=== PATIENT | male | born 1945 | race African-American/Black ===

== ENCOUNTER 2018-09-25 10:19 | Inpatient (IN) ==
[2018-09-25 12:30] LABS: BASO# 0.01 X1000 (0.0-0.2); BASO% 0.1 % (0.0-0.8); EOS# 0.11 X1000 (0.0-0.7); EOS% 1.4 % (0.0-10.0); HEMATOCRIT 29.9 % (42.0-52.0); IMM GRAN# 0.04 X1000 (0.0-0.04); IMM GRAN% 0.5 % (0.0-0.5); LYMPH# 0.42 X1000 (1.2-3.4); LYMPH% 5.2 % (20.5-51.1); MCH 27.4 PG (27-31); MCHC 30.1 g/dL (33-37); MCV 90.9 FL (81-99); MONO# 0.74 X1000 (0.11-0.59); MONO% 9.2 % (1.7-9.3); MPV 10.5 FL (7.4-10.4); NEUT# 6.75 X1000 (1.4-6.5); NEUT% 83.6 % (42.2-75.2); PLT 270 X1000 (130-400); RBC 3.29 XMIL (4.7-6.1); RDW 21.4 % (11.5-14.5); WBC 8.07 X1000 (4.8-10.8)
[2018-09-25] MEDS ORDERED: MORPHINE IV PRN (12:34)
[2018-09-25] MEDS ORDERED: ZOFRAN IV PRN (12:34)
[2018-09-25 12:39] LABS: AMYLASE 79 U/L (20-200); LIPASE 99 U/L (13-60)
[2018-09-25 12:43] LABS: ALB/GLOB RATIO 0.9; ALBUMIN 3.3 g/dL (3.5-5.0); CALCIUM 8.5 mg/dL (8.8-10.2); CREATININE 1.9 mg/dL (0.7-1.2); MAGNESIUM 1.8 mg/dL (1.5-2.7); POTASSIUM 3.2 mmol/L (3.5-5.1); TOTAL BILIRUBIN 7.09 mg/dL (0.20-1.00); TOTAL PROTEIN 6.9 g/dL (6.3-8.3)
[2018-09-25 12:45] LABS: INR 0.99; PROTIME 13.9 Seconds (11.0-16.0)
--- NOTE | 2018-09-25 13:39 | HISTORY AND PHYSICAL ---
ONCOLOGIST: Dr. Gamaliel Marshall. CHIEF COMPLAINT: Abnormal labs and jaundice. HISTORY OF PRESENT ILLNESS: Mr. Guzman is a 73-year-old male with a known history of pancreatic cancer followed by Dr. Marshall. He also has a history of high blood pressure, diabetes mellitus, and gout. He comes directly from Dr. Marshall's office with high bilirubin which is an abrupt change from only a few days ago. Mr. Guzman was initially diagnosed with pancreatic cancer last year. He was set up to follow with interventionalist down at [facility] for some type of procedure, either stent placement or possible Whipple. This was scheduled for July of 2018. The patient reports that this was canceled because when they did the initial incision, they were able to look in his abdomen and realize that surgery was not an option. We do not have the specific report at this time. This is per patient report. At any rate, the patient was supposed to start chemotherapy today by Dr. Marshall. Labs were checked and he was found to have a high bilirubin. He does report ailyn-colored stools and darker urine and jaundice of the eyes, but otherwise his complaints are the same. He has vague abdominal pain mostly at night, and he is unable to eat much, but he denies any fever or vomiting. He does have some nausea. No other real issues. He does report some chronic lower extremity edema but denies chest pain or shortness of breath. We have been asked to admit the patient directly and will consult GI. PAST MEDICAL HISTORY: 1. Known pancreatic cancer followed by Dr. Marshall who was supposed to start chemotherapy today. 2. Diabetes mellitus type 2. 3. Hypertension. 4. Gout. 5. Hyperlipidemia. 6. History of GI bleeding in the past. 7. Chronic kidney disease. 8. Hypothyroidism. SURGICAL HISTORY: He has had a port placement and surgery on his finger. He also had an aborted abdominal procedure in July of last year. FAMILY HISTORY: Noncontributory. SOCIAL HISTORY: The patient lives alone. Denies tobacco, alcohol, or drug use. ALLERGIES: No known drug allergies. HOME MEDICATIONS: Yet to be compiled. PHYSICAL EXAMINATION: VITAL SIGNS: Blood pressure 104/61, heart rate is 81, respiratory rate 20, O2 sat 100% on room air, temperature is 97.3. GENERAL: This is a somewhat disheveled and chronically ill-appearing 73-year- old male lying in a hospital bed in no acute distress. NEUROLOGIC: Nonfocal. He is oriented, follow commands without deficits. HEENT: Head atraumatic and normocephalic. His pupils are equal, round and reactive to light. Sclera is a bit jaundiced. Trachea is midline. NECK: There is no JVD. CHEST: Clear to auscultation bilaterally. CV: Regular rate and rhythm, S1, S2 noted. No appreciable murmurs. GI: Slightly distended but soft. He has some very minimal epigastric and left upper quadrant tenderness to palpation. Bowel sounds are hypoactive. EXTREMITIES: 1+ to 2+ edema. Pulses diminished but palpable bilaterally. DIAGNOSTIC DATA: Pending. ASSESSMENT AND PLAN: 1. Obstructive jaundice: Likely related to his known pancreatic cancer. Will check an abdominal ultrasound now and consult GI for possible ERCP. Keep him n.p.o. Add antiemetics and continue pain medication. Will check labs now and daily. 2. Pancreatic cancer: Abdomen ultrasound is pending. Dr. Marshall has been consulted. 3. Diabetes mellitus type 2: Continue patterned sugars, sliding scale insulin. 4. Chronic kidney disease. Exact staging is unknown, likely stages 3-4. Will check a urinalysis and chemistry panel. 5. Hypertension. Continue home medications once compiled. 6. Further recommendations made once diagnostic testing has been complete. We will add SCDs for DVT prophylaxis as the patient has had GI bleeding in the past. Further recommendations to follow. Patient seen and examined by me face to face, all the laboratory, vitals signs and images were reviewed, patient presented with Jaundice, he has a history of unresectable pancreatic cancer, Dr Marshall from Oncology department know this patient really well and actually was sent her from his office, his LFTs and bilirubin went up and he now has jaundice, we will consult Gastroenterology department for possible ERCP, he is not complaining of pain this moment, his abdomen is a little bit distended and mild tender to palpation, I agree with the NEUROLOGY TECH's assessment and plan, Jesus Aburto MD. Dictated by SIGIFREDO Painter for Jesus Zepeda MD cc: SIGIFREDO Painter MD [facility]
--- NOTE | 2018-09-25 13:44 | Diag Imaging Result Doc PS360 ---
EXAM: CHEST-PORTABLE HISTORY: obstructive jaundice, weakness TECHNIQUE: Portable chest COMPARISON: 05/31/2018 FINDINGS: The lungs are well expanded. No change in the left portacatheter. The heart is enlarged. The vessels are not distended. There are no infiltrates. No effusion identified. IMPRESSION: Cardiomegaly Electronically signed by Aamir Mcpherson 09/25/2018 1:42 PM
--- NOTE | 2018-09-25 15:02 | HEMO/ONC CONSULTATION ---
DATE: 09/25/2018 REASON FOR CONSULTATION: Hyperbilirubinemia, metastatic pancreatic cancer. HISTORY OF PRESENT ILLNESS: The patient is a 73-year-old male, who was initially diagnosed with T4 N0 M0 pancreatic adenocarcinoma. Endoscopic ultrasound revealed invasion of the portal vein and duodenum. He was started on neoadjuvant Gemzar and Abraxane on 03/07/2018 and received 4 cycles. He had good response with improvement in his CA-19-9. He was sent to [facility] for surgical evaluation. Unfortunately, there was a significant delay at [facility]. On 07/31/2018, he underwent laparotomy, biopsy of the head of the pancreas and transverse colon mesentery and gastrojejunostomy on 07/31/2018. Intraoperatively, he was noted to have significant disease and was considered unresectable. Today, he came in to reinitiate chemotherapy. He was noted in the clinic to have significant hyperbilirubinemia. He was admitted to the hospital for evaluation and further management. PAST MEDICAL HISTORY: Hypertension, CHF, CKD, hyperlipidemia, gout, diabetes, and hypothyroidism. FAMILY HISTORY: Noncontributory. SOCIAL HISTORY: Patient denies smoking, alcohol, or substance abuse. ALLERGIES: No known drug allergies. REVIEW OF SYSTEMS: Patient complains of tiredness and fatigue. He was recently noted to have a hemoglobin of 6 and received 2 units of PRBCs about 2 weeks ago. He was also noted to have iron deficiency and received IV iron. His anemia was thought to be due to recent surgery. All other review of systems are negative. PHYSICAL EXAMINATION: General: The patient is a well-developed male in no acute distress. Vital Signs: Temperature 97.3, pulse 81, blood pressure 104/61. Eyes EOMI. PERRLA. Anicteric. Mucous membranes are moist. Neck: Supple without JVD, thyromegaly, or nodules. Cardiac: Regular rate and rhythm. Normal S1, S2. Chest: Clear to auscultation. Abdomen: Protuberant, soft, nontender, without hepatosplenomegaly. Extremities: No cyanosis, clubbing, or edema. Neurological: Alert and oriented x3. No focal motor deficits. LABORATORY DATA: White count 8.0, hemoglobin 9.0, MCV 90, platelets 270,000. BUN 37, creatinine 1.9, bilirubin 7.0. AST 189, ALT 182, alkaline phosphatase 325. ASSESSMENT AND PLAN: 1. Unresectable pancreatic adenocarcinoma: He was due to restart chemotherapy today. He cannot receive Abraxane due to his renal dysfunction and LFT abnormalities. We can proceed with Gemzar and will make arrangements for that in the hospital. 2. Obstructive jaundice: The patient has developed significant jaundice. Of note, his bilirubin was 0.23 on 09/17/2018. Check abdominal ultrasound. Consult Dr. Spain for endoscopic retrograde cholangiopancreatography. 3. Chronic kidney disease: His creatinine is relatively stable. 4. History of congestive heart failure. So far, no decompensation. 5. Deep venous thrombosis prophylaxis. Consider Lovenox. 6. Anemia: He is status post 2 units of PRBCs about 2 weeks ago. He also received IV iron. Hemoglobin has come up from 6.1 to 9.1 in the meanwhile. Continue to monitor for now. cc: Gamaliel Marshall MD
--- NOTE | 2018-09-25 15:19 | Diag Imaging Result Doc PS360 ---
US ABDOMEN-COMPLETE - 09/25/2018 INDICATION: renal failure, josué bili, pancreatic cancer COMPARISON: 01/13/2018, 01/14/2018 FINDINGS: The exam is challenging due to the patient's large size. There is a grossly stable large mass at the pancreatic head. This measures about 7 cm. The spleen is normal. The spleen measures 6.6 x 6.1 x 3 cm. There are some faint echoes in the gallbladder. The appearance suggests sludge or tiny stones. Sonographic Cruz sign is negative. There are bilateral renal cysts measuring up to 2.5 cm. Otherwise both kidneys are normal. Common bile duct measures 4 mm. The liver is normal. Aorta, IVC, and main portal vein are patent. IMPRESSION: 1. Stable large solid mass in the pancreatic head. 2. Stones and sludge in the gallbladder. No gallbladder tenderness. 3. No biliary dilation or biliary obstruction. Electronically signed by Conrado Sullivan 09/25/2018 3:17 PM
[2018-09-25] MEDS ORDERED: ZOFRAN 16 MG in NS 50 ML IV ONE (16:30)
[2018-09-25] MEDS: SODIUM CHLORIDE 0.9% INJ SCH (16:43)
[2018-09-25] MEDS: PROTONIX IV SCH (16:43)
[2018-09-25] MEDS ORDERED: NS IV ONE (17:00)
[2018-09-25] MEDS ORDERED: GEMZAR IV ONE (17:00)
[2018-09-25] MEDS: HUMULIN R SUBQ SCH ×2 (18:20→21:51)
[2018-09-26] MEDS: SODIUM CHLORIDE 0.9% INJ SCH ×2 (06:07→18:14)
[2018-09-26] MEDS: HUMULIN R SUBQ SCH ×4 (06:08→21:45)
[2018-09-26] MEDS: PROTONIX IV SCH ×2 (06:08→18:14)
[2018-09-26 07:44] LABS: BASO# 0.01 X1000 (0.0-0.2); BASO% 0.1 % (0.0-0.8); EOS# 0.02 X1000 (0.0-0.7); EOS% 0.2 % (0.0-10.0); HEMATOCRIT 29.1 % (42.0-52.0); HEMOGLOBIN 8.8 g/dL (14.0-18.0); IMM GRAN# 0.02 X1000 (0.0-0.04); IMM GRAN% 0.2 % (0.0-0.5); LYMPH% 5.9 % (20.5-51.1); MCH 27.2 PG (27-31); MCHC 30.2 g/dL (33-37); MCV 90.1 FL (81-99); MONO# 0.77 X1000 (0.11-0.59); MONO% 9.1 % (1.7-9.3); NEUT# 7.15 X1000 (1.4-6.5); NEUT% 84.5 % (42.2-75.2); PLT 247 X1000 (130-400); RBC 3.23 XMIL (4.7-6.1); RDW 21.1 % (11.5-14.5); WBC 8.47 X1000 (4.8-10.8)
[2018-09-26 08:15] LABS: ALB/GLOB RATIO 0.8; ALBUMIN 2.7 g/dL (3.5-5.0); CALCIUM 8.1 mg/dL (8.8-10.2); CREATININE 1.8 mg/dL (0.7-1.2); MAGNESIUM 1.7 mg/dL (1.5-2.7); POTASSIUM 3.4 mmol/L (3.5-5.1); TOTAL BILIRUBIN 7.2 mg/dL (0.20-1.00); TOTAL PROTEIN 6.1 g/dL (6.3-8.3)
--- NOTE | 2018-09-26 08:27 | HEMO/ONC PROGRESS NOTE ---
DATE: 09/26/2018 SUBJECTIVE: The patient complains of some slight abdominal pain. Otherwise, patient says he is feeling slightly better. OBJECTIVE: Vital Signs: Temperature 98.3, heart rate 93, respiratory rate 16, blood pressure 104/59, sat 98% on room air. General: The patient is awake, lying in bed, in no acute distress noted. HEENT: Anicteric. Pupils PERRLA. Chest: Bilateral breath sounds, clear to auscultation. Cardiovascular: S1, S2. Regular rate and rhythm. Abdomen soft, nontender. Skin: Warm, dry, and intact. Jaundice noted. Neurologic: Alert and oriented x3. No focal deficits noted. LABORATORY DATA: White blood cell count is 8.47, hemoglobin 8.8, hematocrit 29.1, platelets are 247. ASSESSMENT AND PLAN: 1. Unresectable pancreatic adenocarcinoma. The patient received Gemzar yesterday in the hospital and tolerated it well. Continue to monitor closely. 2. Obstructive jaundice: Abdominal ultrasound showed no biliary dilation or biliary obstruction. It showed stable large soft mass in the pancreatic head, stones and sludge in the gallbladder. No gallbladder tenderness. Dr. Spain has been consulted. Continue to monitor closely. 3. Chronic kidney disease. 4. Deep venous thrombosis prophylaxis. Continue sequential compression devices and thromboembolic disease stockings. 5. Anemia: Hemoglobin and hematocrit continue to be stable. Continue to monitor at this time. Dictated by SIGIFREDO Jo for Gamaliel Marshall MD Patient seen and examined. No new complaints. Abdominal ultrasound results noted. Discussed with Dr. Spain. Patients bilirubin has gone from normal to 7 within a week. No other etiology noted. This is most likely obstructive jaundice despite abdominal ultrasound not revealing biliary dilatation. Plans for ERCP tomorrow. Patient to be out of bed as much as possible. Gamaliel Marshall M.D. cc: SIGIFREDO Jo MD [facility]
--- NOTE | 2018-09-26 10:26 | CONSULTATION ---
DATE OF CONSULTATION: 09/25/2018 REASON FOR CONSULTATION: Jaundice. HISTORY OF PRESENT ILLNESS: Mr. Guzman is a 73-year-old gentleman with a known history of pancreatic cancer, being followed by Dr. Marshall. Recently, his bilirubin has increased in the last 1 week. He was sent to [facility] for intervention and stent placement, which was scheduled in July. However, that was canceled because he was nonoperable. He is getting, more recently, ailyn-colored stools and dark urine, some mild abdominal pain as well. PAST MEDICAL HISTORY: 1. Pancreatic cancer. 2. Diabetes. 3. Hypertension. 4. Gout. 5. Hyperlipidemia. 6. History of GI bleed. 7. Hypothyroidism. PAST SURGICAL HISTORY: Port placement and laparotomy. FAMILY HISTORY: Noncontributory. SOCIAL HISTORY: He does not smoke, drink, or use drugs. ALLERGIES: None. HOME MEDICATIONS: Reconciled. PHYSICAL EXAMINATION: General: This is a very pleasant gentleman in no acute distress, chronically ill appearing gentleman. Vital Signs: Blood pressure 104/61, heart rate 81, respiratory rate 20, O2 saturation 100%. HEENT: There is scleral icterus. No conjunctival pallor. Neck: Supple. Trachea in the midline. Abdomen: Some vague tenderness. Extremities: 1+ edema. Central nervous system: Alert and oriented. IMPRESSION AND PLAN: 1. Jaundice. He has a history of pancreatic cancer. He cannot get a CT, so will do an ultrasound. 2. Pancreatic cancer, inoperable. 3. Diabetes. 4. Chronic kidney disease. 5. Hypertension. 6. Deep venous thrombosis prophylaxis. Will review the ultrasound and liver function tests, and decide whether he needs ERCP. He most likely does need ERCP even if we cannot see any significant dilation of the bile duct because of the proximity of the tumor to both pancreatic and common bile ducts. Will review the ultrasound. cc: MD ZOHAIB Hi
[2018-09-26] MEDS ORDERED: KLOR-CON PO ONE (11:28)
[2018-09-26] MEDS: LASIX PO SCH (12:38)
--- NOTE | 2018-09-26 15:33 | PROGRESS NOTE ---
DATE: 09/26/2018 SUBJECTIVE: This patient is not complaining of any pain at this moment. No new events overnight. Gastroenterology department evaluated this patient, probably he will need an ERCP done, pending abdominal ultrasound. OBJECTIVE: Vital Signs: Temperature 98.2, pulse 97, respiratory rate 18, blood pressure 121/68. Oxygen saturation 98% on room air. HEENT: Head normocephalic. No trauma. PERRLA. Icteric sclerae. Neck: Supple. No JVD. No masses. Central trachea. Chest: Clear to auscultation. No wheezing. No rales. Abdomen: Soft. Distended. Positive bowel sounds. Extremities: 2+ lower extremity edema. No clubbing or cyanosis. Neurological: This patient is alert and oriented x3. No focal deficits. LABORATORY: WBC 8.4, hemoglobin 8.8, hematocrit 29.1, platelets 247. Sodium 142, potassium 3.4, chloride 106, bicarbonate 24, BUN 37, creatinine 1.8, glucose 59, calcium 8.1. AST 146, ALT 154, alkaline phosphatase 312, total bilirubin 7.2. ASSESSMENT AND PLAN: 1. Unresectable pancreatic adenocarcinoma. Hematology/Oncology following with this patient closely. They are trying to go ahead and start this patient on chemotherapy. Will monitor. 2. Obstructive jaundice. This patient has developed significant jaundice. His bilirubin is elevated more than 7. Abdominal ultrasound has been recommended by Dr. Spain and probably he will get an ERCP done. 3. Chronic kidney disease, stable. 4. Hypokalemia. Will monitor for now, it is mild. He received a dose of potassium today. 5. Mild hypoglycemia, asymptomatic. The patient is tolerating p.o. 6. Type 2 diabetes. Continue patterned blood sugars and sliding scale insulin. 7. Hypertension. Continue with home medications. 8. Deep venous thrombosis prophylaxis with sequential compression devices. cc: Jesus Zepeda MD
--- NOTE | 2018-09-26 15:38 | PROGRESS NOTE ---
DATE: 09/26/2018 SUBJECTIVE: Resting in bed. He is feeling the same. He complains of abdominal discomfort. He denies any nausea or vomiting. He is jaundice. OBJECTIVE: Vital Signs: Temperature of 98.2, pulse of 97, respiratory rate 18, blood pressure 121/68, saturating 98% on room air. In general, he is moderately well-nourished, lying in bed in no acute distress. HEENT: Conjunctivae pale. Icteric sclerae. Neck is supple. Abdomen is protuberant. Discomfort in the fingers. No cyanosis, clubbing. Neuro: Alert, awake, and oriented. LABORATORY DATA: Hemoglobin and hematocrit is 8.8 and 29.1, white count of 8.47, platelet count of 247,000. Sodium 142, potassium 3.4, chloride 106, bicarb 24, anion gap 12. BUN of 37, creatinine 1.8, glucose of 59, calcium is 8.1, magnesium 1.7, total bilirubin 7.20. AST 146. ALT 154. Alkaline phosphatase 312. Total protein 6.1, albumin of 2.7. Amylase of 79, lipase of 99. Lactate of 1.9. Blood culture x2 was drawn yesterday which are currently pending. Abdominal ultrasound showed stable large solid mass on pancreatic head. Stones and sludge in the gallbladder. No gallbladder tenderness. No biliary dilation or biliary obstruction. The patient had last abdomen, pelvis, CT scan done on 01/05/2019 which showed colonic diverticulosis. Enlarged prostate and prominent enlarged pancreatic head. IMPRESSION AND PLAN: 1. Pancreatic cancer. 2. Jaundice. 3. Diabetes. 4. Anemia. 5. Chronic kidney disease. 6. Hypertension. RECOMMENDATIONS: We will continue with supportive care. We will check direct bilirubin. We will discuss the case with Dr. Spain who saw the patient yesterday. Possible ERCP will be planned. The procedure of ERCP was explained to the patient along with the risks, benefits, indications, and alternatives. The patient has had an ERCP done in the past at [facility]. Gastrointestinal prophylaxis. PPIs. We will start on Iron C b.i.d. and multivitamin once daily for anemia. We will start him on a bowel regimen with MiraLAX. We will continue on sliding scale insulin, and he will continue pain control with morphine. Above plan discussed with the patient. All questions answered. Please call us with any questions. cc: MD Gamaliel Zacarias MD
[2018-09-26] MEDS: ICAR-C PO SCH (21:44)
[2018-09-26] MEDS: NORCO-10 PO PRN (21:44)
[2018-09-26] MEDS: MIRALAX PO SCH (21:45)
[2018-09-27] MEDS: PROTONIX IV SCH ×2 (06:10→18:47)
[2018-09-27] MEDS: SODIUM CHLORIDE 0.9% INJ SCH (06:10)
[2018-09-27] MEDS: HUMULIN R SUBQ SCH ×4 (06:24→21:46)
[2018-09-27 07:42] LABS: BASO# 0.01 X1000 (0.0-0.2); BASO% 0.1 % (0.0-0.8); EOS# 0.08 X1000 (0.0-0.7); EOS% 0.9 % (0.0-10.0); HEMATOCRIT 31.7 % (42.0-52.0); HEMOGLOBIN 9.7 g/dL (14.0-18.0); LYMPH# 0.66 X1000 (1.2-3.4); LYMPH% 7.3 % (20.5-51.1); MCH 27.5 PG (27-31); MCHC 30.6 g/dL (33-37); MCV 89.8 FL (81-99); MONO# 0.23 X1000 (0.11-0.59); MONO% 2.6 % (1.7-9.3); MPV 11.4 FL (7.4-10.4); NEUT% 89.1 % (42.2-75.2); PLT 240 X1000 (130-400); RBC 3.53 XMIL (4.7-6.1); RDW 21.6 % (11.5-14.5); WBC 8.98 X1000 (4.8-10.8)
[2018-09-27 07:54] LABS: ALB/GLOB RATIO 0.8; CALCIUM 8.6 mg/dL (8.8-10.2); CREATININE 2.3 mg/dL (0.7-1.2); MAGNESIUM 1.9 mg/dL (1.5-2.7); POTASSIUM 4.2 mmol/L (3.5-5.1); TOTAL BILIRUBIN 9.28 mg/dL (0.20-1.00); TOTAL PROTEIN 6.8 g/dL (6.3-8.3)
--- NOTE | 2018-09-27 08:21 | HEMO/ONC PROGRESS NOTE ---
DATE: 09/27/2018 SUBJECTIVE: The patient says he continues to feel okay. The patient says he continues to have some mild abdominal discomfort. The patient denies any nausea or vomiting. OBJECTIVE: Vital Signs: Temperature 97.7 degrees, heart rate 89, respiratory rate 16, blood pressure 119/64, saturation 98% on room air. General: The patient is awake, lying in bed. No acute distress noted. HEENT: PERRLA. Icteric sclerae. Cardiovascular: Normal S1 and S2. Regular rate and rhythm. Chest: Bilateral breath sounds. Clear to auscultation. Abdomen: Soft. Mildly distended. Bowel sounds present in all 4 quadrants. Neurologic: Alert and oriented x3. No focal deficits noted. LABORATORY DATA: White blood cell count 8.98, hemoglobin 9.7, hematocrit 31.7, platelets 240,000. Potassium 4.2, BUN 44, creatinine 2.3, calcium 8.6, total bilirubin 9.28, AST 127, ALT 144, alkaline phosphatase 337. ASSESSMENT AND PLAN: 1. Unresectable pancreatic adenocarcinoma: The patient tolerated chemotherapy well. Continue to monitor closely. 2. Obstructive jaundice: Dr. Spain has been consulted. Patient to have ERCP later today. 3. Chronic kidney disease: Creatinine continues to slowly increase. Today it is up to 2.3. Continue recommendations per primary medical team. 4. Deep venous thrombosis prophylaxis. Continue sequential compression devices and thromboembolic device hose. 5. Anemia: Hemoglobin and hematocrit continue to be stable. The patient has history of gastrointestinal bleed. Continue to monitor. Dictated by SIGIFREDO Jo for Gamaliel Marshall MD As above. ERCP unsuccessful. Discussed with Dr. Spain and Radiology. Plan for cholecystotomy. Gamaliel Marshall MD cc: SIGIFREDO Jo MD [facility]
[2018-09-27] MEDS ORDERED: DIPRIVAN 1% ONE (09:39)
--- NOTE | 2018-09-27 11:07 | OPERATIVE NOTE ---
PROCEDURE DATE: 09/27/2018 REQUESTING PHYSICIAN: Dr. Marshall. TITLE OF PROCEDURE: 1. Esophagogastroduodenoscopy. 2. Attempted endoscopic retrograde cholangiopancreatography. POSTOPERATIVE DIAGNOSES: 1. Tumor invasion into the duodenum with complete obstruction by the pancreatic adenocarcinoma causing inability to pass the endoscopic retrograde cholangiopancreatography scope into the duodenum. 2. Contact oozing in the duodenal bulb. 3. Evidence of gastroenteric anastomosis to bypass the duodenal obstruction. ESTIMATED BLOOD LOSS: Minimal. COMPLICATIONS: None. ANESTHESIA: Monitored anesthesia care per the anesthesiologist. SPECIMENS: None. PRIMARY SURGEON: Dr. Marcellus Bingham. SECONDARY SURGEON: Dr. Spain. PROCEDURE: After informed consent, the patient explained the risks, benefits, indications, alternatives to the patient prepared for EGD and ERCP. The risks of the procedure, including infection, bleeding, pain, trauma to the surrounding structures, perforation, , were explained to the patient, and he acknowledged this and agreed to proceed. The patient was brought to the OR. He was turned on the left lateral decubitus position. The ERCP scope was introduced through the oral vestibule and advanced all the way to the duodenal bulb. The esophagus was normal the entire length and Z-line was visualized. The stomach had retained fluid, which was suctioned out. Retroflexion revealed normal fundus, cardia, incisura. There was evidence of a gastroenteric anastomosis of the bypass the obstructed duodenum. The ERCP scope was able to pass through the pylorus, but could not traverse the duodenal bulb because of complete occlusion of duodenal bulb by the tumor necrotic tissue. There was contact oozing at the site. Dr. Spain also tried to push the scope into the duodenal bulb, but failed. The duodenal bulb is completely occluded from tumor invasion and necrotic tissue. At this time, we decided to abort the ERCP. The stomach was examined. The gastroenteric anastomosis was patent. The air as well as scope was withdrawn. The patient tolerated the procedure well and will be monitored in the OR in stable condition. RECOMMENDATIONS: 1. The patient will be on clear liquid diet and advance as tolerated. 2. Will call interventional radiology consultation for possible transhepatic drain. 3. Continue to watch the liver enzymes for now. 4. Transfuse as needed. 5. Will discuss with Dr. Marshall. 6. Will try to call the patient's brother and discuss the findings. Further recommendations follow pending the hospital course. cc: MD Gamaliel Zacarias MD MTDMiguel
[2018-09-27] MEDS: CENTRUM SILVER PO SCH (13:15)
[2018-09-27] MEDS: ICAR-C PO SCH ×2 (13:15→21:46)
[2018-09-27] MEDS: LASIX PO SCH (13:15)
[2018-09-27] MEDS: MIRALAX PO SCH ×2 (13:16→21:45)
[2018-09-27] MEDS: ZYLOPRIM PO SCH (13:17)
--- NOTE | 2018-09-27 15:57 | PROGRESS NOTE ---
DATE: 09/27/2018 SUBJECTIVE: This patient is not complaining of pain at this moment. He is status post endoscopic procedure that showed a tumor invasion into the duodenum with complete obstruction by the pancreatic adenocarcinoma causing inability to past the endoscopic retrograde cholangiopancreatography scope into the duodenum. Contact oozing in the duodenal bulb. Evidence of gastroenteric anastomosis to bypass the duodenal obstruction. OBJECTIVE: Vital Signs: Temperature 97.7, pulse 89, respiratory rate 16, blood pressure 119/64, oxygen saturation 100% on room air. HEENT: Head. Normocephalic. No trauma. PERRLA. Icteric sclerae. Neck supple. No JVD. No masses. Central trachea. Chest clear to auscultation. No wheezing. No rales. Abdomen soft, distended. Positive bowel sounds. Extremities 2+ lower extremity edema. No clubbing. No cyanosis. Neurological: The patient is alert and oriented x3. No focal deficits. LABORATORY: WBC 8.9, hemoglobin 9.7, hematocrit 31.7. Platelets 240,000. Sodium 138, potassium 4.2, chloride 102, bicarbonate 23. BUN 44, creatinine 2.3, glucose 67, calcium 8.6. AST 127. ALT 144, alkaline phosphatase 337, albumin 3. ASSESSMENT AND PLAN: 1. Unresectable pancreatic adenocarcinoma. We will continue to monitor this closely. Hematology/Oncology following this patient. 2. Obstructive jaundice. This patient has developed significant jaundice. Bilirubin is elevated. We tried to do any endoscopic retrograde cholangiopancreatography today, but it looks like his pancreatic mass has been invading the duodenum completely, and they were unable to do the endoscopic retrograde cholangiopancreatography. 3. Chronic kidney disease, stable. 4. Hypokalemia. Will monitor. 5. Mild hypoglycemia, asymptomatic. 6. Type 2 diabetes. Continue pattern blood sugar and sliding scale insulin. 7. Hypertension. Continue home medication. 8. Deep vein thrombosis prophylaxis with sequential compression devices. cc: Jesus Zepeda MD
[2018-09-28] MEDS: NORCO-10 PO PRN (01:00)
[2018-09-28] MEDS: HUMULIN R SUBQ SCH ×4 (06:40→21:37)
[2018-09-28] MEDS: PROTONIX IV SCH ×2 (06:56→18:24)
[2018-09-28] MEDS: SODIUM CHLORIDE 0.9% INJ SCH (06:56)
[2018-09-28 07:23] LABS: BASO# 0.01 X1000 (0.0-0.2); BASO% 0.1 % (0.0-0.8); EOS# 0.04 X1000 (0.0-0.7); EOS% 0.5 % (0.0-10.0); HEMATOCRIT 27.9 % (42.0-52.0); HEMOGLOBIN 8.7 g/dL (14.0-18.0); IMM GRAN# 0.02 X1000 (0.0-0.04); IMM GRAN% 0.3 % (0.0-0.5); LYMPH# 0.43 X1000 (1.2-3.4); LYMPH% 5.4 % (20.5-51.1); MCH 27.2 PG (27-31); MCHC 31.2 g/dL (33-37); MCV 87.2 FL (81-99); MONO# 0.18 X1000 (0.11-0.59); MONO% 2.3 % (1.7-9.3); MPV 11.7 FL (7.4-10.4); NEUT# 7.24 X1000 (1.4-6.5); NEUT% 91.4 % (42.2-75.2); PLT 233 X1000 (130-400); RDW 21.5 % (11.5-14.5); WBC 7.92 X1000 (4.8-10.8)
[2018-09-28 07:30] LABS: ALB/GLOB RATIO 0.7; ALBUMIN 2.5 g/dL (3.5-5.0); CALCIUM 8.2 mg/dL (8.8-10.2); CREATININE 2.1 mg/dL (0.7-1.2); MAGNESIUM 1.8 mg/dL (1.5-2.7); POTASSIUM 3.8 mmol/L (3.5-5.1); TOTAL BILIRUBIN 8.73 mg/dL (0.20-1.00); TOTAL PROTEIN 6.1 g/dL (6.3-8.3)
[2018-09-28 07:40] LABS: LYMPHS 10 % (21-51); MONO 14 % (1-9); SEGS 76 % (42-75)
--- NOTE | 2018-09-28 08:47 | HEMO/ONC PROGRESS NOTE ---
DATE: 09/28/2018 SUBJECTIVE: The patient has had increased amounts of abdominal pain. The patient said at this moment pain is under control. The patient denies any other complaints. OBJECTIVE: Vital Signs: Temperature 98.2, heart rate 93, respiratory rate 20, blood pressure 108/57, sat 97% on room air. General: Patient is awake, lying in bed. No acute distress noted. HEENT: Pupils PERRLA. Anicteric sclerae. Chest: Bilateral breath sounds clear to auscultation. Cardiovascular: S1, S2. Regular rate and rhythm. Abdomen soft, distended. Bowel sounds present in all 4 quadrants. Neurologic: Alert and oriented x3. No focal deficits noted. LABORATORY DATA: White blood cell count 7.92, hemoglobin 8.7, hematocrit 27.9, platelets 233,000, potassium 3.8. BUN 45, creatinine 2.1, calcium 8.2, total bilirubin 8.73, AST 120, ALT 119, alkaline phosphatase 399. ASSESSMENT AND PLAN: 1. Unresectable pancreatic adenocarcinoma. The patient tolerated chemotherapy well. Continue to monitor closely at this time. 2. Obstructive jaundice: Endoscopic retrograde cholangiopancreatography was attempted yesterday. Unable to pass the scope. At this time, follow recommendations per Gastroenterology. Continue to monitor closely. 3. Chronic kidney disease. Creatinine continues to slowly improve. Continue recommendation by primary medical team. 4. Deep venous thrombosis prophylaxis. Continue sequential compression devices and thromboembolic disease hoses. Have the patient get out of bed as much as possible. 5. Anemia: Hemoglobin and hematocrit continue to be stable. Patient has history of gastrointestinal bleed. Continue to monitor closely and transfuse as needed. Dictated by SIGIFREDO Jo for Gamaliel Marshall MD Patient seen and examined. As above. Discussed with GI and radiology. Plans for cholecystotomy. Gamaliel Marshall M.D. cc: SIGIFREDO Jo MD [facility]
[2018-09-28] MEDS: ZYLOPRIM PO SCH (09:21)
[2018-09-28] MEDS: ICAR-C PO SCH ×2 (09:21→21:36)
[2018-09-28] MEDS: MIRALAX PO SCH ×2 (09:21→21:37)
[2018-09-28] MEDS: LASIX PO SCH (09:21)
[2018-09-28] MEDS: CENTRUM SILVER PO SCH (09:21)
--- NOTE | 2018-09-28 09:53 | PROGRESS NOTE ---
DATE: 09/28/2018 SUBJECTIVE: No acute events overnight. Hematology/Oncology Department, Gastroenterology Department and Interventional Radiology have decided to go ahead and probably do a cholecystostomy procedure. This patient has been placed n.p.o. and we will continue to monitor. OBJECTIVE: Vital Signs: Temperature 98.2 degrees, pulse 93, respiratory rate 20, blood pressure 108/57, oxygen saturation 97% on room air. HEENT: Head normocephalic. No trauma. PERRLA. Icteric sclerae. Neck: Supple. No JVD. Central trachea. Chest: Clear to auscultation. No wheezing. No rales. Abdomen: Somewhat distended. Positive bowel sounds. Some tenderness to palpation at the level of the periumbilical area and right upper quadrant. Extremities: 2+ lower extremity edema. No clubbing. No cyanosis. Neurological examination: The patient is alert and oriented x3. No focal deficits. LABORATORY: WBC 7.9, hemoglobin 8.7, hematocrit 27.9, platelet 233. Sodium 140, potassium 3.8, chloride 104, bicarbonate 23, BUN 45, creatinine 2.1, glucose 44, calcium at 8.2, AST 120, ALT 119, alkaline phosphatase 399, albumin 2.5. ASSESSMENT AND PLAN: 1. Unresectable pancreatic adenocarcinoma. Continue to monitor closely. Hematology/Oncology following this patient. 2. Obstructive jaundice this patient has developed significant jaundice, bilirubin is elevated. We tried to do an ERCP yesterday, but it looks like the pancreatic mass has been invading the duodenum. We were not able to do the procedure. Today, after discussion with Gastroenterology Department and Interventional radiology, they have decided to do a cholecystostomy procedure. 3. Chronic kidney disease, stable. 4. Hypokalemia. We will monitor. 5. Mild hypoglycemia, asymptomatic. 6. Type 2 diabetes. Continue with pattern of blood sugar and sliding scale insulin. 7. Hypertension. Continue home medication. 8. Deep vein thrombosis prophylaxis with sequential compression devices for now. cc: Jesus Zepeda MD
--- NOTE | 2018-09-28 11:48 | PROGRESS NOTE ---
DATE: 09/28/2018 SUBJECTIVE: No acute events. The patient is getting ready to get cholecystostomy. I spoke to Radiology. Since there is no significant intrahepatic biliary dilation, they recommended cholecystostomy. OBJECTIVE: Vital Signs: Temperature 98 degrees, pulse 93, respiratory rate 20, blood pressure 108/57, O2 saturation 97 on room air. HEENT: Conjunctival pallor present. Jaundiced. Heart: Normal. Lungs: Normal. Abdomen: Distended. Some discomfort in the upper abdomen. No rebound or guarding. Neurological: Alert. LABORATORY: Hemoglobin and hematocrit stable at 8.7 and 27.9. Creatinine 2.1. AST 120, ALT 119, alkaline phosphatase 399. IMPRESSION AND PLAN: 1. Pancreatic cancer invading the duodenum with biliary obstruction. 2. Chronic kidney disease. 3. Hypoglycemia. 4. Type 2 diabetes. 5. Gastrointestinal prophylaxis. 6. Deep vein thrombosis prophylaxis. He is getting cholecystostomy today. We will follow after that. I spoke to Dr. Marshall as well. cc: Steffi Spain MD
[2018-09-29] MEDS: PROTONIX IV SCH ×3 (00:34→17:16)
[2018-09-29] MEDS: HUMULIN R SUBQ SCH ×4 (06:20→21:13)
[2018-09-29 07:41] LABS: BASO# 0.01 X1000 (0.0-0.2); BASO% 0.1 % (0.0-0.8); EOS# 0.01 X1000 (0.0-0.7); EOS% 0.1 % (0.0-10.0); HEMATOCRIT 26.1 % (42.0-52.0); HEMOGLOBIN 8.3 g/dL (14.0-18.0); IMM GRAN# 0.02 X1000 (0.0-0.04); IMM GRAN% 0.2 % (0.0-0.5); LYMPH# 0.32 X1000 (1.2-3.4); LYMPH% 3.3 % (20.5-51.1); MCH 27.4 PG (27-31); MCHC 31.8 g/dL (33-37); MCV 86.1 FL (81-99); MONO# 0.08 X1000 (0.11-0.59); MONO% 0.8 % (1.7-9.3); NEUT# 9.37 X1000 (1.4-6.5); NEUT% 95.5 % (42.2-75.2); PLT 293 X1000 (130-400); RBC 3.03 XMIL (4.7-6.1); RDW 21.2 % (11.5-14.5); WBC 9.81 X1000 (4.8-10.8)
[2018-09-29 07:54] LABS: ALB/GLOB RATIO 0.6; ALBUMIN 2.2 g/dL (3.5-5.0); CALCIUM 8.3 mg/dL (8.8-10.2); CREATININE 2.4 mg/dL (0.7-1.2); MAGNESIUM 1.8 mg/dL (1.5-2.7); POTASSIUM 4.8 mmol/L (3.5-5.1); TOTAL BILIRUBIN 8.87 mg/dL (0.20-1.00); TOTAL PROTEIN 5.7 g/dL (6.3-8.3)
[2018-09-29] MEDS: MIRALAX PO SCH ×2 (08:27→21:05)
[2018-09-29] MEDS: ICAR-C PO SCH ×2 (08:28→21:05)
[2018-09-29] MEDS: CENTRUM SILVER PO SCH (08:28)
[2018-09-29 08:29] LABS: BANDS 1 % (0-1); LYMPHS 4 % (21-51); MONO 1 % (1-9); SEGS 94 % (42-75)
[2018-09-29] MEDS: LASIX PO SCH (08:29)
[2018-09-29] MEDS: ZYLOPRIM PO SCH (08:29)
[2018-09-29 08:30] LABS: HYPOCHROM 1+; TARGET CELLS OCCASIONAL
[2018-09-29] MEDS: LOVENOX SUBQ SCH (10:36)
--- NOTE | 2018-09-29 10:49 | PROGRESS NOTE ---
DATE: 09/29/2018 SUBJECTIVE: No acute events overnight. The plan is to go ahead and do a cholecystostomy next Monday. We will continue with the same management. OBJECTIVE: Vital Signs: Temperature 97.7 degrees, pulse 87, respiratory rate 20, blood pressure 105/63, oxygen saturation 100% on room air. HEENT: Head normocephalic. No trauma. PERRLA and icteric sclerae. Neck supple. No JVD. No masses. Central trachea. Chest clear to auscultation. No wheezing. No rales. Some crepitus at the bases. Abdomen: Somewhat distended. Positive bowel sounds. Some tenderness to palpation at the level of the periumbilical area and right upper quadrant. Extremities: 2+ extremity edema. No clubbing. No cyanosis. Neurologic: Alert and oriented x3. No focal deficits. LABORATORY: WBC 9.8, hemoglobin 8.3, hematocrit 26.1, platelets 293,000. Sodium 138, potassium 4.8, chloride 102, bicarbonate 22. BUN 55, creatinine 2.4. Glucose 150. Calcium 8.3. Total bilirubin 8.8. AST 125, ALT 95, alkaline phosphatase 491. Albumin 2.2. ASSESSMENT AND PLAN: 1. Unresectable pancreatic adenocarcinoma. Continue to monitor closely. Hematology/Oncology following this patient. 2. Obstructive jaundice. This patient has developed significant jaundice. Bilirubin is elevated. We tried to do an endoscopic retrograde cholangiopancreatography a couple of days ago but failed. Now, the procedure will be to do a cholecystostomy next Monday. 3. Chronic kidney disease, stable. 4. Hypokalemia. Will monitor. 5. Mild hypoglycemia, asymptomatic. 6. Type 2 diabetes. Continue with pattern of blood sugar and sliding scale insulin. 7. Hypertension. Continue home medication. 8. Deep vein thrombosis prophylaxis with sequential compression devices for now. cc: Jesus Zepeda MD
--- NOTE | 2018-09-29 14:25 | HEMO/ONC PROGRESS NOTE ---
DATE: 09/29/2017 SUBJECTIVE: The patient continues to have some mid abdominal pain. The patient , otherwise, says he is feeling well at this time. OBJECTIVE: Vital Signs: Temperature 99.2, pulse 93, respiratory rate 18, blood pressure is 93/46, saturation 96% on room air. General: The patient is awake, lying in bed, in no acute distress noted. HEENT: Sclerae anicteric. Pupils PERRLA. Mucous membranes moist. Cardiovascular: S1, S2. Regular rate and rhythm. Chest: Bilateral breath sounds clear to auscultation. Abdomen soft, distended. Bowel sounds present in all 4 quadrants. Neurologic: Alert and oriented x3. No focal deficits noted. LABORATORY DATA: White blood cell count is 11.81. Hemoglobin 8.3, hematocrit 26.1, platelets 293,000. Potassium is 4.8. BUN 55, creatinine 2.4. Total bilirubin is 8.87. AST is 125, ALT is 95, alkaline phosphatase is 491. ASSESSMENT AND PLAN: 1. Metastatic pancreatic adenocarcinoma: Patient tolerating chemotherapy well. Continue to monitor closely. 2. Obstructive jaundice: ERCP was unsuccessful. The patient was supposed to have procedure in radiology yesterday. For unknown reasons will have that performed on Monday. Continue to monitor closely. Follow recommendations per Gastroenterology. 3. Chronic kidney disease. Creatinine increased. Continue medication per medical team. 4. Deep venous thrombosis prophylaxis. Start Lovenox daily. The patient to get out of bed as much as possible. 5. Anemia: Hemoglobin and hematocrit continue to be stable. Patient has a history of gastrointestinal bleed. Will monitor closely. Dictated by SIGIFREDO Jo for Gamaliel Marshall MD [facility]
[2018-09-29] MEDS: SODIUM CHLORIDE 0.9% INJ SCH (17:17)
[2018-09-29] MEDS: NORCO-10 PO PRN (21:05)
[2018-09-30] MEDS: HUMULIN R SUBQ SCH ×4 (06:15→21:35)
[2018-09-30] MEDS: SODIUM CHLORIDE 0.9% INJ SCH (06:15)
[2018-09-30] MEDS: PROTONIX IV SCH ×2 (06:15→18:10)
[2018-09-30 07:59] LABS: ALB/GLOB RATIO 0.6; ALBUMIN 2.3 g/dL (3.5-5.0); CALCIUM 8.6 mg/dL (8.8-10.2); CREATININE 2.7 mg/dL (0.7-1.2); TOTAL BILIRUBIN 9.37 mg/dL (0.20-1.00)
[2018-09-30] MEDS: MIRALAX PO SCH ×2 (08:54→21:35)
[2018-09-30] MEDS: CENTRUM SILVER PO SCH (08:54)
[2018-09-30] MEDS: ICAR-C PO SCH ×2 (08:54→21:35)
[2018-09-30] MEDS: ZYLOPRIM PO SCH (08:54)
[2018-09-30] MEDS: LASIX PO SCH (08:54)
[2018-09-30] MEDS: LOVENOX SUBQ SCH (10:22)
[2018-09-30] MEDS: ALBUMIN 25% IV SCH (10:23)
[2018-09-30] MEDS ORDERED: NS 500 ML IV SCH (10:45)
--- NOTE | 2018-09-30 11:41 | PROGRESS NOTE ---
DATE: 09/30/2018 SUBJECTIVE: No acute events overnight. This patient will have a cholecystostomy done next Monday/tomorrow. We will continue with the same management. His creatinine has been increasing a little bit. I will stop the furosemide today. I will give him albumin and fluids. Hopefully, it will go back to his baseline. Continue with his diet. OBJECTIVE: Vital Signs: Temperature 97.5 degrees, pulse 70, respiratory rate 20, blood pressure 94/65, oxygen saturation 96 on room air. HEENT: Head normocephalic. No trauma. PERRLA. Icteric sclerae. Neck: Supple. No JVD. No masses. Central trachea. Chest: Clear to auscultation. No wheezing. No rales. Some crepitations at the bases. Abdomen: Soft. Somewhat distended. Positive bowel sounds. Some tenderness to palpation at the level of the periumbilical area and right upper quadrant. Extremities: There is 2+ extremity edema. No clubbing. No cyanosis. Neurological Examination: The patient is alert and oriented x3. No focal deficits. Laboratory: Sodium 139, potassium 4, chloride 101, bicarbonate 22, BUN 55, creatinine 2.7, glucose 93, calcium 8.6, magnesium 2. AST 265, ALT 137, alkaline phosphatase 397, albumin 2.3. ASSESSMENT AND PLAN: 1. Unresectable pancreatic adenocarcinoma. Continue to monitor. Hematology/oncology following this patient closely. 2. Obstructive jaundice. This patient has developed significant jaundice. Bilirubin is elevated,. We tried to do an endoscopic retrograde cholangiopancreatography a few days ago but failed. Now the procedure will be a cholecystostomy done next Monday. 3. Chronic kidney disease. It looks like this is getting worse. I will stop his Lasix. I will give him some fluids and albumin. 4. Hypokalemia. We will monitor. Stable. 5. Mild hypoglycemia, asymptomatic. 6. Type 2 diabetes. Continue with pattern of blood sugar and sliding scale insulin. 7. Hypertension. Continue home medication. 8. Deep vein thrombosis prophylaxis with sequential compression devices and Lovenox. cc: Jeuss Zepeda MD
[2018-10-01] MEDS: NORCO-10 PO PRN
[2018-10-01] MEDS: SODIUM CHLORIDE 0.9% INJ SCH (05:51)
[2018-10-01] MEDS: PROTONIX IV SCH ×2 (05:51→18:46)
[2018-10-01] MEDS: HUMULIN R SUBQ SCH ×4 (06:05→21:18)
[2018-10-01 07:18] LABS: EOS# 0.01 X1000 (0.0-0.7); EOS% 0.3 % (0.0-10.0); HEMATOCRIT 25.9 % (42.0-52.0); HEMOGLOBIN 8.1 g/dL (14.0-18.0); LYMPH% 8.4 % (20.5-51.1); MCH 26.9 PG (27-31); MCHC 31.3 g/dL (33-37); MONO# 0.07 X1000 (0.11-0.59); MPV 10.8 FL (7.4-10.4); NEUT# 3.19 X1000 (1.4-6.5); NEUT% 89.3 % (42.2-75.2); PLT 221 X1000 (130-400); RBC 3.01 XMIL (4.7-6.1); RDW 19.8 % (11.5-14.5); WBC 3.57 X1000 (4.8-10.8)
[2018-10-01 07:46] LABS: LYMPHS 9 % (21-51); MONO 2 % (1-9); NRBC 1 % (0-0); SEGS 89 % (42-75)
[2018-10-01 07:55] LABS: INR 1.25; PROTIME 16.6 Seconds (11.0-16.0)
[2018-10-01 07:56] LABS: PTT 39.7 Seconds (22.3-41.8)
[2018-10-01 08:00] LABS: ALB/GLOB RATIO 0.9; ALBUMIN 2.7 g/dL (3.5-5.0); CALCIUM 8.9 mg/dL (8.8-10.2); CREATININE 2.5 mg/dL (0.7-1.2); POTASSIUM 3.9 mmol/L (3.5-5.1); TOTAL BILIRUBIN 10.21 mg/dL (0.20-1.00); TOTAL PROTEIN 5.8 g/dL (6.3-8.3)
--- NOTE | 2018-10-01 08:29 | HEMO/ONC PROGRESS NOTE ---
DATE: 10/01/2018 SUBJECTIVE: The patient continues to complain of some mild abdominal pain, but otherwise no other complaints. OBJECTIVE: Vital Signs: Temperature 97.5 degrees, heart rate 87, respiratory rate 18, blood pressure 111/66, saturation 97% on room air. General: The patient is awake, lying in bed. No acute distress noted. HEENT: PERRLA. Anicteric sclerae. Chest: Bilateral breath sounds clear to auscultation. Abdomen: Soft, nontender. Bowel sounds present in all 4 quadrants. Mild tenderness with palpation. Neurologic: Alert and oriented x3. No focal deficits noted. LABORATORY DATA: White count 3.57, hemoglobin 8.1, hematocrit 25.9, platelets 221,000. Potassium 3.9, BUN 59, creatinine 2.5, total bilirubin 10.21. AST 519, ALT 206, alkaline phosphatase 726. ASSESSMENT AND PLAN: 1. Metastatic pancreatic adenocarcinoma: Will continue to monitor the patient closely. Continue to monitor at this time. 2. Obstructive jaundice: The patient will be going for a cholecystostomy today with Radiology. Total bilirubin continues to increase. Continue recommendations by primary medical team and Gastroenterology. Will continue to monitor. 3. Chronic kidney disease: Creatinine continues to increase. Today it is 2.5. Continue recommendations by primary medical team. 4. Deep venous thrombosis prophylaxis: Continue to get the patient up as much as possible. Continue with Lovenox as ordered. Dictated by SIGIFREDO Jo for Gamaliel Marshall MD As above. currently s/p cholecystotomy. Monitor bilirubin. Hopefully home when stable. Gamaliel Marshall MD cc: SIGIFREDO Jo MD [facility]
[2018-10-01] MEDS: ALBUMIN 25% IV SCH (10:04)
[2018-10-01] MEDS: CENTRUM SILVER PO SCH (10:09)
[2018-10-01] MEDS: D5 NS 1,000 ML IV SCH (10:09)
[2018-10-01] MEDS: ICAR-C PO SCH ×2 (10:09→21:18)
[2018-10-01] MEDS: ZYLOPRIM PO SCH (10:10)
[2018-10-01] MEDS: MIRALAX PO SCH ×2 (10:10→21:18)
--- NOTE | 2018-10-01 10:29 | PROGRESS NOTE ---
DATE: 10/01/2018 SUBJECTIVE: No acute events overnight. This patient is scheduled to have a cholecystostomy today. His creatinine improved from 2.7 to 2.5. LFTs are getting worse. I will put this patient on D5 NS at 75 mL/h, and the furosemide has been stopped already. This patient is NPO at this moment. OBJECTIVE: Vital Signs: Temperature 97.5 degrees, pulse 87, respiratory rate 18, blood pressure 111/66, oxygen saturation 97% on room air. HEENT: Head normocephalic. No trauma. PERRLA. Icteric sclerae. Neck: Supple. No JVD. No masses. Central trachea. Chest: Clear to auscultation. No wheezing. No rales. Some crepitus at the bases. Abdomen: Soft, distended. Positive bowel sounds. Tenderness to palpation at the level of the periumbilical area and right upper quadrant. Extremities: 1 to 2+ lower extremity edema. No clubbing. No cyanosis. Neurological: The patient is alert and oriented x3. No focal deficits. LABORATORY DATA: WBC 3.5, hemoglobin 8.1, hematocrit 25.9, platelet 221,000. Sodium 139, potassium 3.9, chloride 101, bicarbonate 22, BUN 59, creatinine 2.5, glucose 105, calcium 8.9, total bilirubin 10.2, AST 519, ALT 206, alkaline phosphatase 726, albumin 2.7. ASSESSMENT AND PLAN: 1. Unresectable pancreatic adenocarcinoma. Continue to monitor. Hematology/Oncology following this patient closely. 2. Obstructive jaundice. This patient has developed significant jaundice. Bilirubin is elevated. We tried to do an ERCP a few days ago, but this procedure failed due to an obstructing mass. Now the procedure will be a cholecystostomy done today. This patient has been placed n.p.o. I have placed this patient D5 normal saline. Will monitor. 3. Acute on chronic kidney disease. His baseline creatinine is somewhere around 2.1. His creatinine increased yesterday to 2.7 and decreased today to 2.5. He has been getting albumin and I will keep this patient on gentle intravenous fluids. His furosemide has been stopped. 4. Hypokalemia. Will monitor. Stable. Potassium level today is normal. 5. Elevated liver function tests likely secondary to #2. 6. Mild hypoglycemia, asymptomatic. Continue with D5 normal saline. 7. Type 2 diabetes. Continue patterning of blood sugar and sliding scale insulin. He is not on any schedule diabetes mellitus medication and he has been having hypoglycemia. 8. Hypertension. Continue home medication. 9. Deep vein thrombosis prophylaxis with sequential compression devices. His Lovenox has been held. Overall, this patient's prognosis is poor due to his unresectable pancreatic adenocarcinoma. We will keep this patient on fluids today. I have stopped his Lasix for now. Likely this patient will be discharged tomorrow, after monitoring the kidney function and the cholecystostomy procedure. cc: Jesus Zepeda MD
--- NOTE | 2018-10-01 10:46 | PROGRESS NOTE ---
DATE: 10/01/2018 SUBJECTIVE: The patient is resting in bed. He is NPO. He is scheduled for a cholecystostomy drain placement by radiology today. The patient's abdominal pain had a good control with IV pain medications. He moved his bowels yesterday. PHYSICAL EXAMINATION: Vital Signs: Temperature 97.5, pulse rate of 87, respiratory rate 18, blood pressure 111/66, saturating 97% on room air. Body weight of 178 pounds 6.4 ounces. BMI 27.9 kg/m2. General Appearance: Moderately built, moderately nourished, lying in bed, in no acute distress. HEENT: Pale conjunctivae. Icteric sclerae. Neck: Supple. Abdomen: Discomfort in the epigastrium. No rebound. Extremities: No cyanosis or clubbing. Neurologic: He is awake and alert. Answers some questions. LABS: Hemoglobin and hematocrit are 8.1 and 25.9, white count of 3.57, platelet count of 221,000. INR 1.25, PTT of 16.6, PTT of 39.7. Sodium of 139, potassium 3.9, chloride 101, bicarb 22, anion gap of 16, BUN of 59, creatinine 2.5, glucose of 105, calcium is 8.9. Total bilirubin is 10.2, AST 519, ALT 206, alkaline phosphatase 726, total protein 5.8, albumin of 2.7. Blood cultures x2 negative after 5 days. IMPRESSION AND PLAN: 1. 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 He is status post gastroenteric bypass to bypass the obstructed duodenum. 2. Jaundice. Unable to do endoscopic retrograde cholangiopancreatography. He is scheduled for a cholecystostomy drain placement today with radiology. 3. Anemia. Continue to watch for now and transfuse as needed. 4. Deep venous thrombosis prophylaxis with Lovenox, which has been withheld for the procedure today. 5. Chronic kidney disease. Continue to watch creatinine. 6. Gastrointestinal prophylaxis with proton pump inhibitors. 7. Pain control with intravenous morphine. 8. Anemia. Continue on iron C twice a day and multivitamin once daily. 9. Constipation. Continue MiraLAX twice daily. 10. The above plans were discussed with the patient and all questions were answered. Please call us with questions. cc: MD Martin Zacarias MD
--- NOTE | 2018-10-01 13:16 | Diag Imaging Result Doc PS360 ---
EXAM: CT DRAIN ABDOMEN/CT GUIDED CHOLECYSTOSTOMY W/IMG INDICATION: GALLBLADDER ABSCESS TECHNIQUE: COMPARISON: None. FINDINGS: Risks, benefits, and alternatives were discussed with the patient and informed consent was obtained. The patient was placed in a left lateral decubitus position and was prepped and draped in sterile fashion. Local anesthesia was achieved with 1% lidocaine solution. Using CT guidance, a 10-Omani pigtail drainage catheter was inserted into the gallbladder lumen using a transhepatic approach. After bile return was noted, the catheter with silk suture with suture and a dressing. There were no known complications. IMPRESSION: Technically successful CT-guided cholecystostomy. Electronically signed by Franck Dorsey 10/01/2018 1:13 PM
[2018-10-02] MEDS: D5 NS 1,000 ML IV SCH ×2 (00:50→17:40)
[2018-10-02] MEDS: SODIUM CHLORIDE 0.9% INJ SCH ×2 (05:47→17:48)
[2018-10-02] MEDS: PROTONIX IV SCH ×2 (05:47→17:47)
[2018-10-02] MEDS: HUMULIN R SUBQ SCH ×4 (06:17→21:31)
[2018-10-02 07:29] LABS: BASO# 0.01 X1000 (0.0-0.2); BASO% 0.2 % (0.0-0.8); EOS# 0.01 X1000 (0.0-0.7); EOS% 0.2 % (0.0-10.0); HEMATOCRIT 23.7 % (42.0-52.0); HEMOGLOBIN 7.7 g/dL (14.0-18.0); IMM GRAN# 0.03 X1000 (0.0-0.04); IMM GRAN% 0.7 % (0.0-0.5); LYMPH# 0.45 X1000 (1.2-3.4); MCH 26.8 PG (27-31); MCHC 32.5 g/dL (33-37); MCV 82.6 FL (81-99); MONO# 0.11 X1000 (0.11-0.59); MONO% 2.7 % (1.7-9.3); NEUT# 3.47 X1000 (1.4-6.5); NEUT% 85.2 % (42.2-75.2); PLT 190 X1000 (130-400); RBC 2.87 XMIL (4.7-6.1); RDW 20.3 % (11.5-14.5); WBC 4.08 X1000 (4.8-10.8)
[2018-10-02 07:43] LABS: ALB/GLOB RATIO 1.1; CALCIUM 7.9 mg/dL (8.8-10.2); CREATININE 2.5 mg/dL (0.7-1.2); POTASSIUM 3.4 mmol/L (3.5-5.1); TOTAL BILIRUBIN 11.44 mg/dL (0.20-1.00); TOTAL PROTEIN 5.8 g/dL (6.3-8.3)
[2018-10-02] MEDS: LOVENOX SUBQ SCH ×2 (09:13→20:08)
[2018-10-02] MEDS: ZYLOPRIM PO SCH (09:14)
[2018-10-02] MEDS: LASIX PO SCH (09:14)
[2018-10-02] MEDS: ICAR-C PO SCH ×2 (09:14→21:30)
[2018-10-02] MEDS: MIRALAX PO SCH ×2 (09:14→21:30)
[2018-10-02] MEDS: CENTRUM SILVER PO SCH (09:14)
--- NOTE | 2018-10-02 11:58 | HEMO/ONC PROGRESS NOTE ---
DATE: 10/02/2018 SUBJECTIVE: Patient continues to feel well at this time. The patient denies any new symptoms. OBJECTIVE: Vital Signs: Temperature 98 degrees, heart rate 93, respiratory rate 20, blood pressure 119/62, saturating 97% on room air. General: Patient is awake, lying in bed, no acute distress noted. HEENT: Anicteric sclera. Mucous membranes moist. Chest: Bilateral breath sounds clear to auscultation. Abdomen: Soft, mildly tender. Bowel sounds present all 4 quadrants. Neurologic: Alert and oriented x3. No focal deficits noted. LABORATORY DATA: White blood cell count is 4.08, hemoglobin 7.7, hematocrit 23.7, platelets are 190. Potassium 3.4, BUN 67, creatinine 2.5, bilirubin is 11.44, AST is 932, ALT is 343, alkaline phosphatase 642. ASSESSMENT/PLAN: 1. Metastatic pancreatic adenocarcinoma: Continue to monitor closely. Once patient is back to baseline, discharge. We will continue treatment as outpatient. 2. Obstructive jaundice: Patient had a cholecystostomy performed by Radiology yesterday. Continue recommendations per primary team and gastroenterology. We will continue to monitor. 3. Chronic kidney disease: Creatinine continues to be elevated at 2.5. Continue recommendations per primary team. 4. Deep venous thrombosis prophylaxis. Continue patient to get out of bed as much possible. Continue Lovenox as ordered. Continue to monitor closely. Dictated by SIGIFREDO Jo for Gamaliel Marshall MD Patient seen and examined. Patient is status post cholecystotomy. Bilirubin has worsened a little bit but for now we will continue to monitor. When his bilirubin starts to trend down nicely, we will plan for discharge. Discussed with hospitalist. Gamaliel Marshall M.D. cc: SIGIFREDO Jo MD [facility]
--- NOTE | 2018-10-02 12:08 | PROGRESS NOTE ---
DATE: 10/02/2018 SUBJECTIVE: The patient is resting in bed. He had a cholecystotomy with a pigtail drain placed yesterday. PHYSICAL EXAMINATION: Vital Signs: Temperature 97.5, pulse 87, respiratory rate 18, blood pressure 111/66, sat 97%. There is marked scleral icterus present. Conjunctival pallor present. Neck: Supple. Trachea in the midline. Heart and lungs normal. Abdomen: Tender in the epigastrium. LABORATORY DATA: Slight drop in hematocrit. LFTs remain elevated. No significant drop since cholecystotomy was done. IMPRESSION AND PLAN: 1. Metastatic pancreatic carcinoma with duodenal obstruction, status post gastrojejunostomy. 2. Obstructive jaundice status post cholecystotomy. 3. Anemia. 4. Gastrointestinal prophylaxis. 5. Deep vein thrombosis prophylaxis. 6. Pain control. Hopefully, the bilirubin would improve, and he can get the chemotherapy he has planned earlier. cc: Steffi Spain MD
[2018-10-02] MEDS ORDERED: MAALOX PLUS LIQUID PO PRN (12:56)
[2018-10-02] MEDS ORDERED: MAALOX PLUS LIQUID PO ONE (12:56)
[2018-10-02] MEDS ORDERED: KLOR-CON PO ONE (16:05)
--- NOTE | 2018-10-02 16:58 | PROGRESS NOTE ---
DATE: 10/02/2018 SUBJECTIVE: Patient resting in bed. Not in any obvious distress at this time. OBJECTIVE: Vital Signs: Temperature 97.9, pulse 92, respirations 20, blood pressure 122/68, oxygen sats 97%. HEENT: Atraumatic, normocephalic. Cardiovascular: S1, S2. Respiratory: Has evidence of good air entry bilaterally. Abdomen: Soft, nontender. No masses felt. The patient had a drain attached to the right upper quadrant region. Extremities: No evidence of edema. Central Nervous System: No obvious focal deficits noted. LABS: WBC is 4.3, hematocrit is 23.7, with a platelet count of 190,000. INR is 1.25. Sodium is 143, potassium 3.4, chloride 107, bicarb 28, BUN is 7, creatinine 2.5. AST 932, ALT 343, alkaline phosphatase 642. Culture from gallbladder growing gram-negative laura. DICTATION ENDS HERE cc: mSith Bah MD
[2018-10-02] MEDS: ZOSYN 2.25 GM in NS 50 ML IV SCH (17:44)
[2018-10-03] MEDS: ZOSYN 2.25 GM in NS 50 ML IV SCH ×4 (01:12→23:39)
[2018-10-03] MEDS: SODIUM CHLORIDE 0.9% INJ SCH ×2 (06:29→17:15)
[2018-10-03] MEDS: PROTONIX IV SCH ×2 (06:29→17:15)
[2018-10-03] MEDS: HUMULIN R SUBQ SCH ×4 (06:30→21:56)
[2018-10-03 06:50] LABS: BASO# 0.02 X1000 (0.0-0.2); BASO% 0.3 % (0.0-0.8); HEMATOCRIT 23.8 % (42.0-52.0); HEMOGLOBIN 7.9 g/dL (14.0-18.0); IMM GRAN# 0.09 X1000 (0.0-0.04); IMM GRAN% 1.3 % (0.0-0.5); LYMPH# 0.64 X1000 (1.2-3.4); LYMPH% 9.5 % (20.5-51.1); MCH 26.8 PG (27-31); MCHC 33.2 g/dL (33-37); MCV 80.7 FL (81-99); MONO# 0.21 X1000 (0.11-0.59); MONO% 3.1 % (1.7-9.3); MPV 10.8 FL (7.4-10.4); NEUT# 5.75 X1000 (1.4-6.5); NEUT% 85.8 % (42.2-75.2); PLT 178 X1000 (130-400); RBC 2.95 XMIL (4.7-6.1); RDW 21.1 % (11.5-14.5); WBC 6.71 X1000 (4.8-10.8)
[2018-10-03 07:26] LABS: ALB/GLOB RATIO 0.8; ALBUMIN 2.6 g/dL (3.5-5.0); CALCIUM 7.8 mg/dL (8.8-10.2); POTASSIUM 3.5 mmol/L (3.5-5.1); TOTAL BILIRUBIN 8.01 mg/dL (0.20-1.00); TOTAL PROTEIN 5.8 g/dL (6.3-8.3)
[2018-10-03 07:35] LABS: LYMPHS 11 % (21-51); MONO 4 % (1-9); NRBC 2 % (0-0); SEGS 85 % (42-75)
--- NOTE | 2018-10-03 08:37 | HEMO/ONC PROGRESS NOTE ---
DATE: 10/03/2018 SUBJECTIVE: The patient says he started to slightly feel better at this time. The patient denies any complaints. OBJECTIVE: Vital Signs: Temperature 99 degrees, heart rate 85, respiratory rate 18, blood pressure 131/70, saturation 97% on room air. General: The patient is awake, lying in bed. No acute distress noted. HEENT: Anicteric sclerae. Mucous membranes moist. Chest: Bilateral breath sounds clear to auscultation. Abdomen: Soft, mildly tender. Bowel sounds present all 4 quadrants. Neurologic: Alert and oriented x3. No focal deficits noted. LABORATORY DATA: White cell count 6.71, hemoglobin 7.9, hematocrit 23.8, platelets 178,000. Potassium 3.5, BUN 57, creatinine 2.0. Total bilirubin is 8.01, AST 544, ALT 302, alkaline phosphatase 556. ASSESSMENT AND PLAN: 1. Metastatic pancreatic adenocarcinoma. Continue to monitor closely. Will continue treatment once patient is discharged. 2. Obstructive jaundice: Since the patient had cholecystostomy, liver enzymes are slowly improving. Total bilirubin down to 8.01. Continue to monitor closely. 3. Chronic kidney disease: Creatinine trending downward to 2.0. Continue recommendations per primary medical team. Dictated by SIGIFREDO Jo for Gamaliel Marshall MD cc: SIGIFREDO Jo MD
[2018-10-03] MEDS: LOVENOX SUBQ SCH (09:54)
[2018-10-03] MEDS: ZYLOPRIM PO SCH (09:54)
[2018-10-03] MEDS: LASIX PO SCH (09:54)
[2018-10-03] MEDS: MIRALAX PO SCH ×3 (09:54→21:55)
[2018-10-03] MEDS: CENTRUM SILVER PO SCH (09:54)
[2018-10-03] MEDS: ICAR-C PO SCH ×2 (09:54→21:56)
[2018-10-03] MEDS: D5 NS 1,000 ML IV SCH ×3 (09:58→23:39)
[2018-10-03] MEDS ORDERED: NS 250 ML ONE (11:01)
[2018-10-04] MEDS: NORCO-10 PO PRN (03:04)
--- NOTE | 2018-10-04 04:26 | PROGRESS NOTE ---
DATE: 10/03/2018 SUBJECTIVE: Patient is resting in bed. He is feeling the same. He denies any nausea or vomiting. He has moved his bowels today. OBJECTIVE: Vital signs: Temperature 97.6, pulse of 77, respiratory rate 18, blood pressure 126/79, saturating 98% room air. General Appearance: Moderately built and moderately nourished lying in bed, in no acute distress. HEENT: Pale conjunctivae. Icteric sclerae. Neck: Supple. Abdomen: Protuberant, discomfort in the epigastrium. No rebound. Extremities: No cyanosis, clubbing. Neurologic: He is awake, alert. Answers questions. LABS: Hemoglobin and hematocrit is 7.9 and 23.8, white count of 6.7, platelet count 178. Sodium 140, potassium 3.5, chloride 110, bicarb 22, anion gap 13, BUN of 57, creatinine of 2, glucose of 141, calcium 7.8. Total bilirubin is 8.01, which is down from 11.4 yesterday. AST 544, ALT 302, alkaline phos of 556, total protein 5.8, albumin of 2.6. Blood cultures were drawn today, which are currently pending. His gallbladder aspirate showed Enterobacter cloacae, which is resistant to cefazolin. IMPRESSION AND PLAN: 1. Metastatic pancreatic adenocarcinoma. He is under the care of Dr. Marshall. 2. Obstructive jaundice. He is status post cholecystostomy. His total bilirubin is coming down. We will continue to follow. 3. Chronic kidney disease. Continue to follow. 4. Gastrointestinal prophylaxis with proton-pump inhibitors. 5. Anemia. Transfuse as needed. 6. Pain control with intravenous morphine. 7. Atrial fibrillation. Continue iron C b.i.d., multivitamin. 8. Deep venous thrombosis prophylaxis with Lovenox. 9. Constipation. Continue MiraLAX twice daily. 10. Malnutrition. He is on D5 normal saline. He may need to be started on Clinimix if he continues to have decreased poor oral intake. 11. We will follow along. Please call us with any further questions. cc: MD Smith Zacarias MD
[2018-10-04] MEDS: HUMULIN R SUBQ SCH ×3 (06:26→21:22)
[2018-10-04] MEDS: D5 NS 1,000 ML IV SCH ×2 (06:26→10:29)
[2018-10-04] MEDS: SODIUM CHLORIDE 0.9% INJ SCH ×2 (06:38→18:25)
[2018-10-04] MEDS: PROTONIX IV SCH ×2 (06:39→18:25)
[2018-10-04 07:18] LABS: BASO# 0.04 X1000 (0.0-0.2); BASO% 0.5 % (0.0-0.8); EOS# 0.01 X1000 (0.0-0.7); EOS% 0.1 % (0.0-10.0); HEMATOCRIT 24.7 % (42.0-52.0); HEMOGLOBIN 8.2 g/dL (14.0-18.0); IMM GRAN# 0.21 X1000 (0.0-0.04); IMM GRAN% 2.4 % (0.0-0.5); LYMPH# 0.82 X1000 (1.2-3.4); LYMPH% 9.2 % (20.5-51.1); MCH 26.8 PG (27-31); MCHC 33.2 g/dL (33-37); MCV 80.7 FL (81-99); MONO# 0.35 X1000 (0.11-0.59); MONO% 3.9 % (1.7-9.3); NEUT# 7.45 X1000 (1.4-6.5); NEUT% 83.9 % (42.2-75.2); PLT 178 X1000 (130-400); RBC 3.06 XMIL (4.7-6.1); WBC 8.88 X1000 (4.8-10.8)
[2018-10-04 07:53] LABS: ALB/GLOB RATIO 0.7; ALBUMIN 2.3 g/dL (3.5-5.0); CALCIUM 7.5 mg/dL (8.8-10.2); TOTAL BILIRUBIN 6.7 mg/dL (0.20-1.00); TOTAL PROTEIN 5.7 g/dL (6.3-8.3)
--- NOTE | 2018-10-04 09:10 | HEMO/ONC PROGRESS NOTE ---
DATE: 10/04/2018 SUBJECTIVE: The patient says he continues to feel better. The patient has no new complaints at this time. OBJECTIVE: Vital Signs: Temperature 97.8, heart rate 74, respiratory rate 18, blood pressure 120/68, sating 100% on room air. General: Patient is awake, lying in bed, in no acute distress noted. HEENT: Anicteric. Pupils PERRLA. Mucous membranes moist. Chest: Bilateral breath sounds clear to auscultation. Abdomen soft, mildly tender. Bowel sounds present in all 4 quadrants. Neurologic: Alert and oriented x3. No focal deficits noted. LABORATORY DATA: White cell count 8.8, hemoglobin 8.2, hematocrit 24.7, platelets are 178,000. Potassium 3.0. BUN 54, creatinine 2.0, total bilirubin 6.7. AST 298, ALT 216, alkaline phosphatase 475. ASSESSMENT AND PLAN: 1. Metastatic pancreatic carcinoma: Continue to monitor. Continue treatment once the patient is discharged and out of the hospital. 2. Obstructive jaundice: The patient is status post cholecystostomy. The liver enzymes continue to improve. Total bilirubin down to 6.70. Continue to monitor closely. 3. Chronic kidney disease: Creatinine continues to be 2.0. The patient continue recommendations per primary medical team. Dictated by SIGIFREDO Jo for Gamaliel Marshall MD cc: SIGIFREDO Jo MD MTDD
[2018-10-04] MEDS: LOVENOX SUBQ SCH (10:24)
[2018-10-04] MEDS: ICAR-C PO SCH ×2 (10:24→21:22)
[2018-10-04] MEDS: ZYLOPRIM PO SCH (10:24)
[2018-10-04] MEDS: LASIX PO SCH (10:24)
[2018-10-04] MEDS: CENTRUM SILVER PO SCH (10:24)
[2018-10-04] MEDS: MIRALAX PO SCH ×2 (10:25→21:22)
[2018-10-04] MEDS: ZOSYN 2.25 GM in NS 50 ML IV SCH ×2 (10:29→18:24)
--- NOTE | 2018-10-04 11:17 | PROGRESS NOTE ---
DATE: 10/04/2018 SUBJECTIVE: Resting in bed. His bilirubin is coming down. He is trying to eat some breakfast. OBJECTIVE: Vitals: Temperature 97.8 degrees, pulse rate of 74, respiratory rate of 18, blood pressure of 128/68, saturating 100% on room air. General Appearance: Moderately-built, moderately-nourished, lying in bed, in no acute distress. HEENT: Pale conjunctivae. Icteric sclerae. Neck: Supple. Abdomen: Abdomen is protuberant. He has a drain, a cholecystostomy drain, in the right upper quadrant, now draining bile. Abdomen is protuberant. Discomfort in the epigastric region. Extremities: No cyanosis or clubbing. Neurologic: He is awake, alert, oriented x3. LABS: Hemoglobin and hematocrit is 8.2 and 24.7. White count of 8.8. Platelet count of 178,000. Sodium 140, potassium 3, chloride 110, bicarb 19, anion gap 15, BUN of 54, creatinine of 2, glucose of 116, calcium 7.5, total bilirubin 6.7, AST 298, ALT 216, alkaline phosphatase 475, total protein 5.7, albumin of 2.3. Blood cultures x2 have been drawn yesterday. They are currently pending so far. IMPRESSION AND PLAN: 1. Jaundice, status post cholecystostomy. It is trending down. Continue to watch closely. 2. Anemia. Continue to watch for now. Transfuse as needed. 3. Chronic kidney disease. Creatinine is 2. 4. Metastatic pancreatic adenocarcinoma. He is currently getting treatment from Dr. Marshall. 5. Gastrointestinal prophylaxis with proton pump inhibitor. 6. Pain control with morphine. 7. Constipation. He will continue MiraLAX twice daily. 8. Deep venous thrombosis prophylaxis with Lovenox. The above plan was discussed with the patient. Please call us with any further questions. cc: MD Gamaliel Zacarias MD
[2018-10-04] MEDS ORDERED: NS 250 ML IV ONE (16:19)
[2018-10-04] MEDS: POTASSIUM CHLORIDE 20 MEQ/SWI 20 MEQ/100 ML IVPB IV SCH (18:24)
[2018-10-04] MEDS ORDERED: KLOR-CON PO SCH (21:00)
--- NOTE | 2018-10-05 01:10 | PROGRESS NOTE ---
DATE: 10/03/2018 SUBJECTIVE: The patient resting comfortable. OBJECTIVE: Vital Signs: Temperature 97.4 degrees, pulse 88, respiratory rate 19, blood pressure 141/82, oxygen saturation is 99%. HEENT: Atraumatic, normocephalic. Cardiovascular: S1, S2. Respiratory: Has evidence of good air entry bilaterally. Abdomen: Soft, nontender. No masses felt. Extremities: No evidence of edema. Central Nervous System: No obvious focal deficit noted. ASSESSMENT AND PLAN: 1. Metastatic pancreatic adenocarcinoma, with malignant duodenal obstruction, status post gastroenteric bypass to bypass the obstructed duodenum. The patient had a cholecystostomy done. Hepatic function tests improving. 2. Anemia. Follow up on hemoglobin, hematocrit. Transfuse PRBCs as needed. 3. Chronic kidney disease. Follow up on renal function. 4. Deep vein thrombosis prophylaxis. Sequential compression devices. 5. Gastrointestinal prophylaxis. Proton pump inhibitor. cc: Smith Bah MD
--- NOTE | 2018-10-05 01:15 | PROGRESS NOTE ---
DATE: 10/04/2018 SUBJECTIVE: The patient is resting comfortably. OBJECTIVE: Vital Signs: Temperature is 97.8, with a pulse of 79. Blood pressure is 124/60. Oxygen saturation is 100%. HEENT: Atraumatic, normocephalic. Cardiovascular: S1, S2. Respiratory: Good air entry bilaterally. Abdomen: Full, nontender. No masses felt. Extremities: No evidence of edema. Central Nervous System: No obvious focal deficit noted. LABS: WBC is 8.88, hematocrit is 24.7, platelet count is 178,000. Sodium is 144, potassium 3.0, chloride is 110, bicarb is 19, BUN is 54, creatinine is 4.0. AST is 298, ALT is 206, alkaline phosphatase is 475. ASSESSMENT AND PLAN: 1. Metastatic pancreatic adenocarcinoma, with malignant duodenal obstruction, status post gastroenteric bypass to bypass the obstructed duodenum. The patient is also status post cholecystostomy. Liver function tests seems to be improving. 2. Anemia. We will type, cross, transfuse 1 unit of packed red blood cells. 3. Chronic kidney disease. Follow up on renal function. 4. Hypokalemia. We will replace potassium level cautiously, in light of impaired renal function. 5. Gastrointestinal prophylaxis. Proton pump inhibitor. 6. Deep venous thrombosis prophylaxis. Sequential compression devices. cc: Smith Bah MD
[2018-10-05] MEDS: D5 NS 1,000 ML IV SCH (01:35)
[2018-10-05] MEDS: ZOSYN 2.25 GM in NS 50 ML IV SCH ×3 (01:36→16:26)
[2018-10-05] MEDS: POTASSIUM CHLORIDE 20 MEQ/SWI 20 MEQ/100 ML IVPB IV SCH (04:11)
[2018-10-05] MEDS: PROTONIX IV SCH ×3 (06:38→17:04)
[2018-10-05] MEDS: HUMULIN R SUBQ SCH ×4 (06:38→16:40)
[2018-10-05 07:53] LABS: BASO# 0.05 X1000 (0.0-0.2); BASO% 0.5 % (0.0-0.8); EOS# 0.02 X1000 (0.0-0.7); EOS% 0.2 % (0.0-10.0); HEMOGLOBIN 9.2 g/dL (14.0-18.0); IMM GRAN# 0.32 X1000 (0.0-0.04); IMM GRAN% 3.4 % (0.0-0.5); LYMPH# 0.85 X1000 (1.2-3.4); MCH 25.7 PG (27-31); MCHC 32.9 g/dL (33-37); MCV 78.2 FL (81-99); MONO% 5.3 % (1.7-9.3); NEUT# 7.69 X1000 (1.4-6.5); NEUT% 81.6 % (42.2-75.2); PLT 195 X1000 (130-400); RBC 3.58 XMIL (4.7-6.1); RDW 22.4 % (11.5-14.5); WBC 9.43 X1000 (4.8-10.8)
[2018-10-05 08:09] LABS: ALB/GLOB RATIO 0.7; ALBUMIN 2.4 g/dL (3.5-5.0); POTASSIUM 3.7 mmol/L (3.5-5.1); TOTAL BILIRUBIN 6.49 mg/dL (0.20-1.00); TOTAL PROTEIN 5.8 g/dL (6.3-8.3)
[2018-10-05 08:28] LABS: ANISOCYTOSIS 1+; HYPOCHROM 1+; LYMPHS 6 % (21-51); MONO 2 % (1-9); NRBC 3 % (0-0); SEGS 92 % (42-75)
[2018-10-05] MEDS: MIRALAX PO SCH (09:02)
[2018-10-05] MEDS: ZYLOPRIM PO SCH (09:02)
[2018-10-05] MEDS: CENTRUM SILVER PO SCH (09:03)
[2018-10-05] MEDS: LASIX PO SCH (09:03)
[2018-10-05] MEDS: ICAR-C PO SCH (09:03)
--- NOTE | 2018-10-05 10:13 | HEMO/ONC PROGRESS NOTE ---
DATE: 10/05/2018 SUBJECTIVE: The patient continues to feel well at this time. The patient has no new complaints. OBJECTIVE: Vital Signs: Temperature 98.0 degrees, heart rate 79, respiratory rate 18, blood pressure 144/77, saturating 100% on room air. General: The patient is awake, lying in bed. No acute distress noted. HEENT: Anicteric. PERRLA. Mucous membranes moist. Cardiovascular: Normal S1 and S2. Regular rate and rhythm. Chest: Bilateral breath sounds clear to auscultation. Abdomen: Soft, nontender. Bowel sounds present in all 4 quadrants. Neurologic: Alert and oriented x3. No focal deficits noted. LABORATORY DATA: White blood cell count 9.43, hemoglobin 9.2, hematocrit 28.0, platelets 195,000. Potassium 3.7, BUN 47, creatinine 2.0, total bilirubin 6.49, AST 213, ALT 178, alkaline phosphatase 421. ASSESSMENT AND PLAN: 1. Metastatic pancreatic carcinoma: The patient will continue treatment once he is discharged and back to baseline. 2. Obstructive jaundice: The patient is status post cholecystostomy. Liver enzymes continue to improve. Continue treatment per Primary Medical Team and Gastroenterology. 3. Chronic kidney disease. Creatinine continues to be 2.0. Continue treatment per Primary Medical Team. Disposition: Liver enzymes continue to improve, the patient will follow up in clinic as an outpatient. Dictated by SIGIFREDO Jo for Gamaliel Marshall MD cc: SIGIFREDO Jo MD [facility]
[2018-10-05] MEDS: SODIUM CHLORIDE 0.9% INJ SCH (16:28)
[2018-10-05] MEDS ORDERED: FLU VACCINE IM ONE (17:04)
--- NOTE | 2018-10-05 18:06 | GASTROENTEROLOGY PROGRESS NOTE ---
DATE: 10/05/2018 SUBJECTIVE: No acute overnight events. Afebrile. The patient denies any abdominal pain, nausea or vomiting. No fever, chills, sweats or shortness of breath. He is currently having bowel movements and tolerating p.o. diet. OBJECTIVE: Vital signs: Temperature 97.9, heart rate 79, blood pressure 132/79, and he is saturating at 100% on room air. General: Awake, alert and oriented in no acute distress. HEENT: Extraocular movements are intact. Sclerae with mild icterus. Mucous membranes are moist. Neck: No JVD. No lymphadenopathy. Cardiac: Regular rate and rhythm. No murmurs. Lungs: Clear to auscultation bilaterally. Normal work of breathing. Abdomen: Right upper quadrant drain with bilious drainage that is scant. Abdomen: Soft and nontender. Nondistended. Normoactive bowel sounds. Extremities: No cyanosis, clubbing or edema. Neurological: Nonfocal. LABORATORY: White count 9.4, hemoglobin 9.2, platelets 195,000. Sodium 142, potassium 3.7, chloride 110, bicarb 22, BUN 47, creatinine 2.0, glucose 123, albumin 2.4, protein 5.8, alk phos 421, ALT 178, AST 213, total bilirubin 6.49. No new imaging. ASSESSMENT AND PLAN: Mr. Shane Guzman is a 73-year-old gentleman with [id number] pancreatic adenocarcinoma who was admitted with obstructive jaundice. Attempted ERCP for possible stent placement was unsuccessful given duodenal obstruction. The patient is status post cholecystostomy tube. His LFTs have improved since placement of drain. He remains afebrile. Blood cultures have been negative to date. He is currently on Zosyn antibiotics since October 02. Obstructive jaundice status post cholecystotomy tube. LFTs downtrending. The patient will likely have to go home with drain in place and follow up in GI clinic to discuss further management of drain. There is a question of if this tube could possibly be internalized by interventional radiology as an outpatient. Metastatic pancreatic adenocarcinoma currently getting treatment by Dr. Marshall. Anemia. Hemoglobin is stable. Constipation. The patient is on bowel regimen with good control. GI prophylaxis with PPI. Prophylaxis. The patient is currently on Lovenox. The plan was discussed with patient as well as nurse. Please call with any questions or concerns.
[2018-10-05 18:43] VITALS: BP 147/89
--- NOTE | 2018-10-06 09:21 | DISCHARGE SUMMARY ---
ADMISSION DATE: 09/25/2018 DISCHARGE DATE: 10/05/2018 PRINCIPAL DIAGNOSIS: Unresectable pancreatic adenocarcinoma. SECONDARY DIAGNOSES: 1. Obstructive jaundice. 2. Acute on chronic kidney disease. 3. Hypokalemia. 4. Elevated liver function tests. 5. Hypertension. 6. Anemia. 7. History of atrial fibrillation. DISCHARGE MEDICATIONS: Include the followin. Icar C 1 p.o. twice daily. 2. Lasix 40 mg p.o. daily. 3. Coreg 6.25 g p.o. twice a day. 4. Pantoprazole 40 mg daily. 5. Allopurinol 100 mg p.o. daily. 6. [*]hydrochlorothiazide 100/25 1 daily. 7. Zofran 4 mg p.o. every 4 hours as needed. 8. Aspirin 81 mg p.o. daily. 9. Potassium chloride 80 mEq p.o. daily. 10. [place] 10/325 every 4 hours as needed. CONSULTATIONS DONE DURING HOSPITAL STAY: 1. Dr. Rolando Alston Hematology/Oncology. 2. Dr. Spain Gastroenterology. PROCEDURES DURING HOSPITAL STAY: 1. Abdominal ultrasound 09/25/2018. 2. CT scan guided cholecystostomy. This was done on 10/01/2018. HOSPITAL COURSE: Mr. Shane Guzman is a 73-year-old male with a history of pancreatic cancer and follows up with Dr. Marshall. Patient was admitted to the hospital from Dr. Marshall's office because of abnormal liver function test. Recently, his bilirubin level has increased prior to admission. He was sent to [facility] for intervention as well as stent placement, but this was canceled because it was non operable. He had an attempted ERCP done on 09/27/2018. He subsequently had cholecystostomy done to help decompress the biliary system. This was done on 10/01/2018. Cultures from that drainage came back positive for Enterobacter cloaca complex. The patient was started on Zosyn, but he is going to be going home on oral antibiotics. Initially, his liver function tests were high but these seemed to have improved following the procedure. At this time, patient is now fit to be discharged home, and he will need to follow up with Dr. Marshall in the outpatient period. He will be going home on oral Levaquin. DISCHARGE EXAMINATION: During my evaluation today, his vital signs were as follows: Temperature 97.9 degrees, pulse 79, and blood pressure 132/79, and oxygen saturation 100%. HEENT: Atraumatic, normocephalic. Cardiovascular: S1, S2. Respiratory: He has evidence of good air entry bilaterally. Abdomen: Full. Nontender. No masses felt. Extremities: No significant edema. LABORATORY: WBC 9.43, hematocrit is 28 with a platelet count of 195,000. Sodium is 142, potassium 3.7, chloride 110, bicarb 22, BUN is 47 and creatinine 2.0. PLAN: The patient can be discharged home today. He will need to follow up with Dr. Marshall in the outpatient. He was to follow up with interventional radiology to decide when that drain has to be removed. The patient was to follow up with his primary physician. cc: Smith Bah MD
== END 2018-10-05 18:48 | disposition home or self-care (01) | DRG 445 ==
LOC: SUATTDRO 10:19 → DIRADM 10:19 → 3N 11:14
PROVIDERS: ATTEND Internal Medicine
CPT/HCPCS: 36430; 49041; 49405; 49406; 71010; 71045; 74328; 76700; 80053; 82150; 82248; 82550; 82948; 83605; 83690; 83735; 85025; 85610; 85730; 86850; 86900; 86901; 86920; 87040; 87070; 87077; 87186; 90686; A9270; C9113; J1650; J2405; J2543; J3480; J7030; J7042; J7050; J9201; P9016; P9047; Q9966; Q9967; S0164; XXXXX

== ENCOUNTER 2018-10-20 17:16 | Inpatient (IN) ==
[2018-10-20] MEDS ORDERED: NS 1,000 ML IV ONE ×3 (17:31→17:52)
[2018-10-20] MEDS ORDERED: NS 500 ML IV ONE (17:34)
--- NOTE | 2018-10-20 17:53 | PROVIDER DOCUMENTATION ---
HPI-General Adult - General Stated Complaint: weakness Time Seen by Provider: 10/20/18 17:23 Source: patient, EMS Allergies/Adverse Reactions: Patient Allergies Allergy/AdvReac Type Severity Reaction Status Date / Time No Known Allergies Allergy Verified 10/20/18 20:51 Home Medications: Home Medication List Medication Instructions Recorded Confirmed Last Taken Type Furosemide [Lasix] 40 mg PO DAILY 05/16/17 10/20/18 10/10/18 History Carvedilol [Coreg] 6.25 mg PO BID tablet 08/04/17 10/20/18 10/10/18 Rx Pantoprazole [Protonix] 40 mg PO DAILY@0700 #90 tab 01/16/18 10/20/18 10/10/18 Rx Allopurinol 100 mg PO DAILY 02/06/18 10/20/18 10/10/18 History Losartan/Hydrochlorothiazide 1 each PO DAILY 02/06/18 10/20/18 10/10/18 History [Losartan-Hctz 100-25 mg Tab] Ondansetron HCl [Zofran] 4 mg PO Q4H PRN PRN #10 tablet 02/07/18 10/20/18 Rx Aspirin [Adult Low Dose Aspirin EC] 81 mg PO DAILY 04/30/18 10/20/18 10/10/18 History Hydrocodone/Acetaminophen [[place] 10 each PO Q4H PRN PRN 09/20/18 10/20/18 History 10-325 Tablet] Potassium Chloride 8 meq PO DAILY 09/20/18 10/20/18 10/10/18 History Iron Carbonyl/Ascorbic Acid 1 each PO BID tablet 10/05/18 10/20/18 10/10/18 Rx [Icar-C] Levofloxacin [Levaquin] 250 mg PO DAILY #14 tablet 10/05/18 10/20/18 10/10/18 Rx - History of Present Illness -Gen Adult Nature of Presenting Problems: THIS IS A 73 YEAR OLD MALE WITH MEDICAL HISTORY OF METASTATIC PANCREATIC ADENOCARCINOMA WHO WAS DISCHARGED 1/2 WEEK AGO FOR OBSTRUCTIVE JAUNDICE WITH CHOLECYSTOSTOMY TUBE PLACEMENT BROUGHT IN BY EMS FOR WEAKNESS. PER EMS, PATIENT WAS SLUMPED OVER WHEN THEY ARRIVED BUT AOX4. PATIENT DENIES BEING IN ANY DISCOMFORT BUT ONLY COUGH. DENIES FEVER, CHILL, NIGHT SWEATS, DIZZINESS, LIGHTHEADEDNESS, BLURRY VISION, SORE THROAT, CHEST DISCOMFORT, PALPITATION, DYSPNEA, ABDOMINAL DISCOMFORT, NAUSEA, VOMITING, DIARRHEA, CONSTIPATION, MYALGIA, ARTHRALGIA, NEW RASH/LESION, AND HEAT OR COLD INTOLERANCE. Review of Systems - Adult - REVIEW OF SYSTEMS - ADULT ROS:: unobtainable per condition Constitutional: reports: fatique Eyes: reports: no symptoms reported, see HPI Ears, Nose, Mouth & Throat: reports: no symptoms reported, see HPI Cardiovascular: reports: no symptoms reported, see HPI Respiratory: reports: no symptoms reported, see HPI Gastrointestinal: reports: no symptoms reported, see HPI Genitourinary: reports: no symptoms reported, see HPI Musculoskeletal: reports: no symptoms reported, see HPI Integumentary: reports: no symptoms reported, see HPI Neurological: reports: no symptoms reported, see HPI Psychiatric: reports: no symptoms reported, see HPI Endocrine: reports: no symptoms reported, see HPI Hematologic/Lymphatic: reports: no symptoms reported, see HPI Allergic/Immunologic: reports: no symptoms reported, see HPI Past History - Adult - PAST MEDICAL HISTORY-ADULT Review of Records: reports: Old Records Reviewed Cardiovascular: reports: CHF, HTN, hyperlipidemia Musculoskeletal: reports: arthritis (GOUT) Endocrine/Immune: reports: Diabetes (per patient told him he was a half/half), thyroid disorder - PRIOR SURGERIES/PROCEDURES Surgical/Procedure History: reports: orthopedic (extremity) (finger) - IMMUNIZATION STATUS Childhood Immunizations: See Nurse Assessment Flu Vaccine: See Nurse Assessment - FAMILY HISTORY Family History: reviewed, not pertinent Physical Exam-General - PHYSICAL EXAM-ADULT Initial Vital Signs Reviewed: Yes (HYPOTENSIVE WITH MAP <65) - CONSTITUTIONAL General Appearance: alert, no apparent distress, cachetic, thin, lethargic - EYES Eyes: PERRL/EOMI - HEAD, EARS, NOSE, MOUTH & THROAT HENMT: normocephalic/atraumatic - NECK Neck: non-tender, full range of motion, supple - RESPIRATORY Respiratory: chest non-tender, lungs clear, normal breath sounds, no pleuratic chest pain, no respiratory distress, no accessory muscle use - CARDIOVASCULAR Cardiovascular: normal peripheral pulses, regular rate, rhythm, no edema, no gallop, no JVD, no murmur - GASTROINTESTINAL (ABDOMEN) Abdominal Exam: normal bowel sounds, non tender, soft, no organomegaly, no pulsatile mass - MUSCULOSKELETAL Back Exam: normal inspection, no CVA tenderness, no vertebral tenderness Extremity: normal range of motion, non-tender, normal gait - SKIN Integumentary: normal color, normal turgor, warm/dry - NEUROLOGIC Neurologic: grossly normal - PSYCHIATRIC Psych/Mental Status: normal mood/affect, normal thought content, normal thought process, oriented x 3 Progress - PLAN OF CARE/RESULTS Progress/Plan/Lab Results: Orders Category Date Time Status cxr [CHEST-PORTABLE] [RAD] Stat Exams 10/20/18 17:31 Ordered BLOOD CULTURE [BLDCUL] Stat Lab 10/20/18 17:51 Uncollected CBC WITH ELECTRONIC DIFF [HEME] Stat Lab 10/20/18 17:30 Uncollected COMPREHENSIVE METABOLIC PANEL [CHEM] Stat Lab 10/20/18 17:[address] Stat Lab 10/20/18 17:30 Uncollected LACTATE, PLASMA [CHEM] Stat Lab 10/20/18 17:51 Uncollected MAGNESIUM [CHEM] Stat Lab 10/20/18 17:30 Uncollected URINALYSIS W/POSS RFLX CULT [URINALYSIS] Stat Lab 10/20/18 17:30 Uncollected pro-bnp [PRO B-NATRIURETIC PEPTIDE] Stat Lab 10/20/18 17:30 Uncollected 0.9% Sodium Chloride Inj [Ns] 1,000 ml Med 10/20/18 17:31 Discontinued IV 999 mls/hr 0.9% Sodium Chloride Inj [Ns] 500 ml Med 10/20/18 17:34 Stop Req IV 999 mls/hr Ns 1000 ml IV Bolus X1 Med 10/20/18 17:52 Ordered 0.9% Sodium Chloride Inj [Ns] 1,000 ml IV 999 mls/hr Ns 1000 ml IV Bolus X1 Med 10/20/18 17:52 Ordered 0.9% Sodium Chloride Inj [Ns] 1,000 ml IV 999 mls/hr Result Diagrams: 10/20/18 20:02 10/20/18 18:21 - REASSESSMENT Reassessment #1 Time Reassessed: 18:59 Status: other (PATIENT HYPOTENSIVE WITH <65; I STARTED SEPSIS PROTOCOL. CXR RETURN WITH CONCERN FOR POSSIBLE PNA. WILL CALL HOSPITALIST LATER WHEN REST OF RESULTS ARE BACK.) Reassessment #2 Time Reassessed: 19:01 Status: other (H/H LOW; WILL GET FOBT.) Reassessment #3 Time Reassessed: 19:45 Status: other (FOBT NEGATIAVE. WILL REPEAT H/H. WILL CALL HOSPITALIST WHEN H/ H RETURNS. 1. HYPOTENSIVE W/ <65 RESPONDED TO AGGRESSIVE FLUID HYDRATION 2. CXR WITH CONCERN FOR PNEUMONIA; 1 MAYBE 2/2 TO SEPTIC SHOCK RESPONDED TO HYDRATION. 3. SEKOU WITH CREATININE OF 7.9 LIKELY FROM NO ACCESS TO FREE WATER CURRENTLY PENDING H/H) Reassessment #4 Time Reassessed: 21:06 Status: other (REPEAT H/H STABLE; NO INDICATION FOR TRANSFUSION. PATIENT BLOOD PRESSURE CURRENTLY 88/52 WITH MAP >65; IMPROVING. SPOKE TO HOSPITALIST POSSIBLE PNA, SEKOU, SEPTIC SHOCK RESPONDING TO AGGRESSIVE HYDRATION. APPRECIATE HOSPITALIST MEDICAL SUPPLY TECHNICIAN.) - EKG 1 Time of EKG reading by physician:: 17:38 EKG Read and Signed by:: Quinton Arenas EKG Interpretation (*Must complete 3 of following elements*): Normal Rate: 87 Rhythm: NORMAL SINUS RHYTHM [place]: left QRS: normal [place] Interval: normal ST Wave: normal Departure - Departure Date of Disposition Decision: 10/20/18 Time of Disposition Decision: 21:08 DIAGNOSIS: Hypotension, Pneumonia, SEKOU (acute kidney injury) Disposition: ADMITTED INPATIENT 09 Certified Medical Emergency: Emergent Condition: Fair Referrals and Follow-Ups: Ernesto Estrada MD [Primary Care Provider] - - Critical Care Note This patient required my direct & personal management of CC.: No Attestation - Physician/ NEDRA Attestation Patient care was provided by Advanced Practice Provider:: No The physician spent face to face time with patient:: Yes Advanced Practice Provider documentation review:: Supervising physician onsite and consulted in the evaluation and care of this patient. The physician did have a face to face encounter with the patient.
--- NOTE | 2018-10-20 18:00 | Diag Imaging Result Doc PS360 ---
EXAM: CHEST-PORTABLE 10/20/2018 HISTORY: PANCREATIC CA PRESENTS W/ WEAKNESS; R/O TECHNIQUE: AP portable at 1751 COMMENT: There is some ill-defined opacity in the left costophrenic angle which appears slightly worse than on 09/25/2018. Otherwise there has been no significant change. IMPRESSION: Questionable atelectasis versus pneumonia left lower lobe. Electronically signed by Desmond Lazar 10/20/2018 5:58 PM
[2018-10-20] MEDS ORDERED: VANCOMYCIN 1 GM/NS 1 GM/250 ML IVPB IV ONE (18:05)
[2018-10-20] MEDS ORDERED: MAXIPIME 1 GM in NS 50 ML IV ONE (18:05)
[2018-10-20 18:38] LABS: BASO# 0.07 X1000 (0.0-0.2); BASO% 1.8 % (0.0-0.8); HEMOGLOBIN 6.8 g/dL (14.0-18.0); IMM GRAN# 0.26 X1000 (0.0-0.04); IMM GRAN% 6.8 % (0.0-0.5); LYMPH# 1.13 X1000 (1.2-3.4); LYMPH% 29.5 % (20.5-51.1); MCH 26.5 PG (27-31); MCHC 30.9 g/dL (33-37); MCV 85.6 FL (81-99); MONO# 0.31 X1000 (0.11-0.59); MONO% 8.1 % (1.7-9.3); MPV 12.6 FL (7.4-10.4); NEUT# 2.06 X1000 (1.4-6.5); NEUT% 53.8 % (42.2-75.2); PLT 244 X1000 (130-400); RBC 2.57 XMIL (4.7-6.1); WBC 3.83 X1000 (4.8-10.8)
[2018-10-20 19:13] LABS: ALB/GLOB RATIO 1.1; ALBUMIN 3.2 g/dL (3.5-5.0); CALCIUM 7.7 mg/dL (8.8-10.2); CREATININE 7.9 mg/dL (0.7-1.2); MAGNESIUM 2.1 mg/dL (1.5-2.7); POTASSIUM 5.7 mmol/L (3.5-5.1); TOTAL BILIRUBIN 4.27 mg/dL (0.20-1.00)
[2018-10-20 20:40] LABS: HEMATOCRIT 24.8 % (42.0-52.0); HEMOGLOBIN 7.7 g/dL (14.0-18.0)
[2018-10-20] MEDS ORDERED: NORCO-10 PO PRN (23:54)
[2018-10-20] MEDS ORDERED: ZOFRAN IV PRN (23:54)
[2018-10-21] MEDS ORDERED: NS 1,000 ML ONE (00:31)
[2018-10-21] MEDS: ZOSYN 3.375 GM in NS 50 ML IV SCH ×5 (00:35→23:04)
[2018-10-21] MEDS: NS 1,000 ML IV SCH ×3 (00:35→20:10)
--- NOTE | 2018-10-21 01:28 | HISTORY AND PHYSICAL ---
CHIEF COMPLAINT: Weakness, not feeling well, cough. PRIMARY CARE PHYSICIAN: Unknown. HISTORY OF PRESENTING ILLNESS: This is a 73-year-old elderly male with a history of metastatic pancreatic carcinoma, hypertension, diabetes mellitus type 2, chronic kidney disease, who recently was discharged from hospital for obstructive jaundice and had a drain placed. Presented to emergency department complaining of weakness, not feeling well, coughing. He was evaluated in the emergency department. He had imaging done which did show the possibility of left lower lobe pneumonia. The patient was somewhat hypotensive also despite receiving IV fluids. Due to these presenting symptoms, he will require admission for further management. At the time of my examination, he denied any headache, fever, chills, chest pain, shortness of breath, but stated that he was weak and not feeling well. The patient is a poor historian. PAST MEDICAL HISTORY: Includes metastatic pancreatic cancer, hypertension, diabetes mellitus type 2, gout, hyperlipidemia, chronic kidney disease, hypothyroidism. PAST SURGICAL HISTORY: Surgery on his finger and also attempted abdominal surgery to resect pancreatic mass. ALLERGIES: No known drug allergies. MEDICATIONS: Current medications is incomplete. However, it seems that he may be on the following medicines: Allopurinol 100 mg p.o. daily, aspirin 81 mg p.o. daily, carvedilol 6.25 mg p.o. b.i.d., Lasix 40 mg p.o. daily, [place] 10 q.4 hours, losartan HCT 100/25 p.o. daily, pantoprazole 40 mg p.o. daily. SOCIAL HISTORY: He denies any history of smoking, alcohol or illicit drug use. FAMILY HISTORY: No history of coronary artery disease. REVIEW OF SYSTEMS: Fourteen point review of systems as listed in HPI. Other systems negative. PHYSICAL EXAMINATION: GENERAL: Somewhat frail elderly male. He is without any respiratory distress. VITAL SIGNS: Temperature 94 degrees, pulse is 94, respiration is 20, blood pressure is 68/47. HEENT: Atraumatic, normocephalic. NECK: No masses. CHEST: Rhonchi. CARDIOVASCULAR: Regular rate and rhythm. ABDOMEN: Soft, positive bowel sounds. EXTREMITIES: No edema. NEUROLOGIC: He is awake, alert, oriented x1. GENITOURINARY: No bladder distention. SKIN: Warm. LABORATORIES AND STUDIES: WBC 3.83, hemoglobin. 6.8, hemoglobin 7.7, hematocrit 24.8, platelets 244,000. Sodium 136, potassium 5.7, chloride 97, CO2 is 15, creatinine 7.9, glucose is 82. ProBNP is 2946. ASSESSMENT: A 73-year-old elderly male with a history of metastatic pancreatic carcinoma, hypertension, diabetes mellitus type 2 and chronic kidney disease, who had presented to emergency department with complaint of worsening weakness, lethargy. He was found to be hypotensive. He had imaging done which did show possibility of pneumonia. Subsequently, he will require admission for further management. 1. Suspected left lower lobe pneumonia. 2. Hypotension. 3. Possible early sepsis. 4. Generalized weakness. 5. Diabetes mellitus type 2. 6. Acute on chronic kidney disease. PLAN: 1. We will admit patient to ICU. 2. We will continue with gentle hydration. 3. We will check blood cultures. Start patient on IV antibiotics. 4. If the patient remains hypotensive, we may have to start the patient on Levophed for blood pressure support. 5. We will put patient on glycemic protocol with sliding scale insulin regimen. 6. We will consult Nephrology and monitor his renal function. 7. Put patient on DVT prophylaxis with SCD. 8. The patient's condition is guarded. 9. We will continue to follow, and reassess and make further recommendation based on the patient's clinical course. 10. Patient has a history of metastatic pancreatic carcinoma. We will consult Oncology to follow along. cc: Aba Orellana MD [facility]
[2018-10-21] MEDS: HUMULIN R SUBQ SCH ×4 (06:57→21:00)
[2018-10-21] MEDS ORDERED: PROTONIX PO SCH (07:00)
[2018-10-21 10:15] LABS: HEMOGLOBIN 8.6 g/dL (14.0-18.0); MCH 26.5 PG (27-31); MCHC 30.7 g/dL (33-37); MCV 86.2 FL (81-99); MPV 11.7 FL (7.4-10.4); RBC 3.25 XMIL (4.7-6.1); RDW 22.4 % (11.5-14.5); WBC 4.08 X1000 (4.8-10.8)
[2018-10-21 10:24] LABS: ALBUMIN 2.4 g/dL (3.5-5.0); CALCIUM 7.4 mg/dL (8.8-10.2); PHOSPHORUS 7.1 mg/dL (2.7-4.5); POTASSIUM 5.2 mmol/L (3.5-5.1)
[2018-10-21 10:27] LABS: CREATININE 6.9 mg/dL (0.7-1.2)
[2018-10-21] MEDS: ICAR-C PO SCH ×2 (10:32→23:04)
--- NOTE | 2018-10-21 11:26 | Diag Imaging Result Doc PS360 ---
EXAM: CT ABDOMEN/PELVIS W/O CONTRAST 10/21/2018 HISTORY: decreased renal function TECHNIQUE: This exam was performed using automated exposure control, adjustment of mA or kV according to patient size, and/or use of iterative reconstruction technique. COMMENT: There is atelectasis present in the left lower lobe which was not present on 01/13/2018. There are some fibrotic opacities in the right lower lobe which were previously present. There is a small amount of pleural fluid on the left. There is pneumobilia. This was not the case at the time the previous study of 10/01/2018. There is still a mass in the area of the head of the pancreas. There is a pigtail drain exiting from the right side of the upper abdomen in the ninth intercostal space. This was originally placed in the gallbladder and may still be partially within the gallbladder. The tube passes through a fairly short segment of the right hepatic lobe. There is gas in the gallbladder which was not previously the case but is not unexpected considering the drainage. The kidneys are without evidence of nephrolithiasis. There is perinephric stranding bilaterally which was also present to some extent on the previous examinations. The appendix is not enlarged. There is no evidence of bowel obstruction. There is diverticulosis in the sigmoid colon without evidence of diverticulitis. There is no evidence of free air. The urinary bladder is not distended. The renal collecting systems are similar in appearance to the previous study. IMPRESSION: No evidence of obstructive uropathy. Left lower lobe atelectasis and pleural effusion. Pneumobilia presumably secondary to cholecystostomy catheter. Other nonacute findings as described above. Electronically signed by Desmond Lazar 10/21/2018 11:23 AM
[2018-10-21] MEDS ORDERED: PROTONIX IV SCH (16:15)
[2018-10-21] MEDS ORDERED: SODIUM CHLORIDE 0.9% INJ SCH (16:15)
[2018-10-21] MEDS: PROTONIX IV SCH (16:53)
[2018-10-22] MEDS ORDERED: ZYVOX PO ONE (03:04)
[2018-10-22 04:03] LABS: URINE SOURCE CLEAN CATCH
[2018-10-22 04:04] LABS: BILIRUBIN URINE NEGATIVE (NEGATIVE); BLOOD URINE TRACE (NEGATIVE); COLOR YELLOW; GLUCOSE URINE NEGATIVE (NEGATIVE); KETONE URINE TRACE mg/dL (NEGATIVE); LEUKOCYTES URINE SMALL (NEGATIVE); NITRITE URINE NEGATIVE (NEGATIVE); PROTEIN URINE 50 mg/dL (NEGATIVE); TURBIDITY URINE HAZY (CLEAR); UROBILINOGEN URINE NORMAL (NORMAL)
[2018-10-22 04:10] LABS: UR EPITHELIAL CELLS <10 /HPF (<10); URINE BACTERIA NEGATIVE /HPF; URINE RBC 20-40 /HPF (<10); URINE WBC <10 /HPF (<10)
[2018-10-22 04:34] LABS: URINE CASTS NONE SEEN; URINE CRYSTALS NONE SEEN; URINE SMALL ROUND CELLS NONE SEEN; URINE YEAST NONE SEEN
[2018-10-22] MEDS: ZOSYN 3.375 GM in NS 50 ML IV SCH (05:08)
[2018-10-22 05:27] LABS: HEMATOCRIT 30.1 % (42.0-52.0); HEMOGLOBIN 8.8 g/dL (14.0-18.0); MCH 27.2 PG (27-31); MCHC 29.2 g/dL (33-37); MCV 93.2 FL (81-99); MPV 11.6 FL (7.4-10.4); RBC 3.23 XMIL (4.7-6.1); RDW 23.9 % (11.5-14.5); WBC 6.13 X1000 (4.8-10.8)
[2018-10-22 05:59] LABS: ALBUMIN 2.7 g/dL (3.5-5.0); CALCIUM 7.3 mg/dL (8.8-10.2); CREATININE 7.3 mg/dL (0.7-1.2); PHOSPHORUS 7.8 mg/dL (2.7-4.5)
[2018-10-22 06:01] LABS: POTASSIUM 6.2 mmol/L (3.5-5.1)
[2018-10-22] MEDS ORDERED: SODIUM BICARBONATE 8.4% IV PUSH ONE (06:03)
[2018-10-22] MEDS ORDERED: CALCIUM GLUCONATE IV PUSH ONE ×2 (06:03→16:45)
[2018-10-22] MEDS ORDERED: ALBUTEROL 0.5% INH CONC FOR HYPERKALEMIA INH ONE (06:03)
[2018-10-22] MEDS ORDERED: D50W SYRINGE IV ONE (06:03)
[2018-10-22] MEDS ORDERED: HUMULIN R IV ONE (06:04)
[2018-10-22] MEDS: HUMULIN R SUBQ SCH ×4 (06:34→21:11)
[2018-10-22] MEDS ORDERED: CALCIUM GLUCONATE 1 GM in NS 50 ML IV ONE (07:00)
--- NOTE | 2018-10-22 07:29 | EKG Report ---
Test Performed on : 10/22/2018 06:53:07 AM Test Reason : hyperkalemia Blood Pressure : / mmHG Vent. Rate : 102 BPM Atrial Rate : 105 BPM P-R Int : 000 ms QRS Dur : 084 ms QT Int : 398 ms P-R-T Axes : 000 -48 073 degrees QTc Int : 518 ms Accelerated Junctional rhythm. with occasional premature ventricular complexes. Left axis deviation Inferior infarct (cited on or before 16-MAY-2017) Possible Anterolateral infarct (cited on or before 13-JAN-2018) Abnormal ECG When compared with ECG of 22-OCT-2018 06:52, (Unconfirmed) Previous ECG has undetermined rhythm, needs review Confirmed by Scott ENGLAND, Nura Hall ([id number]) on 10/22/2018 3:56:28 PM
[2018-10-22] MEDS: NS 1,000 ML IV SCH ×3 (07:40→16:00)
--- NOTE | 2018-10-22 07:52 | PROGRESS NOTE ---
DATE: 10/22/2018 SUBJECTIVE: The patient reports breathing better. He is still reporting mild abdominal pain in the epigastric area. No acute issues noted as per nursing staff overnight. Blood pressure so far has been 100 and above and sometimes high 90s. OBJECTIVE: Vital Signs: Temperature 97.7, heart rate 76, respiratory rate 16, blood pressure 100/55. O2 sat 95% on room air. General Examination: This is a chronically ill -looking, 73-year- old, -[place] male, lying in bed in no acute distress. HEENT: Head is normocephalic, atraumatic. Mucous membranes moist. Neck: No JVD noted. No carotid bruits. No lymphadenopathy. No thyromegaly. Cardiovascular: S1, S2 heard. No murmurs, gallops, or rubs. Regular rate and rhythm. Respiratory: Clear bilaterally to auscultation. Minimal rhonchi in both bases. The patient is not using any accessory muscles. No work of breathing noted. Abdomen is soft. A little bit distended. There is a catheter placed in the right upper quadrant draining greenish bile. Extremities: No clubbing, cyanosis, or edema. Peripheral pulses present in both legs. Neurologic: The patient is a little bit sleepier but answers to verbal stimuli. Muscle strength 5/5 in 4 extremities. LABORATORY DATA: White cell count 6.13, hemoglobin 8.8, hematocrit 30.1, platelets 185,000. Creatinine 7.3 and GFR 9. Potassium 6.7. Phosphorus 7.8. ASSESSMENT AND PLAN: 1. Left lower lobe pneumonia. Patient is on antibiotics, Zyvox and Zosyn because it was reported that blood cultures were positive for gram-positive cocci. I prefer to change antibiotics from Zyvox to daptomycin, renally dose it. Will continue also with breathing treatments if needed. 2. Hypotension, most likely related to this infection, now on IV fluids. He is getting better. Blood pressure is most of the time above 100. We will continue with the same management. If blood pressure remains low will send him to ICU and start vasopressors. 3. Diabetes mellitus, type 2. We will continue with sliding scale insulin and Accu-Chek before meals and also at bedtime. 4. Kajsv-tq-rsfjfco kidney disease. Actually, as per his numbers, I think he has chronic kidney disease, stage 5. Potassium is elevated. Phosphorus is elevated. We have consulted Dr. Nguyen. We will follow recommendations. 5. Hyperkalemia. We will provide 2 doses of Kayexalate b.i.d. 6. Metastatic pancreatic carcinoma. We will consult Oncology to see if there is anything that we can do for this patient. DISPOSITION: We will continue to monitor this patient closely here in the [facility]. cc: Mohan Ferrari MD [facility]
[2018-10-22] MEDS ORDERED: CUBICIN 500 MG in NS 100 ML IV SCH (08:15)
[2018-10-22] MEDS ORDERED: LEVOPHED 8 MG in D5 1/2 NS 250 ML IV SCH (10:15)
[2018-10-22] MEDS: ASPIRIN EC PO SCH (11:39)
[2018-10-22] MEDS: KAYEXALATE PO SCH ×2 (11:40→21:12)
[2018-10-22] MEDS: ICAR-C PO SCH ×2 (11:40→21:11)
[2018-10-22] MEDS: ZYLOPRIM PO SCH (11:40)
--- NOTE | 2018-10-22 12:20 | EKG Report ---
Test Performed on : 10/22/2018 10:00:35 AM Test Reason : CAT CALL Blood Pressure : / mmHG Vent. Rate : 096 BPM Atrial Rate : 096 BPM P-R Int : 160 ms QRS Dur : 078 ms QT Int : 416 ms P-R-T Axes : 048 -44 069 degrees QTc Int : 525 ms Normal sinus rhythm. Left axis deviation Possible Lateral infarct (cited on or before 13-JAN-2018) Inferior infarct (cited on or before 16-MAY-2017) Abnormal ECG When compared with ECG of 22-OCT-2018 06:53, (Unconfirmed) Sinus rhythm. has replaced Junctional rhythm. Questionable change in initial forces of Anterolateral leads Confirmed by Scott ENGLAND, Nura Hall ([id number]) on 10/22/2018 3:57:08 PM
[2018-10-22 13:26] LABS: INR 1.7; PROTIME 21.3 Seconds (11.0-16.0)
[2018-10-22 13:27] LABS: PTT 36.9 Seconds (22.3-41.8)
[2018-10-22 14:23] LABS: ALLEN TEST YES; BLOOD TYPE ARTERIAL; HCO3-(ACT) 12.5 mmoll (20.0-26.0); METHB 0.5 % (0.0-1.5); O2(CT) 11.8 mL/dL (15.0-23.0); O2HB 97.8 % (95.0-99.0); PCO2(98.6) 27 mmHg (35-45); PO2(98.6) 114 mmHg (60-100); SAMPLE BLOOD; SAO2 99.2 % (95.0-100.0); THB 8.4 g/dL (11.5-17.4)
[2018-10-22 14:24] LABS: MODALITY CANNULA
[2018-10-22 14:26] LABS: CREATININE 7.1 mg/dL (0.7-1.2); POTASSIUM 5.1 mmol/L (3.5-5.1)
[2018-10-22] MEDS ORDERED: ZOSYN 2.25 GM in NS 50 ML IV SCH (15:00)
--- NOTE | 2018-10-22 15:06 | EKG Report ---
Test Performed on : 10/20/2018 5:38:29 PM Test Reason : ED. NO order in [place] Blood Pressure : / mmHG Vent. Rate : 087 BPM Atrial Rate : 087 BPM P-R Int : 168 ms QRS Dur : 072 ms QT Int : 412 ms P-R-T Axes : 000 -53 087 degrees QTc Int : 495 ms Normal sinus rhythm. Left axis deviation Inferior infarct (cited on or before 16-MAY-2017) Possible Anterolateral infarct , age undetermined Abnormal ECG When compared with ECG of 31-MAY-2018 08:45, Borderline criteria for Anterior infarct are now present Borderline criteria for Anterolateral infarct are now present Questionable change in initial forces of Inferior leads Unconfirmed Result
[2018-10-22] MEDS ORDERED: NEO-SYNEPHRINE ONE (15:21)
[2018-10-22] MEDS ORDERED: SODIUM CHLORIDE 0.9% 20 ML ONE (15:21)
[2018-10-22] MEDS ORDERED: XYLOCAINE-MPF 2% ONE (15:21)
[2018-10-22] MEDS ORDERED: ROBINUL ONE (15:21)
--- NOTE | 2018-10-22 15:54 | INFECTIOUS DISEASE CONSULT REP ---
DATE: 10/22/2018 CONCLUSION: The patient has a gram-positive coccal bacteremia. This may well have originated from his Port-A-Cath. The patient may have an infected gallbladder as well. Since only one of two blood cultures were positive ,the positive blood culture may be a contaminant. RECOMMENDATIONS: I agree with treating the patient with daptomycin for his gram -positive coccal bacteremia. I have moved the dose of daptomycin to be given at nighttime because that way the dose will not be dialyzed out, as it might be given at 8 a.m., which is the time that currently the daptomycin is to be given. Also, I have decreased the dose of Zosyn to 2.25 g every 6 hours instead of the 3.375 g IV every 6 hours. DISCUSSION: The patient was unable to give me a history and no family members present. He was admitted to the hospital with a chief complaint of weakness and not feeling well. He also was coughing. His chest x-ray showed left lower lobe pneumonia versus atelectasis. However, the CT scan showed left lower lobe atelectasis and no pneumonia, and therefore since the CT scan is more accurate than the chest x-ray, the patient does not have pneumonia. The patient does have 1 of 2 blood cultures positive for gram-positive coccus. This could be a contaminant or it could be a pathogen. For now, I think it would be best to assume that it is a pathogen and I agree with starting daptomycin. The patient also has a cholecystostomy catheter in the patient's gallbladder and this has been ordered to be sent to Microbiology also, as well as the blood cultures. The patient's CBC shows a white count of 6130, hemoglobin 8.8 and platelet count 185 ,000. Creatinine 7.3. GFR is 9. Urine culture is pending. Alkaline phosphatase is 209 and bilirubin is 4.27. Swab for influenza was negative. PAST MEDICAL HISTORY: Positive for metastatic pancreatic cancer, hypertension, diabetes mellitus, gout, hyperlipidemia, chronic kidney disease, and hypothyroidism. PAST SURGICAL HISTORY: Positive for surgery on the patient's finger and also is positive for an attempted abdominal surgery to resect the pancreatic cancer. ALLERGIES: Patient's chart has no known drug allergies. HOME MEDICATIONS: Include: Allopurinol, aspirin, Coreg, Lasix, hydrocodone, Levaquin, losartan/hydrochlorothiazide, Zofran, Protonix and potassium. REVIEW OF SYSTEMS: Is unable to be obtained. PHYSICAL EXAMINATION: Vital Signs: Temperature is 97, pulse 93, respirations 22, blood pressure 88/43. Patient weighs 177 pounds. General: This is a chronically ill- appearing elderly male. He is a little lethargic. Head, Eyes, Ears, Nose and Throat: No drainage noted from the nose or ears. The patient did not have any white patches on his tongue. Neck: No meningismus. Lungs: Clear to auscultation. Thorax: The patient has a right-sided Port-A-Cath in place. The site is not swollen or tender. Cardiovascular: Regular heart rate. Abdomen: Soft and nontender. There is a cholecystostomy catheter in place. Neurologic: The patient is lethargic. He did answer some questions, but then he fell off asleep. He did move his extremities to request. There is no tremor. Integument: No rash noted. Thank you for the consult. cc: Jose Banuelos MD [facility]
--- NOTE | 2018-10-22 15:55 | HEMO/ONC CONSULTATION ---
DATE: 10/22/2018 REASON FOR CONSULTATION: Further management of his pancreatic cancer. HISTORY OF PRESENT ILLNESS: Mr. Guzman is a 73-year-old male that presented to the emergency department on 10/20/2018 complaining of extreme weakness. The patient denies any fevers, chills, or night sweats, denies any nausea, vomiting, or diarrhea. The patient does complain to have an increased cough. While in the emergency department, the patient was very hypotensive. Chest x- ray concerning for possible pneumonia and he was found to have an elevated creatinine of 7.9. The patient was admitted at that time for further evaluation and management of possible sepsis. Mr. 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 The patient was started on neoadjuvant Gemzar and Abraxane on 2017, and received 4 cycles. He had a good response with improvement of his CA 19-9. He was sent to [facility] for surgical evaluation. He went to [facility] and on 07/31/2018, he underwent laparotomy, biopsy of the head of the pancreas and transverse colon mesentery, and gastrojejunostomy on 07/31/2008. Intraoperatively, he was noted to have significant disease and was considered unresectable at that time. The patient restarted chemotherapy with Gemzar and Abraxane on 2018. PAST MEDICAL HISTORY: Hypertension, CHF, chronic kidney disease, hyperlipidemia , gout, diabetes, hypothyroidism, and metastatic pancreatic cancer. PAST SURGICAL HISTORY: Port-A-Cath placement. FAMILY HISTORY: Noncontributory. SOCIAL HISTORY: The patient denies any smoking, alcohol, or illicit drug use. ALLERGIES: No known drug allergies. HOME MEDICATIONS: He is on allopurinol, low-dose aspirin, Coreg, Lasix, [place] 10s, Icar C, Levaquin, losartan/HCTZ, Zofran, Protonix, and potassium chloride. REVIEW OF SYSTEMS: Negative unless mentioned in the HPI. PHYSICAL EXAMINATION: Vital Signs: Temperature 97.0 degrees, heart rate 93, respiratory rate 22, blood pressure 88/43, saturating 90% on nasal cannula. General: The patient is awake, very lethargic, lying in bed. HEENT: Anicteric. PERRLA. Mucous membranes appear to be dry. Neck: Supple. Trachea midline. No JVD. Lymph node survey: No palpable lymphadenopathy. Cardiovascular: S1, S2. Regular rate and rhythm. Chest: Bilateral breath sounds with rhonchi bilaterally. Abdomen: Soft, nontender. Bowel sounds present in all 4 quadrants. Skin: Warm, dry, and intact. No petechiae, no clubbing, no rashes, no cyanosis. Neurological: Awake, alert, and oriented x1. LABORATORY DATA: White blood cell count 6.13, hemoglobin 8.8, hematocrit 30.1, platelets 185,000. Potassium 5.1, BUN 129, creatinine 7.1, calcium 7.0. DIAGNOSTIC STUDIES: CT of the abdomen and pelvis showed no evidence of obstructive uropathy. Left lower lobe atelectasis and pleural effusion. Pneumobilia, presumably secondary to cholecystostomy catheter. ASSESSMENT AND PLAN: 1. Metastatic pancreatic cancer: Once the patient is discharged and back to baseline, we can consider treatment at that time. Continue to monitor. 2. Left lower lobe pneumonia: Continue antibiotics as ordered by the primary medical team. Continue recommendations per primary medical team. 3. Hypotension. Continue recommendations by the primary medical team. 4. Acute on chronic kidney disease: Continue recommendations by primary medical team and Nephrology. 5. Diabetes mellitus type 2. Continue recommendations by primary medical team. 6. Hyperkalemia: Continue recommendations by primary medical team. Dictated by SIGIFREDO Jo for Gamaliel Marshall MD Patient seen and examined. Patient known to me with a history of locally advanced pancreatic cancer. He received neoadjuvant chemotherapy and had an excellent response. Unfortunately Intraoperatively disease was unresectable. He was supposed to restart chemotherapy but presented with obstructive jaundice. ERCP and transhepatic drainage were not possible. Hence he underwent cholecystotomy. He was restarted on chemotherapy and I believe received one dose not too long ago. Patient admitted to the ICU, creatinine of 7.9 and extreme weakness. He denies fevers chills or riders. Discussed with Dr. Carreno who is planning to remove Port-A-Cath due to gram-positive bacteremia and at the same time place a dialysis catheter as well. I discussed DNR level 1 and he is agreeable. Continue aggressive care otherwise per patients intentions. Gamaliel Marshall M.D. cc: SIGIFREDO Jo MD [facility]
[2018-10-22] MEDS ORDERED: XYLOCAINE 1% ONE (16:17)
[2018-10-22] MEDS ORDERED: NS 250 ML ONE (16:18)
[2018-10-22] MEDS ORDERED: SENSORCAINE-MPF 0.5%/EPI 1:200,000 ONE (16:18)
[2018-10-22] MEDS ORDERED: CALCIUM GLUCONATE 2 GM in NS 100 ML IV ONE (16:20)
[2018-10-22] MEDS ORDERED: DIPRIVAN 1% ONE (16:21)
[2018-10-22] MEDS ORDERED: FENTANYL ONE ×2 (16:21→19:04)
[2018-10-22] MEDS ORDERED: NIMBEX ONE (16:29)
[2018-10-22] MEDS: SODIUM CHLORIDE 0.9% INJ SCH (20:36)
[2018-10-22] MEDS: CUBICIN 500 MG in NS 100 ML IV SCH (20:36)
[2018-10-22] MEDS: PROTONIX IV SCH (20:36)
--- NOTE | 2018-10-22 20:43 | NEPHROLOGY CONSULTATION ---
DATE: 10/22/2018 TIME SEEN: 08:30 REASON FOR ADMISSION: Weakness associated with cough and not feeling well. REASON FOR CONSULT: Acute kidney injury on CKD stage 4. CONSULTING PHYSICIAN: Dr. Esteban Troncoso. HPI: Mr. Guzman is a 73-year-old elderly black male who has known history of metastatic pancreatic carcinoma. The patient has known history of hypertension and diabetes mellitus type 2 with chronic kidney disease noted to have a baseline creatinine of approximately 2 earlier this year. The patient presented to the emergency department complaining of weakness and not feeling well associated with cough. He states that he has recently received chemotherapy approximately 1 week ago which was with his 1st treatment followed by Dr. Marshall. In the emergency room he had a chest x- ray indicating possibility of a left lower lobe pneumonia. He was hypotensive after receiving IV fluids, due to these findings with an elevated creatinine and BUN patient was admitted to [facility] for further evaluation and workup. He states that he has had a fever with an occasional chill, loss of appetite though he denies any nausea, vomiting or diarrhea. He denies any chest pain, some increased work of breathing, increased weakness though he appears to have some increased work of breathing as we are standing at his bedside. PAST MEDICAL HISTORY: Includes metastatic pancreatic cancer followed by Dr. Marshall, hypertension, diabetes mellitus type 2, gout, hyperlipidemia, chronic kidney disease, hypothyroidism. PREVIOUS SURGICAL HISTORY: Of surgery on a finger, an abdominal surgery to resect pancreatic mass. The patient has had a port placed to his left chest wall. SOCIAL HISTORY: He states he has family who are attentive to his care. He states he lives with his family. Denies any history of smoking, alcohol or illicit drug use. FAMILY HISTORY: No history of coronary artery disease or end-stage renal disease. Positive for hypertension. ALLERGIES: Listed as no known drug allergies. HOME MEDICATIONS: Reviewed are allopurinol, aspirin, carvedilol, Lasix, [place], losartan, pantoprazole. REVIEW OF SYSTEMS: As best obtained per patient and from chart with pertinent positives listed above in the HPI. VITAL SIGNS: Temperature 97.3 degrees, blood pressure currently 79/57, heart rate 100, respirations 16, he is on room air, last recorded saturation 95%, he has had 776 in with 395 out. He is 3.5 L positive since his admission. LAB: Sodium 145, potassium 6.2, chloride 110, CO2 8, BUN 124, creatinine 7.3, glucose of 94, anion gap 27, calcium 7.3, phosphorus 7.8, albumin 2.7, white count 6.13, hemoglobin is 8.9, hematocrit 30.1 with a platelet count of 185,000. PHYSICAL EXAMINATION: This is a 73-year-old male. He is resting quietly in bed. He appears chronically ill. He is in no acute distress.Skin: Warm and dry. HEENT: Normocephalic, atraumatic. Conjunctiva is pale. He has ADI. Mucous membranes are dry. Neck: Supple. Trachea midline. No evidence of JVD. Cardiovascular: He is regular rate and rhythm. No murmur or gallop appreciated. Lungs: Have coarse breath sounds bilateral, equal excursion, currently on room air. Abdomen: Soft, nontender, positive bowel sounds, slightly distended. Genitourinary: Not inspected. Integumentary: Skin is warm and dry. Port is noted to the left chest wall. Neurological: He is alert to person and to place. Forgetful to recent events. ASSESSMENT AND PLAN: 1. Acute kidney injury. The patient has had a drop in his urinary output, BUN and creatinine have continued to climb during his hospitalization. We have spoken to him in regards with placement of Vas-Cath to attempt hemodialysis as a bridge during this hospitalization. Patient states that he is agreeable, we will have the nurses contact the family he states that Dr. Carreno is his primary surgeon. We will ask him for placement of this Vas -Cath today. with plans for dialysis in the morning. 2. Electrolytes and acid-base balance. The patient is hyperkalemic again with correction on dialysis. He has been treated with this per IV. 3. Acid-base balance. This contributed to #1 again with correction on dialysis. 4. Anemia. This remains low but fairly stable. 5. Hypotension, possibly related to his pneumonia. Patient has suggestions of possible Levophed if his pressure does not improve, he will possibly be needed to transfer to ICU for this. 6. Metastatic pancreatic carcinoma. Oncology has been consulted and notified. I would like to thank you for allowing us to follow with this patient. Dictated by SIGIFREDO Adams for Ubaldo Nguyen MD Face to face encounter, data reviewed, discussed with Rosina Paz on 10/22/18. I agree with the above assessment and plan of care. cc: SIGIFREDO Adams MD [facility]
[2018-10-22] MEDS ORDERED: NS 50 ML ONE ×2 (20:55→21:03)
[2018-10-22] MEDS ORDERED: ZYVOX PO SCH (21:00)
[2018-10-22] MEDS: ZOSYN 2.25 GM in NS 50 ML IV SCH (21:13)
--- NOTE | 2018-10-22 21:13 | Diag Imaging Result Doc PS360 ---
CHEST-PORTABLE - 10/22/2018 INDICATION: Vas-cath placement COMPARISON: 10/20/2018 FINDINGS: The right internal jugular dialysis catheter is somewhat deep, with the distal tip in the lower right atrium almost the IVC. No pneumothorax. The left chest port has been removed. IMPRESSION: Deep placement of the right internal jugular dialysis catheter. Recommend backing out by about 3-4 cm. Electronically signed by Conrado Sullivan 10/22/2018 9:10 PM
[2018-10-22 21:38] LABS: BASO# 0.51 X1000 (0.0-0.2); EOS# 0.01 X1000 (0.0-0.7); EOS% 0.1 % (0.0-10.0); HEMATOCRIT 25.5 % (42.0-52.0); HEMOGLOBIN 7.7 g/dL (14.0-18.0); IMM GRAN# 1.34 X1000 (0.0-0.04); IMM GRAN% 18.4 % (0.0-0.5); LYMPH# 1.46 X1000 (1.2-3.4); MCH 27.4 PG (27-31); MCHC 30.2 g/dL (33-37); MCV 90.7 FL (81-99); MONO# 0.58 X1000 (0.11-0.59); MPV 11.5 FL (7.4-10.4); NEUT# 3.39 X1000 (1.4-6.5); NEUT% 46.5 % (42.2-75.2); PLT 175 X1000 (130-400); RBC 2.81 XMIL (4.7-6.1); RDW 23.4 % (11.5-14.5); WBC 7.29 X1000 (4.8-10.8)
[2018-10-22 21:55] LABS: CALCIUM 7.5 mg/dL (8.8-10.2); CREATININE 7.1 mg/dL (0.7-1.2); POTASSIUM 4.9 mmol/L (3.5-5.1)
[2018-10-22 22:09] LABS: LYMPHS 10 % (21-51); MONO 8 % (1-9); NRBC 3 % (0-0); SEGS 68 % (42-75)
--- NOTE | 2018-10-23 01:53 | OPERATIVE NOTE ---
PROCEDURE DATE: 10/22/2018 PREOPERATIVE DIAGNOSES: 1. Metastatic pancreatic cancer. 2. Chronic renal failure. 3. Sepsis with gram-positive cocci in the blood. Recent cat call with systolic pressure in the 50s, now in the 90s. PROCEDURES PERFORMED: 1. Initially a right internal jugular triple-lumen catheter. 2. Attempted left subclavian and left internal jugular tunnel Vas-Cath unsuccessful. 3. Replacement of right internal jugular triple-lumen with a straight Vas-Cath. DESCRIPTION OF PROCEDURE: The patient is brought to the operating room after satisfactory induction of IV and MAC anesthesia, his left and right neck were prepped and draped in the appropriate manner. Initial attempts at subclavian access were unsuccessful. For this reason with Doppler guidance the right IJ was accessed after localization with ultrasound and infiltration with Marcaine and Xylocaine with epinephrine. The catheter was subsequently threaded down the superior vena cava right atrial junction. Attention was then taken to the left side, left subclavian vein was accessed. A guidewire was introduced into the right atrial area of the heart; however, once the tunnel Vas-Cath was placed there was no blood return. It did flush easily but with no blood return which is unsatisfactory for dialysis. For this reason the left internal jugular was accessed, guidewire was introduced into the right atrial area of the heart once again, and again attempts at threading the tunneled catheter were unsuccessful with no blood return. For this reason we returned to the right side of the neck, the right IJ line had the guidewire threaded down it, and with progressive dilations subsequently a right straight Vas-Cath was placed through the right IJ. This was flushed easily and got good blood return. A portable fluoroscopy revealed no pneumothorax. The patient subsequently had sterile dressings applied. He was transferred back to the intensive care unit in guarded condition with an overall poor prognosis. cc: Jose Antonio Carreno MD [facility]ITALMiguel
[2018-10-23] MEDS: ZOSYN 2.25 GM in NS 50 ML IV SCH ×4 (03:20→20:23)
[2018-10-23] MEDS: NS 1,000 ML IV SCH (06:10)
[2018-10-23] MEDS ORDERED: NS 2,000 ML MISC PRN (06:42)
[2018-10-23] MEDS: HUMULIN R SUBQ SCH ×4 (06:51→20:26)
--- NOTE | 2018-10-23 07:15 | Diag Imaging Result Doc PS360 ---
EXAM: CHEST-PORTABLE 10/23/2018 HISTORY: evaluation TECHNIQUE: AP portable at 0522 COMMENT: There is a double-lumen catheter in the right internal jugular with its tip in the right atrium. There is atelectasis versus pneumonia in the lingula and left lower lobe and also to some extent in the right lower lobe. This is slightly worse than on 10/22/2018 and certainly since 10/20/2018. IMPRESSION: Bilateral lower lobe and lingular atelectasis versus pneumonia. Electronically signed by Desmond Lazar 10/23/2018 7:12 AM
--- NOTE | 2018-10-23 07:44 | EKG Report ---
Test Performed on : 10/23/2018 07:27:35 AM Test Reason : Evaluation Blood Pressure : / mmHG Vent. Rate : 088 BPM Atrial Rate : 088 BPM P-R Int : 198 ms QRS Dur : 074 ms QT Int : 360 ms P-R-T Axes : 084 -53 134 degrees QTc Int : 435 ms Poor data quality, interpretation may be adversely affected Sinus rhythm. with premature supraventricular complexes. and with occasional premature ventricular co mplexes. Left axis deviation Low voltage QRS Inferior infarct (cited on or before 16-MAY-2017) Anterolateral infarct (cited on or before 13-JAN-2018) Abnormal ECG When compared with ECG of 22-OCT-2018 10:00, Significant changes have occurred Unconfirmed Result
[2018-10-23] MEDS: ASPIRIN EC PO SCH (08:22)
[2018-10-23] MEDS: ZYLOPRIM PO SCH (08:22)
[2018-10-23] MEDS: ICAR-C PO SCH ×3 (08:23→21:10)
[2018-10-23 08:56] LABS: BASO# 0.38 X1000 (0.0-0.2); BASO% 4.6 % (0.0-0.8); EOS# 0.01 X1000 (0.0-0.7); EOS% 0.1 % (0.0-10.0); HEMATOCRIT 24.8 % (42.0-52.0); HEMOGLOBIN 7.6 g/dL (14.0-18.0); IMM GRAN# 1.76 X1000 (0.0-0.04); IMM GRAN% 21.2 % (0.0-0.5); LYMPH# 1.27 X1000 (1.2-3.4); LYMPH% 15.3 % (20.5-51.1); MCHC 30.6 g/dL (33-37); MCV 87.9 FL (81-99); MONO# 0.57 X1000 (0.11-0.59); MONO% 6.9 % (1.7-9.3); MPV 11.4 FL (7.4-10.4); NEUT# 4.33 X1000 (1.4-6.5); NEUT% 51.9 % (42.2-75.2); PLT 167 X1000 (130-400); RBC 2.82 XMIL (4.7-6.1); RDW 22.9 % (11.5-14.5); WBC 8.32 X1000 (4.8-10.8)
[2018-10-23 09:21] LABS: ALBUMIN 2.5 g/dL (3.5-5.0); CALCIUM 7.3 mg/dL (8.8-10.2); CREATININE 7.4 mg/dL (0.7-1.2); PHOSPHORUS 6.8 mg/dL (2.7-4.5)
[2018-10-23 09:25] LABS: POTASSIUM 5.5 mmol/L (3.5-5.1)
--- NOTE | 2018-10-23 09:26 | PROGRESS NOTE ---
DATE: 10/23/2018 SUBJECTIVE: Patient reports feeling fine. Denies any abdominal pain. Denies any nausea or vomiting. OBJECTIVE: Vital Signs: Temperature 96.6 degrees, heart rate 96, respiratory rate 15, blood pressure 103/61, O2 saturation 100% on 4 L nasal cannula. General Examination: This is a chronically ill-looking, 73-year-old, male, lying in bed, in no acute distress. HEENT: Head is normocephalic and atraumatic. Mucous membranes are moist. Neck : No JVD noted. No carotid bruits. No lymphadenopathy. No thyromegaly. Cardiovascular Examination: S1 and S2 heard. No murmurs, gallops, or rubs. Regular rate and rhythm. Respiratory Examination: Minimal rhonchi in both bases. The patient is not using any accessory muscles or having work of breathing. Abdomen: Soft. A little bit distended. This is a catheter placed in the right upper quadrant, draining greenish-yellowish bile. Extremities: No clubbing, cyanosis , or edema. Peripheral pulses present in both legs. Neurological Examination: The patient is awake, oriented x3. Moves 4 extremities. Laboratory Data: No labs from today but it is important to remark that those labs had been ordered yesterday to be drawn at 6 a.m. and the time of my dictation is 8:48. ASSESSMENT AND PLAN: 1. Acute respiratory failure secondary to left lower lobe pneumonia. Patient is requiring still oxygen supplementation; in this case is 4 L nasal cannula. The patient is on daptomycin and Zosyn for possible gram-positive cocci bacteremia but final culture returned positive for coagulase negative staphylococcus which is basically a contaminant. The other blood culture is negative. Dr. Banuelos had been consulted yesterday. We will leave to him to decide if we will continue with daptomycin or not, and if we will continue with Zosyn as well. 2. Hypotension, most likely related to his pneumonia. Blood pressure has been borderline low but he did not receive any vasopressors. We will continue with intravenous fluids but most likely, we may need to start both. 3. Diabetes mellitus type 2. We will continue with sliding scale insulin. Accu -Chek before meals and also at bedtime. 4. Acute on chronic renal disease. Nephrology has been consulted and they decided to start dialysis. Potassium was very elevated but unfortunately, at the time of my dictation at 8:48, there are no labs even though those were ordered at 6 a.m today. His primary surgeon, Dr. Carreno, placed intravenous access so he is about to start dialysis at bedside. 5. Hyperkalemia. We do not know exactly what the potassium is because there are no labs. 6. Metastatic pancreatic carcinoma. Oncology has been consulted. I think this patient has very advanced metastatic pancreatic carcinoma. We will continue to monitor. The prognosis is very poor. cc: Mohan Ferrari MD MTDD
[2018-10-23 11:02] LABS: BANDS 2 % (0-1); LYMPHS 12 % (21-51); MONO 6 % (1-9); NRBC 4 % (0-0); SEGS 66 % (42-75)
[2018-10-23 11:06] LABS: ANISOCYTOSIS 2+; HYPOCHROM 2+
[2018-10-23 11:07] LABS: LARGE PLATELETS 1+; POIKILOCYTOSIS 1+
--- NOTE | 2018-10-23 13:31 | HEMO/ONC PROGRESS NOTE ---
DATE: 10/23/2018 SUBJECTIVE: Patient says weakness is improving. The patient says he is feeling better. The patient denies any other complaints. OBJECTIVE: Vital Signs: Temperature 98.1 degrees, heart rate 100, respiratory rate 18, blood pressure 112/88, satting 100% on nasal cannula. General: Patient is awake, lying in bed, no acute distress noted. HEENT: Anicteric. Pupils PERRLA. Mucous membranes appear to be dry. Cardiovascular: S1, S2. Regular rate and rhythm. Chest: Mild rhonchi noted bilaterally. Abdomen: Soft, nontender. Bowel sounds present in all 4 quadrants. Neurologic : Alert and oriented x3. No focal deficits noted. LABORATORY DATA: White count is 8.32, hemoglobin 7.6, hematocrit 24.8, platelets are 167. Potassium 5.5, BUN 11, creatinine 7.4, calcium 6.8. ASSESSMENT/PLAN: 1. Metastatic pancreatic cancer: Continue to just monitor at this time. . 2. Acute respiratory failure secondary to left lower lobe pneumonia: Continue recommendation by primary medical team and Infectious Disease. Continue antibiotics as ordered. 3. Hypotension: The patient has not been on vasopressors. Continue intravenous fluids as ordered. Continue recommendations from primary medical team. 4. Acute on chronic renal disease: Nephrology has been consulted. Vas-Cath has been placed. Continue dialysis and recommendations per Nephrology. 5. Hyperkalemia. Potassium 5.5. Continue recommendations per primary medical team. 6. Code status: Patient do not resuscitate level 1. Dictated by SIGIFREDO Jo for Gamaliel Marshall MD Patient seen and examined. Patient continues to be in ICU. He is not on vasopressors. Hypotension is better. Plans for dialysis. Pneumonia on broad- spectrum antibiotics. DNR level I. From his cancer standpoint, he has unresectable disease. He has expressed interest in palliative chemotherapy, however his condition is declining. I will continue to follow him peripherally. Gamaliel Marshall M.D. cc: SIGIFREDO Jo MD [facility]
--- NOTE | 2018-10-23 14:21 | NEPHROLOGY PROGRESS NOTE ---
DATE: 10/23/2018 TIME SEEN: 0750 SUBJECTIVE: Mr. Guzman is sitting up in bed. He denies any discomfort, states he feels weak. VITAL SIGNS: Temperature 96.6 degrees, blood pressure 126/61, heart rate 71, respirations 13. He is on 4 L nasal cannula. Last recorded saturation 100%. He has had 2725, only 50 mL out per Lee catheter. LABORATORY DATA: Sodium 148, potassium 5.5, chloride 119, CO2 13, BUN 111, creatinine 7.9, glucose 143, anion gap 20, calcium 7.3, phosphorus 6.8, albumin 2.5. Previous hemoglobin 7.7 on the 4th. Blood cultures are negative coag Staphylococcus. PHYSICAL EXAMINATION: General: This is a 73-year-old male. He is currently resting quietly in bed. He appears chronically ill, in no acute distress. Skin : Warm and dry. HEENT: Normocephalic, atraumatic. Conjunctivae pale. He has ADI. Mucous membranes dry. Neck: Supple. Trachea midline. No evidence of JVD. Cardiovascular: Regular rate and rhythm. He is without murmur or gallop. Lungs: Coarse breath sounds bilaterally. Equal excursion. He is now on O2. Abdomen: Soft, large, round, nontender. Positive bowel sounds. Genitourinary: Not inspected. Integumentary: Warm and dry. Port noted to the left chest wall. Neurological: Alert and oriented times person and place. ASSESSMENT AND PLAN: 1. Acute kidney injury. The patient's BUN and creatinine remain elevated. He had a Vas-Cath placed yesterday to the right internal jugular per Dr. Carreno. We will plan for dialysis today. We will place him on sustained low efficiency dialysis 8 hours, 3K bath, 27-bicarb. We will attempt to pull 3 L of ultrafiltration with plans for dialysis again in the morning. 2. Electrolytes and acid-base balance. The patient has hyperkalemia with metabolic acidosis, again with correction on dialysis. 3. Anemia. This is low. We will defer to the primary care team for discussion of transfusion. 4. Hypotension related to pneumonia and possible sepsis. The patient is now off any pressor support. Blood pressure is low, but stable. He remains in the intensive care unit for continue monitoring. 5. Metastatic pancreatic carcinoma, to be followed by Oncology and the primary care. I would like to thank you for allowing us to follow with this patient. Dictated by SIGIFREDO Adams for Ubaldo Nguyen MD Face to face encounter, data reviewed, discussed with Rosina Paz on 10/24/18. I agree with the above assessment and plan of care. cc: SIGIFREDO Adams MD [facility]
--- NOTE | 2018-10-23 15:47 | INFECTIOUS DISEASE PROGRESS NO ---
DATE: 10/23/2018 PRESENT ILLNESS: The patient has 1 of 2 blood cultures positive for coag-negative staph. Most likely, this is a contaminant. However if one of the repeat blood cultures should grow coag- negative staph then the blood cultures would be pathogens. MEDICATIONS: The patient is receiving daptomycin. This is day 1 of treatment with daptomycin. PHYSICAL EXAMINATION: Vital Signs: Temperature is 98 degrees, pulse 93, respirations 21, blood pressure 106/57. General: This is a ill-appearing, elderly male. He has some shaking spells. Head/eyes/ears/nose/throat: No drainage noted from the nose or the ears. Neck: The patient has a right-sided dialysis catheter in the right neck. Lungs: Clear to auscultation. Cardiovascular: Heart rate is regular. Abdomen: Soft and not tender. There is a drain present in the gallbladder that is coming through the skin. Thorax: The patient's left-sided Port-A-Cath has been removed. Lab and X-ray: The chest x-ray for yesterday shows a right internal jugular dialysis catheter with the tip in the lower right atrium. There is no pneumothorax. The repeat blood cultures are pending. Urine cultures negative. Influenza swab is negative. Gallbladder drainage culture is negative. CBC shows a white count of 8320, hemoglobin 7.6, and platelet count 167,000. Creatinine 7.4. GFR is 9. ASSESSMENT: The patient has a coagulase-negative staph positive blood culture. Most likely, this is a contaminant and does not require treatment. The patient may have an infected gallbladder. PLAN: For now I am going to continue with daptomycin as a single agent as long as the gallbladder drainage does not have any growth in it. COMORBIDITIES: The patient has metastatic pancreatic cancer, diabetes mellitus, chronic kidney disease. cc: Jose Banuelos MD
[2018-10-23] MEDS: SODIUM CHLORIDE 0.9% INJ SCH (20:23)
[2018-10-23] MEDS: PROTONIX IV SCH (20:23)
[2018-10-23 21:00] LABS: EOS# 0.03 X1000 (0.0-0.7); EOS% 0.3 % (0.0-10.0); HEMATOCRIT 27.3 % (42.0-52.0); HEMOGLOBIN 8.2 g/dL (14.0-18.0); LYMPH% 14.3 % (20.5-51.1); MCV 89.8 FL (81-99); MONO# 0.74 X1000 (0.11-0.59); MONO% 6.6 % (1.7-9.3); MPV 10.6 FL (7.4-10.4); PLT 101 X1000 (130-400); RBC 3.04 XMIL (4.7-6.1); RDW 23.6 % (11.5-14.5); WBC 11.21 X1000 (4.8-10.8)
[2018-10-23 21:33] LABS: ANISOCYTOSIS 3+; BANDS 11 % (0-1); LYMPHS 15 % (21-51); MONO 2 % (1-9); NRBC 7 % (0-0); SEGS 66 % (42-75)
[2018-10-24] MEDS: ZOSYN 2.25 GM in NS 50 ML IV SCH ×3 (02:57→16:32)
[2018-10-24 04:49] LABS: HEMATOCRIT 23.2 % (42.0-52.0); HEMOGLOBIN 7.3 g/dL (14.0-18.0); MCH 26.8 PG (27-31); MCHC 31.5 g/dL (33-37); MCV 85.3 FL (81-99); MPV 10.4 FL (7.4-10.4); RBC 2.72 XMIL (4.7-6.1); RDW 22.4 % (11.5-14.5); WBC 10.81 X1000 (4.8-10.8)
[2018-10-24 04:55] LABS: ALBUMIN 2.3 g/dL (3.5-5.0); CALCIUM 7.6 mg/dL (8.8-10.2); CREATININE 2.6 mg/dL (0.7-1.2); PHOSPHORUS 2.7 mg/dL (2.7-4.5); POTASSIUM 4.5 mmol/L (3.5-5.1)
[2018-10-24] MEDS ORDERED: NS 2,000 ML MISC PRN (06:09)
[2018-10-24] MEDS ORDERED: HEPARIN IV PRN (06:09)
[2018-10-24] MEDS ORDERED: TIGHT: 0.2 ML/HR FOR DIALYSIS MISC PRN (06:09)
[2018-10-24] MEDS: HUMULIN R SUBQ SCH ×4 (06:26→21:09)
[2018-10-24] MEDS: ASPIRIN EC PO SCH (08:46)
[2018-10-24] MEDS: ICAR-C PO SCH ×2 (08:46→20:22)
[2018-10-24] MEDS: ZYLOPRIM PO SCH (08:46)
--- NOTE | 2018-10-24 08:59 | PROGRESS NOTE ---
DATE: 10/24/2018 SUBJECTIVE: The patient reports feeling fine. Mild pain in the epigastric area. Denies any nausea and vomiting. Denies any shortness of breath or chest pain. OBJECTIVE: Vital Signs: Temperature 99.3, heart rate 78, respiratory rate 17, blood pressure 151/79, O2 saturation 100% on 4 L nasal cannula. General Examination: This is a chronically ill- looking, 73-year-old male, lying in bed in no acute distress. HEENT: Head is normocephalic, atraumatic. Mucous membranes dry. Anicteric sclerae, pale conjunctivae. Neck: No JVD noted. No carotid bruits. No lymphadenopathy. No thyromegaly. Cardiovascular: S1, S2 heard. No murmurs, gallops, or rubs. Regular rate and rhythm. Respiratory: Minimal rhonchi in both bases, pretty much similar in comparing with previous days. Patient is not using any accessory muscles or having work of breathing. Abdomen: Soft. A little bit distended. Mildly tender to palpation in the epigastric area. There is a catheter placed in the right upper quadrant draining greenish yellow bile. Extremities: No clubbing, cyanosis, or edema. Peripheral pulses present in both legs. Neurological: Patient is awake, oriented x3. Moves 4 extremities. LABORATORY DATA: White cell count 10.81,hemoglobin 7.3, hematocrit 23.2, platelets 92,000. Creatinine 2.6, sodium 141, potassium 4.5. ASSESSMENT AND PLAN: 1. Acute respiratory failure secondary to left lower lobe pneumonia. Patient clinically is looking fine. Patient continues to require 4 L of oxygen by nasal cannula. Patient receiving daptomycin. Dr. Banuelos from Infectious Disease is following this patient. 1 out of 2 blood cultures positive for coagulase staphylococcus areas. They have repeated blood cultures and I think until we see those, Dr. Banuelos plans to continue with the same antibiotic. At this point, we will continue with the same management, in this case, Zosyn and daptomycin. 2. Hypotension, most likely related to his pneumonia. His septic shock is resolved. He is not requiring any vasopressors. He is on IV fluids. I prefer to keep this patient 24 hours in the unit to see if he basically will need vasopressors or not. We will continue to monitor him. 3. Diabetes mellitus type 2. Patient is on sliding scale insulin and also Accu- Cheks before meals and also at bedtime. 4. Acute on chronic renal disease. Patient received routine dialysis. He had dialysis yesterday and they are planning to do dialysis today. Dr. Nguyen is following this patient. We appreciate his input. 5. Anemia of chronic disease. There is an order for 2 units of blood to be transfused on dialysis. Dr. Carreno put those orders. We will follow recommendations. 6. Hyperkalemia, resolved. 7. Metastatic pancreatic carcinoma. Oncology has been consulted. At some point , he was interested in having palliative chemotherapy. I do not think he is a candidate for anything at this point. His prognosis is very poor. 8. Code status. I have talked to him today about code status and he wants to have everything done on him. So, he remains Full Code now. 9. Disposition, we will continue to monitor this patient closely in the intensive care unit. cc: Mohan Ferrari MD MTDD
[2018-10-24] MEDS ORDERED: NS 250 ML ONE (10:15)
[2018-10-24 10:22] LABS: INR 1.41; PROTIME 18.4 Seconds (11.0-16.0)
--- NOTE | 2018-10-24 11:28 | Diag Imaging Result Doc PS360 ---
EXAM: CHEST-PORTABLE HISTORY: PICC placement TECHNIQUE: Portable chest COMPARISON: 11/20/2018 FINDINGS: Skin hansel overlie the left upper chest. No change in the right jugular catheter. Interval placement of a right-sided PICC line. The tip overlies the distal superior vena cava near the right atrium. Decreased pleural fluid and atelectasis in the lower left lung. Mild central vascular distention remains. There is mild cardiomegaly. IMPRESSION: Mild interval improvement. PICC line in good position. Electronically signed by Aamir Mcpherson 10/24/2018 11:26 AM
[2018-10-24] MEDS ORDERED: NS 500 ML ONE (11:49)
[2018-10-24] MEDS: PROTONIX IV SCH (20:22)
[2018-10-24] MEDS: SODIUM CHLORIDE 0.9% INJ SCH (20:22)
[2018-10-24] MEDS: CUBICIN 500 MG in NS 100 ML IV SCH (20:22)
--- NOTE | 2018-10-24 22:57 | NEPHROLOGY PROGRESS NOTE ---
DATE: 10/24/2018 SUBJECTIVE: He has some tenderness at his Vas-Cath site. He does relate some shortness of breath. OBJECTIVE: Vital Signs: Blood pressure 95/66, heart rate 88, respirations 18, afebrile. General: No acute distress. Skin: Warm and dry. Conjunctivae are pink. Neck: Neck veins are not distended. Heart: Regular. No gallops. Lungs: Equal. No crackles. Abdomen: Soft, nontender. Bowel sounds are present. Extremities: Trace edema. No clubbing or cyanosis. IMPRESSION: Acute kidney injury. We will plan for dialysis today. Two K bath. cc: Ubaldo Nguyen MD
--- NOTE | 2018-10-25 02:16 | INFECTIOUS DISEASE PROGRESS NO ---
DATE: 10/24/2018 PRESENT ILLNESS: The patient has an infected gallbladder. He does have 1 of 4 bottles that grew a coagulase-negative Staph that is a contaminant. MEDICATIONS: This is the second day of being on daptomycin and Zosyn. PHYSICAL EXAMINATION: Vital Signs: Temperature is 99 degrees, pulse 89, respirations 18, blood pressure 132/86. The patient weighs 189 pounds. General: This is an ill-appearing, elderly male. He is in no acute distress tonight. Head, Eyes, Ears, Nose, and Throat: He can hear my spoken words and see near objects. Neck: No meningismus. The patient has a right internal jugular dialysis catheter in place. The site is not draining. Lungs: Clear to auscultation. Cardiovascular: Heart rate is regular. Abdomen: Soft and nontender. There is a drain on the right side of the abdomen that is in the gallbladder. Neurologic: The patient is awake. He can move his extremities. There is no tremor. LAB AND X-RAY: There is no new radiographic study today. The patient's gallbladder is growing a Gram positive coccus. Urine culture is negative. CBC shows a white count of 10,810, hemoglobin 7.3, and platelet count 92,000. Creatinine is 2.6, and GFR is 30. ASSESSMENT AND PLAN: I have discontinued Zosyn. I am going to keep daptomycin going, pending the identification of the Gram positive coccus in the patient's gallbladder. COMORBIDITIES: The patient has metastatic pancreatic cancer, diabetes mellitus, chronic kidney disease. cc: Jose Banuelos MD
[2018-10-25 06:01] LABS: HEMATOCRIT 30.9 % (42.0-52.0); HEMOGLOBIN 9.9 g/dL (14.0-18.0); MCH 27.7 PG (27-31); MCV 86.3 FL (81-99); MPV 12.3 FL (7.4-10.4); RBC 3.58 XMIL (4.7-6.1); RDW 20.7 % (11.5-14.5); WBC 10.26 X1000 (4.8-10.8)
[2018-10-25 06:09] LABS: ALBUMIN 2.8 g/dL (3.5-5.0); CALCIUM 7.5 mg/dL (8.8-10.2); CREATININE 2.5 mg/dL (0.7-1.2); PHOSPHORUS 2.6 mg/dL (2.7-4.5); POTASSIUM 3.5 mmol/L (3.5-5.1)
[2018-10-25] MEDS: HUMULIN R SUBQ SCH ×4 (07:19→20:09)
[2018-10-25] MEDS ORDERED: VASELINE TOP PRN (08:07)
[2018-10-25] MEDS: ZYLOPRIM PO SCH (08:08)
[2018-10-25] MEDS: ASPIRIN EC PO SCH (08:08)
[2018-10-25] MEDS: ICAR-C PO SCH ×2 (08:08→20:10)
--- NOTE | 2018-10-25 10:18 | HEMO/ONC PROGRESS NOTE ---
DATE: 10/25/2018 SUBJECTIVE: Patient says he is slowly feeling better at this time. The patient denied any new complaints. OBJECTIVE: Vital Signs: Temperature of 98.6 degrees, heart rate 81, respiratory rate 15, blood pressure 156/95, saturating 97% on nasal cannula. General: The patient is awake, sitting up in bed. No acute distress noted. HEENT: Anicteric. Pupils PERRLA. Mucous membranes appear to be moist. Cardiovascular: S1, S2. Regular rate and rhythm. Lungs: Bilateral breath sounds clear to auscultation. Abdomen: Soft, nontender. Bowel sounds present in all 4 quadrants. Neurologic: Alert and oriented x3. No focal deficits noted. Laboratory Data: White blood cell count is 10.26, hemoglobin 9.9, hematocrit 30.9, platelets are 89,000. Potassium 3.5, BUN 12, creatinine 2.5. ASSESSMENT AND PLAN: 1. Metastatic pancreatic cancer: Continue to just monitor at this time. Await recovery. 2. Acute respiratory failure secondary to pneumonia: Continue antibiotics as ordered by infectious disease. Continue recommendations by primary medical team. 3. Acute on chronic renal disease: Continue recommendations per nephrology. Continue dialysis per their recommendations. Creatinine continues to improve. Dictated by SIGIFREDO Jo for Gamaliel Marshall MD cc: SIGIFREDO Jo MD [facility]
[2018-10-25] MEDS: AMPICILLIN 2 GM/NS 2 GM/100 ML IVPB IV SCH ×2 (10:27→17:05)
--- NOTE | 2018-10-25 10:46 | INFECTIOUS DISEASE PROGRESS NO ---
DATE: 10/25/2018 PRESENT ILLNESS: Mr. 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 There is an accordion drain in place. MEDICATIONS: He has been receiving daptomycin 500 mg IV every 48 hours as a renally modified dose. PHYSICAL EXAMINATION: Vital Signs: Temperature is 98.6 degrees, pulse rate 80 , respiratory rate 13, blood pressure 156/95, O2 saturation is 98% on 2 L nasal cannula. General: This is a chronically ill-appearing elderly gentleman. He is lying in the bed, currently in no acute distress. HEENT: Atraumatic, normocephalic. Oral mucous membranes are pink and moist. Conjunctivae are pink. Neck: Supple. Trachea is midline. There is a Vas- Cath in place to the right neck that has some bloody drainage, but no edema or erythema is noted. There was also a PICC line to his right upper arm. Site is without edema, erythema, or drainage. Cardiovascular: Heart rate and rhythm are regular, normal sinus rhythm on the monitor. Respiratory: Lung sounds are clear in the upper lobes, diminished in the bases. Abdomen: Soft, large, and tender on the right. Bowel sounds are active. There is an accordion drain with green drainage noted coming from the gallbladder. The dressing over top is clean and dry. Neurologic: He is awake, alert, and oriented. Mild generalized weakness noted. Integumentary: There are incisional areas to his left chest from a previous attempt at line insertion with hansel in place. No erythema, drainage or edema to these sites. DIAGNOSTIC STUDIES: Today, his white count is 10.26, hemoglobin 9.9, platelet count 89,000. Creatinine is 2.5. GFR is 31. No imaging reports today. ASSESSMENT AND PLAN: Mr. Guzman has an infected gallbladder with drainage that is growing Enterococcus faecium. At this point, we will discontinue his daptomycin, and since his bacteria is multidrug susceptible, we will start him on ampicillin 2 g IV every 8 hours. These plans have been discussed with and recommended by Dr. Banuelos. COMORBIDITIES: for Mr. Guzman include metastatic pancreatic cancer, diabetes mellitus, acute kidney injury and anemia. Dictated by SIGIFREDO Mcnamara for Jose Banuelos MD This chart was documented by, SIGIFREDO Mcnamara and accurately reflects the services performed, treatment plan and medical decisions as attested by the providers signature Jose Banuelos MD. cc: [facility]
--- NOTE | 2018-10-25 10:47 | PROGRESS NOTE ---
DATE: 10/25/2018 OVERNIGHT EVENTS: Overnight, no acute events. His vitals are unremarkable. He had a transfer out of ICU he was awaiting a bed. SUBJECTIVE: He is denying any nausea, vomiting, abdominal pain, chest pain, or shortness of breath. We discussed about his clinical condition and transfer order. I answered all of his questions. CURRENT VITAL SIGNS: Temperature 98.6 degrees, pulse 74, blood pressure 140/80 , saturating 98% on room air. PHYSICAL EXAMINATION: General: He does not appear in any acute distress. He has a right-sided internal jugular intravenous line. He has left-sided chest hansel at least in 3 places for port placement. He had right upper quadrant abdominal drain. HEENT: Oral cavity moist. Lungs: Air entry bilaterally equal. No wheeze, rhonchi, crackles. Cardiovascular: S1, S2 normal. No murmur or gallop. Abdomen: Soft, nontender. He has active bowel sounds. Right upper quadrant drain which has greenish output. Extremities: No lower extremity edema. LABS: Suggestive of no leukocytosis. Acceptable range of hemoglobin and hematocrit. He continues to have thrombocytopenia though. Normal electrolytes. His BUN and creatinine increased after dialysis. Microbiology: Intra-abdominal drain has been growing Enterococcus faecium. IMAGING: No new imaging. ASSESSMENT AND PLAN: 1. Acute hypoxic respiratory failure secondary to left lower lobe pneumonia. Continue intravenous daptomycin as per infectious disease recommendation for intra-abdominal drain growing Enterococcus faecium. 2. Septic shock from pneumonia, now resolved. He is not on any vasopressor. Continue antibiotics as per infectious disease. 3. History of nmn-yiafdhw-uoxtgwmlt diabetes mellitus. Continue sliding scale insulin. 4. Acute kidney injury on chronic kidney disease stage 3. The patient received hemo dialysis on 10/24/18. 5. Anemia of chronic disease, currently stable. He is now s/p 2 PRBC and 2 FFP transfusion during this admission. His FOBT was negative. 7. Thrombocytopenia: Monitor daily CBC. No need for transfusion at the moment. I will Hold chemical anticoagulation if platelet count worsens. 6. Metastatic pancreatic cancer s/p intra-abdominal drain. Oncology has been consulted. He would be willing to get palliative chemotherapy in the future. 7. Code status. Full Code. 8. Disposition. The patient remains inside the hospital. I will have physical therapy evaluate him. cc: Jacob Lovell MD [facility]
--- NOTE | 2018-10-25 15:33 | NEPHROLOGY PROGRESS NOTE ---
DATE: 10/25/2018 SUBJECTIVE: He is awake and alert. He did not complain of pain this morning. No shortness of breath. OBJECTIVE: Vital Signs: Blood pressure 135/86, heart rate 71 respirations 14. Intake 500 mL, output zero. PHYSICAL EXAMINATION: General: No acute distress. Awake and alert. Skin: Warm and dry. Pupils are equal. Oropharynx is dry. Neck: Neck veins are not distended. Heart: Regular with S4. Lungs: Equal breath sounds. No crackles or wheezes. Abdomen: Soft, nontender. Bowel sounds present. Extremities: No edema, clubbing, or cyanosis. IMPRESSION: Acute kidney injury. He appears euvolemic on exam today. Electrolytes and acid-base are in target. No dialysis today. cc: Ubaldo Nguyen MD MTD[facility]
[2018-10-25] MEDS: HEPARIN SUBQ SCH (20:09)
[2018-10-25] MEDS: PROTONIX IV SCH (20:09)
[2018-10-25] MEDS: SODIUM CHLORIDE 0.9% INJ SCH (20:10)
[2018-10-26] MEDS: AMPICILLIN 2 GM/NS 2 GM/100 ML IVPB IV SCH ×3 (02:21→23:37)
[2018-10-26] MEDS: HUMULIN R SUBQ SCH ×4 (06:25→21:36)
[2018-10-26 07:41] LABS: HEMATOCRIT 35.3 % (42.0-52.0); HEMOGLOBIN 11.2 g/dL (14.0-18.0); MCH 27.9 PG (27-31); MCHC 31.7 g/dL (33-37); MCV 87.8 FL (81-99); MPV 11.2 FL (7.4-10.4); RBC 4.02 XMIL (4.7-6.1); WBC 9.13 X1000 (4.8-10.8)
[2018-10-26 07:57] LABS: ALBUMIN 2.9 g/dL (3.5-5.0); CALCIUM 7.8 mg/dL (8.8-10.2); PHOSPHORUS 3.8 mg/dL (2.7-4.5); POTASSIUM 3.4 mmol/L (3.5-5.1)
[2018-10-26] MEDS ORDERED: TIGHT: 0.2 ML/HR FOR DIALYSIS MISC PRN (08:05)
[2018-10-26] MEDS ORDERED: NS 2,000 ML MISC PRN (08:05)
[2018-10-26] MEDS ORDERED: HEPARIN IV PRN (08:05)
[2018-10-26] MEDS: ASPIRIN EC PO SCH (14:11)
[2018-10-26] MEDS: ZYLOPRIM PO SCH (14:11)
[2018-10-26] MEDS: HEPARIN SUBQ SCH ×2 (14:11→21:35)
[2018-10-26] MEDS: ICAR-C PO SCH ×2 (14:11→21:36)
[2018-10-26] MEDS: MYCELEX TROCHE PO SCH ×2 (16:31→21:35)
--- NOTE | 2018-10-26 18:29 | PROGRESS NOTE ---
DATE: 10/26/2018 Interval history. Patient was transferred from ICU to floor. He did not have any other acute overnight events. SUBJECTIVE: He denies chest pain, shortness of breath, nausea, vomiting. He tells me that his right-sided abdominal drain was placed 3 weeks ago. We discussed about discussing with Nephrology about long-term dialysis plan, answered all of his questions. The patient's brother is at bedside the surrogate decision maker. All of his questions have been answered. VITALS: Temperature of 98.5 degrees, pulse 81, respiratory 17, blood pressure 150/80, saturating 100% on 2 L nasal cannula. PHYSICAL EXAMINATION: Does not appear in any acute distress. Oral cavity he has posterior pharyngeal wall and posterior part of hard palate candidiasis. He has right-sided internal jugular intravenous line for hemodialysis. He has left-sided chest hansel. Air entry bilateral equal, no wheeze, rhonchi, crackles. S1, S2 normal. No murmur, rub, or gallop.Abdomen: Soft, nontender. Active bowel sounds. Right upper quadrant drain with greenish output. No lower extremity edema. LABS: Today suggestive of no leukocytosis, persistent thrombocytopenia, hypokalemia with elevated kidney function, elevated BUN and creatinine, appropriate rise of his hemoglobin after blood transfusion previously. He said he did receive hemodialysis today. ASSESSMENT AND PLAN: 1. Acute hypoxic respiratory failure secondary to left lower lobe pneumonia and septic shock. His chest x-ray and clinical symptoms have improved. His daptomycin has been stopped according to infectious disease. 2. Enterococcal infection coming out of right-sided gallbladder drain which was placed for drainage of bile as he previously could not get ERCP or other hepatobiliary drainage procedure done. Continue intravenous ampicillin as per ID. Patient is not on any pressors since his last ICU admission. 3. History of lxy-brrbcvm-ibqfzrbyn diabetes mellitus. Continue sliding scale insulin. 4. Acute kidney injury on chronic kidney disease stage 3. Patient received hemodialysis on October 26 as per the history given by him. I will appreciate nephrology recommendation about long-term need for hemodialysis and dialysis access. 5. Anemia of chronic disease currently stable. He is status post 2 packed red blood cells and 2 fresh frozen plasma since admission. FOBT was negative. I will monitor platelet count. 6. Deep vein thrombosis prophylaxis, continue heparin subcutaneous. 7. History of locally advanced pancreatic cancer which was inoperable previously and he could not get ERCP or hepatobiliary drainage for his obstructive jaundice and now status post intraabdominal drain likely since September 2018, oncology on board, would be getting palliative chemotherapy in future though he may need access intravenous for that. 8. Code status. Patient had changed his code status initially from do not resuscitate to full code. 9. Suspected acute cholangitis based on cultures from gallbladder drain. He is on intravenous antibiotics. 10. Disposition. Patient remains inside the hospital until we figure out the hemodialysis schedule and intravenous accesses. Plan of care were discussed with him and his brother at bedside. All their questions have been answered. cc: Jacob Lovell MD
--- NOTE | 2018-10-26 21:27 | INFECTIOUS DISEASE PROGRESS NO ---
DATE: 10/26/2018 PRESENT ILLNESS: Mr. Guzman has a gallbladder infection as noted from his right upper quadrant drain which is growing an enterococcal faecium. MEDICATIONS: Today is day 1 of ampicillin 2 g IV every 8 hours. PHYSICAL EXAMINATION: Vital Signs: Temperature is 98.5 degrees, pulse rate 81 , respiratory rate 17, blood pressure 151/87, O2 saturation is 100% on 2 L nasal cannula. General : This is a chronically ill-appearing elderly gentleman. He is lying in the bed in no acute distress. HEENT: Atraumatic, normocephalic. Oral mucous membranes are pink and moist. Conjunctivae are pink. Neck: Supple. Trachea is midline. There is a Vas-Cath in place to the right intrajugular. The site is without edema or erythema but there is a small amount of bloody drainage noted. Cardiovascular: Heart rate and rhythm are regular. Normal sinus rhythm on the monitor. Respiratory: Lung sounds are clear in the upper lobes, diminished in the bases. Abdomen: Soft, large and nontender, even on palpation to the right upper quadrant. Bowel sounds are active. There is an accordion drain with green drainage noted in the bag to the right upper quadrant. There is also a PICC line in place to his right upper arm. The site is without edema, erythema, or drainage. Neurologic: He is awake, alert and oriented, somewhat forgetful. There is mild generalized weakness noted. Integumentary: There are left chest incisions in place from previous attempts at line insertion with hansel dry and intact. No erythema or edema are noted to the sites. LABORATORY AND X-RAY: Today his white count is 9.13, hemoglobin 11.2, platelet count 94,000. Creatinine is 4, GFR is 18. His previous routine culture labeled gallbladder has grown Enterococcal faecium. ASSESSMENT AND PLAN: Mr. Guzman has a gallbladder infection with an accordion drain to the right upper quadrant, which was placed prior to this admission, at [facility], for obstructive jaundice. He is growing enterococcal faecium, and receiving ampicillin, which we will continue at this time. These plans have been discussed with and recommended by Dr. Banuelos. COMORBIDITIES: Include metastatic pancreatic cancer, diabetes mellitus, acute kidney injury and anemia. Dictated by SIGIFREDO Mcnamara for Jose Banuelos MD This chart was documented by, SIGIFREDO Mcnamara and accurately reflects the services performed, treatment plan and medical decisions as attested by the providers signature Jose Banuelos MD. cc: Jose Banuelos MD [facility]
[2018-10-26] MEDS: SODIUM CHLORIDE 0.9% INJ SCH (21:35)
[2018-10-26] MEDS: PROTONIX IV SCH (21:35)
[2018-10-27] MEDS: AMPICILLIN 2 GM/NS 2 GM/100 ML IVPB IV SCH ×3 (05:45→21:20)
[2018-10-27] MEDS: HUMULIN R SUBQ SCH ×4 (06:24→21:15)
[2018-10-27 07:44] LABS: HEMATOCRIT 31.7 % (42.0-52.0); MCH 27.5 PG (27-31); MCHC 31.5 g/dL (33-37); MCV 87.3 FL (81-99); MPV 12.1 FL (7.4-10.4); RBC 3.63 XMIL (4.7-6.1); RDW 21.6 % (11.5-14.5); WBC 10.75 X1000 (4.8-10.8)
[2018-10-27 08:05] LABS: ALB/GLOB RATIO 0.7; ALBUMIN 2.3 g/dL (3.5-5.0); CALCIUM 7.7 mg/dL (8.8-10.2); CREATININE 3.4 mg/dL (0.7-1.2); PHOSPHORUS 2.8 mg/dL (2.7-4.5); POTASSIUM 3.3 mmol/L (3.5-5.1); TOTAL BILIRUBIN 4.9 mg/dL (0.20-1.00); TOTAL PROTEIN 5.8 g/dL (6.3-8.3)
[2018-10-27] MEDS: MYCELEX TROCHE PO SCH ×4 (08:14→21:16)
[2018-10-27] MEDS: ICAR-C PO SCH ×2 (08:14→21:15)
[2018-10-27] MEDS: ASPIRIN EC PO SCH (08:14)
[2018-10-27] MEDS: ZYLOPRIM PO SCH (08:14)
[2018-10-27] MEDS: HEPARIN SUBQ SCH ×2 (08:14→21:16)
[2018-10-27] MEDS: PROTONIX IV SCH (21:16)
--- NOTE | 2018-10-27 22:24 | PROGRESS NOTE ---
DATE: 10/27/2018 Interval history. No events overnight. The patient is feeling fine, he states he was able to sit in the chair for 2 hours, was able to go to the bathroom using his cane. Denies any chest pain, shortness of breath, undue abdominal pain. We discussed about waiting for Nephrology recommendation about need for further dialysis. VITALS: Temperature 98 degrees, pulse 77, blood pressure 148/85, saturating 100% on 2 L nasal cannula. PHYSICAL EXAMINATION: General: Does not appear in acute distress. Oral cavity posterior pharyngeal and hard palate candidiasis is improving, right-sided internal jugular intravenous line for dialysis. He has left-sided chest hansel from previous port placement which was removed during ICU admission for suspected gram-positive bacteremia. This turned out to be coagulase- negative Staph aureus. Air entry bilateral equal, no wheeze rhonchi or crackles. Cardiovascular: S1, S2 normal. No murmur or gallop. Abdomen: Soft, nontender, active bowel sounds. Right upper quadrant drain with yellowish output. No lower extremity edema. LABS: Suggestive of stable hemoglobin, hematocrit and platelet count. BMP suggestive of potassium of 3.3, creatinine of 3.4 and BUN of 15. Microbiology no new microbiological data. IMAGING: No imaging data. ASSESSMENT AND PLAN: 1. Acute hypoxic respiratory failure secondary to left lower lobe pneumonia and septic shock because of left lower pneumonia he is status post intravenous daptomycin which has been stopped according to Infectious Disease. Repeat chest x-ray suggests improvement in his atelectasis and pneumonia. 2. Enterococcal infection as evidenced on gallbladder drain culture. Continue intravenous ampicillin as per ID for suspected cholangitis, patient is not on any pressors since October 23. 3. History of bvl-vobkodt-czdlvgkhk diabetes mellitus, continue sliding scale insulin blood sugars were currently in acceptable range. 4. Acute kidney injury on chronic kidney disease stage 3. Patient received hemodialysis on October 26 as per history given by him. His next hemodialysis session is going to be in October 29 I am awaiting Nephrology recommendation about need for long-term hemodialysis, dialysis access. 5. Anemia of chronic disease currently stable he status post 2 packed red blood cells 2 fresh frozen plasma since admission negative FOBT, continue to monitor CBC, his thrombocytopenia is stable. 6. Deep venous thrombosis prophylaxis heparin subcu. 7. History of locally advanced pancreatic cancer grade [id number] however surgically inoperable and he could not get ERCP or hepatobiliary drainage for his obstructive jaundice and now status post intra abdominal drain in gallbladder since September 2018 hematology oncology on board. He will likely receive palliative chemotherapy once his acute issues resolved as an outpatient. 8. Code status full code. 9. Disposition. Patient remains inside the hospital for intravenous ampicillin, I am awaiting Nephrology recommendation about need for permanent dialysis access and accordingly plan discharging him. He would likely need home physical therapy. Plan of care discussed with him. All of his questions have been answered. Previously had discussed the plan with his brother at bedside on October 26 . cc: Jacob Lovell MD
--- NOTE | 2018-10-28 04:34 | NEPHROLOGY PROGRESS NOTE ---
DATE: 10/27/2018 SUBJECTIVE: The patient is sitting up on the side of the bed. No complaints. OBJECTIVE: Vital Signs: Temperature 98 degrees, pulse 77, respiratory rate 16, blood pressure 158/85. Intake 540 mL, output 2 L on UF. Physical Examination: General: Elderly gentleman sitting up on the side of the bed in no acute distress. HEENT: Normocephalic, atraumatic. PERRL. Neck: Supple without JVD. Cardiovascular: Regular rate and rhythm with a gallop. Pulmonary: Clear bilaterally. No increased work of breathing. He is on 3 L nasal cannula. Abdomen: Soft, with positive bowel sounds. : No inspected. Voiding. Extremities: No clubbing, cyanosis, or edema. Integumentary: Skin is dry. Laboratory Data: WBC of 10.7, hemoglobin 10. Sodium 143, potassium 3.3, CO2 25, creatinine 3.4. ASSESSMENT AND PLAN: 1. Acute kidney injury. We dialyzed him yesterday, removed 2 L UF. Next dialysis will be planned on Monday. 2. Pneumonia. Improved. Followed by primary. 3. History of pancreatic cancer. Followed by primary, oncology. Dictated by SIGIFREDO Christopher for Ubaldo Nguyen MD cc: Ubaldo Nguyen MD
[2018-10-28] MEDS: AMPICILLIN 2 GM/NS 2 GM/100 ML IVPB IV SCH (05:31)
[2018-10-28] MEDS: HUMULIN R SUBQ SCH ×4 (06:30→21:21)
[2018-10-28 07:38] LABS: HEMATOCRIT 29.4 % (42.0-52.0); HEMOGLOBIN 9.4 g/dL (14.0-18.0); MCH 28.4 PG (27-31); MCV 88.8 FL (81-99); MPV 11.8 FL (7.4-10.4); RBC 3.31 XMIL (4.7-6.1); RDW 22.2 % (11.5-14.5); WBC 11.63 X1000 (4.8-10.8)
[2018-10-28 08:09] LABS: ALBUMIN 2.6 g/dL (3.5-5.0); CALCIUM 7.6 mg/dL (8.8-10.2); CREATININE 5.3 mg/dL (0.7-1.2); POTASSIUM 3.4 mmol/L (3.5-5.1)
[2018-10-28] MEDS: ASPIRIN EC PO SCH (10:36)
[2018-10-28] MEDS: ZYLOPRIM PO SCH (10:36)
[2018-10-28] MEDS: ICAR-C PO SCH ×2 (10:36→21:20)
[2018-10-28] MEDS: HEPARIN SUBQ SCH (10:37)
[2018-10-28] MEDS: MYCELEX TROCHE PO SCH ×4 (10:37→21:21)
--- NOTE | 2018-10-28 10:45 | PROGRESS NOTE ---
DATE: 10/28/2018 INTERVAL HISTORY: No acute overnight events. He states he has been able to come out of bed, walk around his room and go to the bathroom using his cane without any trouble. Denies chest pain, shortness of breath, abdominal pain, nausea, vomiting. VITAL SIGNS: Temperature 97.8 degrees, pulse 79, blood pressure 120/62, respiratory rate 18, saturating 98% on nasal cannula. Input and output suggests he was -1.4 L yesterday. PHYSICAL EXAMINATION: General: Does not appear in any acute distress. HEENT: Oral cavity is moist. His candidiasis on the posterior pharyngeal wall and hard palate has resolved. Right- sided internal jugular intravenous catheter for dialysis. Chest: He has left-sided chest hansel from previous port placement which was removed during ICU admission for suspected gram-positive bacteremia which turned out to be coagulase-negative Staphylococcus aureus ultimately. Respiratory: Air entry bilaterally equal. No wheeze, rhonchi, crackles. Cardiovascular: S1, S2 normal. No murmur or gallop. Abdomen: Soft, distended, nontender. Active bowel sounds. Right upper quadrant drain with yellowish output. Extremities: No lower extremity edema. LABS: Suggestive of mild leukocytosis of 11,000, stable hemoglobin and hematocrit, with a platelet count of 127,000. Hyponatremia, hypokalemia, elevated BUN and creatinine. Microbiology, no new microbiology data. ASSESSMENT AND PLAN: 1. Acute cholangitis because of Enterococcal faecium as evidenced on gallbladder drain culture. Continue intravenous ampicillin as per infectious disease for suspected acute cholangitis. 2. Acute kidney injury on chronic kidney disease stage 3. Currently, patient is hemodialysis dependent. Last hemodialysis on October 26. Next hemodialysis session on October 29. Appreciate nephrology recommendation about long-term dialysis plan and need for permanent access for hemodialysis. Currently, he has a right-sided internal jugular triple-lumen catheter for dialysis. 3. Acute hypoxic respiratory failure and septic shock secondary to left lower lobe pneumonia, status post intravenous daptomycin. He is no longer on pressors since his intensive care unit stay. 4. Pys-vouesxj-blkgmwmqv diabetes mellitus. Continue sliding scale insulin. Blood sugar is in acceptable range. 5. Anemia of chronic disease, status post 2 packed red blood cells and 2 units of fresh frozen plasma since admission, with negative fecal occult blood test. Continue to monitor CBC. His thrombocytopenia is also stable. 6. History of locally advanced pancreatic cancer, grade T4, N0, M0; however, surgically inoperable and he could not get an endoscopic retrograde cholangiopancreatography or hepatobiliary drainage for his obstructive jaundice so he is status post intra-gallbladder drain since September 2018. He will likely receive palliative chemotherapy once his acute issues are resolved as an outpatient. 7. Deep venous thrombosis prophylaxis. Heparin subcutaneous. 8. Code status full. 9. Disposition. The patient remains inside the hospital for need for hemodialysis and intravenous antibiotics. I will appreciate nephrology recommendation about long-term hemodialysis plan and plan discharge home with home physical therapy early next week. Plan of care was discussed with him. All of his questions have been answered. cc: Jacob Lovell MD
[2018-10-28 11:46] LABS: HEPATITIS PROFILE ACUTE SEE COMMENTS
--- NOTE | 2018-10-28 15:43 | INFECTIOUS DISEASE PROGRESS NO ---
DATE: 10/28/2018 PRESENT ILLNESS: The patient has an infected gallbladder with Enterococcus. A drain is in place. MEDICATIONS: The patient has been receiving IV ampicillin. PHYSICAL EXAMINATION: Vital Signs: Temperature is 97.6 degrees, pulse 85, respirations 16, blood pressure 128/74. General: This is a chronically ill-appearing elderly male. He is in no acute distress. Head, Eyes, Ears, Nose, and throat: No drainage noted from the nose or ears. He does not have any white patches on his tongue. Neck: No meningismus. Patient has a dialysis catheter in the right internal jugular vein. Lungs: Clear to auscultation. Cardiovascular: The patient's heart rate at times was rhythm, was regular at other times. He was having premature beats so the rhythm was irregular. Abdomen: Soft and nontender. A percutaneous drain is in his gallbladder and it is draining greenish colored fluid, very suspicious for bile. Neurologic: Patient is awake. He can move his extremities. There is no tremor. Extremities: The patient has PICC in his right arm. The site is not swollen or draining. LAB AND X-RAY: There is no new radiographic study. The CBC for today shows a white count of 11,630, hemoglobin 9.4, and platelet count 127,000. Creatinine is 5.3. GFR is 13. The hepatitis panel is nonreactive. ASSESSMENT AND PLAN: Patient has an enterococcal infected gallbladder. He is on intravenous ampicillin, which I am going to discontinue and put him instead on oral amoxicillin. COMORBIDITIES: Include metastatic pancreatic cancer, diabetes mellitus, acute kidney injury, and anemia. cc: Jose Banuelos MD
[2018-10-28 20:57] LABS: INR 1.08; PROTIME 14.9 Seconds (11.0-16.0)
[2018-10-28 20:58] LABS: BASO# 0.06 X1000 (0.0-0.2); BASO% 0.5 % (0.0-0.8); EOS# 0.02 X1000 (0.0-0.7); EOS% 0.2 % (0.0-10.0); HEMOGLOBIN 9.2 g/dL (14.0-18.0); IMM GRAN# 0.21 X1000 (0.0-0.04); IMM GRAN% 1.7 % (0.0-0.5); LYMPH# 1.12 X1000 (1.2-3.4); LYMPH% 9.2 % (20.5-51.1); MCH 27.7 PG (27-31); MCHC 31.7 g/dL (33-37); MCV 87.3 FL (81-99); MONO# 1.99 X1000 (0.11-0.59); MONO% 16.4 % (1.7-9.3); NEUT# 8.73 X1000 (1.4-6.5); PLT 142 X1000 (130-400); PTT 40.5 Seconds (22.3-41.8); RBC 3.32 XMIL (4.7-6.1); RDW 22.1 % (11.5-14.5); WBC 12.13 X1000 (4.8-10.8)
[2018-10-28 21:13] LABS: ANISOCYTOSIS 2+; LYMPHS 5 % (21-51); MONO 10 % (1-9); NRBC 5 % (0-0); SEGS 84 % (42-75)
[2018-10-28 21:14] LABS: LARGE PLATELETS OCCASIONAL; TARGET CELLS OCCASIONAL
[2018-10-28] MEDS: PROTONIX IV SCH (21:20)
[2018-10-28] MEDS: SODIUM CHLORIDE 0.9% INJ SCH (21:20)
[2018-10-28] MEDS: AMOXIL PO SCH (21:25)
[2018-10-29] MEDS ORDERED: HEPARIN IV PRN (05:47)
[2018-10-29] MEDS ORDERED: TIGHT: 0.2 ML/HR FOR DIALYSIS MISC PRN (05:47)
[2018-10-29] MEDS ORDERED: NS 2,000 ML MISC PRN (05:47)
[2018-10-29] MEDS: AMOXIL PO SCH ×4 (06:24→22:50)
[2018-10-29] MEDS: HUMULIN R SUBQ SCH ×4 (06:24→22:53)
[2018-10-29 07:33] LABS: HEMATOCRIT 28.4 % (42.0-52.0); HEMOGLOBIN 9.1 g/dL (14.0-18.0); MCH 28.3 PG (27-31); MCV 88.2 FL (81-99); MPV 11.7 FL (7.4-10.4); RBC 3.22 XMIL (4.7-6.1); RDW 22.5 % (11.5-14.5); WBC 12.33 X1000 (4.8-10.8)
[2018-10-29 07:51] LABS: ALBUMIN 2.5 g/dL (3.5-5.0); CALCIUM 8.1 mg/dL (8.8-10.2); PHOSPHORUS 3.7 mg/dL (2.7-4.5); POTASSIUM 3.7 mmol/L (3.5-5.1)
[2018-10-29 07:54] LABS: CREATININE 6.5 mg/dL (0.7-1.2)
--- NOTE | 2018-10-29 08:24 | HEMO/ONC PROGRESS NOTE ---
DATE: 10/29/2018 SUBJECTIVE: The patient continues to improve. The patient says he is feeling better each day. The patient denies any other complaints. OBJECTIVE: Vital Signs: Temperature 97.6 degrees, heart rate 93, respiratory rate 18, blood pressure 160/67, saturating 100% on nasal cannula. General: The patient is awake, lying in bed. No acute distress noted. HEENT: Anicteric. Pupils PERRLA. Mucous membranes moist. Cardiovascular: S1, S2. Regular rate and rhythm. Chest: Bilateral breath sounds. Clear to auscultation. Abdomen: Soft, nontender. Bowel sounds present in all 4 quadrants. Neurologic: Alert and oriented x3. No focal deficits noted. LABORATORY DATA: White blood cell count 12.33, hemoglobin 9.1, hematocrit 28.4 , platelets are 165. Potassium 3.7, BUN 34, creatinine 6.5. ASSESSMENT AND PLAN: 1. Metastatic pancreatic cancer. Continue to just monitor for now. Continue to wait on the patient to recover. 2. Acute cholangitis due to infection of the gallbladder drain. Continue antibiotics as ordered per Infectious Disease. Continue to monitor. Continue recommendations per the primary medical team. 3. Acute kidney injury on chronic kidney disease. Continue dialysis and recommendations per Nephrology. 4. Acute respiratory failure secondary to pneumonia. The patient's shortness of breath continues to improve daily. The patient continues to improve. Continue recommendations per primary medical team. 5. Anemia. Hemoglobin 9.1, hematocrit 28.4, white count has continued to be stable. Continue to transfuse as needed. Dictated by SIGIFREDO Jo for Gamaliel Marshall MD Patient seen and examined. Enterococcus bacteremia thought to be due to gallbladder infection/cholecystotomy. Discussed with Dr. Banuelos. Plans for amoxicillin. The hope is that he will clear his infection in the next few weeks. Acute kidney injury on dialysis at this point. These issues make it particularly difficult to continuing palliative chemotherapy. I have had this discussion with the patient. He is still hoping for palliative therapy and not an appointment to consider comfort measures. We will continue to follow along. cc: Gamaliel Marshall MD [facility]
--- NOTE | 2018-10-29 13:57 | NEPHROLOGY PROGRESS NOTE ---
DATE: 10/29/2018 SUBJECTIVE: Patient currently undergoing hemodialysis. No complaints this morning. Thinks he might go home later today. OBJECTIVE: Vital Signs: Temperature 97.6 degrees, pulse 93, respiratory rate 18, blood pressure 116/67, intake 580 mL, output 275 mL. General: Elderly gentleman currently sitting in bed undergoing dialysis. No acute distress. HEENT: Normocephalic, atraumatic. ADI. His oral mucosa is moist. Neck: Supple. No JVD. He has a Vas-Cath to the right IJ. Cardiovascular: Regular rate and rhythm. S4. Pulmonary: Clear bilaterally. Equal excursion. No increased work of breathing. Abdomen: Soft with positive bowel sounds. : Not inspected. Extremities: No clubbing, cyanosis or edema. Integumentary: Skin is warm and dry. LAB DATA: WBC of 12.3, hemoglobin 9.1, sodium 147, potassium 3.7, CO2 25, creatinine 6.9. ASSESSMENT AND PLAN: 1. Acute kidney injury without recovery requiring dialysis. He is dialyzing today on a 3 K bath/2 to 3 L UF 4 hour treatment. 2. Pneumonia improved. 3. History of pancreatic cancer followed by primary oncology. 4. Disposition. The patient has a Vas-Cath. This was placed back on October 22. Before the patient is discharged this would need to be exchanged for a tunnel dialysis catheter. I have instructed the nurses to go ahead and make sure that he has his hepatitis profile in anticipation of outpatient dialysis and we will consult with surgery regarding the exchange to an outpatient type temporary catheter. Dictated by SIGIFREDO Christopher for Ubaldo Nguyen MD Face to face encounter, data reviewed, discussed with Maddy Casillas on 10/29/18. I agree with the above assessment and plan of care. cc: Ubaldo Nguyen MD [facility]
[2018-10-29] MEDS: MYCELEX TROCHE PO SCH ×4 (14:53→20:16)
[2018-10-29] MEDS: HEPARIN SUBQ SCH ×2 (14:54→22:54)
[2018-10-29] MEDS: ZYLOPRIM PO SCH (16:38)
[2018-10-29] MEDS: ASPIRIN EC PO SCH (16:38)
[2018-10-29] MEDS: ICAR-C PO SCH ×2 (16:38→20:16)
--- NOTE | 2018-10-29 16:54 | PROGRESS NOTE ---
DATE: 10/29/2018 SUBJECTIVE: Overnight no acute events. He received his dialysis. He is feeling fine. We discussed about getting a permanent dialysis access, and we have consulted the surgeon to get the procedure in a timely manner. I answered all of his questions. OBJECTIVE: Vital Signs: Currently, temperature 97.5 degrees, pulse 94 per minute, blood pressure 112/67, respiratory rate of 18 per minute, saturating 100% on nasal cannula. General: On physical examination, he does not appear in acute distress. HEENT and Neck: Oral cavity is moist. No oral candidiasis. He had right-sided internal jugular intravenous catheter for hemodialysis. Chest: He has left-sided chest hansel from previous port placement, which was removed during ICU admission for suspected gram-positive bacteria, which turned out to be coagulase-negative Staphylococcus aureus. Lungs: No wheeze, rhonchi, crackles. Cardiac: S1 and S2 normal. No murmur, rub, or gallop. Abdomen: Soft distended, nontender. Active bowel sounds. Right upper quadrant drain with yellowish output. Extremities: No lower extremity edema. INPUT AND OUTPUT: He got 2.3 L dialysis today. LABORATORY DATA: Suggestive of increasing leukocytosis, anemia of chronic disease, resolution of thrombocytopenia. Hyponatremia. Elevated BUN and creatinine. Microbiology, no new microbiological data. IMAGING: He had a chest x-ray done on October 24, which was essentially unremarkable, with decreasing pleural fluid and atelectasis, with mild cardiomegaly. ASSESSMENT AND PLAN: 1. Acute cholangitis because of Enterococcus faecium as evidenced on the drain culture. Continue oral amoxicillin as per Infectious Disease. 2. Acute kidney injury on chronic kidney disease stage 3, now hemodialysis dependent on intermittent hemodialysis. Last dialysis on October 29. Considering scheduling issues, another surgeon doctor has been consulted for getting a tunneled dialysis access after discussion with Nephrology. 3. Leukocytosis. He denies any fevers, chills, chest pain, or shortness of breath. He denies any burning while micturition. I just continue to monitor it. He is on antibiotics. 4. Acute hypoxic respiratory failure and septic shock secondary to left lower lobe pneumonia, status post intravenous daptomycin. He is no longer on pressors since his intensive care unit days. 5. History of noninsulin dependent diabetes mellitus. Continue sliding scale insulin. Blood sugars in acceptable range. 6. Anemia of chronic disease, status post 2 packed red blood cells and 2 fresh frozen plasma since admission with negative fecal occult blood test. Continue to monitor CBC. His thrombocytopenia has resolved. 7. History of locally advanced pancreatic cancer, grade [id number], however, surgically inoperable, and he could not get ERCP or hepatobiliary donation for his obstructive jaundice, so he is status post intragallbladder drain since September 2018. He would like to receive palliative chemotherapy once his acute issues are resolved; however, kidney failure would pose a challenge in terms of chemotherapy options. 8. Deep venous thrombosis prophylaxis. Heparin subcutaneous. 9. Code status full. DISPOSITION: I am awaiting tunneled dialysis catheter access. At that point, I will consider discharging him. He does not have home needs. Plan of care was discussed with him and his brother at bedside. All of their questions have been answered satisfactorily. cc: Jacob Lovell MD MTDD
--- NOTE | 2018-10-29 17:07 | INFECTIOUS DISEASE PROGRESS NO ---
DATE: 10/29/2018 PRESENT ILLNESS: The patient has an enterococcal gallbladder infection. A drain is in place. As Dr. Lovell pointed out to me, the patient's white blood cell count is rising. MEDICATIONS: The patient is on p.o. amoxicillin. PHYSICAL EXAMINATION: Vital Signs: Temperature is 97.5 degrees, pulse 94, respirations 18, blood pressure 112/67. General: This is a chronically ill-appearing, elderly male. He is somewhat lethargic. Head/Eyes/Ears/Nose/Throat: No drainage from the nose or ears. He does not have any white patches on his tongue. Neck: No stiffness. The patient does have on the right side a tunneled dialysis catheter in place. Lungs: Clear to auscultation. Cardiovascular: Heart rate is irregular. Abdomen: Soft and not tender. There is a drain present on the right side that percutaneously goes to the gallbladder. Extremities: The patient has a PICC in his right arm. The site is not swollen or draining. Neurologic: The patient is somewhat lethargic, but he is arousable. He did move his extremities to request. LABORATORY AND X-RAY: Patient's CBC shows a white count of 12,330, hemoglobin 9.1, and platelet count 165,000. Creatinine 6.5m GFR is 10. Hepatitis panel is nonreactive. ASSESSMENT AND PLAN: The patient has an enterococcal gallbladder infection. He is receiving amoxicillin for that and also a drain is in the gallbladder. The patient's white count rising. I have ordered a portable chest x-ray, and Dr. Lovell is going to repeat the CBC tomorrow morning. Dr. Willingham is going to put in a permanent tunneled dialysis catheter and remove the one in the patient's neck. Also, with the patient's white count rising, I think it is possible that there could be an infection from one of the IV catheters, so I will go ahead and order blood cultures also. COMORBIDITIES: The patient has metastatic pancreatic cancer, diabetes mellitus, acute kidney injury, and anemia. cc: Jose Banuelos MD
--- NOTE | 2018-10-29 18:03 | Diag Imaging Result Doc PS360 ---
EXAM: CHEST-1 VIEW INDICATION: pneumonia TECHNIQUE: One view COMPARISON: 10/24/2018 FINDINGS: Support tubes and lines are in stable positions. There is at least a small left pleural effusion that has increased in size during the interval. There is adjacent atelectasis and/or infiltrate at the left lung base. The right lung appears to be clear. Cardiac silhouette is stable. IMPRESSION: Increase in left pleural effusion with adjacent atelectasis and/or infiltrate. Electronically signed by Franck Dorsey 10/29/2018 6:03 PM
[2018-10-29] MEDS: PROTONIX IV SCH (20:15)
[2018-10-29] MEDS: SODIUM CHLORIDE 0.9% INJ SCH (20:15)
[2018-10-30] MEDS: AMOXIL PO SCH ×3 (06:13→22:00)
[2018-10-30] MEDS: HUMULIN R SUBQ SCH ×4 (06:14→20:24)
--- NOTE | 2018-10-30 06:52 | GENERAL SURGERY PROGRESS NOTE ---
DATE: 10/30/2018 SUBJECTIVE: No events overnight. No fevers. Unfortunately, he is having a cup of coffee this morning. OBJECTIVE: General: He is alert. He has a right internal jugular vein Vas-Cath. No upper extremity swelling. Cardiovascular: Normal rate. Pulmonary: No increased work of breathing. Abdomen is mildly distended. White count 12, hematocrit 28, potassium is 3.7. Creatinine 6.5. ASSESSMENT AND PLAN: This is a 73-year-old gentleman who needs tunneled hemodialysis access for ongoing outpatient dialysis. Discussed the risks of bleeding, infection, damage to surrounding structures, pneumothorax, malfunction of the catheter. He understands and consents. Will go to the operating room today to place this later this afternoon. We have asked the nurse to ensure that he remains n.p.o. cc: Melisa Willingham MD
[2018-10-30 08:45] LABS: ALBUMIN 2.4 g/dL (3.5-5.0); CALCIUM 7.9 mg/dL (8.8-10.2); CREATININE 4.6 mg/dL (0.7-1.2); PHOSPHORUS 3.5 mg/dL (2.7-4.5); POTASSIUM 4.1 mmol/L (3.5-5.1)
[2018-10-30 08:50] LABS: HEMATOCRIT 30.5 % (42.0-52.0); HEMOGLOBIN 9.6 g/dL (14.0-18.0); MCH 28.5 PG (27-31); MCHC 31.5 g/dL (33-37); MCV 90.5 FL (81-99); MPV 11.5 FL (7.4-10.4); RBC 3.37 XMIL (4.7-6.1); RDW 23.7 % (11.5-14.5); WBC 10.96 X1000 (4.8-10.8)
[2018-10-30] MEDS ORDERED: XYLOCAINE-MPF 2% ONE (11:05)
[2018-10-30] MEDS ORDERED: DIPRIVAN 1% ONE (11:05)
[2018-10-30] MEDS ORDERED: NS 250 ML ONE (11:43)
[2018-10-30] MEDS ORDERED: XYLOCAINE 1%/EPI 1:100,000 ONE (11:43)
[2018-10-30] MEDS: ASPIRIN EC PO SCH (11:56)
[2018-10-30] MEDS: MYCELEX TROCHE PO SCH ×4 (11:57→20:22)
[2018-10-30] MEDS: ICAR-C PO SCH ×2 (11:57→20:22)
[2018-10-30] MEDS: ZYLOPRIM PO SCH (11:57)
--- NOTE | 2018-10-30 14:14 | NEPHROLOGY PROGRESS NOTE ---
DATE: 10/30/2018 SUBJECTIVE: Patient resting in bed. No complaints today. He is to go for a tunneled dialysis catheter later on. OBJECTIVE: Vital Signs: Temperature 97.9, pulse 81, respiratory rate 16, blood pressure 127/81 intake 370 mL. General: Elderly gentleman, resting in bed. No acute distress. HEENT: Normocephalic, atraumatic. ADI. Neck: Supple. No JVD. Cardiovascular: Regular rate and rhythm. Gallop. Pulmonary: Clear bilaterally. Abdomen: Soft, nontender. Extremities: No clubbing, cyanosis or edema. Integumentary: Skin is warm and dry. Continues with a Vas-Cath to the right IJ. LAB DATA: WBC 10.9, hemoglobin 9.6. Sodium 143, potassium 4.1, CO2 19, creatinine 4.6, calcium 7.9, albumin 10.4. ASSESSMENT AND PLAN: 1. Acute kidney injury without recovery requiring dialysis. We will keep him on a Monday, Monday, Monday schedule while he remains in the hospital. He is to go today for a tunneled dialysis catheter placement in anticipation of discharge and outpatient dialysis treatment. 2. History of pancreatic cancer, followed by primary oncology. 3. Pneumonia, improved. 4. Fluid volume. We remove 2.3 L yesterday. 5. Electrolytes, acid-base balance. Continue to treat on dialysis. Dictated by SIGIFREDO Christopher for Ubaldo Nguyen MD Face to face encounter, data reviewed, discussed with Maddy Casillas on 10/30/18. I agree with the above assessment and plan of care. vicki Face to face encounter, data reviewed, discussed with Maddy Casillas on 10/30/18. I agree with the above assessment and plan of care. vicki cc: Ubaldo Nguyen MD [facility]
[2018-10-30] MEDS: HEPARIN SUBQ SCH ×3 (15:52→21:41)
--- NOTE | 2018-10-30 17:33 | Diag Imaging Result Doc PS360 ---
EXAM: CHEST-1 VIEW 10/30/2018 HISTORY: cvl TECHNIQUE: AP portable upright at 1656 COMMENT: There is a double-lumen catheter with its tip in the right atrium and the right internal jugular. There is atelectasis present in the left base which has not changed since 10/29/2018. IMPRESSION: Left lower lobe and lingular atelectasis versus pneumonia. Electronically signed by Desmond Lazar 10/30/2018 5:31 PM
--- NOTE | 2018-10-30 17:46 | PROGRESS NOTE ---
DATE: 10/30/2018 INTERVAL HISTORY: The patient underwent a tunneled right-sided chest hemodialysis catheter placement on October 31, which he tolerated well. He did have some bleeding after the procedure and in the room I had noticed the dressing to be soaked with blood, so I had advised the nurse to apply pressure for at least 10 minutes and reapply the dressing, following which his bleeding appears to have stopped. The patient does not appear in any acute distress. Denies chest pain or shortness of breath. Denies any chest pain or shortness of breath. We discussed about dialysis schedule. I answered all of his questions. The patient's brother is at bedside. His questions have also been addressed. CURRENT VITAL SIGNS: Temperature 97.4 degrees, pulse 74 per minute, blood pressure 136/83. Saturating 100% on room air. PHYSICAL EXAMINATION: General: Does not appear in acute distress. HEENT: Oral cavity is moist. No oral thrush. Lungs: Air entry bilaterally equal. No wheeze, rhonchi or crackles. Heart: S1, S2 normal. No murmur, rub, or gallop. Abdomen: Soft, nontender. He does have right-sided upper quadrant abdominal drain. He has a right-sided internal jugular tunneled dialysis catheter, the dressing of which will be changed today. He previously had left-sided chest hansel from previous port placement which was removed in ICU, secondary to suspected gram- positive bacteria which turned out to be coagulase-negative Staphylococcus aureus. Extremities: No lower extremity edema. Right upper quadrant drain is putting out yellowish output. LABORATORY DATA: Improving leukocytosis. Stable hemoglobin and hematocrit, platelet count. Normal electrolytes except elevated BUN and creatinine, he would likely get dialysis tomorrow. ASSESSMENT AND PLAN: 1. Acute cholangitis because of enterococcal ischium as evidenced on the drain culture. Continue oral amoxicillin as per ID recommendation. His WBC count is decreasing. I would appreciate ID recommendation about duration of amoxicillin. 2. Acute kidney injury on chronic kidney disease stage 3, now hemodialysis dependent on intermittent hemodialysis Monday, Monday, Monday. He has a right-sided chest sternal dialysis catheter. He will await dialysis through his tunneled catheter tomorrow. 3. Leukocytosis without any fevers, chills, chest pain or shortness of breath, now improved. Chest x-ray performed to rule out pneumonia yesterday did suggest atelectasis bilateral lower lung quadrants. There was also bilateral pleural effusion. I think this is likely in the setting of his end-stage renal disease and not evidence of pneumonia. 4. Acute hypoxic respiratory failure and septic shock due to level left lower lobe pneumonia in ICU, status post intravenous daptomycin now resolved. 5. History of [id number] diabetes mellitus. Continue sliding scale insulin. 6. Anemia of chronic disease, status post 2 packed red blood cells and 2 fresh frozen plasma since admission with negative fecal occult blood test. Continue monitor CBC. Thrombocytopenia has resolved. 7. History of locally advanced pancreatic cancer grade T4 N0 M0. However, surgically inoperable. He could not get ERCP or hepatobiliary drainage for his obstructive jaundice initially, so he is status post intra gallbladder drains since September 2018 to help facilitate bile drainage. He would discuss with Oncology as an outpatient for further palliative chemotherapy, once his acute issues are resolved. However, being on dialysis might pose a challenge to choice of therapeutic agents. 8. Deep venous thrombosis prophylaxis. Heparin subcutaneous. 9. Code status: DNR level 1 after discussion with patient and his brother at bedside. DISPOSITION: Awaiting dialysis tunnel catheter tomorrow once it is able to be performed. My plan is to discharge him home. Plan of care were discussed with him. All of his questions were answered. cc: Jacob Lovell MD MTDMiguel
--- NOTE | 2018-10-30 17:53 | OPERATIVE NOTE ---
PROCEDURE DATE: 10/30/2018 PREOPERATIVE DIAGNOSIS: End-stage renal disease. POSTOPERATIVE DIAGNOSIS: End-stage renal disease. PROCEDURE PERFORMED: Right internal jugular vein tunneled hemodialysis catheter placement. ESTIMATED BLOOD LOSS: 10 mL. SPECIMENS: Previous hemodialysis catheter. ANESTHESIA: General. INDICATIONS: A 73-year-old gentleman who had a previous Vas-Cath placed in the right internal jugular vein by Dr. Carreno. He had difficulty accessing veins most likely due to central stenosis or [*]stenosis. OPERATIVE FINDINGS: Attempts at accessing the subclavian vein were successful. Beginning wire access to the central vessels was difficult most likely given in the setting of innominate or subclavian vein stenosis. Final fluoroscopic image showed good position of the catheter at the superior vena cava-atrial junction with no kinking. OPERATIVE NOTE: Risks, benefits and alternatives were discussed. Patient consented to the procedure. He was seen preoperatively. Surgical site was confirmed. He was taken to the operating room, placed supine position and general anesthesia induced without complication. All bony prominences were padded. Bilateral neck and chest prepped with Betadine and draped in usual fashion. After a time out, we attempted to access the subclavian vein. We were on the first pass able to get venous blood return, but when attempting to pass the wire it would not pass beyond the junction of the innominate and the central vessels. We tried a Glidewire and again this would not, it would curl up within the lumen of the vein. We tried this again, re-sticking more proximally with no success. We elected to abort this and given this difficulty we obtained wire access through the previous right internal jugular vein catheter. We removed this and then tunneled an 18 cm tip to curve catheter through the previous incision in the neck and passed this through a peel-away introducer sheath until in good position. All ports withdrew blood and flushed without resistance. We closed the ostomy site with a 4-0 Monocryl, pursestring was placed around it and we secured the catheter with 2-0 nylon. Final fluoroscopic image showed no evidence of complication. He was woken and transferred to recovery. Sterile caps and dressing were applied. cc: Melisa Willingham MD
--- NOTE | 2018-10-30 18:10 | INFECTIOUS DISEASE PROGRESS NO ---
DATE: 10/30/2018 PRESENT ILLNESS: The patient has an enterococcal gallbladder infection. A drain is in place. The patient did have leukocytosis but today the white count has come down to 10,960. MEDICATIONS: The patient is on amoxicillin p.o. PHYSICAL EXAMINATION: Vital Signs: Temperature is 97.4 degrees, pulse 74, respirations 17, blood pressure 136/83. General: This is a chronically ill-appearing, elderly male. He is awake today. Head, eyes, ears, nose, throat: He does not have any drainage from his nose or ears. He can hear my spoken words. Neck: No stiffness. Lungs: Clear to auscultation. Cardiovascular: Heart rate is irregular. Abdomen: Soft and nontender. A drain is in place on the right side which is draining the gallbladder. Thorax: The patient has a tunneled dialysis catheter present on the right side of the patient's chest. Extremities: The patient has a PICC in his right arm. The site is not swollen or tender. Neurologic: The patient is awake today. He can move his extremities. LAB AND X-RAY: CBC shows a white count of 10,960, hemoglobin 9.6, and platelet count 173,000. Creatinine is 4.6. GFR is 15. There is no new radiographic study. ASSESSMENT AND PLAN: The patient has an enterococcal gallbladder infection for which he is receiving amoxicillin. The patient's white count now has come down to almost normal. For now I am going to keep going with the amoxicillin. COMORBIDITIES: The patient has metastatic pancreatic cancer, diabetes mellitus, acute renal injury, and anemia. cc: Jose Banuelos MD
[2018-10-30] MEDS: PROTONIX IV SCH (20:22)
[2018-10-30] MEDS: SODIUM CHLORIDE 0.9% INJ SCH (20:23)
[2018-10-31] MEDS: AMOXIL PO SCH ×2 (05:48→13:18)
[2018-10-31] MEDS ORDERED: TIGHT: 0.2 ML/HR FOR DIALYSIS MISC PRN (06:26)
[2018-10-31] MEDS ORDERED: NS 2,000 ML MISC PRN (06:26)
[2018-10-31] MEDS ORDERED: HEPARIN IV PRN (06:26)
[2018-10-31] MEDS: HUMULIN R SUBQ SCH ×3 (06:45→16:44)
[2018-10-31 08:52] LABS: ALBUMIN 2.5 g/dL (3.5-5.0); CALCIUM 8.2 mg/dL (8.8-10.2); CREATININE 5.7 mg/dL (0.7-1.2); PHOSPHORUS 3.4 mg/dL (2.7-4.5); POTASSIUM 4.1 mmol/L (3.5-5.1)
[2018-10-31] MEDS: ASPIRIN EC PO SCH (12:57)
[2018-10-31] MEDS: HEPARIN SUBQ SCH (12:57)
[2018-10-31] MEDS: ICAR-C PO SCH (12:57)
[2018-10-31] MEDS: MYCELEX TROCHE PO SCH ×3 (12:58→16:44)
[2018-10-31] MEDS: ZYLOPRIM PO SCH (12:59)
--- NOTE | 2018-10-31 13:27 | NEPHROLOGY PROGRESS NOTE ---
DATE: 10/31/2018 TIME SEEN: 0740 hours. SUBJECTIVE: Patient resting in bed. He is to go for dialysis later this morning. He has no complaints today. OBJECTIVE: Vital Signs: Temperature 98.7 degrees, pulse 99, respiratory rate 18, blood pressure 122/76. Intake 350 mL, output 42 mL. General exam: This is an elderly gentleman resting in bed. He is awake, alert. HEENT: Normocephalic, atraumatic. ADI. Oral mucosa is poor. Neck: Supple. There is no JVD. Cardiovascular: Regular rate and rhythm. Pulmonary: He is clear bilaterally. Abdomen: Soft, with positive bowel sounds. : Not inspected. Extremities: No clubbing, cyanosis, edema. Integumentary: Skin is warm and dry. On the right upper chest wall, he has a tunneled dialysis catheter with insertion site clean, dry, and intact. LAB DATA: Sodium 139, potassium 4.1, CO2 19, creatinine 5.7. ASSESSMENT AND PLAN: 1. Acute kidney injury without recovery, now requiring dialysis. He had a tunneled dialysis catheter placed for anticipation of a longer term dialysis treatment so that the patient can be discharged home at the discretion of the primary. We will dialyze him today on a 2 potassium bath/2 to 3 liters of fluid removal as tolerated 3-1/2 hour treatment. 2. History of pancreatic cancer followed by Primary and Oncology. 3. Electrolytes, acid-base balance, anemia. Continue to treat on dialysis. 4. Disposition: We will continue with patient's dialysis while he remains in the hospital, and we will arrange an outpatient plan when he is ready for discharge. Dictated by SIGIFREDO Christopher for Ubaldo Nguyen MD Face to face encounter, data reviewed, discussed with Maddy Casillas on 10/31/18. I agree with the above assessment and plan of care. cc: Ubaldo Nguyen MD [facility]
[2018-10-31 20:04] VITALS: BP 115/67
--- NOTE | 2018-10-31 21:43 | DISCHARGE SUMMARY ---
ADMISSION DATE: 10/21/2018 DISCHARGE DATE: 10/31/2018 DISCHARGE DIAGNOSES: 1. Acute cholangitis because of enterococcal faecium, as evidenced on gallbladder drain culture. 2. Acute kidney injury on chronic kidney disease stage 3 leading to end-stage renal disease and hemodialysis dependent. 3. Acute hypoxic respiratory failure and septic shock due to left lower lobe pneumonia. 4. Anemia of chronic disease, status post 2 units of packed red blood cells and 2 fresh frozen plasma transfusion. 5. History of noninsulin-dependent diabetes mellitus. OTHER DIAGNOSES: 1. History of locally advanced pancreatic cancer, grade T4 N0 M0 deemed surgically inoperable. The patient could not get ERCP or hepatobiliary drainage for his obstructive jaundice initially, so he is status post intra-gallbladder drain since September 2018 to facilitate bile drainage. The patient likely to receive palliative chemotherapy in the future. 2. Code status: Do Not Resuscitate level 1. CONSULTATION DURING HOSPITALIZATION: Nephrology: Ubaldo gNuyen MD; oncology, Gamaliel Marshall MD; surgeon, Jose Antonio Carreno MD; surgeon, Melisa Willingham MD; infectious disease, Jose Banuelos MD. PROCEDURES: During hospitalization: On 10/22/2018, he underwent right internal jugular triple- lumen catheter placement after unsuccessful left subclavian and left internal jugular tunneled Vas- Cath placement. Right internal jugular vein tunneled hemodialysis catheter placement on October 30. DISCHARGE PHYSICAL EXAMINATION: Vitals: At the time of discharge, temperature of 98, pulse of 104 per minute, respiratory rate of 26 per minute, blood pressure of 110/76, saturating 98% on room air. General: Does not appear in any acute distress. He had right-sided internal jugular tunneled dialysis catheter and right-sided upper quadrant gallbladder drain. ENT: Oral cavity is moist without any oral thrush. Lungs: Air entry bilaterally equal. No wheeze , rhonchi, crackles. Cardiovascular: S1, S2 normal. No murmur, rub, or gallop. Abdomen : Obese, soft, nontender. Right-sided upper quadrant abdominal drain. He has hansel on the left side from previous port placement, which was removed in ICU secondary to suspected gram- positive bacteria which turned out to be coagulase negative Staph aureus. Extremities: No left lower extremity edema. Neurologic: Alert, oriented x3. LABS: At the time of discharge: WBC of 10.9, hemoglobin of 9.6, platelet of 173. Normal electrolytes with bicarbonate of 19, BUN of 45, creatinine of 5.7. Microbiology data during hospital admission: One of the blood cultures on admission was growing coagulase-negative Staphylococcus aureus. Influenza screen was negative. Stool occult blood test was negative. Blood culture on October 22 did not have any growth. Urine culture no growth to date. Gallbladder drain culture had enterococcus faecium, which was sensitive to penicillin. IMAGING: During hospital admission: Abdomen and pelvis CT on October 21 had suggested no evidence of obstructive uropathy. Left lower lobe atelectasis and pleural effusion. Pneumobilia, presumably secondary to cholecystotomy catheter. Chest x-ray on October 30 had suggested left lower lobe and lingular atelectasis. HOSPITAL COURSE SUMMARY: Mr. Guzman is a 73-year-old man, with history of locally advanced pancreatic cancer, hypertension, chronic kidney disease stage 3, who presented with complaints of weakness, not feeling well, cough. He was evaluated in the emergency department and was diagnosed with suspected left lower lobe pneumonia. He was hypotensive despite intravenous fluids, and he was transferred to ICU for his hypotension. He was started on intravenous antibiotic following which his condition improved. While working him up, his gallbladder drain had grown enterococcus and he was started on antibiotics for that. During hospital admission, he also developed acute kidney injury on chronic kidney disease and was not able to make any urine, so Nephrology was consulted and the patient eventually was started on hemodialysis. On admission , there was 1 of the 2 blood cultures growing gram-positive cocci and it was thought that it might be infecting his left-sided chest port which was removed. Eventually, it turned out to be coagulase-negative staphylococci aureus. He initially received right-sided internal jugular Vas- Cath through which he received hemodialysis, which was later on changed to a tunneled dialysis catheter. Problem list: 1. At the time of discharge, the patient was advised to continue hemodialysis Monday, Monday, Monday. He was given prescription of amoxicillin for right-sided gallbladder enterococcal infection, and suspicious of acute cholangitis. 2. He was advised to follow up with Dr. Carreno for removal of hansel of left chest port removal. 3. For his locally advanced pancreatic cancer stage, grade T4, considering his end-stage renal disease and being on hemodialysis, he may not have a lot of chemotherapeutic option for palliative chemotherapy. He was advised to follow up with Dr. Marshall as an outpatient. 4. His code status after extensive discussion was DNR level 1. TIME SPENT: More than 30 minutes were spent in discharging the patient. All of his questions have been answered. cc: Jacob Lovell MD MTDD
== END 2018-10-31 20:30 | disposition home health service (06) | DRG 871 ==
LOC: SUPCPDRO → ED 17:16 → SUATTDRO 10-21 00:38 → EDIPHOLD 10-21 00:38 → 3S 10-21 21:59 → ICU 10-22 11:37 → 3N 10-25 21:57
PROVIDERS: ATTEND Internal Medicine
CPT/HCPCS: 36430; 36569; 71010; 71045; 74176; 76000; 77001; 80048; 80053; 80069; 80074; 80076; 80202; 81001; 82140; 82270; 82805; 82948; 83605; 83735; 83880; 84145; 85014; 85018; 85025; 85027; 85610; 85730; 86850; 86900; 86901; 86920; 87040; 87070; 87077; 87088; 87186; 87275; 87276; 87804; 88300; 93005; 93010; 94640; 94761; 96361; 96365; 96366; 96367; 96375; 97162; 97530; 99285; A9270; C1750; C9113; J0290; J0610; J0692; J0878; J1644; J2370; J2543; J3010; J3370; J7030; J7040; J7050; P9016; P9017; S0164; XXXXX

== ENCOUNTER 2018-11-01 10:31 | Inpatient (IN) ==
[2018-11-01 12:30] LABS: BASO# 0.06 X1000 (0.0-0.2); BASO% 0.5 % (0.0-0.8); HEMATOCRIT 21.7 % (42.0-52.0); IMM GRAN# 0.12 X1000 (0.0-0.04); IMM GRAN% 0.9 % (0.0-0.5); LYMPH# 0.73 X1000 (1.2-3.4); LYMPH% 5.5 % (20.5-51.1); MCH 28.1 PG (27-31); MCHC 32.3 g/dL (33-37); MCV 87.1 FL (81-99); MONO# 1.57 X1000 (0.11-0.59); MONO% 11.9 % (1.7-9.3); MPV 12.5 FL (7.4-10.4); NEUT# 10.72 X1000 (1.4-6.5); NEUT% 81.2 % (42.2-75.2); PLT 227 X1000 (130-400); RBC 2.49 XMIL (4.7-6.1); RDW 22.9 % (11.5-14.5)
[2018-11-01] MEDS ORDERED: NS 1,000 ML IV ONE (12:46)
[2018-11-01 13:02] LABS: ALB/GLOB RATIO 0.8; ALBUMIN 2.6 g/dL (3.5-5.0); CALCIUM 7.8 mg/dL (8.8-10.2); CREATININE 5.2 mg/dL (0.7-1.2); POTASSIUM 3.9 mmol/L (3.5-5.1); TOTAL BILIRUBIN 4.46 mg/dL (0.20-1.00); TOTAL PROTEIN 5.9 g/dL (6.3-8.3)
--- NOTE | 2018-11-01 13:51 | PROVIDER DOCUMENTATION ---
This chart was entered by Francisca Platt Scribe, acting as scribe for Magnolia Allen MD. HPI-General Adult - General Chief Complaint: Weakness Stated Complaint: stroke like Time Seen by Provider: 11/01/18 12:12 Source: patient, other (vague historian, no family at bedside) Allergies/Adverse Reactions: Patient Allergies Allergy/AdvReac Type Severity Reaction Status Date / Time No Known Allergies Allergy Verified 11/01/18 17:45 Home Medications: Home Medication List Medication Instructions Recorded Confirmed Last Taken Type Pantoprazole [Protonix] 40 mg PO DAILY@0700 #90 tab 01/16/18 11/02/18 10/10/18 Rx Allopurinol 100 mg PO DAILY 02/06/18 11/02/18 10/10/18 History Ondansetron HCl [Zofran] 4 mg PO Q4H PRN PRN #10 tablet 02/07/18 11/02/18 Rx Aspirin [Adult Low Dose Aspirin EC] 81 mg PO DAILY 04/30/18 11/02/18 10/10/18 History Hydrocodone/Acetaminophen [Grayling 10 mg PO Q4H PRN PRN 09/20/18 11/02/18 History 10-325 Tablet] Iron Carbonyl/Ascorbic Acid 1 each PO BID tablet 10/05/18 11/02/18 10/10/18 Rx [Icar-C] Amoxicillin [Amoxil] 500 mg PO Q8H #15 cap 10/31/18 11/02/18 Unknown Rx - History of Present Illness -Gen Adult Nature of Presenting Problems: Patient is a 73 year old male who presents to the ED via EMS with generalized weakness. Patient states weakness started this morning. Patient states he was suppose to go to dialysis this morning but did not because of the weakness. Patient does not report nausea or vomiting. CINTIA Campa for Dr. Nguyen states patient recently had a paracentesis and a dialysis catheter placed. Location of Pain/Injury: reports: none Pain Radiation: reports: no radiation Quality of Pain: reports: none Severity: reports: mild Onset/Duration: reports: this morning Timing: reports: still present Context/Activities at Onset: reports: light activity Modifying Factors: improves with: nothing Associated Symptoms: reports: weakness Similar Symptoms Previously?: No Recently seen or treated by another doctor?: No Review of Systems - Adult - REVIEW OF SYSTEMS - ADULT Constitutional: reports: no symptoms reported Eyes: reports: no symptoms reported Ears, Nose, Mouth & Throat: reports: no symptoms reported Cardiovascular: reports: no symptoms reported Respiratory: reports: no symptoms reported Gastrointestinal: reports: no symptoms reported Genitourinary: reports: no symptoms reported Musculoskeletal: reports: muscle weakness. denies: back pain, muscle aches, neck pain Integumentary: reports: no symptoms reported Neurological: reports: no symptoms reported Psychiatric: reports: no symptoms reported Endocrine: reports: no symptoms reported Hematologic/Lymphatic: reports: no symptoms reported Allergic/Immunologic: reports: no symptoms reported All Other Systems: Reviewed and Negative Past History - Adult - PAST MEDICAL HISTORY-ADULT Review of Records: reports: Nursing Assessment Review, Medications Reviewed, Social history reviewed & non-contributory. Major Childhood Illnesses: reports: denies history Cardiovascular: reports: CHF, HTN, hyperlipidemia Respiratory: reports: denies history Gastrointestinal: reports: liver disease Obstetrical/Gynecological: reports: denies history Genitourinary: reports: kidney disease Musculoskeletal: reports: arthritis (GOUT) Neurological: reports: denies history Psychiatric: reports: denies history Endocrine/Immune: reports: Diabetes (per patient told him he was a half/half), thyroid disorder Other Conditions: reports: denies history - PRIOR SURGERIES/PROCEDURES Surgical/Procedure History: reports: reviewed, not pertinent, orthopedic ( extremity) (finger) - IMMUNIZATION STATUS Childhood Immunizations: See Nurse Assessment Flu Vaccine: See Nurse Assessment - FAMILY HISTORY Family History: reviewed, not pertinent - SOCIAL HISTORY Smoking: denies Substance Use: denies Living Situation: family Physical Exam-General - PHYSICAL EXAM-ADULT Initial Vital Signs Reviewed: Yes - CONSTITUTIONAL General Appearance: alert, no apparent distress - EYES Eyes: scleral icterus (bilaterally) - HEAD, EARS, NOSE, MOUTH & THROAT HENMT: normocephalic/atraumatic, normal ENT inspection - RESPIRATORY Respiratory: lungs clear, normal breath sounds, other (hansel present to left upper chest. dialysis cath present to right upper chest. liver cath to right side ribs.) - CARDIOVASCULAR Cardiovascular: normal peripheral pulses, regular rate, rhythm, systolic murmur - GASTROINTESTINAL (ABDOMEN) Abdominal Exam: normal bowel sounds, non tender, soft, distended (mildly) - MUSCULOSKELETAL Back Exam: normal inspection Extremity: non-tender, normal inspection - SKIN Integumentary: normal color, normal turgor, warm/dry - NEUROLOGIC Neurologic: grossly normal, no motor/sensory deficits - PSYCHIATRIC Psych/Mental Status: normal mood/affect, oriented x 3 Progress - PLAN OF CARE/RESULTS Progress/Plan/Lab Results: Vital Signs - 8 hr 11/01/18 11:01 11/01/18 11:06 11/01/18 11:10 Temperature 98.2 F Pulse Rate 113 H 112 H 112 H Respiratory Rate 25 H 16 26 H Blood Pressure 75/52 75/52 O2 Sat by Pulse Oximetry 98 96 11/01/18 11:20 11/01/18 11:31 11/01/18 11:40 Temperature Pulse Rate 115 H 116 H 113 H Respiratory Rate 19 11 L 5 L Blood Pressure 84/49 O2 Sat by Pulse Oximetry 95 95 92 L 11/01/18 11:44 11/01/18 11:46 11/01/18 11:48 Temperature Pulse Rate 115 H 114 H 116 H Respiratory Rate 2 L 4 L 17 Blood Pressure 81/56 79/56 82/51 O2 Sat by Pulse Oximetry 93 L 97 91 L 11/01/18 11:50 11/01/18 11:51 11/01/18 11:56 Temperature Pulse Rate 109 H 109 H 112 H Respiratory Rate 22 Blood Pressure 97/62 80/52 87/60 O2 Sat by Pulse Oximetry 87 L 93 L 93 L 11/01/18 12:00 11/01/18 12:01 11/01/18 12:06 Temperature Pulse Rate 108 H 112 H 107 H Respiratory Rate 18 13 Blood Pressure 99/77 98/62 O2 Sat by Pulse Oximetry 91 L 93 L 93 L Laboratory Results - last 24 hr 11/01/18 12:16 POC Glucose 144 H Orders Category Date Time Status CBC WITH ELECTRONIC DIFF [HEME] Stat Lab 11/01/18 12:05 Results CMP [COMPREHENSIVE METABOLIC PANEL] [CHEM] Stat Lab 11/01/18 12:05 Received EKG [EKG] Stat Ther 11/01/18 11:53 Ordered Patient initially hypotensive but improved with 1L NS. Will be cautious with fluids given that he is a dialysis patient. His Hgb is 7.0 and this is an acute drop from 2 days ago when it was 9. She has no obvious signs of bleeding and is a poor historian to be able to obtain is he is having blood in stool. He has a CT showing Pneumobilia but his most recent CT prior to showed this as well. This one however is commenting on possibility of necrosis. Blood cultures obtained from new port and from peripheral blood. He has a slight leukocysosis. Spoke to Dr Brady, chef concierge GI who stated that he is attached to another group. Spoke to chef concierge surgery who stated that he is not surgical at this time but hospitalist can consult him if needed. Started LInezolid given that this does not need to be renally dosed and Zosyn renally dosed. Spoke to hospitalist who accepted patient for admission. They stated they will place orders. Result Diagrams: 11/02/18 07:44 11/02/18 07:44 - EKG 1 Time of EKG reading by physician:: 11:02 EKG Read and Signed by:: Magnolia Allen EKG Interpretation (*Must complete 3 of following elements*): Abnormal Rate: 113 Rhythm: sinus tachycardia Clayton: left ND Interval: normal Comments: abnormal ECG - CT/MRI 1 CT Study: Abdomen, Pelvis, Thorax Impression: See EMR Report ( EXAM: CT THORAX/ABD/PELVIS W/O CON 11/01/2018 HISTORY: hypotensive, dialysis pt, rule out sepsis TECHNIQUE: This exam was performed using automated exposure control, adjustment of mA or kV according to patient size, and/or use of iterative reconstruction technique. COMMENT: There are no previous thoracic studies. The abdomen is compared with the previous examination of 10/21/2018. Thorax: There are nonspecific mediastinal nodes in the aorticopulmonary window and paratracheal region. There is a catheter present in the internal jugular on the right and with its tip just inside the right atrium. There is a small left pleural effusion and an even smaller right pleural effusion. There are platelike opacities in both lung bases including the inferior lingula. This was also the case at the time the previous abdominal study. ABDOMEN: There is pneumobilia. The mass in the area of the head of the pancreas is again noted. There is no evidence of nephrolithiasis or hydronephrosis. There is a pigtail catheter which is adjacent to or just within the gallbladder in a similar location to the previous examination. There is gas within the gallbladder and some thickening of the gallbladder wall with pericholecystic fluid similar in appearance to the previous study. There is diverticulosis without evidence of diverticulitis in the distal descending and sigmoid colon. The urinary bladder is not distended. The prostate is somewhat enlarged but stable in appearance compared to the previous examination. There is external iliac adenopathy bilaterally. This is worse than on the previous examination with a node on the left exceeding 10 mm compared to less than 9 mm previously. There are postsurgical changes in the stomach. IMPRESSION: Bibasilar atelectasis. Small effusions. Pneumobilia and mass in the head of the pancreas which may be partially necrotic. Cholecystostomy drain. Slightly worsened external iliac adenopathy bilaterally. Electronically signed by Desmond Lazar 11/01/2018 2:17 PM 11/01/18 1417 Interpreting Physician: Desmond Lazar MD Dictated Date/Time: 1410 cc: Magnolia Allen MD; Ernesto Estrada MD) 2 CT Study: Head Impression: See EMR Report ( Signed EXAM: CT HEAD W/O CONTRAST 2018 HISTORY: syncope, dizziness TECHNIQUE: This exam was performed using automated exposure control, adjustment of mA or kV according to patient size, and/or use of iterative reconstruction technique. COMMENT: There is no evidence of mass effect, bleed, abnormal extra-axial fluid collection, or hydrocephalus. Compared to 08/03/2017 there has been no significant change in the appearance of the brain. IMPRESSION: No evidence of acute intracranial disease. Electronically signed by Desmond Lazar 11/01/2018 2:09 PM 1409 Interpreting Physician: Desmond Lazar MD Dictated Date/Time: 11/01/18 1409 cc: Magnolia Allen MD; Ernesto Estrada MD) - CONSULTS/PCP/HOSPITALIST Notification #1 *Consult/PCP/Hospitalist*: Dr. Spence Time Discussed: 16:06 Reason/Comments: Dr. Allen consulted with Dr. Spence about patient. Consult Disposition: other (Dr. Spence states he does not feel like it is a surgical issue at this time.) #2 Consult: Dr. Brady Time Discussed: 16:12 Reason/Comments: Dr. Allen consulted with Dr. Brady about patient. Consult Disposition: other (patient is a Dr. Spain patient.) #3 Consult: SIGIFREDO Bautista for Hospitalist Time Discussed: 16:44 Reason/Comments: Dr. Allen consulted with Lily about patient. Consult Disposition: Will see in ED, Admit Departure - Departure Date of Disposition Decision: 11/01/18 Time of Disposition Decision: 16:10 DIAGNOSIS: Hypotension, Pancreatic cancer, Sepsis, CKD (chronic kidney disease), Acute on chronic anemia Disposition: ADMITTED INPATIENT 09 Certified Medical Emergency: Emergent Condition: Stable - Critical Care Note This patient required my direct & personal management of CC.: Yes Total Time (mins): 74 Critical Care Statement: This patient required my direct personal management to treat or rule out processes, the absence of which, could potentiallly result in sudden, clinically significant life or limb threatening deterioration. Attestation - Physician/ NEDRA Attestation The physician spent face to face time with patient:: Yes Advanced Practice Provider documentation review:: Supervising physician onsite and consulted in the evaluation and care of this patient. The physician did have a face to face encounter with the patient. This chart was documented by the indicated scribe, (Francisca Platt Scribe) and accurately reflects the services I performed and decisions made by me, Magnolia Allen MD, as attested by the provider's signature.
--- NOTE | 2018-11-01 13:53 | EKG Report ---
Test Performed on : 11/01/2018 11:02:11 AM Test Reason : WEAKNESS Blood Pressure : / mmHG Vent. Rate : 113 BPM Atrial Rate : 113 BPM P-R Int : 164 ms QRS Dur : 080 ms QT Int : 352 ms P-R-T Axes : 048 -46 067 degrees QTc Int : 482 ms Sinus tachycardia. Left axis deviation Abnormal ECG When compared with ECG of 01-NOV-2018 11:01, (Unconfirmed) No significant change was found Unconfirmed Result
--- NOTE | 2018-11-01 14:12 | Diag Imaging Result Doc PS360 ---
EXAM: CT HEAD W/O CONTRAST 11/01/2018 HISTORY: syncope, dizziness TECHNIQUE: This exam was performed using automated exposure control, adjustment of mA or kV according to patient size, and/or use of iterative reconstruction technique. COMMENT: There is no evidence of mass effect, bleed, abnormal extra-axial fluid collection, or hydrocephalus. Compared to 08/03/2017 there has been no significant change in the appearance of the brain. IMPRESSION: No evidence of acute intracranial disease. Electronically signed by Desmond Lazar 11/01/2018 2:09 PM
--- NOTE | 2018-11-01 14:19 | Diag Imaging Result Doc PS360 ---
EXAM: CT THORAX/ABD/PELVIS W/O CON 11/01/2018 HISTORY: hypotensive, dialysis pt, rule out sepsis TECHNIQUE: This exam was performed using automated exposure control, adjustment of mA or kV according to patient size, and/or use of iterative reconstruction technique. COMMENT: There are no previous thoracic studies. The abdomen is compared with the previous examination of 10/21/2018. Thorax: There are nonspecific mediastinal nodes in the aorticopulmonary window and paratracheal region. There is a catheter present in the internal jugular on the right and with its tip just inside the right atrium. There is a small left pleural effusion and an even smaller right pleural effusion. There are platelike opacities in both lung bases including the inferior lingula. This was also the case at the time the previous abdominal study. ABDOMEN: There is pneumobilia. The mass in the area of the head of the pancreas is again noted. There is no evidence of nephrolithiasis or hydronephrosis. There is a pigtail catheter which is adjacent to or just within the gallbladder in a similar location to the previous examination. There is gas within the gallbladder and some thickening of the gallbladder wall with pericholecystic fluid similar in appearance to the previous study. There is diverticulosis without evidence of diverticulitis in the distal descending and sigmoid colon. The urinary bladder is not distended. The prostate is somewhat enlarged but stable in appearance compared to the previous examination. There is external iliac adenopathy bilaterally. This is worse than on the previous examination with a node on the left exceeding 10 mm compared to less than 9 mm previously. There are postsurgical changes in the stomach. IMPRESSION: Bibasilar atelectasis. Small effusions. Pneumobilia and mass in the head of the pancreas which may be partially necrotic. Cholecystostomy drain. Slightly worsened external iliac adenopathy bilaterally. Electronically signed by Desmond Lazar 11/01/2018 2:17 PM
[2018-11-01 14:25] LABS: INR 1.21; PROTIME 16.3 Seconds (11.0-16.0)
[2018-11-01] MEDS ORDERED: ZYVOX 600 MG/D5W 600 MG/300 ML IVPB IV ONE (14:25)
[2018-11-01 15:03] LABS: UR AMPHETAMINES QUAL NONE DETECTED (NONE DETECT); UR BARBITUATES QUAL NONE DETECTED (NONE DETECT); UR BENZODIAZEPIN QUAL NONE DETECTED (NONE DETECT); UR CANNABINOIDS QUAL NONE DETECTED (NONE DETECT); UR COCAINE QUAL NONE DETECTED (NONE DETECT); UR METHADONE QUAL NONE DETECTED (NONE DETECT); UR OPIATES QUAL NONE DETECTED (NONE DETECT); UR OXYCODONE QUAL NONE DETECTED (NONE DETECT); UR PCP QUAL NONE DETECTED (NONE DETECT)
[2018-11-01] MEDS: ZOSYN 2.25 GM in NS 50 ML IV SCH ×2 (15:04→21:35)
--- NOTE | 2018-11-01 19:19 | NEPHROLOGY CONSULTATION ---
DATE: 11/01/2018 REASON FOR ADMISSION: Weakness with stroke-like effect. REASON FOR CONSULT: Chronic kidney disease stage 5D. CONSULTING PHYSICIAN: Dr. Magnolia Allen. HISTORY OF PRESENT ILLNESS: Mr. Guzman is a 73-year-old, elderly male who has a known history of metastatic pancreatic carcinoma. The patient was recently admitted to the hospital on 10/21/2018 and was discharged yesterday. The patient has a dialysis tunneled catheter and was scheduled for outpatient dialysis this morning. The patient stated when he woke up this morning he was too weak, could not stand, was very lethargic, and just not feeling well. He states that he was of his normal self, though he had not regained his appetite since his discharge. He was brought by EMS to [facility] Emergency Department. In the ER he was found to have a recent dialysis catheter placement to the right chest wall. His blood pressure on admission was 75/52. He was tachycardic with a heart rate of 113; this was regular. On room air his pulse ox was 98%. He denied chest pain. No increased work of breathing. No increased swelling. He does have a gallbladder drain to the right chest wall secondary to previous hospitalization for acute cholangitis because enterococcal faecium. The patient was also severely anemic. He had received 2 units of packed red blood cells and 2 units of fresh frozen plasma during his hospitalization. Historically, he does have pancreatic cancer stage 4. It is deemed surgically inoperable. He could not receive an ERCP or hepatic biliary drainage for obstructive jaundice, so he does have an intra-gallbladder drain placed in September 2018 to facilitate bile drainage. He continues to receive palliative chemotherapy. This has not been continued since his discharge as of yesterday. Denies any nausea, vomiting. No diarrhea. PAST MEDICAL HISTORY: CHF, hypertension, hyperlipidemia, liver disease, arthritis, gout, diabetes mellitus type 2, hypothyroidism, chronic kidney disease stage 5D, acute cholangitis with a intra- gallbladder drain placed in September 2018. He has had a previous finger worked on per Orthopedic. PAST SURGICAL HISTORY: He has had an abdominal surgery to resect pancreatic mass with a port placed to his left chest wall. SOCIAL HISTORY: He lives with his family who are attentive to his care. He denies any history of tobacco, alcohol or illicit drug use. The patient was a DNR level 1 on his last hospitalization. FAMILY HISTORY: No history of coronary artery disease or end-stage renal disease. Positive for hypertension. ALLERGIES: Listed are as no known drug allergies. HOME MEDICATIONS: Have yet to be reconciled. Previous medications that he was discharged on have yet to be reconciled, though he was discharged on antibiotics. REVIEW OF SYSTEMS: Times 10 with pertinent positives listed above in the HPI/ VITAL SIGNS: The patient's most recent vital signs, last temperature 98.2 degrees, blood pressure 98/62, heart rate 107, respirations are 12. He is on room air. Last recorded saturation of 93%. LABS: Sodium 141, potassium 3.9, chloride 104, CO2 23, BUN 58, creatinine 5.2, glucose 154. White count 13.2, hemoglobin 7, hematocrit 21.7, platelet count 227,000. The patient had a CT of the abdomen and pelvis showing bibasilar atelectasis, small effusions, pneumobilia, and mass of the head of the pancreas partially necrotic, cholecystostomy drain intact, worsened external iliac adenopathy bilateral. CT of the head reported no evidence of acute intracranial disease. Blood cultures are currently pending. PHYSICAL EXAMINATION: General: This is a 73-year-old, elderly male. He is resting quietly in bed. HEENT: Normocephalic, atraumatic. Conjunctivae pale. He has ADI. Mucous membranes are dry. Neck: Supple. Trachea midline. No evidence of JVD, though patient is in the Trendelenburg position upon evaluation. Cardiovascular: Regular rate and rhythm. He is tachycardic on the monitor. Positive systolic murmur. Lungs: Clear to auscultation bilaterally. Equal excursion. Abdomen: Soft, nontender. He does have a right-sided upper quadrant abdominal drain intact. Dressing is dry and intact also. Genitourinary: Not inspected. Extremities: Have no edema. No clubbing or cyanosis. Integumentary: Good turgor. Warm and dry. No rashes or lesions evident. Neurological: He is alert and oriented x2. ASSESSMENT AND PLAN: 1. Chronic kidney disease stage 5D. Today is patient's routine dialysis day. His potassium is stable. He remains hypotensive. The patient is to be admitted secondary to these findings. We will hold dialysis today. We will re-evaluate in the a.m. for treatment. 2. Electrolytes and acid-base balance. This is stable. 3. Anemia. Hemoglobin of 7. We will defer to the primary care team for transfusion when indicated. 4. Leukocytosis. The patient has received Zyvox and Zosyn. To be followed by primary care. 5. Possible sepsis. Blood cultures are pending. He has received only 1 L of fluid per our request. 6. Weakness with altered mental status. This continues to be monitored and followed. I would like to thank you for allowing us to consult with this patient. Dictated by SIGIFREDO Adams for Ubaldo Nguyen MD cc: SIGIFREDO Adams MD [facility]
--- NOTE | 2018-11-01 20:28 | HISTORY AND PHYSICAL ---
CHIEF COMPLAINT: Syncope and weakness. HISTORY OF PRESENT ILLNESS: This is a 73-year-old male with history of pancreatic cancer, end- stage renal, is supposed to go to dialysis today but he was too weak. Some report of possible syncope. No nausea, no vomiting. No active bleeding. He had a paracentesis recently and a dialysis catheter placed. He was told to come to the ER for evaluation. He was found to be anemic, more so than usual. CT scan also shows pneumobilia, but he has a biliary stent in place which that was not described to me. In any case, but definitely anemic with hyperbilirubinemia. He has pancreatic cancer with a mass in the head of his pancreas. Again, workup in the ER revealed mostly the anemia. He has had about a 2 g drop without obvious bleeding source. Plan will be to admit and observe closely and treat anemia and possible sepsis. PAST MEDICAL HISTORY: 1. Congestive heart failure. 2. Hypertension. 3. Dyslipidemia. 4. Chronic liver disease. 5. Arthritis. 6. Gout. 7. Type 2 diabetes. 8. End-stage renal. 9. Cholangitis. 10. Pancreatic cancer. PAST SURGICAL HISTORY: He has had a pancreatic resection, but now he currently has a biliary stent with biliary drain in place. SOCIAL HISTORY:Family is available for care as he has a cholecystostmy tube. No current tobacco, alcohol. FAMILY HISTORY: No cancers. ALLERGIES: No known drug allergies. MEDICATIONS: He takes allopurinol, aspirin, [place], amoxicillin which I guess he just got yesterday, Icar C, Zofran and Protonix. He had Enterococcus faecium which was treated with amoxicillin. PHYSICAL EXAMINATION: VITAL SIGNS: Blood pressure is 109/70, heart rate 105, respiratory rate of 20, temperature was 98.2. GENERAL: A well-developed male in no acute distress. HEENT: Head exam was normocephalic, atraumatic. Eye exam: Equal, round, reactive to light. Extraocular movements were intact. Ears, nose, and throat exam: He had moist mucous membranes. NECK: Supple. CARDIOVASCULAR: Regular rate and rhythm. No murmurs, gallops or rubs. PULMONARY: Bilateral breath sounds, diminished at the bases. No wheezes. GASTROINTESTINAL: Soft, protuberant. He has a right presumably coli ostomy tube with biliary drainage in the bag and leaking a little bit around the dressing. NEUROLOGIC: Cranial nerves 2-12 were grossly intact. MUSCULOSKELETAL: Was 4 to 5 in all four extremities. He had some trace edema in his lower extremities. He had kind of an ashen color with a little bit of uremic brooks possibly. LABORATORY: White count is 13, hemoglobin and hematocrit is 721, which it was two days ago 9 and 30, platelets of 227,000. INR 1.2. BUN and creatinine of 58 and 5.2. UDS was negative. T bilirubin 4.46, which it has been in that range. PROBLEM LIST: 1. Syncope, likely multifactorial, possibly due to anemia or sepsis. I think he would benefit from a transfusion. I do not think he is going to be a transplant candidate at this point with concurrent pancreatic cancer. Therefore, I think transfusion is acceptable. Certainly, can be accomplished with dialysis. 2. End-stage renal. We will continue to monitor. Nephrology has been consulted obviously. 3. Leukocytosis, possible sepsis. Unclear what his source is. 4. Pancreatic cancer with pneumobilia, but he had a reportedly paracentesis and he has a biliary stent in place. We will consult Dr. Marshall and I guess potentially Surgery. I am not sure if he has seen anybody surgically previously. Reportedly, Dr. Carreno in January, I am not sure really want treatment options. I do not think he is a surgical candidate, unfortunately. He did have a dialysis catheter placed. I think he has seen Dr. Willingham, so we will get his opinion. Will continue Zosyn for the time being. We may change it to Unasyn just to cover for enterococcus and then vancomycin per dialysis until we can get cultures back. cc: MD Ubaldo Grant MD Moses Awoniyi, MD MTDD
[2018-11-01] MEDS ORDERED: ZOFRAN IV PRN (23:12)
[2018-11-01] MEDS ORDERED: TYLENOL PO PRN (23:12)
[2018-11-01] MEDS ORDERED: VANCOMYCIN IV PER PHARMACY MISC SCH (23:12)
[2018-11-02] MEDS: ZOSYN 2.25 GM in NS 50 ML IV SCH ×4 (01:49→20:25)
[2018-11-02] MEDS ORDERED: VANCOMYCIN 1 GM/NS 1 GM/250 ML IVPB IV ONE ×2 (02:00→17:00)
[2018-11-02] MEDS ORDERED: HEPARIN IV PRN (07:17)
[2018-11-02] MEDS ORDERED: TIGHT: 0.2 ML/HR FOR DIALYSIS MISC PRN (07:17)
[2018-11-02] MEDS ORDERED: NS 2,000 ML MISC PRN (07:17)
[2018-11-02 08:14] LABS: BASO# 0.12 X1000 (0.0-0.2); EOS# 0.02 X1000 (0.0-0.7); EOS% 0.2 % (0.0-10.0); HEMATOCRIT 19.8 % (42.0-52.0); HEMOGLOBIN 6.1 g/dL (14.0-18.0); IMM GRAN# 0.13 X1000 (0.0-0.04); IMM GRAN% 1.1 % (0.0-0.5); LYMPH# 1.09 X1000 (1.2-3.4); MCH 27.7 PG (27-31); MCHC 30.8 g/dL (33-37); MONO# 1.67 X1000 (0.11-0.59); MONO% 13.8 % (1.7-9.3); MPV 12.1 FL (7.4-10.4); NEUT# 9.04 X1000 (1.4-6.5); NEUT% 74.9 % (42.2-75.2); PLT 231 X1000 (130-400); RDW 23.2 % (11.5-14.5); WBC 12.07 X1000 (4.8-10.8)
[2018-11-02 08:41] LABS: ALB/GLOB RATIO 0.7; ALBUMIN 2.3 g/dL (3.5-5.0); CREATININE 6.1 mg/dL (0.7-1.2); POTASSIUM 4.4 mmol/L (3.5-5.1); TOTAL BILIRUBIN 3.61 mg/dL (0.20-1.00); TOTAL PROTEIN 5.5 g/dL (6.3-8.3)
[2018-11-02 08:49] LABS: ANISOCYTOSIS 1+; HYPOCHROM 1+; LYMPHS 4 % (21-51); MONO 4 % (1-9); SEGS 92 % (42-75)
[2018-11-02 09:17] LABS: FERRITIN 3754 ng/mL (30-400)
[2018-11-02] MEDS ORDERED: NS 250 ML IV ONE ×2 (10:02→10:03)
--- NOTE | 2018-11-02 10:24 | HEMO/ONC CONSULTATION ---
DATE: 11/02/2018 CHIEF COMPLAINT: Management of his pancreatic cancer. HISTORY OF PRESENT ILLNESS: Mr. Guzman is a 73-year-old who presented to the emergency department on 11/01/2018 complaining of extreme weakness. The patient was just in the hospital and discharged on 10/31/2018. The patient was supposed to have dialysis but was unable to go because of his extreme weakness and at that time decided to go to the emergency department for further evaluation. The patient was recently in the hospital due to acute on chronic kidney disease where he received a dialysis catheter placement and was started on dialysis. He was discharged feeling better at that time. He also had as inpatient a right-sided gallbladder enterococcal infection. He was on home antibiotics at that time and was to follow up as an outpatient in our clinic for dialysis when he was discharged. Mr. 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 Patient was started on neoadjuvant Gemzar and Abraxane on 03/07/2018 and received 4 cycles. He was responsive with improvement of a CA-19-9. He was sent to [facility] for surgical evaluation on 07/31/2018 he underwent laparotomy and biopsy of mesentery, jejunostomy on while intraoperatively he was noted to have significant disease and was considered unresectable at that time and was discharged back home. The patient then restarted chemotherapy, Gemzar and Abraxane on 10/10/2018. Since then, the patient has had trouble with extreme nausea and weakness and chronic renal failure and was to have dialysis as well. PAST MEDICAL HISTORY: 1. Hypertension. 2. CHF. 3. Chronic kidney disease. 4. Hyperlipidemia. 5. Gout. 6. Diabetes. 7. Hypothyroidism. 8. Metastatic pancreatic cancer. PAST SURGICAL HISTORY: 1. Port-a-Cath placement. 2. Dialysis catheter placement. FAMILY HISTORY: Noncontributory. SOCIAL HISTORY: Patient denies smoking tobacco, alcohol or illicit drug use. ALLERGIES: No known drug allergies. HOME MEDICATIONS: 1. Allopurinol. 2. Amoxicillin. 3. Aspirin. 4. [place] 10. 5. Icar C. 6. Zofran. 7. Protonix. REVIEW OF SYSTEMS: Negative other than HPI. PHYSICAL EXAMINATION: VITAL SIGNS: Temp of 98.5 degrees, heart rate 88, respiratory rate 18, blood pressure 159/58, saturating 99% on room air. GENERAL: The patient is alert and lying in bed. No acute distress noted. HEENT: Pupils PERRLA. Mucous membranes noted to be moist. NECK: Supple. Trachea midline. No JVD. LYMPH NODES: No palpable lymphadenopathy. CARDIOVASCULAR: Regular rate and rhythm. CHEST: Bilateral breath sounds diminished bilaterally. No wheezing, no rhonchi. GASTROINTESTINAL: Soft, nontender. Bowel sounds present in all 4 quadrants. Colostomy intact. NEUROLOGICAL: Alert and oriented x3. LABORATORY DATA: White blood cell count 7.07, hemoglobin 6.1, hematocrit 19.8, platelets are 231,000. ASSESSMENT AND PLAN: 1. Pancreatic cancer: Patient last received Gemzar and Abraxane on 10/10/2018. Patient was recently in the hospital and has not had treatment due to medical problems at that time. We are awaiting on him to get better so we can restart treatment as an outpatient. We will continue to just monitor at this time. 2. Chronic kidney disease. Nephrology has been consulted. Continue recommendations per Nephrology. 3. Leukocytosis. White blood cell count is 7.07. Patient recently had an infection from gallbladder stent. Patient will continue antibiotics as ordered. Continue recommendations by primary medical team. 4. Anemia: Hemoglobin 6.1 and hematocrit 19.8. Patient will receive transfusion at this time. We will continue to monitor hemoglobin and hematocrit very closely. Continue to transfuse as needed. Dictated by SIGIFREDO Jo for Gamaliel Marshall MD Patient seen and examined. As above. I discussed with the patient that at this moment his renal failure and dialysis is the predominant issue. He is still interested in pursuing palliative chemotherapy, but he has multiple difficult issues which make it difficult for any chemotherapy. He is slowly understanding this. Continue dialysis and only should his performance status and general condition improves, I will discuss therapy when I see him in the clinic outpatient. No other recommendations from my standpoint. I will sign off. Please call with any questions. Gamaliel Marshall M.D. cc: SIGIFREDO Jo MD [facility]
[2018-11-02] MEDS: MORPHINE IV PRN (11:09)
[2018-11-02] MEDS ORDERED: VANCOMYCIN 1 GM/NS 1 GM/250 ML IVPB IV SCH (11:45)
--- NOTE | 2018-11-02 15:34 | NEPHROLOGY PROGRESS NOTE ---
DATE: 11/02/2018 SUBJECTIVE: He is sitting up on the side of the bed. He states he does not feel well today. He is not able to focus his complaints however. No chest pain, nausea or vomiting. OBJECTIVE: Vital Signs: Blood pressure 94/56, heart rate 88. Afebrile. General: No acute distress. Skin: Warm and dry. Conjunctivae are pale. Neck: Supple. Neck veins are not distended. Heart: Regular. No gallops. Lungs: Equal. No crackles. Abdomen: Soft, nontender. Bowel sounds present. Extremities: No edema clubbing or cyanosis. IMPRESSION AND PLAN: Acute kidney injury. No recovery but his urine output is improved. He will have hemodialysis today and he will be transfused during his treatment to address his hemoglobin of 6.1. Moderate metabolic acidosis that will be addressed with dialysis. cc: Ubaldo Nguyen MD
--- NOTE | 2018-11-02 17:33 | PROGRESS NOTE ---
DATE: 11/02/2018 SUBJECTIVE: The patient has no major complaints. He is examined in dialysis. He seems a little less lethargic than he was yesterday. OBJECTIVE: Vital Signs: Blood pressure is 91/58, heart rate of 100, respiratory rate 18, temperature 96.7 degrees. He did drop to 80/59 earlier today, and had to require a bolus 82/44. Cardiovascular: Tachy. GI: Soft, nontender, nondistended. Bowel sounds are positive. LABORATORY DATA: H H has dropped to 6 and 19, white count of 12, platelets of 231,000. Sodium 146, creatinine 6.1. Total bilirubin is down to 3.6. B12 is greater than 2000. PROBLEM LIST: 1. Syncope, with symptomatic anemia. We will continue to monitor. I do not think I see any cardiac enzymes, but in any case, I think this is related to his low blood count, and we will continue to monitor. I think he has been ordered 2 units of blood. I ordered 1 unit today. 2. Pneumobilia and pancreatic cancer, but he has got a drain in place. We are aware of diagnosis. Dr. Marshall has been consulted, that is his primary oncologist. He is getting chemo, which this anemia may be related to, versus acute bleeding. He is currently on antibiotics, which is vancomycin, and he is on Zosyn at renal dosing, which should cover the, I think he had Enterococcus that grew from his previous gallbladder sent that was sensitive to ampicillin, so Zosyn and vancomycin should be covering that and anaerobes. So far, cultures are negative. 3. Moderate protein calorie malnutrition. We may need to consider nutritional supplementation with dialysis. 4. Disposition pending his clinical status. I did discuss his code status and he confirmed the DNR status he had previously. Overall, a very sick gentleman, with multiple issues, none of which will I think necessarily be remedied any time soon, and he may likely have further deterioration in the meantime. cc: Gordy Wilson MD
[2018-11-02] MEDS: HUMULIN R SUBQ SCH (20:24)
[2018-11-03] MEDS: ZOSYN 2.25 GM in NS 50 ML IV SCH ×4 (02:01→21:18)
[2018-11-03] MEDS: HUMULIN R SUBQ SCH ×4 (06:02→20:20)
[2018-11-03 07:37] LABS: BASO# 0.07 X1000 (0.0-0.2); BASO% 0.4 % (0.0-0.8); EOS# 0.06 X1000 (0.0-0.7); EOS% 0.3 % (0.0-10.0); HEMATOCRIT 24.1 % (42.0-52.0); HEMOGLOBIN 7.7 g/dL (14.0-18.0); IMM GRAN# 0.14 X1000 (0.0-0.04); IMM GRAN% 0.8 % (0.0-0.5); LYMPH% 6.1 % (20.5-51.1); MCH 28.6 PG (27-31); MCV 89.6 FL (81-99); MONO# 2.31 X1000 (0.11-0.59); MONO% 12.9 % (1.7-9.3); MPV 11.7 FL (7.4-10.4); NEUT# 14.21 X1000 (1.4-6.5); NEUT% 79.5 % (42.2-75.2); PLT 181 X1000 (130-400); RBC 2.69 XMIL (4.7-6.1); RDW 19.2 % (11.5-14.5); WBC 17.89 X1000 (4.8-10.8)
[2018-11-03 07:38] LABS: CALCIUM 7.7 mg/dL (8.8-10.2); CREATININE 3.6 mg/dL (0.7-1.2); POTASSIUM 4.1 mmol/L (3.5-5.1)
[2018-11-03 07:41] LABS: ATYPICAL LYMPH 2 %; LARGE PLATELETS 1+; LYMPHS 2 % (21-51); MONO 10 % (1-9); SEGS 86 % (42-75)
[2018-11-03 08:38] LABS: URINE SOURCE CLEAN CATCH
[2018-11-03 08:45] LABS: BILIRUBIN URINE SMALL (NEGATIVE); BLOOD URINE SMALL (NEGATIVE); COLOR YELLOW; GLUCOSE URINE TRACE mg/dL (NEGATIVE); KETONE URINE TRACE mg/dL (NEGATIVE); LEUKOCYTES URINE MODERATE (NEGATIVE); NITRITE URINE NEGATIVE (NEGATIVE); PROTEIN URINE 300 mg/dL (NEGATIVE); SP GRAVITY URINE 1.027; TURBIDITY URINE TURBID (CLEAR); UROBILINOGEN URINE 2 mg/dL (NORMAL)
[2018-11-03] MEDS: MORPHINE IV PRN (08:46)
[2018-11-03 08:47] LABS: UR EPITHELIAL CELLS <10 /HPF (<10); URINE BACTERIA NEGATIVE /HPF; URINE RBC TNTC /HPF (<10); URINE WBC TNTC /HPF (<10)
[2018-11-03] MEDS: LOPRESSOR PO SCH ×2 (14:03→20:17)
[2018-11-03 14:14] LABS: MAGNESIUM 1.7 mg/dL (1.5-2.7)
[2018-11-03] MEDS ORDERED: MAGNESIUM SULFATE 1 GM/D5W 1 GM/100 ML IVPB IV ONE (18:40)
[2018-11-03] MEDS: ICAR-C PO SCH (20:16)
--- NOTE | 2018-11-03 20:50 | PROGRESS NOTE ---
DATE: 11/03/2018 SUBJECTIVE: No major issues. He looks a lot better today than he has over several days. OBJECTIVE: Vital Signs: Blood pressure is 110/71, heart rate 71, respiratory rate 16, temperature 98.1, 97% on room air. Cardiovascular: Regular rate and rhythm. Pulmonary: Bilateral breath sounds. Clear to auscultation. GI: Soft, nontender, nondistended. Bowel sounds are positive. LABORATORY DATA: White count 17, hemoglobin and hematocrit is 7.7 and 24, which is improved. Platelets 181, creatinine 3.6. Troponin was 0.135, which was obtained because the patient had nonsustained run of ventricular tachycardia. ASSESSMENT: 1. Reported syncope. At least that is what he reported to me, although it is not documented, or he had an almost near syncope episode. In any case, patient came in for evaluation and he had an evaluation as such. We will continue to follow, likely related to anemia. 2. Symptomatic anemia. Hemoglobin and hematocrit has improved. He actually got 2 units of packed red blood cells. With his ventricular tachycardia, I would have a low threshold to give more blood, but I will defer to Nephrology. He does have evidence of demand ischemia because he had a mild elevation in his troponin. 3. Pneumobilia, status post gallbladder drain, associated with a pancreatic head cancer. Dr. Marshall is following. I am not sure where he is with chemotherapy. Overall not a great prognosis. 4. Nonsustained ventricular tachycardia, may be related to electrolyte abnormalities. Potassium looked okay. Magnesium is a little bit low. I may give him a little bit of supplementation. DISPOSITION: Pending clinical status, we will continue to follow closely. May be another day or 2 until things stabilize. cc: Gordy Wilson MD [facility] PARTNERSMiguel
[2018-11-04] MEDS: ZOSYN 2.25 GM in NS 50 ML IV SCH ×4 (02:20→21:47)
[2018-11-04] MEDS: HUMULIN R SUBQ SCH ×4 (06:21→21:48)
[2018-11-04] MEDS: PROTONIX PO SCH (06:26)
[2018-11-04 07:40] LABS: BASO# 0.09 X1000 (0.0-0.2); BASO% 0.7 % (0.0-0.8); EOS# 0.08 X1000 (0.0-0.7); EOS% 0.7 % (0.0-10.0); HEMATOCRIT 23.9 % (42.0-52.0); HEMOGLOBIN 7.5 g/dL (14.0-18.0); IMM GRAN# 0.11 X1000 (0.0-0.04); IMM GRAN% 0.9 % (0.0-0.5); LYMPH# 1.19 X1000 (1.2-3.4); LYMPH% 9.8 % (20.5-51.1); MCH 29.5 PG (27-31); MCHC 31.4 g/dL (33-37); MCV 94.1 FL (81-99); MONO# 1.64 X1000 (0.11-0.59); MONO% 13.5 % (1.7-9.3); MPV 11.6 FL (7.4-10.4); NEUT# 9.06 X1000 (1.4-6.5); NEUT% 74.4 % (42.2-75.2); PLT 181 X1000 (130-400); RBC 2.54 XMIL (4.7-6.1); RDW 20.1 % (11.5-14.5); WBC 12.17 X1000 (4.8-10.8)
[2018-11-04 08:06] LABS: CALCIUM 7.7 mg/dL (8.8-10.2); CREATININE 5.2 mg/dL (0.7-1.2); POTASSIUM 4.3 mmol/L (3.5-5.1)
[2018-11-04] MEDS: ICAR-C PO SCH ×2 (09:37→21:48)
[2018-11-04] MEDS: ZYLOPRIM PO SCH (09:37)
[2018-11-04] MEDS: ASPIRIN EC PO SCH (09:37)
[2018-11-04] MEDS: LOPRESSOR PO SCH ×2 (09:37→21:47)
--- NOTE | 2018-11-04 14:19 | CARDIOLOGY CONSULTATION ---
DATE: 11/04/2018 CHIEF COMPLAINT ON PRESENTATION: Syncope and weakness. REASON FOR CARDIOLOGY CONSULTATION: Elevated troponin with nonsustained ventricular tachycardia. HISTORY OF PRESENT ILLNESS: Mr. Shane Guzman is a 73-year-old black male with a history of pancreatic cancer and end-stage renal disease. He presented on the with complaints of generalized weakness and anorexia. This has been going on for the last couple of weeks or so. He denies any overt fevers. He has had some chronic reflux type discomfort that is associated with foods and seems to be relieved by medications targeted at reflux. He reports compliance with his dialysis. No recent fevers. No recent bleeding that he is aware. PAST MEDICAL HISTORY: Significant for: 1. Pancreatic cancer followed by Dr. Marshall. 2. End-stage renal disease. 3. History of systolic heart failure. The last echocardiogram I have on the patient is from April 2014, demonstrating an EF of 30% to 40%. He had moderate to severe left ventricular hypertrophy. Global hypokinesis. Cardiac catheterization was performed in 2011, demonstrating normal left main. Normal left anterior descending. Minimal disease in the circumflex. Normal right coronary. Last nuclear scan performed in 2010 demonstrated a small- size mild intensity mid inferior basal to mid inferior fixed defect, ejection fraction noted in the mid 30s. 4. Hyperlipidemia. 5. Hypertension. 6. Diabetes. 7. Arthritis. 8. Gout. SOCIAL HISTORY: No current tobacco or alcohol use. FAMILY HISTORY: Significant for various types of cancer. PHYSICAL EXAMINATION: Vital signs: The patient is afebrile, heart rate of 83, blood pressure 110/62. General: He is an ill-appearing black male, in no acute distress. Very pleasant. HEENT: Oropharynx is moist. Poor dentition. Eye examination is pink conjunctivae and white sclerae. Neck: Examination shows no obvious thyromegaly or thyroid tenderness. Cardiovascular: He sounds to be in a regular rate and rhythm. He has no obvious murmurs. He has no S3. He has no lower extremity edema. Chest: Clear bilaterally. He has a poor inspiratory effort. Abdomen: Soft, nontender, nondistended. He has no obvious rebound or guarding at present. Drain is present. Skin: Warm and dry throughout. No obvious rashes. Neurological: He is moving all extremities well. No lateralizing deficits. Psychiatric: Alert and oriented, pleasant. Normal mood and affect. PERTINENT DATA: His initial EKG on the at 11:02 shows sinus tachycardia 113 beats per minute. No signs of ischemic changes or infarct. Subsequent EKG on the at 1551 shows sinus rhythm, first-degree AV block. No signs of ischemic changes. Telemetry reviewed by me shows an episode of roughly 30 or so beats of ventricular tachycardia occurring on the at 12:40. These were at a rate of around 150 beats per minute. He had a head CT showing no evidence of acute intracranial disease. Chest, abdomen, and pelvis CT reviewed, showing pneumobilia, mass in head of pancreas which is possibly partially necrotic. Cholecystostomy drain noted. Worsened external iliac adenopathy noted. Laboratory data shows a white count of 12.1, his hematocrit is 23.9, he had a low on the of 19.8, his platelet count is 181,000. His sodium is 140, potassium 4.3, BUN 54, creatinine is 5.2. Magnesium level is 2.0. He had a troponin checked yesterday which was 0.13 on initial check. Subsequently today it is 0.135. ASSESSMENT: Mr. Guzman is a 73-year-old gentleman with a history of pancreatic cancer with cholecystostomy tube in place, end-stage renal disease as well, who presented with weakness and was found to be significantly anemic. PLAN: We will check an echo tomorrow. I believe his underlying cardiac issues are likely being stressed by his severe anemia, as well as his pancreatic cancer and end-stage renal disease. I would treat that medically. I do not see any indication for invasive or noninvasive evaluation for ischemic testing at this time, given the patient's other comorbidities. We will check an echo. Certainly, we would like to treat his heart failure if we could with EDNA inhibitors and beta blockers, but this may be restricted with his other comorbidities. cc: Bandar Benítez MD
--- NOTE | 2018-11-04 14:21 | PROGRESS NOTE ---
DATE: 11/04/2018 SUBJECTIVE: The patient is doing okay. OBJECTIVE: Blood pressure 110/62, heart rate was 83, respiratory rate 17, temperature 97.3 degrees.Cardiovascular: Regular rate and rhythm. Pulmonary: Bilateral breath sounds clear to auscultation. GI: Soft, nontender, nondistended. Bowel sounds are positive. LABORATORY DATA: White count is 12, hemoglobin and hematocrit has dropped a little further to 7.5 and 23.9, platelets 181,000. BUN and creatinine 54 and 5.2. Troponin still up a little bit 0.135. PROBLEM LIST: 1. Possible syncope related to anemia. Overall, he has improved. I think this is related to prolonged anemia. 2. Symptomatic anemia, presumed iron deficiency. We will continue treatment. I would think he would benefit from another unit of blood just because he has got cardiac ischemia which may be demand ischemia related to his anemia. I will discuss with Dr. Nguyen about doing that today versus with dialysis tomorrow. 3. Pneumobilia. He has got a cholecystostomy tube because there were no other treatments available. He is a palliative care chemo patient and he has not had it for 4 or 5 months. All things considered, he may be more of a hospice patient. I did discuss the case with Dr. Marshall. I have put in a palliative care consult although clinically he looks well. 4. Nonsustained ventricular tachycardia. We will continue to monitor. Cardiology is following. I do not have any other data. Echo is pending for tomorrow. We will continue to follow. cc: Gordy Wilson MD
[2018-11-05] MEDS: ZOSYN 2.25 GM in NS 50 ML IV SCH ×4 (03:41→21:53)
[2018-11-05] MEDS ORDERED: TIGHT: 0.2 ML/HR FOR DIALYSIS MISC PRN (05:43)
[2018-11-05] MEDS ORDERED: HEPARIN IV PRN (05:43)
[2018-11-05] MEDS ORDERED: NS 2,000 ML MISC PRN (05:43)
[2018-11-05] MEDS: HUMULIN R SUBQ SCH ×3 (06:09→21:55)
[2018-11-05] MEDS: PROTONIX PO SCH (06:17)
[2018-11-05 07:38] LABS: BASO# 0.07 X1000 (0.0-0.2); BASO% 0.5 % (0.0-0.8); EOS# 0.09 X1000 (0.0-0.7); EOS% 0.7 % (0.0-10.0); HEMATOCRIT 21.8 % (42.0-52.0); HEMOGLOBIN 6.6 g/dL (14.0-18.0); IMM GRAN# 0.08 X1000 (0.0-0.04); IMM GRAN% 0.6 % (0.0-0.5); LYMPH# 1.15 X1000 (1.2-3.4); LYMPH% 8.8 % (20.5-51.1); MCH 29.1 PG (27-31); MCHC 30.3 g/dL (33-37); MONO# 1.48 X1000 (0.11-0.59); MONO% 11.4 % (1.7-9.3); NEUT# 10.15 X1000 (1.4-6.5); PLT 176 X1000 (130-400); RBC 2.27 XMIL (4.7-6.1); RDW 21.8 % (11.5-14.5); WBC 13.02 X1000 (4.8-10.8)
[2018-11-05 07:48] LABS: CALCIUM 8.1 mg/dL (8.8-10.2); CREATININE 6.8 mg/dL (0.7-1.2); POTASSIUM 4.3 mmol/L (3.5-5.1)
[2018-11-05 07:55] LABS: BANDS 6 % (0-1); LYMPHS 6 % (21-51); MONO 4 % (1-9); SEGS 84 % (42-75)
[2018-11-05] MEDS: ICAR-C PO SCH ×2 (08:08→21:54)
[2018-11-05] MEDS: LOPRESSOR PO SCH ×2 (08:08→21:55)
[2018-11-05] MEDS: ASPIRIN EC PO SCH (08:08)
[2018-11-05] MEDS: ZYLOPRIM PO SCH (08:08)
--- NOTE | 2018-11-05 08:54 | EKG Report ---
Test Performed on : 11/03/2018 3:51:08 PM Test Reason : vtach Blood Pressure : / mmHG Vent. Rate : 073 BPM Atrial Rate : 073 BPM P-R Int : 202 ms QRS Dur : 074 ms QT Int : 420 ms P-R-T Axes : -19 -53 073 degrees QTc Int : 462 ms Normal sinus rhythm. Left axis deviation Inferior infarct , age undetermined Anterior infarct , age undetermined Abnormal ECG When compared with ECG of 01-NOV-2018 11:02, (Unconfirmed) Vent. rate has decreased BY 40 BPM Inferior infarct is now present T wave inversion more evident in Lateral leads Confirmed by Scott ENGLAND, Nura Hall ([id number]) on 11/05/2018 3:27:51 PM
--- NOTE | 2018-11-05 11:22 | NEPHROLOGY PROGRESS NOTE ---
DATE: 11/05/2018 SUBJECTIVE: Mr. Guzman is resting quietly without complaints. OBJECTIVE: His most recent vital signs show temperature 97.5 degrees, blood pressure 100/59, heart rate 81, respirations 18. He is on room air. Last recorded saturation is 100%. He has had 120 mL in, 350 mL out to void. LABORATORY DATA: Sodium 139, potassium 4.3, chloride 102, CO2 of 20, BUN 7, creatinine 6.8, glucose 87, anion gap is 17, calcium is 8.1. White count 13.02, hemoglobin 6.6 , hematocrit 21.8, platelet count 176,000. PHYSICAL EXAMINATION: General: This is a 73-year-old, male, resting quietly in bed. He is in no acute distress. Skin: Warm and dry. HEENT: Normocephalic, atraumatic. Conjunctivae pink. ADI. Mucous membranes dry. Neck: Supple. Trachea midline. No evidence of JVD. Cardiovascular: Regular rate and rhythm. He has an S4 present. Lungs: Clear to auscultation anteriorly. Equal excursion on room air. Abdomen: Soft, nontender. Positive bowel sounds. Genitourinary: Minimal void with dialysis assist. Neurological: Alert and oriented. ASSESSMENT AND PLAN: 1. Acute kidney injury on chronic kidney disease. The patient is due to have dialysis today. Will place him on a 2-potassium bath. We will dialyze him for 3.5 hours. We will attempt to pull 0 to 1 liters of ultrafiltration as tolerated. 2. Electrolytes and acid-base balance. These are acceptable. 3. Anemia. We will transfuse 2 units of packed red blood cells while on dialysis. 4. Pneumobilia and pancreatic cancer. His drain remains in place. Dr. Marshall continues to follow. Primary care is monitoring. I would like to thank you for allowing us to follow with this patient. Dictated by SIGIFREDO Adams for Ubaldo Nguyen MD Face to face encounter, data reviewed, discussed with Rosina Paz on 11/06/18. I agree with the above assessment and plan of care. cc: SIGIFREDO Adams MD [facility]
--- NOTE | 2018-11-05 12:49 | ECHO REPORT ---
ORDER DATE: 11/05/2018 STUDY: 2D echocardiogram. INTERPRETING PHYSICIAN: Timoteo Sloan MD ECHOCARDIOGRAPHIC MEASUREMENTS: Interventricular septum 2 cm. Left ventricular posterior wall 2 cm. Left ventricular diastolic diameter 3.0 cm. Left atrium 3.5 cm. Aorta 3.5 cm. SUMMARY OF THE 2-DIMENSIONAL IMAGING: There is mild left atrial enlargement. The aortic valve leaflets are mildly sclerosed, trileaflet, opening normally. Pulmonic valve was normal. Tricuspid valve was normal. Mitral valve was normal. Normal left ventricular cavity size. Severe concentric left ventricular hypertrophy. Estimated ejection fraction of 55% to 60%. There is diastolic dysfunction. Peak velocity across the aortic valve less than 2 m/sec. There is no aortic stenosis. There is mild to moderate aortic regurgitation. There is trace mitral regurgitation. Trace tricuspid regurgitation. Peak velocity across the tricuspid valve was 2 m/sec. There is no pericardial effusion or obvious intracardiac mass or thrombus seen. cc: MD Bandar Kamara MD
--- NOTE | 2018-11-05 13:41 | CARDIOLOGY PROGRESS NOTE ---
DATE: 11/05/2018 SUBJECTIVE: Mr. Guzman has no complaints today. He is tolerating oral intake. He is due for dialysis today. PHYSICAL: Afebrile. Heart rate 81, blood pressure 100/59. General: He is in no acute distress. Cardiovascular: He sounds to be in a regular rate and rhythm. He has no obvious murmurs. He has no S3. He has no lower extremity edema. Chest: Sounds relatively clear. He has no increased work of breathing. Abdomen: Soft, nontender. PERTINENT DATA: His sodium is 139, potassium 4.3, BUN 70, creatinine 6.8. ASSESSMENT: Mr. Guzman is a 73-year-old gentleman who had a episode of nonsustained ventricular tachycardia. PLAN: His troponin elevation and nonsustained ventricular tachycardia are likely secondary to his comorbidities including end-stage renal disease, pancreatic cancer and severe anemia. I agree with the low dose of a beta kiki that was initiated by the primary team and would continue on that. His echocardiogram showed normal heart function with severe left ventricular hypertrophy. For now, I would continue on the current regimen. Please contact us if we can be of further assistance with this patient. cc: Bandar Benítez MD
[2018-11-05] MEDS ORDERED: VANCOMYCIN 1 GM/NS 1 GM/250 ML IVPB IV ONE (15:00)
[2018-11-06] MEDS: ZOSYN 2.25 GM in NS 50 ML IV SCH ×4 (03:29→20:50)
[2018-11-06] MEDS: HUMULIN R SUBQ SCH ×4 (06:11→20:51)
[2018-11-06] MEDS: PROTONIX PO SCH (06:18)
[2018-11-06 07:49] LABS: ALBUMIN 2.3 g/dL (3.5-5.0); CALCIUM 7.6 mg/dL (8.8-10.2); CREATININE 4.6 mg/dL (0.7-1.2); PHOSPHORUS 4.3 mg/dL (2.7-4.5); POTASSIUM 3.6 mmol/L (3.5-5.1)
[2018-11-06] MEDS: ASPIRIN EC PO SCH (10:41)
[2018-11-06] MEDS: LOPRESSOR PO SCH ×2 (10:41→20:50)
[2018-11-06] MEDS: ICAR-C PO SCH ×2 (10:41→20:51)
[2018-11-06] MEDS: ZYLOPRIM PO SCH (10:45)
--- NOTE | 2018-11-06 12:49 | PROGRESS NOTE ---
DATE: 11/06/2018 SUBJECTIVE: This morning, Mr. Guzman refers to be doing fairly okay. Denies any acute complaints. OBJECTIVE: Vital Signs: Blood pressure is 106/51, pulse is 87, respirations are 18, temperature is 98.5 degrees. General Examination: Mr. Guzman is a 73-year-old, gentleman. He is in bed. He is not in any cardiopulmonary distress. HEENT: Mucosa is pink and moist. Anicteric. Acyanotic. Neck: Supple. Chest: Good air entry bilaterally. A few distant crackles posteriorly. Cardiovascular: Regular rate and rhythm. Abdomen: Soft. There is a right ANKUR drain in the in the gallbladder fossa. STATISTICAL DEVELOPER: The patient is awake, alert, oriented. There is no focal neurological deficit. Laboratory Data: WBC is 13.02, hemoglobin is 6.6, platelet count of 176,000. This is from yesterday. There is no CBC this morning. Chemistry today is consistent with renal failure. The patient continues to receive dialysis. So far, blood culture on this admission and urine culture have all been negative. The gallbladder culture did show, on the of this month, that it was Enterococcus faecium which is VSE, vancomycin sensitive enterococcus. On the , the fluid was Enterobacter cloacae complex. Currently, the patient is on Zosyn, today day 5, and vancomycin, today day 5. ASSESSMENT: 1. Symptomatic anemia on presentation, improved. Patient is status post 3 units of packed red blood cell transfusion yesterday. The hemoglobin had dropped some to 6.6. We will repeat the hemoglobin and hematocrit in the morning and transfuse if needed. 2. Pneumobilia after a cholecystostomy. Blood cultures have been negative. However, the gallbladder fluid culture has grown enterococcal bacteriuria complex and also vancomycin sensitive enterococcus. The patient is currently on adequate antibiotic coverage. 3. Nonsustained ventricular tachycardia noted. 4. Acute on chronic kidney disease. The patient is being seen by a nephrology. 5. Pancreatic mass, likely malignant. CA-19-9 on previous admission was 11,540, which would be compatible with pancreatic malignancy. The patient follows up with Dr. Marshall. cc: Maxi Li MD
--- NOTE | 2018-11-06 13:07 | NEPHROLOGY PROGRESS NOTE ---
DATE: 11/06/2018 DATE AND TIME SEEN: On 11/06/2018 at 0645 hours. SUBJECTIVE: Mr. Guzman is resting quietly in bed. He does deny any discomfort at this time. OBJECTIVE: His most recent vital signs, last temperature 98.5 degrees, blood pressure 123/58, heart rate 95, respirations 18. He is on room air. Last recorded saturation is 99%. He has had 460 input and 52 mL out per void. LABORATORY DATA: Sodium 142, potassium 3.6, chloride 104, CO2 of 24, BUN 37, creatinine 4.6, glucose 134. The patient has an anion gap of 14. Calcium is 7.6, phosphorus 4.3, albumin 2.3. White count 13.02, hemoglobin 6.6, hematocrit 21.8 with a platelet count of 176, 000. PHYSICAL EXAMINATION: General: This is a 73-year-old male resting quietly in bed, head of the bed is elevated. No acute distress. Appears chronically ill. Skin: Warm and dry. HEENT: Normocephalic, atraumatic. Conjunctiva is pale pink. He has ADI. Mucous membranes dry. Neck: Supple. Trachea midline. No JVD. Cardiovascular: Regular rate and rhythm. Lungs: Clear to auscultation bilaterally. Equal excursion. Abdomen: Soft, nontender. Positive bowel sounds. He has a drain to the left upper quadrant with yellow bile. Genitourinary: Not inspected. The patient has minimal void with dialysis assist. Extremities: Have trace edema. No clubbing or cyanosis. Neurological: Alert and oriented x2. ASSESSMENT AND PLAN: 1. Acute kidney injury on chronic kidney disease stage 5. Patient has had no urine output recovery. We will plan for dialysis in the morning. 2. Electrolytes and acid base balance. These are acceptable with correction on dialysis. 3. Anemia. Patient received 2 units of packed red blood cells yesterday. No indications for intervention. We will check a CBC in the morning. 4. Pneumobilia pancreatic cancer, followed by Dr. Marshall. I would like to thank you for allowing us to follow with this patient. Dictated by SIGIFREDO Adams for Ubaldo Nguyen MD Face to face encounter, data reviewed, discussed with Rosina Paz on 11/06/18. I agree with the above assessment and plan of care. cc: SIGIFREDO Adams MD [facility]
[2018-11-07] MEDS: ZOSYN 2.25 GM in NS 50 ML IV SCH ×4 (02:35→20:19)
[2018-11-07] MEDS ORDERED: HEPARIN IV PRN (06:06)
[2018-11-07] MEDS ORDERED: TIGHT: 0.2 ML/HR FOR DIALYSIS MISC PRN (06:06)
[2018-11-07] MEDS ORDERED: NS 2,000 ML MISC PRN (06:06)
[2018-11-07] MEDS: PROTONIX PO SCH (06:34)
[2018-11-07] MEDS: HUMULIN R SUBQ SCH ×4 (06:34→22:51)
[2018-11-07 07:19] LABS: BASO# 0.01 X1000 (0.0-0.2); BASO% 0.1 % (0.0-0.8); EOS# 0.14 X1000 (0.0-0.7); EOS% 1.3 % (0.0-10.0); HEMATOCRIT 26.2 % (42.0-52.0); HEMOGLOBIN 8.4 g/dL (14.0-18.0); IMM GRAN# 0.05 X1000 (0.0-0.04); IMM GRAN% 0.5 % (0.0-0.5); LYMPH# 1.02 X1000 (1.2-3.4); LYMPH% 9.5 % (20.5-51.1); MCHC 32.1 g/dL (33-37); MCV 93.6 FL (81-99); MONO# 1.09 X1000 (0.11-0.59); MONO% 10.2 % (1.7-9.3); NEUT% 78.4 % (42.2-75.2); PLT 173 X1000 (130-400); RDW 22.1 % (11.5-14.5); WBC 10.71 X1000 (4.8-10.8)
[2018-11-07 07:34] LABS: ALBUMIN 2.6 g/dL (3.5-5.0); PHOSPHORUS 5.7 mg/dL (2.7-4.5); POTASSIUM 3.8 mmol/L (3.5-5.1)
[2018-11-07] MEDS: ASPIRIN EC PO SCH (08:43)
[2018-11-07] MEDS: LOPRESSOR PO SCH ×2 (08:43→20:20)
[2018-11-07] MEDS: ZYLOPRIM PO SCH (08:43)
[2018-11-07] MEDS: ICAR-C PO SCH ×2 (08:44→20:20)
--- NOTE | 2018-11-07 12:37 | PROGRESS NOTE ---
DATE: 11/07/2018 SUBJECTIVE: This morning, Mr. Guzman refers to be doing fairly okay. He was sitting up at the edge of the bed. Did not have any acute complaints. OBJECTIVE: Vital Signs: Blood pressure is 105/51, pulse is 82, respirations are 17, temperature is 97.9 degrees. General Examination: Mr. Guzman is a 73-year-old, gentleman. He was sitting at the edge of the bed. He was not in any cardiopulmonary distress. HEENT: Mucosa is pink and moist. Anicteric. Acyanotic. Neck: Supple. Chest: Good air entry bilaterally. There were no crepitations. No rhonchi. Cardiovascular: Regular rate and rhythm. No murmurs, no rubs, no gallops. GI: Abdomen is soft. Bowel sounds were present. There is a drainage in the gallbladder. LIFESTYLE DIRECTOR: The patient is awake, alert, and oriented. There is no focal neurological deficit. Is and Os: There was 100 mL of fluid documented as the output from the accordion drain. Laboratory Data: WBC is 10.71, hemoglobin is up to 8.4, platelet count of 173, 000. Chemistry is also reviewed. It is completely unremarkable except for the renal abnormalities. Diagnostic Data: Echocardiogram done on the showed an ejection fraction of 55% to 60%. ASSESSMENT: 1. Symptomatic anemia on presentation. Patient is status post 3 units of packed red blood cell transfusion. Hemoglobin and hematocrit this morning is up to 8.4. 2. Pneumobilia after cholecystostomy. Culture from the gallbladder fluid was positive for enterococcus, sensitive to vancomycin, and also Enterobacter cloacae complex. The patient is currently on Zosyn. Today is day 6 on that. Vancomycin has been discontinued. 3. Nonsustained ventricular tachycardia, resolved. 4. Acute on chronic kidney disease. Patient is currently needing dialysis. Nephrology is on board. 5. Pancreatic mass with CEA and CA-19-9 on the previous admission remarkably elevated, compatible with pancreatic malignancy. Patient follows up with Dr. Marshall. 6. Generalized weakness and deconditioning. Patient is getting physical therapy. He was able to ambulate 250 feet yesterday. PLAN: In general, I think Mr. Guzman is fairly stable. He does have a very poor prognosis because of the pancreatic malignancy, which he still wants to pursue adjuvant therapy. The patient will be going to rehab to continue with his physical jainism, get him stronger and hopefully after that, continue care with Dr. Marshall. We are still pending insurance approval for rehab placement on Mr. Guzman. cc: Maxi Li MD [facility]
--- NOTE | 2018-11-07 13:47 | NEPHROLOGY PROGRESS NOTE ---
DATE: 11/07/2018 TIME SEEN: 0710 hours. SUBJECTIVE: Mr. Guzman is resting quietly in bed. He has no specific complaints , just states he is fatigued. OBJECTIVE: Vital Signs: Temperature is 99 degrees, blood pressure 117/54, heart rate 86 respirations 20. He is on room air. Last recorded saturation 98%. He has had 350 mL in; 100 mL out. LABORATORY DATA: Sodium 145, potassium 3.8, chloride 104, CO2 23. BUN 45, creatinine 6, glucose is 100. The patient has an anion gap of 18. His calcium is 8, phosphorus 5.7, albumin is 2.6. White count 10.7, hemoglobin 8.4, hematocrit 26.2 with a platelet count of 173. PHYSICAL EXAMINATION: General: This is a 73-year-old male resting quietly in bed. No acute distress, although appears chronically ill. Skin: Warm and dry. HEENT: Normocephalic, atraumatic. Conjunctiva is pale pink. He has ADI. Mucous membranes are dry. Neck: Supple. Trachea midline. No evidence of JVD. Cardiovascular: He has regular rate and rhythm. He is without murmur or gallop. Lungs: Clear to auscultation bilaterally. Equal excursion on room air. Abdomen: Slightly distended, soft, nontender. Positive bowel sounds. The patient has a drain to his left upper quadrant with yellow bile. Genitourinary: Not inspected. Minimal void with dialysis assist. Extremities: Have trace edema. No clubbing or cyanosis. Neurological: Alert and oriented x2. ASSESSMENT AND PLAN: 1. Acute on chronic kidney disease stage V. Patient has had no urine output. No recovery. We have plan for dialysis this morning. He is to be on a 2 potassium bath. He is to dialyze for 3-1/2 hours. We will attempt to pull 2 liters of ultrafiltration as tolerated. 2. Electrolytes, acid-base balance with correction on dialysis. 3. Anemia. The patient had received 2 units of packed red blood cells for hemoglobin of 6.1 two days ago. This has held stable. No indications for intervention. 4. Pneumobilia, pancreatic cancer. This is now followed by primary care team and Dr. Marshall. I would like to thank you for allowing us to follow with this patient. Dictated by SIGIFREDO Adamsh, MD Face to face encounter, data reviewed, discussed with Rosina Paz on 11/07/18. I agree with the above assessment and plan of care. cc: SIGIFREDO Adams MD [facility]
[2018-11-08] MEDS: ZOSYN 2.25 GM in NS 50 ML IV SCH ×4 (03:30→20:23)
[2018-11-08] MEDS: HUMULIN R SUBQ SCH ×4 (06:54→20:26)
[2018-11-08] MEDS: PROTONIX PO SCH (06:54)
[2018-11-08 08:12] LABS: ALBUMIN 2.7 g/dL (3.5-5.0); CREATININE 3.7 mg/dL (0.7-1.2); PHOSPHORUS 4.7 mg/dL (2.7-4.5); POTASSIUM 3.5 mmol/L (3.5-5.1)
[2018-11-08] MEDS: LOPRESSOR PO SCH ×2 (09:55→20:23)
[2018-11-08] MEDS: ZYLOPRIM PO SCH (09:55)
[2018-11-08] MEDS: ASPIRIN EC PO SCH (09:56)
[2018-11-08] MEDS: NORCO-10 PO PRN ×3 (09:56→18:06)
[2018-11-08] MEDS: ICAR-C PO SCH ×2 (09:56→20:25)
--- NOTE | 2018-11-08 13:25 | PROGRESS NOTE ---
DATE: 11/08/2018 SUBJECTIVE: Today, Mr. Guzman refers to be doing fairly okay. He was actually sitting up in a chair at the time of the encounter. OBJECTIVE: Vital Signs: Blood pressure 99/47, pulse is 86, respirations are 18, temperature is 97.5 degrees. General Examination: Mr. Guzman is a 73-year-old, gentleman. He was in a chair. He was in any cardiopulmonary distress. HEENT: Mucosa is pink and moist. Anicteric. Acyanotic. Neck: Supple. Chest: Clear to auscultation. Cardiovascular: Regular rate and rhythm. No murmurs, no rubs, no gallops. Abdomen: Soft. Bowel sounds present. There is an accordion drain in the gallbladder fossa. MACHINE TOOL REBUILDER: The patient is awake, alert, oriented. There is no focal neurological deficit. Is and Os: The accordion drain has documented 50 mL of output in 24 hours. Laboratory Data: Blood cultures have been 5 days negative. Chemistry is consistent with renal failure. ASSESSMENT: 1. Symptomatic anemia on presentation. The patient is status post three units of packed red blood cell transfusion. Hemoglobin and hematocrit are stable. 2. Pneumobilia after cholecystostomy. Cultures were positive for Enterobacter cloacae and vancomycin-sensitive enterococcus. The patient is currently on Zosyn. Today is day 6. We will plan to continue this for a total of 14 days since he still has the accordion drain in place. 3. Nonsustained ventricular tachycardia, resolved. 4. Acute on chronic kidney disease with no renal recovery. Patient is currently needing dialysis. Nephrology is on board. 5. Pancreatic mass with elevated CA-19-9 compatible with pancreatic malignancy. Patient follows up with Dr. Marshall. 6. Generalized weakness and deconditioning. Physical therapy is on board. The patient was able to ambulate 250 yesterday with contact guard assistance. PLAN: In general, I think Mr. Guzman is fairly stable currently, still weak and we are pending rehab bed placement. cc: Maxi Li MD
--- NOTE | 2018-11-08 14:13 | NEPHROLOGY PROGRESS NOTE ---
DATE: 11/08/2018 TIME SEEN: 0645. SUBJECTIVE: Mr. Guzman is resting quietly in a chair. He is sitting upright. He has no complaints. He has been to the bathroom this morning and walking the halls. VITAL SIGNS: On his most recent vital signs, last temperature 98.2 degrees, blood pressure 107/56, heart rate 87, respirations 19. He is on room air. Last recorded saturation 95%. He has had 660 mL in. He has had 1200 out on dialysis, 50 mL on his accordion drain to his chest wall. LABORATORY DATA: Sodium 141, potassium 3.5, chloride 101, CO2 31, BUN 23, creatinine 3.7, glucose 91. Anion gap 9, calcium 8, phosphorus 4.7, albumin 2.7. Patient had a previous hemoglobin of 8.4 on the . PHYSICAL EXAMINATION: General: This is a 73-year-old male resting quietly in bed. He appears in no acute distress. Skin: Warm and dry. HEENT: Normocephalic, atraumatic. Conjunctivae pale pink. He has ADI. Mucous membranes dry. Neck: Supple. Trachea midline. No JVD. Cardiovascular: Regular rate and rhythm. He is without murmur or gallop. Lungs: Clear to auscultation bilaterally. Equal excursion on room air. Chest: The patient does have a drain to his right chest wall of yellow bile appearance. Abdomen: Soft, nontender. Positive bowel sounds. Genitourinary: Not inspected. The patient has minimal void with dialysis assist. Extremities: Trace pretibial edema. No clubbing or cyanosis. Neurological: Alert and oriented x3. ASSESSMENT AND PLAN: 1. Acute on chronic kidney disease stage 5D. The patient continues without any urine output. He had dialysis yesterday. We will plan for dialysis again in the a.m. No indications for intervention today. 2. Electrolytes, acid-base balance, and anemia. These are all acceptable. 3. Pancreatic cancer, followed by Dr. Marshall and the primary care team. I would to thank you for allowing us to follow with this patient. Dictated by SIGIFREDO Adams for Ubaldo Nguyen MD Face to face encounter, data reviewed, discussed with Rosina Paz on 11/08/18. I agree with the above assessment and plan of care. cc: SIGIFREDO Adams MD [facility]
[2018-11-09] MEDS: ZOSYN 2.25 GM in NS 50 ML IV SCH ×2 (02:47→10:45)
[2018-11-09] MEDS ORDERED: HEPARIN IV PRN (05:41)
[2018-11-09] MEDS ORDERED: NS 2,000 ML MISC PRN (05:41)
[2018-11-09] MEDS ORDERED: TIGHT: 0.2 ML/HR FOR DIALYSIS MISC PRN (05:41)
[2018-11-09] MEDS: HUMULIN R SUBQ SCH ×2 (06:41→11:44)
[2018-11-09 07:41] LABS: HEMATOCRIT 22.7 % (42.0-52.0); HEMOGLOBIN 7.3 g/dL (14.0-18.0); MCH 30.3 PG (27-31); MCHC 32.2 g/dL (33-37); MCV 94.2 FL (81-99); MPV 11.7 FL (7.4-10.4); RBC 2.41 XMIL (4.7-6.1); RDW 22.3 % (11.5-14.5); WBC 8.12 X1000 (4.8-10.8)
[2018-11-09 08:00] LABS: ALBUMIN 2.4 g/dL (3.5-5.0); CALCIUM 7.7 mg/dL (8.8-10.2); PHOSPHORUS 5.9 mg/dL (2.7-4.5); POTASSIUM 3.2 mmol/L (3.5-5.1)
[2018-11-09 08:04] LABS: CREATININE 5.3 mg/dL (0.7-1.2)
[2018-11-09] MEDS: PROTONIX PO SCH (10:32)
[2018-11-09] MEDS: ZYLOPRIM PO SCH (10:32)
[2018-11-09] MEDS: LOPRESSOR PO SCH (10:32)
[2018-11-09] MEDS: ASPIRIN EC PO SCH (10:32)
[2018-11-09] MEDS: ICAR-C PO SCH (10:32)
[2018-11-09 12:29] VITALS: BP 111/56
--- NOTE | 2018-11-09 12:37 | NEPHROLOGY PROGRESS NOTE ---
DATE: 11/09/2018 SUBJECTIVE: He is about the same. He has been up and out of bed. He still is voiding about 1 time a day. No dizziness. No nausea or vomiting. OBJECTIVE: Vital Signs: Blood pressure 107/55, heart rate 84, respiration 18, afebrile. General: No acute distress. Skin: Warm and dry. Possible jaundice. HEENT: Conjunctivae are pink. Neck: Neck veins are not distended. Heart: Regular. No gallops. Lungs: Equal. No crackles. Abdomen: Somewhat distended but soft. Bowel sounds present. Extremities: No edema, clubbing or cyanosis. IMPRESSION: Acute kidney injury following sepsis and acute tubular necrosis. No recovery. This overlies chronic kidney disease, with baseline creatinine of approximately 2, and baseline GFR of approximately 30. He has a tunneled catheter and so when he is ready for discharge he can transition to the outpatient clinic. We will do his next dialysis treatment tomorrow because of scheduling. Electrolytes and acid-base are acceptable. Hemoglobin is below target and he may need a transfusion tomorrow. cc: Ubaldo Nguyen MD
[2018-11-09] MEDS ORDERED: VANCOMYCIN 1 GM/NS 1 GM/250 ML IVPB IV ONE (17:00)
--- NOTE | 2018-11-10 17:17 | DISCHARGE SUMMARY ---
ADMISSION DATE: 11/01/2018 DISCHARGE DATE: 11/09/2018 LENGTH OF STAY: Was 8 days. DISPOSITION: Home with home health. FOLLOWUP: 1. Ernesto Estrada MD. 2. Gamaliel Marshall MD. 3. Bandar Benítez MD. 4. Ubaldo Nguyen MD. CONSULTATION: During this admission: 1. Hematology-Oncology was consulted. Patient was seen by Dr. Marshall. 2. Nephrology was consulted. Patient was seen by Dr. Nguyen. 3. Cardiology was consulted. Patient was seen by Dr. Benítez. INVASIVE PROCEDURES: Done during this admission, none. IMAGING STUDIES OF SIGNIFICANCE: A CT scan of the abdomen and pelvis without contrast showed bibasilar atelectasis, small effusions, pneumobilia and mass in the head of the pancreas which may be partially necrotic. Cholecystostomy drain in place. Echocardiogram shows an ejection fraction of 55% to 60%. No major valvular abnormality. ADMISSION DIAGNOSES: 1. Syncope. 2. End-stage renal disease. 3. Leukocytosis. 4. Pancreatic cancer with pneumobilia. DISCHARGE DIAGNOSES: 1. Symptomatic anemia on presentation. The patient is status post 3 PRBC transfusion. Hemoglobin and hematocrit improved from 6.1 to 8.4. Today, it is down to about 7.3. Pneumobilia after cholecystostomy. Culture positive for Enterobacter cloacae and the VSC. The patient was on Zosyn for 7 days. He has been transitioned to Augmentin to complete a total of 14 days. 1. Nonsustained ventricular tachycardia, resolved. 2. Acute kidney injury secondary to acute tubular necrosis with no recovery. Patient is currently on scheduled dialysis. Nephrology is on board. 3. Pancreatic mass with extremely elevated CA-19-9, compatible with pancreatic malignancy. Patient follows up with Dr. Marshall. 4. Generalized weakness and deconditioning. Physical therapy was on board throughout the hospital course. DISCHARGE MEDICATIONS: 1. Pantoprazole 40 mg daily. 2. Allopurinol 100 mg daily. 3. Aspirin 81 mg daily. 4. Hana. 5. Iron pills 1 tablet b.i.d. 6. Metoprolol 12.5 b.i.d. 7. Augmentin 875 p.o. q.12. PRESENTING COMPLAINT: Syncope and weakness. HISTORY OF PRESENTING COMPLAINT: Mr. Guzman is a 73-year-old, gentleman, who was recently diagnosed with locally advanced pancreatic cancer, end-stage renal disease, ascending cholangitis, status post cholecystostomy placement. The patient was admitted and discharged from the hospital on 10/31/2018 on that occasion. However, at home, he said he was not able to take care of himself. He started getting more weak, so he presented to the emergency department the following day after being discharged and he was evaluated and subsequently discharged because of hemoglobin of 6.1 with symptoms. Mr. Guzman was admitted to the medical floor for further medical care. HOSPITAL COURSE: Mr. Guzman was admitted and adequately hydrated. Was started on IV broad- spectrum antibiotics and was transfused 2 PRBC transfusion on the . Hemoglobin and hematocrit continued to remain stable, but dropped on the and he was transfused again during dialysis. Mr. Guzman was also seen throughout the hospital course by Nephrology and he did receive his scheduled dialysis. He also continued with antibiotics for the culture report on the gallbladder drain. He was not seen by any of the surgery team while he was in the hospital, but he is advised to follow up with them as well as with his Hematology-Oncologist for management of the cholecystostomy tube. During the hospital course, Mr. Guzman was seen on multiple occasions, also by physical therapy. After yesterday, he was able to do 250 feet with PT with minimum assistance. Today, Mr. Guzman is asymptomatic. He is not having any more dizziness. He feels stronger. He is clinically stable for discharge. He is going to go home with home health. He specifically advised to keep the accordion drain area extremely clean to avoid any infection. Unfortunately, this drain cannot be removed for now because he has an obstructed, unresectable, pancreatic cancer which is blocking the CBD drain and the only way to evacuate this will be with the accordion drain and also to prevent any cholangitis. The patient is supposed to follow up with surgery on this. This morning his vitals blood pressure is 107/55, pulse is 88, respirations 18, temperature is 97.7. Physical exam is unchanged. Mr. Guzman is clinically stable. He will be discharged and he will follow up with the providers mentioned above. Other discharge instructions have been discussed with him and he voices understanding. TIME SPENT FOR DISCHARGE: Was 36 minutes. There was no family member at the bedside at the time of the encounter. cc: Maxi Li MD
== END 2018-11-09 13:36 | disposition home health service (06) | DRG 811 ==
LOC: SUPCPDRO → ED 10:31 → 3N 19:58 → SUATTDRO 19:58 → 3N 11-03 22:12
PROVIDERS: ATTEND Internal Medicine
CPT/HCPCS: 36430; 70450; 71250; 74176; 80048; 80053; 80069; 80101; 80301; 80307; 80324; 80345; 80346; 80353; 80358; 80361; 80365; 81001; 82550; 82607; 82728; 82746; 82948; 83540; 83550; 83605; 83735; 83992; 84484; 85025; 85027; 85610; 86850; 86900; 86901; 86920; 87040; 87088; 87275; 87276; 87804; 93005; 93010; 93306; 96361; 96365; 96366; 96367; 97161; 99285; A9270; G0431; G0434; G0479; G0480; J1644; J2020; J2270; J2405; J2543; J3370; J3475; J7030; J7040; P9016; XXXXX

== ENCOUNTER 2018-12-03 16:18 | Inpatient (IN) ==
--- NOTE | 2018-12-03 23:38 | PROVIDER DOCUMENTATION ---
This chart was entered by Yvonne Dorsey Scribe, acting as scribe for Magnolia Allen MD. HPI-General Adult - General Chief Complaint: General Adult Stated Complaint: DRAINE CAME OUT...... Time Seen by Provider: 12/03/18 20:42 Source: patient Allergies/Adverse Reactions: Patient Allergies Allergy/AdvReac Type Severity Reaction Status Date / Time No Known Allergies Allergy Verified 11/01/18 17:45 Home Medications: Home Medication List Medication Instructions Recorded Confirmed Last Taken Type Allopurinol 100 mg PO DAILY 02/06/18 12/03/18 12/03/18 History Aspirin [Adult Low Dose Aspirin EC] 81 mg PO DAILY 04/30/18 12/03/18 12/03/18 History Hydrocodone/Acetaminophen [[place] 10 mg PO Q4H PRN PRN 09/20/18 12/03/18 12/03/18 History 10-325 Tablet] Iron Carbonyl/Ascorbic Acid 1 each PO BID tablet 10/05/18 12/03/18 12/03/18 Rx [Icar-C] Metoprolol [Lopressor] 12.5 mg PO BID #120 tab 11/09/18 12/03/18 12/03/18 Rx - History of Present Illness -Gen Adult Nature of Presenting Problems: 73 yom c/o getting out of car at 11:45 and DEBORAH drain came out. pt states he had DEBORAH biliary drain put in at [facility] 6 weeks ago. pt has hx of pancreatic cancer. Review of Systems - Adult - REVIEW OF SYSTEMS - ADULT Constitutional: reports: no symptoms reported, other (pt needs deborah drain placed back) Eyes: reports: no symptoms reported Ears, Nose, Mouth & Throat: reports: no symptoms reported Cardiovascular: reports: no symptoms reported Respiratory: reports: no symptoms reported Gastrointestinal: reports: no symptoms reported Genitourinary: reports: no symptoms reported Musculoskeletal: reports: no symptoms reported Integumentary: reports: no symptoms reported Neurological: reports: no symptoms reported Psychiatric: reports: no symptoms reported Endocrine: reports: no symptoms reported Hematologic/Lymphatic: reports: no symptoms reported Allergic/Immunologic: reports: no symptoms reported All Other Systems: Reviewed and Negative Past History - Adult - PAST MEDICAL HISTORY-ADULT Review of Records: reports: Old Records Reviewed, Nursing Assessment Review, Medications Reviewed, Social history reviewed & non-contributory. Major Childhood Illnesses: reports: denies history Cardiovascular: reports: CHF, HTN, hyperlipidemia Respiratory: reports: denies history Gastrointestinal: reports: liver disease Obstetrical/Gynecological: reports: denies history Genitourinary: reports: kidney disease Musculoskeletal: reports: arthritis (GOUT) Neurological: reports: denies history Psychiatric: reports: denies history Endocrine/Immune: reports: Diabetes (per patient told him he was a half/half), thyroid disorder Other Conditions: reports: denies history - PRIOR SURGERIES/PROCEDURES Surgical/Procedure History: reports: orthopedic (extremity) (finger), other (deborah drain) - IMMUNIZATION STATUS Childhood Immunizations: See Nurse Assessment Flu Vaccine: See Nurse Assessment - FAMILY HISTORY Family History: reviewed, not pertinent - SOCIAL HISTORY Smoking: non-smoker Substance Use: none/never Physical Exam-General - PHYSICAL EXAM-ADULT Initial Vital Signs Reviewed: Yes - CONSTITUTIONAL General Appearance: alert, no apparent distress - EYES Eyes: PERRL/EOMI, scleral icterus - HEAD, EARS, NOSE, MOUTH & THROAT HENMT: normocephalic/atraumatic - NECK Neck: supple - RESPIRATORY Respiratory: chest non-tender, normal breath sounds, other (Portacath present on right chest) - CARDIOVASCULAR Cardiovascular: normal peripheral pulses, regular rate, rhythm, systolic murmur - GASTROINTESTINAL (ABDOMEN) Abdominal Exam: normal bowel sounds, non tender, soft, other (dressing in place w/slight oozing of green bile from drain site). negative: distended, rigid, rebound, tenderness - LYMPHATIC Lymphatic: no adenopathy - MUSCULOSKELETAL Back Exam: normal inspection Extremity: normal inspection - SKIN Integumentary: normal turgor, warm/dry, jaundice - NEUROLOGIC Neurologic: grossly normal - PSYCHIATRIC Psych/Mental Status: normal mood/affect, oriented x 3 Progress - PLAN OF CARE/RESULTS Progress/Plan/Lab Results: Vital Signs - 8 hr 12/03/18 16:32 Temperature 97.5 F L Pulse Rate 71 Respiratory Rate 18 Blood Pressure 100/65 O2 Sat by Pulse Oximetry [address] Smiley who is who we thought placed the drain given the patient did not know. Dr Smiley stated that the drain was placed by IR under fluoro and he will need to be admitted and IR consulted for drain placement in the AM. Spoke to hospitalist who accepted patient for admission. Orders to be placed per hospitalist. - REASSESSMENT Reassessment #1 Time Reassessed: 22:22 (Dr. Cantu discussed w/hospitalist about replacing deborah drain) Status: unchanged Departure - Departure Date of Disposition Decision: 12/03/18 Time of Disposition Decision: 22:10 DIAGNOSIS: Biliary drain displacement Disposition: ADMITTED INPATIENT 09 Certified Medical Emergency: Emergent Condition: Stable Referrals and Follow-Ups: Ernesto Estrada MD [Primary Care Provider] - - Critical Care Note This patient required my direct & personal management of CC.: No Attestation - Physician/ NEDRA Attestation Patient care was provided by Advanced Practice Provider:: No The physician spent face to face time with patient:: Yes Advanced Practice Provider documentation review:: Supervising physician onsite and consulted in the evaluation and care of this patient. The physician did have a face to face encounter with the patient. This chart was documented by the indicated scribe, (Yvonne Dorsey, Ciera) and accurately reflects the services I performed and decisions made by me, Magnolia Allen MD, as attested by the provider's signature.
[2018-12-04] MEDS ORDERED: ZOFRAN IV PRN (00:57)
[2018-12-04 01:54] LABS: BASO# 0.03 X1000 (0.0-0.2); BASO% 0.4 % (0.0-0.8); EOS# 0.11 X1000 (0.0-0.7); EOS% 1.3 % (0.0-10.0); HEMATOCRIT 37.1 % (42.0-52.0); HEMOGLOBIN 11.9 g/dL (14.0-18.0); IMM GRAN# 0.04 X1000 (0.0-0.04); IMM GRAN% 0.5 % (0.0-0.5); LYMPH# 0.96 X1000 (1.2-3.4); LYMPH% 11.3 % (20.5-51.1); MCH 29.1 PG (27-31); MCHC 32.1 g/dL (33-37); MCV 90.7 FL (81-99); MONO% 9.4 % (1.7-9.3); MPV 11.1 FL (7.4-10.4); NEUT# 6.53 X1000 (1.4-6.5); NEUT% 77.1 % (42.2-75.2); PLT 407 X1000 (130-400); RBC 4.09 XMIL (4.7-6.1); RDW 17.4 % (11.5-14.5); WBC 8.47 X1000 (4.8-10.8)
[2018-12-04 01:58] LABS: INR 1.26; PROTIME 16.8 Seconds (11.0-16.0); PTT 40.2 Seconds (22.3-41.8)
[2018-12-04 02:17] LABS: ALB/GLOB RATIO 0.7; ALBUMIN 2.9 g/dL (3.5-5.0); CALCIUM 8.5 mg/dL (8.8-10.2); CREATININE 2.3 mg/dL (0.7-1.2); POTASSIUM 2.8 mmol/L (3.5-5.1); TOTAL BILIRUBIN 6.75 mg/dL (0.20-1.00); TOTAL PROTEIN 7.1 g/dL (6.3-8.3)
[2018-12-04] MEDS ORDERED: D50W SYRINGE IV ONE (04:28)
[2018-12-04] MEDS ORDERED: D50W SYRINGE ONE (04:46)
[2018-12-04] MEDS ORDERED: KLOR-CON PO ONE (05:19)
--- NOTE | 2018-12-04 06:14 | HISTORY AND PHYSICAL ---
CHIEF COMPLAINT: Drain came out. HISTORY OF PRESENT ILLNESS: This is a 73-year-old male with a history of congestive heart failure, hypertension, hyperlipidemia, chronic liver disease, gout, arthritis, diabetes mellitus, type 2, end-stage renal disease, cholangitis and pancreatic cancer who has a biliary stent with drain. Reportedly tonight around 11:45 he was getting out of his car and the drain got caught and came loose. I believe it was put in around six weeks ago at [facility]. The ER originally spoke to his surgeon who stated that he needed to be admitted for Interventional Radiology to place drain. All time of admission all laboratory data and imaging is pending. He will gabe placed on the medical floor for further evaluation and treatment. PAST MEDICAL HISTORY: See HPI. PREVIOUS SURGICAL HISTORY: Port-A-Cath placement, pancreatic resection, biliary stent with drain placement. FAMILY HISTORY: No history of cancer. Positive for coronary artery disease, hypertension. SOCIAL HISTORY: No current tobacco or alcohol or illicit drugs. ALLERGIES: No known drug allergies. HOME MEDICATIONS: A list of his home medications have not been reconciled. Orders placed for Nursing to reconcile medication. REVIEW OF SYSTEMS: Fourteen point review of systems conducted with the patient. Pertinent positives listed above in the HPI. All other systems were reviewed and found to be negative. PHYSICAL EXAMINATION: VITAL SIGNS: Temperature 97.6, pulse 90, respirations 91, blood pressure 120/59, oxygen saturation 100% on room air. GENERAL: A pleasant 73-year-old male lying in the ER stretcher in no acute distress. HEENT: Head is atraumatic, normocephalic. Pupils equal, round, reactive to light. Extraocular eye movements intact. Oral mucosa is moist. Sclerae is mildly jaundice. NECK: Supple. No JVD. No thyromegaly. Trachea is midline. CARDIAC: S1, S2 appreciated. No murmurs, gallops, rubs. LUNGS: Clear to auscultation bilaterally. No rhonchi, wheezes or rales. Symmetric rise and fall with respirations. ABDOMEN: Soft, nondistended, nontender. Dressing in place with a slight oozing of green bile from drainage site. No pulsatile mass. No organomegaly. Bowel sounds present all 4 quadrants, normoactive. EXTREMITIES: No clubbing, cyanosis or edema. INTEGUMENTARY: Warm, dry and intact. Jaundice. NEUROLOGICAL: Alert and oriented times 3. No focal or motor deficits. Otherwise nonfocal examination. DIAGNOSTIC DATA: Pending labs and x-rays. ASSESSMENT: 1. Biliary stent with drain displacement. Will admit patient on observation status and consult Interventional Radiology to replace catheter and drain. 2. Chronic kidney disease, believe stage 3, aware. 3. Congestive heart failure. Continue home medication. 4. Hypertension. Continue home medication. 5. Dyslipidemia. Continue home medication. 6. Diabetes mellitus, type 2. Fingersticks q AC and nightly. Will do sliding scale insulin. Further recommendations per patient clinical course. Dictated by SIGIFREDO Dorado for Aba Orellana MD I have performed a face to face diagnostic evalulation. Labs/ Xrays- reviewed. Exam- chest - clear, CV- regular A/P Biliary drain dislodged- Admit, consult IR to replace drain. Dr. Esteban Bateman#: [id number] cc: SIGIFREDO Dorado MD [facility]
[2018-12-04] MEDS: D50W SYRINGE IV PRN ×3 (06:17→12:32)
[2018-12-04] MEDS: HUMALOG SUBQ SCH ×4 (06:22→22:28)
--- NOTE | 2018-12-04 07:54 | EKG Report ---
Test Performed on : 12/04/2018 07:34:53 AM Test Reason : chest pain Blood Pressure : / mmHG Vent. Rate : 078 BPM Atrial Rate : 078 BPM P-R Int : 170 ms QRS Dur : 088 ms QT Int : 434 ms P-R-T Axes : 070 -56 107 degrees QTc Int : 494 ms Sinus rhythm. with occasional premature ventricular complexes. Left anterior fascicular block T wave abnormality, consider lateral ischemia Abnormal ECG When compared with ECG of 03-NOV-2018 15:51, premature ventricular complexes. are now present Unconfirmed Result
--- NOTE | 2018-12-04 07:58 | Diag Imaging Result Doc PS360 ---
EXAM: CHEST-PORTABLE HISTORY: chf TECHNIQUE: Portable chest single view COMPARISON: 08/29/2019 FINDINGS: The lungs are well expanded. The heart is enlarged. No change in the right sided portacatheter. No pneumothorax. The vessels are not distended. There are no infiltrates. No effusion identified. IMPRESSION: Cardiomegaly Electronically signed by Aamir Mcpherson 12/04/2018 7:56 AM
[2018-12-04] MEDS: ASPIRIN EC PO SCH (09:12)
[2018-12-04] MEDS: ICAR-C PO SCH ×2 (09:12→22:27)
[2018-12-04] MEDS: LOPRESSOR PO SCH ×2 (09:13→22:27)
[2018-12-04] MEDS: ZYLOPRIM PO SCH (09:14)
--- NOTE | 2018-12-04 15:56 | Diag Imaging Result Doc PS360 ---
EXAM: CT DRAIN ABDOMEN ABSCESS W/IMG 12/04/2018 HISTORY: Pancreatic cancer, biliary obstruction TECHNIQUE: Percutaneous cholecystostomy. COMMENT: The risks and benefits of the procedure including the risks of bleeding, infection, reaction to lidocaine, and inadvertent puncture of nontarget organs were discussed with the patient and he agreed to the procedure. Following sterile preparation of the skin laterally over the right abdomen and administration of 1% lidocaine to the skin and deeper soft tissues slightly more anterior to the original tract, a 10.2-[place] pigtail drainage catheter was inserted into the gallbladder by trocar technique and secured with its self retaining ligature and the adhesive skin device. This is attached to an accordion drain. There is good drainage of bilious fluid with considerable solid debris. The gallbladder is considerably decompressed following placement of the drain. There are no immediate complications. IMPRESSION: Successful percutaneous cholecystostomy. Electronically signed by Desmond Lazar 12/04/2018 3:54 PM
[2018-12-04] MEDS: D5 1/2 NS 1,000 ML IV SCH (18:55)
[2018-12-04] MEDS: NORCO-10 PO PRN (22:27)
[2018-12-05] MEDS: HUMALOG SUBQ SCH ×4 (07:08→23:21)
[2018-12-05 07:24] LABS: ALB/GLOB RATIO 0.6; ALBUMIN 2.2 g/dL (3.5-5.0); POTASSIUM 3.8 mmol/L (3.5-5.1); TOTAL BILIRUBIN 4.3 mg/dL (0.20-1.00); TOTAL PROTEIN 6.1 g/dL (6.3-8.3)
[2018-12-05 07:42] LABS: FREE T4 0.72 ng/dL (0.93-1.70); TSH 45.95 uIUmL (0.27-4.20)
[2018-12-05] MEDS: ICAR-C PO SCH ×2 (09:11→20:46)
[2018-12-05] MEDS: ZYLOPRIM PO SCH (09:12)
[2018-12-05] MEDS: ASPIRIN EC PO SCH (09:13)
[2018-12-05] MEDS: LOPRESSOR PO SCH ×2 (09:15→20:46)
[2018-12-05] MEDS ORDERED: NS 2,000 ML MISC PRN (10:02)
[2018-12-05] MEDS ORDERED: HEPARIN IV PRN (10:02)
[2018-12-05] MEDS: D5 1/2 NS 1,000 ML IV SCH (13:52)
--- NOTE | 2018-12-05 18:12 | NEPHROLOGY CONSULTATION ---
DATE: 12/05/2018 REASON FOR CONSULTATION: ESRD and dialysis. HISTORY OF PRESENT ILLNESS: Mr. Guzman is a 73-year-old man with a pancreatic head cancer. He has a gallbladder drain that was inadvertently dislodged, and he was admitted last evening to have replacement today. That was performed last evening without difficulty, and he feels well and is anticipating discharge today. Otherwise, no chest pain, nausea, shortness of breath, etc. His dialysis has been going well without post treatment symptoms, cramping, etc. PAST MEDICAL HISTORY: As above. He has CKD 5D as a result of ATN without resolution. HOME MEDICATIONS: Include allopurinol, aspirin, hydrocodone, iron, metoprolol. ALLERGIES: None. Social history, family history, review of systems noncontributory except as above. PHYSICAL EXAMINATION: Vital Signs: Blood pressure 107/59, heart rate 96, respiration 18, afebrile. Generally: Acute distress. Skin: Warm and dry. HEENT: Conjunctivae are pink. Oropharynx is clear, but tongue is coated. Neck: Supple. Trachea is midline. Neck vein distention is not present. Heart: PMI is not palpable. Regular rate and rhythm without gallops, murmurs, rubs. Chest: Tunneled catheter in the right upper chest wall without discharge, tenderness, etc. Lungs: Have equal breath sounds. No crackles or wheezes. Abdomen: Soft, nontender. Bowel sounds present. Extremities: Have no edema, clubbing, or cyanosis. Neurologic: Grossly nonfocal. IMPRESSION: 1. Chronic kidney disease (CKD), 5D. He is receiving dialysis currently and tolerating well. We were using his outpatient dialysis prescription without limitation. 2. Hypertension. Blood pressure is well controlled, and he is on his routine home medications, which include metoprolol for this problem. 3. Dislodged biliary drain. Okay for discharge from my perspective. 4. Anemia. Hemoglobin is stable at 11.9. cc: Ubaldo Nguyen MD
[2018-12-05] MEDS: D50W SYRINGE IV PRN (19:00)
--- NOTE | 2018-12-05 22:20 | DISCHARGE SUMMARY ---
ADMISSION DATE: 12/04/2018 DISCHARGE DATE: 12/05/2018 PRIMARY CARE PHYSICIAN: Ernesto Estrada MD PROCEDURE AND FINDINGS: 1. Chest x-ray, 12/04/2018, reveals cardiomegaly. 2. EKG, 12/04/2018, sinus rhythm with occasional PVC. 3. Replacement of biliary drain, 12/04/2018. DISCHARGE DIAGNOSES: 1. Biliary stent with drain displacement. The drain was replaced, and the patient tolerated well and is now stable for discharge home. 2. Chronic kidney disease, aware. No changes in discharge plan. 3. Congestive heart failure, aware. No changes in discharge plan. 4. Hypertension, aware. No changes in discharge plan. 5. Dyslipidemia, aware. No changes in discharge plan. 6. Diabetes mellitus type 2, aware. No change in discharge plan. HOSPITAL COURSE: Mr. Guzman is a 73-year-old male with a history of congestive heart failure, hypertension, chronic liver disease and pancreatic cancer, who has a biliary stent with a drain. He was getting out of his car, and the drain got caught and came loose and was dislodged. It was placed around 6 weeks ago here at [facility]. Mr. Guzman was admitted, and the drain was replaced with IR. Mr. Guzman tolerated the procedure well without complication. There will be no further changes to his other medical conditions upon discharge. He is stable for discharge to home with [facility]. His last vital signs were temperature 97.7 degrees, heart rate 96, respiratory rate 18, blood pressure 107/59, O2 saturation 99% on room air. His last labs were WBC 8.4, hemoglobin 11.9, hematocrit 37.1, platelets 407,000, sodium 139, potassium 3.8, BUN 31, creatinine 3.0, glucose 58, TSH 45.95, free T4 0.72. DISCHARGE MEDICATIONS: Per Dr. Aguirre: 1. Allopurinol 100 mg p.o. daily. 2. Aspirin 81 mg p.o. daily. 3. [place] 10/325 10 mg p.o. q.4 hours p.r.n. pain. 4. Icar-C 1 each p.o. b.i.d. 5. Metoprolol 12.5 mg p.o. b.i.d. Again, no changes to his previous medications. Please return to the emergency room for any chest pain, shortness of breath or worsening of symptoms. Dictated by SIGIFREDO Muñoz for Jesus Zepeda MD cc: MD Ernesto Hurley MD
[2018-12-06] MEDS: D50W SYRINGE IV PRN ×3 (05:32→16:25)
[2018-12-06] MEDS: HUMALOG SUBQ SCH ×8 (07:20→23:13)
[2018-12-06] MEDS: ICAR-C PO SCH ×2 (09:20→20:08)
[2018-12-06] MEDS: ASPIRIN EC PO SCH (09:20)
[2018-12-06] MEDS: LOPRESSOR PO SCH ×2 (09:20→20:08)
[2018-12-06] MEDS: ZYLOPRIM PO SCH (09:20)
[2018-12-06 10:30] LABS: CALCIUM 8.4 mg/dL (8.8-10.2); CREATININE 2.5 mg/dL (0.7-1.2); POTASSIUM 4.1 mmol/L (3.5-5.1)
[2018-12-06 13:44] LABS: BASO# 0.02 X1000 (0.0-0.2); BASO% 0.1 % (0.0-0.8); EOS# 0.01 X1000 (0.0-0.7); EOS% 0.1 % (0.0-10.0); HEMATOCRIT 36.7 % (42.0-52.0); HEMOGLOBIN 12.1 g/dL (14.0-18.0); IMM GRAN# 0.04 X1000 (0.0-0.04); IMM GRAN% 0.3 % (0.0-0.5); LYMPH# 0.78 X1000 (1.2-3.4); LYMPH% 5.8 % (20.5-51.1); MCH 30.1 PG (27-31); MCV 91.3 FL (81-99); MONO# 0.81 X1000 (0.11-0.59); MPV 11.3 FL (7.4-10.4); NEUT# 11.89 X1000 (1.4-6.5); NEUT% 87.7 % (42.2-75.2); PLT 423 X1000 (130-400); RBC 4.02 XMIL (4.7-6.1); RDW 17.6 % (11.5-14.5); WBC 13.55 X1000 (4.8-10.8)
[2018-12-06 14:02] LABS: LYMPHS 10 % (21-51); MONO 7 % (1-9); SEGS 83 % (42-75)
--- NOTE | 2018-12-06 14:04 | PROGRESS NOTE ---
DATE: 12/06/2018 SUBJECTIVE: I was about to discharge this patient yesterday but his blood sugar was low, as low as 27 today in the morning and yesterday as low as 33. He was hypoglycemic also upon admission. His blood sugar was around 39. Apparently, he has a past medical history of diabetes but I do not see any insulin or any diabetes treatment on his medications. At this moment, his glucose is 40. When I went to the room, this patient what shaking. He was alert and oriented x3, and the room was hot and he was having chills. He also was covered with blankets, even though the room was hot, like I said. We checked his temperature and it was 98.7. He was tachycardic and tachypneic, and the oxygen saturation was stable at 97 on room air. He is getting, right now, some juice and crackers. Also, I will get a blood culture and urine culture on this patient. He is not sweating. OBJECTIVE: Vital Signs: Temperature 98.7 degrees, pulse 130, respiratory rate 32, blood pressure 159/93, oxygen saturation 97% on room air. HEENT: Head normocephalic. No trauma. PERRLA. Neck: Supple. No JVD. Central trachea. Chest: Clear to auscultation. No wheezing. No rales. Abdomen: Soft. There is a dressing in place and it looks like a green bile has been oozing. Also, he has a new catheter coming out from the right side of the abdomen. He is status post cholecystostomy tube placement. Extremities: No edema. No clubbing. No cyanosis. Neurologic Examination: The patient is alert and oriented x3. No focal deficits. Some weakness. Laboratory: Sodium 139, potassium 4.1, chloride 100, bicarbonate 22, BUN 22, creatinine 2.5, glucose 107 but recent glucose level was 40, calcium 8.4. ASSESSMENT AND PLAN: 1. Biliary stent with drain displacement. He already had a cholecystostomy tube placed by interventional radiology. We will change his bag. We will continue to monitor this closely. 2. Hypoglycemia. This patient came in hypoglycemic and he has been hypoglycemic every day, even though he has been tolerating oral intake and he has been getting D50. The exact reason of the hypoglycemia is uncertain to me. At this moment, he is not receiving any kind of diabetes medication or sliding-scale insulin. 3. End-stage renal disease, on hemodialysis. Nephrology on board. Continue with the same management. 4. History of congestive heart failure. Continue home medication. 5. Pancreatic cancer. Aware. Continue with the same management. 6. Hypertension. Blood pressure has been stable. He has been placed on his home medications, metoprolol. 7. Dyslipidemia. Continue home medication. 8. Type 2 diabetes. Actually, this patient has been having hypoglycemia. I will continue with the pattern of blood sugar. He is not on sliding scale insulin. cc: Jesus Zepeda MD
[2018-12-06] MEDS ORDERED: VANCOMYCIN IV PER PHARMACY MISC SCH (14:15)
[2018-12-06] MEDS ORDERED: SODIUM CHLORIDE 0.9% INJ ONE (14:25)
[2018-12-06] MEDS ORDERED: SYNTHROID IV ONE (14:25)
--- NOTE | 2018-12-06 15:23 | NEPHROLOGY PROGRESS NOTE ---
DATE: 12/06/2018 TIME SEEN: 0710 SUBJECTIVE: Mr. Guzman is resting quietly in bed. States that he has been cold all night. His room is very warm. OBJECTIVE: Vital signs: His most recent vital signs, his last temperature 97.3 degrees, blood pressure 107/67, heart rate 107, respirations are 20. He is currently on room air. Last recorded saturation is 93%. He has had 734 in. He has had 1500 mL out on dialysis with 90 mL to void. Labs: Sodium is 139, potassium 4.1, chloride 100, CO2 22, BUN 22, creatinine 2.5, glucose 107. His anion gap is 17, calcium is 8.4. The patient had a previous albumin of 2.2. White count 13.55, hemoglobin 12.1, hematocrit 36.7, with a platelet count of 423,000. Blood cultures are currently pending. PHYSICAL EXAMINATION: General: This is a 73-year-old male resting quietly in bed. He appears chronically ill. He is in no acute distress. Skin: Warm and dry. HEENT: Normocephalic, atraumatic. Conjunctivae pale pink. He has ADI. Mucous membranes are dry. Neck: Supple. Trachea midline. He has no evidence of JVD. Cardiovascular: He is regular rate and rhythm. He is without murmur or gallop. Lungs: Clear to auscultation anteriorly. Equal excursion. He is on room air. Abdomen: Soft, nontender. Positive bowel sounds. Patient does have a biliary drainage bag noted to the right upper quadrant. Genitourinary: Not inspected. Minimal void with dialysis assist. Extremities: Have no edema. No clubbing or cyanosis. Integumentary: Patient has a tunnel dialysis catheter to the right upper chest wall. This is without drainage or redness. Neurological: Alert and oriented x2. ASSESSMENT AND PLAN: 1. Chronic kidney disease stage 5D. The patient is due for his routine dialysis treatment in the a.m. No indications for intervention today. He did get his treatment yesterday after surgery. 2. Electrolytes, acid-base balance, again with correction on dialysis. 3. Anemia. This is low but acceptable. 4. Hypertension. The patient has been put back on his routine medications. 5. Dislodged biliary drain. This is been placed with a change of his stent. Followed by surgery and the primary care. I would like to thank you for allowing us to follow with this patient. Dictated by SIGIFREDO Adams for Ubaldo Nguyen MD Face to face encounter, data reviewed, discussed with Rosina Paz on 12/07/18. I agree with the above assessment and plan of care. cc: SIGIFREDO Adams MD [facility]
[2018-12-06] MEDS ORDERED: VANCOMYCIN 1 GM/NS 1 GM/250 ML IVPB IV ONE (16:00)
--- NOTE | 2018-12-06 16:00 | Diag Imaging Result Doc PS360 ---
EXAM: US ABDOMEN-COMPLETE 12/06/2018 HISTORY: RUQ pain TECHNIQUE: Abdominal ultrasound COMMENT: The study was limited due to the patient's condition. There is a large hypoechoic mass in the area of the head of the pancreas measuring over 7.4 cm in diameter. This was also demonstrated on 09/25/2018 at which time it measured up to 6.4 cm. There is considerable shadowing in the liver due to pneumobilia. There is antegrade flow in the portal vein. The aorta and inferior vena cava are normal in appearance where there are visible. The common bile duct measures 4 mm. The kidneys are not visible. The gallbladder is not well demonstrated. There is a cholecystostomy tube. IMPRESSION: Limited study. The pancreatic mass which was demonstrated on 09/25/2018 has increased in size. Electronically signed by Desmond Lazar 12/06/2018 3:58 PM
--- NOTE | 2018-12-06 16:48 | PROGRESS NOTE ---
DATE: 12/06/2018 SUBJECTIVE: I presented to the bedside again because this patient is having confusion, shakiness. He is sweating and having again hypoglycemia. We checked the glucose level at the bedside and it was less than 21, even though the blood glucose at 2:18 was 168. This patient for some reason has been having severe hypoglycemia. He is not on any long-acting insulin or any treatment for glucose right now. He is tachycardic and tachypneic. I will ask for an EKG at this moment and I will put this patient on continuous IV hydration, D5 half NS at 50 mL/h. We will check the blood sugar in the ICU. We replaced the cholecystostomy tube and is working fine. We did an abdominal ultrasound today and it showed that the pancreatic mass is larger compared with the previous study. I have started this patient on antibiotics. On the other hand, his TSH is high and the T4 is low; probably this is the cause of the hypoglycemia. PLAN: Since he is having tachycardia at this moment and tachypneic with hypoglycemia, we will treat this patient in the ICU, like I said. Palliative Care has been consulted and the conversation about resuscitation status has been made and for now they want to keep this patient full code. We will get an EKG and lab work to check the BMP every 4 hours. cc: Jesus Zepeda MD
[2018-12-06] MEDS ORDERED: OFIRMEV 1000 MG/ISOTONIC SOLN 1,000 MG/100 ML BOTTLE IV PRN (17:14)
[2018-12-06 17:18] LABS: CALCIUM 8.5 mg/dL (8.8-10.2); CREATININE 2.8 mg/dL (0.7-1.2); POTASSIUM 3.7 mmol/L (3.5-5.1)
[2018-12-06] MEDS ORDERED: LOPRESSOR IV PRN (17:24)
[2018-12-06] MEDS: MERREM 500 MG in NS 50 ML IV SCH (17:41)
[2018-12-06 17:58] LABS: ALLEN TEST YES; BE -8.5 mmoll (-3.0-3.0); BLOOD TYPE ARTERIAL; HCO3-(ACT) 18.2 mmoll (20.0-26.0); O2(CT) 13.6 mL/dL (15.0-23.0); PCO2(98.6) 25 mmHg (35-45); PO2(98.6) 62 mmHg (60-100); SAMPLE BLOOD; SAO2 94.3 % (95.0-100.0); THB 10.6 g/dL (11.5-17.4); pH(98.6) 7.39 (7.35-7.45)
[2018-12-06 18:01] LABS: MODALITY ROOM AIR
[2018-12-06] MEDS: DECADRON IV SCH (18:04)
[2018-12-06] MEDS: D5 NS 1,000 ML IV SCH (18:04)
[2018-12-06] MEDS ORDERED: D50W SYRINGE IV ONE (18:15)
[2018-12-06] MEDS: NEO-SYNEPHRINE 50 MG in NS 250 ML IV SCH (18:56)
[2018-12-06 21:52] LABS: CALCIUM 7.9 mg/dL (8.8-10.2); CREATININE 3.1 mg/dL (0.7-1.2); POTASSIUM 3.3 mmol/L (3.5-5.1)
[2018-12-06] MEDS: NORCO-10 PO PRN (23:19)
[2018-12-07] MEDS: HUMALOG SUBQ SCH ×7 (00:31→07:08)
[2018-12-07 01:39] LABS: CALCIUM 7.6 mg/dL (8.8-10.2); CREATININE 3.6 mg/dL (0.7-1.2); POTASSIUM 3.6 mmol/L (3.5-5.1)
[2018-12-07] MEDS: D50W SYRINGE IV PRN (02:08)
[2018-12-07] MEDS ORDERED: VANCOMYCIN 1 GM/NS 1 GM/250 ML IVPB IV SCH (05:45)
[2018-12-07] MEDS: DECADRON IV SCH ×2 (05:55→18:33)
[2018-12-07] MEDS: NEO-SYNEPHRINE 50 MG in NS 250 ML IV SCH (05:55)
[2018-12-07] MEDS: SYNTHROID PO SCH (06:01)
[2018-12-07] MEDS ORDERED: TIGHT: 0.2 ML/HR FOR DIALYSIS MISC PRN (06:03)
[2018-12-07] MEDS ORDERED: HEPARIN IV PRN (06:03)
[2018-12-07] MEDS ORDERED: NS 2,000 ML MISC PRN (06:03)
[2018-12-07 07:30] LABS: BASO# 0.03 X1000 (0.0-0.2); BASO% 0.1 % (0.0-0.8); EOS# 0.24 X1000 (0.0-0.7); EOS% 0.5 % (0.0-10.0); HEMATOCRIT 33.7 % (42.0-52.0); HEMOGLOBIN 10.9 g/dL (14.0-18.0); IMM GRAN# 2.61 X1000 (0.0-0.04); LYMPH# 0.45 X1000 (1.2-3.4); MCH 29.2 PG (27-31); MCHC 32.3 g/dL (33-37); MCV 90.3 FL (81-99); MONO# 1.18 X1000 (0.11-0.59); MONO% 2.7 % (1.7-9.3); MPV 10.8 FL (7.4-10.4); NEUT# 39.25 X1000 (1.4-6.5); NEUT% 89.7 % (42.2-75.2); PLT 298 X1000 (130-400); RBC 3.73 XMIL (4.7-6.1); RDW 17.5 % (11.5-14.5); WBC 43.76 X1000 (4.8-10.8)
--- NOTE | 2018-12-07 07:31 | Diag Imaging Result Doc PS360 ---
EXAM: CHEST-PORTABLE 12/07/2018 HISTORY: SOB TECHNIQUE: AP portable at 0724 COMMENT: There is a double-lumen catheter on the right with its tip in the right atrium. There is platelike atelectasis in the right base and atelectasis in the lingula obscuring the heart border which was not present on 12/04/2018. IMPRESSION: Bilateral subsegmental atelectasis. Electronically signed by Desmond Lazar 12/07/2018 7:29 AM
[2018-12-07 07:48] LABS: BANDS 7 % (0-1); LYMPHS 1 % (21-51); MONO 2 % (1-9); SEGS 89 % (42-75)
[2018-12-07 07:49] LABS: TARGET CELLS 1+
--- NOTE | 2018-12-07 08:11 | PROGRESS NOTE ---
DATE: 12/07/2018 SUBJECTIVE: This patient is still having episodes of hypoglycemia. He is bacteremic as well. I started this patient on meropenem and vancomycin yesterday, renally adjust. I have requested an evaluation by Infectious Disease Department. WBC increased from 13 to 43. He seems to be more stable at this moment. X-ray showed bilateral subsegmental atelectasis. Blood pressure has been mostly in the 90s and 100s, but yesterday dropped to the low 60s. He responded to IV fluids, also this patient started having atrial fibrillation with rapid ventricular response that, at this moment, is controlled with Lopressor. He is alert, he is oriented, he is following commands. OBJECTIVE: Vital signs: Temperature 98.5 degrees, pulse 89, respiratory rate 32, blood pressure 92/54, oxygen saturation 100% on 2 L of nasal cannula. HEENT: Head normocephalic. No trauma. PERRLA. Neck: Supple. No JVD. No masses. Central trachea. Chest: Clear to auscultation. Some crepitus at the bases. Abdomen: Soft. There is a dressing in place and it looks like he has a little bit of green bile that has been oozing from his previous cholecystostomy tube placed that has been pulled out accidentally by the patient. There is a new cholecystostomy tube recently placed, it is draining fine. Extremities: No edema, no clubbing, no cyanosis. Neurological: At this moment, this patient is alert and he is oriented x3. He has generalized weakness, but no focal deficits. LABORATORY: WBC 43.7, hemoglobin 10.9, hematocrit 33.7, platelet 298,000. Sodium 143, potassium 3.6, chloride 103, bicarbonate 19, BUN 27, creatinine 3.6. Glucose 45, and after treatment 96, the most recent at 0645 hours. Calcium 7.6. ASSESSMENT AND PLAN: 1. Septic shock. This patient is bacteremic with gram-negative rods. Yesterday, I started this patient with vancomycin and meropenem, renally dosed. His white blood cells increased from normal to 13, and now is 43.7. He had some episodes of fever yesterday but none documented today. Blood pressure has been stable as well as the heart rate. We will continue with antibiotics. I have requested an evaluation by Infectious Disease department, likely the source of infection is the wound on the right abdominal area due to his previous cholecystostomy tube. Also, this patient received some doses of steroids yesterday. Pending cortisol level at this point. 2. Severe hypoglycemia. Yesterday, the blood sugar decreased even lower than 20. He has been getting D5W and D50 as needed. At this moment, the blood sugar seems to be stable and he is completely alert and oriented x3. He is not having signs of hypoglycemia, probably the hypoglycemia is secondary to his sepsis and/or hypothyroidism versus adrenal insufficiency. 3. End-stage renal disease on hemodialysis. Nephrology on board. 4. History of congestive heart failure. Continue with the same management, Cardiology has been consulted. 5. Atrial fibrillation with rapid ventricular response, rate controlled. Continue with the same management. Cardiology on board. 6. Pancreatic cancer. Aware. I did an ultrasound yesterday and it looks like the size of the mass is a little bit worse compared with previous studies. Will continue with the same management for now. 7. Hypertension, actually his blood pressure has been borderline low at this moment, but certainly he has been having septic shock. 8. Dyslipidemia. Continue with the same management. 9. Type 2 diabetes. For now we are not going to use diabetic medications, since he has been having severe hypoglycemia. We had a conversation yesterday with his brother, the patient was unconscious, but today he is more awake and he is following commands, he is oriented x3. We will discuss his resuscitation status today as well. Yesterday, we put this patient full code because the brother asked us to do that, but I believe this patient has been DNR level 1 before. CRITICAL CARE TIME: 45 minutes. cc: Jesus Zepeda MD
[2018-12-07 08:24] LABS: ALB/GLOB RATIO 0.4; ALBUMIN 1.8 g/dL (3.5-5.0); CALCIUM 7.5 mg/dL (8.8-10.2); CREATININE 3.6 mg/dL (0.7-1.2); POTASSIUM 3.6 mmol/L (3.5-5.1); TOTAL BILIRUBIN 5.65 mg/dL (0.20-1.00); TOTAL PROTEIN 5.9 g/dL (6.3-8.3)
[2018-12-07] MEDS: ICAR-C PO SCH ×2 (08:40→20:41)
[2018-12-07] MEDS: ASPIRIN EC PO SCH (08:40)
[2018-12-07] MEDS: ZYLOPRIM PO SCH (08:40)
[2018-12-07] MEDS: LOPRESSOR PO SCH ×3 (08:45→20:41)
--- NOTE | 2018-12-07 09:21 | EKG Report ---
Test Performed on : 12/06/2018 4:09:26 PM Test Reason : new Afib Blood Pressure : / mmHG Vent. Rate : 157 BPM Atrial Rate : 153 BPM P-R Int : 000 ms QRS Dur : 076 ms QT Int : 318 ms P-R-T Axes : 000 -56 -47 degrees QTc Int : 514 ms Atrial fibrillation. with rapid ventricular response. with premature ventricular or aberrantly conduc irais complexes. Left axis deviation Inferior infarct , age undetermined Abnormal ECG When compared with ECG of 04-DEC-2018 07:34, Atrial fibrillation. has replaced Sinus rhythm. Vent. rate has increased BY 79 BPM T wave inversion no longer evident in Lateral leads Unconfirmed Result
--- NOTE | 2018-12-07 12:30 | INFECTIOUS DISEASE CONSULT REP ---
DATE: 12/07/2018 CONCLUSION: The patient has a gram-negative laura bacteremia, which I think originates from his gallbladder and common bile duct being obstructed by his pancreatic tumor. Today, his white count increased a large amount to 43,760. I think the marked increase in his white blood cell count today is due to the fact that yesterday Decadron was started. RECOMMENDATIONS: I agree with starting the patient on meropenem pending the results of the culture. DISCUSSION: The patient is unable to provide a history. The information I got was from the computer. The patient had a cholecystostomy tube which came out, and he was readmitted to the hospital. The tube has been replaced. His blood cultures are growing a gram- negative laura and the tube from the gallbladder is also growing a gram-negative laura. His CBC today shows a white count of 43,760, hemoglobin 10.9, and platelet count is 298,000. Creatinine is 3.6. GFR is 20. The patient's chest x-ray today shows bilateral subsegmental atelectasis. PAST MEDICAL HISTORY: Positive for congestive heart failure, hypertension, hyperlipidemia, chronic liver disease, gout, arthritis, diabetes mellitus, end-stage renal disease, cholangitis and pancreatic cancer. The patient has a biliary stent drain in place. Unfortunately the drain was accidentally pulled out by the patient. PAST SURGICAL HISTORY: Positive for placement of a Port-A-Cath, pancreatic resection, biliary stent with drain placement. FAMILY HISTORY: Positive for coronary artery disease and hypertension. SOCIAL HISTORY: The patient does not smoke cigarettes and does not drink alcoholic beverages, and he also does not use illicit drugs. ALLERGIES: The patient has no known drug allergies. HOME MEDICATIONS: His home medications include allopurinol, aspirin, hydrocodone and Lopressor. REVIEW OF SYSTEMS: This was unable to be obtained. PHYSICAL EXAMINATION: Vital signs: Temperature is 98.2 degrees, pulse 83, respirations 23 and blood pressure is 97/60. General: This is an ill-appearing elderly male. He is in no acute distress. Head/eyes/ears/nose/throat: He can hear my spoken words and see near objects. He does not have any white coating on his tongue. Neck: There is no pain with movement. Lungs: Clear to auscultation. Cardiovascular: Heart rate is regular. Abdomen: Soft and nontender. A drain is in place. Neurologic: The patient is awake. He can move his extremities. There is no tremor. Integument: No rash noted. Thank you for the consult. cc: Jose Banuelos MD MTDD
[2018-12-07 13:09] LABS: CALCIUM 7.5 mg/dL (8.8-10.2); CREATININE 3.3 mg/dL (0.7-1.2); POTASSIUM 4.3 mmol/L (3.5-5.1)
--- NOTE | 2018-12-07 13:48 | CARDIOLOGY CONSULTATION ---
DATE: 12/07/2018 REASON FOR CONSULTATION: Cardiology was consulted for atrial fibrillation. HISTORY OF PRESENT ILLNESS: Mr. Shane Guzman is a 73-year-old gentleman with history of hypertension, hyperlipidemia, chronic liver disease, gout, arthritis, diabetes, end-stage renal disease, pancreatic cancer and has a biliary stent, history of heart failure in the past. He had a biliary stent with drain displacement. He was admitted with abdominal pain. He had a biliary obstruction and underwent successful percutaneous cholecystostomy. He went into atrial fibrillation, was given beta-blockers overnight. Currently his heart rate is 88. He was slightly hypertensive as well. He is on Trever-Synephrine drip. Blood pressure 95-100 systolic, heart rate 86. The patient does not complain of any chest pain suggestive of angina. Does not perceive any palpitations, complaints of weakness. REVIEW OF SYSTEMS: A 14 point review of system was done. GI System: As above. Cardiovascular System: No chest pain. Endocrine system: Stable. Central nervous system: No focal weakness to suggest a CVA or TIA. PAST MEDICAL HISTORY: 1. History of heart failure. 2. Hypertension. 3. Hyperlipidemia. 4. Chronic renal failure. 5. End-stage renal disease on dialysis. 6. Pancreatic cancer status post resection. 7. Biliary stent with drain placement. HOME MEDICATIONS: Allopurinol 100, aspirin 81, iron, Lopressor 12.5 mg p.o. b.i.d., hydrocodone. PHYSICAL EXAMINATION: Vital Signs: Blood pressure was 91/56, heart rate 86. Cardiovascular: First and second heart sounds were heard. There was a soft murmur. Respiratory System: Normal air entry. Distant breath sounds. Abdomen: Soft. Central nervous system: Alert and oriented. Was moving all 4 extremities. LABORATORY EXAMINATION: Revealed sodium 136, potassium 4.3, BUN 30, creatinine 3.3. Liver functions: Bilirubin 5.65, alkaline phosphatase 276, total protein 5.9, AST 46, ALT 23. , hemoglobin 10.9, hematocrit 33.7, platelet count off 298,000. ASSESSMENT: Mr. Shane Guzman is a 73-year-old gentleman with history of pancreatic cancer, had biliary stent with the drainage which was displaced, has history of hyperlipidemia, gout, arthritis, diabetes end-stage renal disease on dialysis. Went into atrial fibrillation. His rate is controlled at the moment. RECOMMENDATIONS: 1. We will continue with his beta blockers. He is currently on Trever-Synephrine drip. We will continue the same. 2. He has an elevated white count, multifactorial, may be related to infection as well. His chest x-ray revealed bilateral segmental atelectasis and his current medications include that he has been on Decadron and he is on antibiotics, meropenem and vancomycin were given. 3. From a cardiac standpoint, we will plan for rate control, I have not given him any anticoagulation therapy given his multiple problems and recent drainage placement. 4. We will get an echocardiogram to assess cardiac and valvular function. 5. Would recommend discontinuing his Trever-Synephrine if possible. This is probably secondary to sepsis. Thank you for the consult. We will follow hospital course. cc: Timoteo Sloan MD MTD
[2018-12-07] MEDS: D5 NS 1,000 ML IV SCH (14:00)
--- NOTE | 2018-12-07 15:23 | EKG Report ---
Test Performed on : 12/07/2018 2:02:31 PM Test Reason : afib Blood Pressure : / mmHG Vent. Rate : 082 BPM Atrial Rate : 082 BPM P-R Int : 192 ms QRS Dur : 096 ms QT Int : 422 ms P-R-T Axes : 000 -47 080 degrees QTc Int : 493 ms Normal sinus rhythm. Left axis deviation Inferior infarct (cited on or before 06-DEC-2018) Possible Anterolateral infarct , age undetermined Abnormal ECG When compared with ECG of 06-DEC-2018 16:09, (Unconfirmed) Sinus rhythm. has replaced Atrial fibrillation. Vent. rate has decreased BY 75 BPM Borderline criteria for Anterolateral infarct are now present Unconfirmed Result
[2018-12-07] MEDS ORDERED: VANCOMYCIN 1 GM/NS 1 GM/250 ML IVPB IV ONE (18:00)
--- NOTE | 2018-12-07 18:20 | NEPHROLOGY PROGRESS NOTE ---
DATE: 12/07/2018 SUBJECTIVE: He has no complaints today. He was moved to the intensive care unit because of hypoglycemia. He is a little bit confused however. OBJECTIVE: Blood pressure 97/59, heart rate 87, respirations 28, afebrile. Intake 1.6 L. Output 400 mL. No acute distress.Skin: Warm and dry. Conjunctivae are pink. Neck: Veins are not distended. Cardiovascular: Heart is regular. Lungs: Equal. No crackles. Abdomen: Soft, nontender. Bowel sounds present. Extremities: No edema, clubbing, or cyanosis. IMPRESSION: Acute kidney injury with no recovery. Chronic kidney disease 5D. He will have his routine dialysis today. Two K bath with 32 bicarbonate. Anemia is in target. cc: Ubaldo Nguyen MD
[2018-12-07] MEDS: MERREM 500 MG in NS 50 ML IV SCH (20:42)
[2018-12-08 05:52] LABS: ALB/GLOB RATIO 0.4; ALBUMIN 1.8 g/dL (3.5-5.0); CALCIUM 7.9 mg/dL (8.8-10.2); CREATININE 2.4 mg/dL (0.7-1.2); MAGNESIUM 1.6 mg/dL (1.5-2.7); POTASSIUM 3.9 mmol/L (3.5-5.1); TOTAL BILIRUBIN 4.29 mg/dL (0.20-1.00); TOTAL PROTEIN 6.1 g/dL (6.3-8.3)
[2018-12-08 06:12] LABS: BASO# 0.03 X1000 (0.0-0.2); BASO% 0.1 % (0.0-0.8); EOS# 0.11 X1000 (0.0-0.7); EOS% 0.2 % (0.0-10.0); HEMATOCRIT 33.4 % (42.0-52.0); HEMOGLOBIN 10.9 g/dL (14.0-18.0); IMM GRAN# 3.51 X1000 (0.0-0.04); IMM GRAN% 7.6 % (0.0-0.5); LYMPH# 0.54 X1000 (1.2-3.4); LYMPH% 1.2 % (20.5-51.1); MCH 29.1 PG (27-31); MCHC 32.6 g/dL (33-37); MCV 89.1 FL (81-99); MONO# 1.28 X1000 (0.11-0.59); MONO% 2.8 % (1.7-9.3); NEUT# 40.43 X1000 (1.4-6.5); NEUT% 88.1 % (42.2-75.2); PLT 209 X1000 (130-400); RBC 3.75 XMIL (4.7-6.1); RDW 17.6 % (11.5-14.5)
[2018-12-08 06:15] LABS: LYMPHS 1 % (21-51); MONO 5 % (1-9); SEGS 94 % (42-75)
[2018-12-08] MEDS: DECADRON IV SCH ×2 (06:38→18:37)
[2018-12-08] MEDS: SYNTHROID PO SCH (06:38)
[2018-12-08] MEDS: NEO-SYNEPHRINE 50 MG in NS 250 ML IV SCH (06:38)
[2018-12-08] MEDS ORDERED: DECADRON IV SCH (07:12)
[2018-12-08] MEDS: ICAR-C PO SCH ×2 (08:11→20:47)
[2018-12-08] MEDS: LOPRESSOR PO SCH ×2 (08:11→20:47)
[2018-12-08] MEDS: ASPIRIN EC PO SCH (08:12)
[2018-12-08] MEDS: ZYLOPRIM PO SCH (08:12)
--- NOTE | 2018-12-08 08:55 | PROGRESS NOTE ---
DATE: 12/08/2018 SUBJECTIVE: This patient has been placed on pressors, he is feeling better. He is alert and oriented x3, he is bacteremic and also we have a positive culture that showed Klebsiella pneumonia from the cholecystostomy tube drainage. Likely this is the source of the sepsis. For now we will continue with the same management. Infectious Disease Department on board. No documented episodes of hypoglycemia since yesterday 7 a.m., but this patient has been having D5 NS at low rate. We initially put this patient on steroids. We checked the cortisol level and it was 23, probably he does not have an adrenal insufficiency. Probably everything is due to the septic shock, but I will decrease the dose of the steroids slowly and probably I will get more tests done. Plasma lactate decreased from 8.9 to 3.4. Leukocyte count is elevated, but he has been getting steroids and on top of that this could be due to the infectious process. Like I said, this patient feels better. OBJECTIVE: Vital Signs: Temperature 97.7 degrees, pulse 80, respiratory rate 18, blood pressure 96/69, oxygen saturation 95% on room air. HEENT: Head normocephalic, no trauma, PERRLA. Neck: Supple. No JVD. No masses. Central trachea. Chest: Clear to auscultation, some crepitus at the bases. Abdomen: Soft. There is a dressing in place and it looks like he has some green bile coming out and oozing from the previous cholecystostomy tube that has been pulled out accidentally by the patient. There is a new cholecystostomy tube in place and is draining fine. Extremities: No edema, no clubbing, no cyanosis. Neurological: The patient at this moment is alert and oriented x3. Generalized weakness, but no focal deficits. LABORATORY: WBC 45.9, hemoglobin 10.9, hematocrit 33.4, platelets 209,000. Sodium 143, potassium 3.9, chloride 103, bicarbonate 24, BUN 19, creatinine 2.4, glucose 134, calcium 7.9, magnesium 1.6, plasma lactate 3.4. ASSESSMENT AND PLAN: 1. Septic shock. This patient is bacteremic and also we have a positive culture from the cholecystostomy tube that showed Klebsiella pneumonia. We will continue with antibiotics. White blood cell count is elevated at 45 which is a little bit elevated compared with yesterday. This patient has been getting steroids as well. Infectious Disease Department on board. We will monitor. 2. Severe hypoglycemia. I do not have any hypoglycemic events for the past 24 hours, but this patient is receiving D5W. Sugar seems to be more stable. We will continue to monitor for now since this patient has been in septic shock. 3. End-stage renal disease on hemodialysis. Nephrology on board. 4. History of CHF, continue with same management. Cardiology has been consulted. 5. Atrial fibrillation with RVR, his rate has been controlled. Continue with same management. Cardiology on board. 6. Pancreatic cancer, which is quite advanced. We did an ultrasound a couple days ago and it looks like the size of the mass is a little bit worse compared with the previous studies. We will continue with same management for now. 7. Hypertension. Actually he has been having low blood pressure due to the septic shock and he has been placed on pressors. 8. Dyslipidemia. Continue with same management. 9. Type 2 diabetes. For now, we are not using any kind of diabetic medication, since he has been having hypoglycemia. Continue with the D5W for now. I will request palliative care to talk to the patient again since this patient is full code. I believe he was DNR before in previous hospitalizations. CRITICAL CARE TIME: 35 minutes. cc: Jesus Zepeda MD
[2018-12-08] MEDS: D5 NS 1,000 ML IV SCH (10:00)
--- NOTE | 2018-12-08 15:35 | CARDIOLOGY PROGRESS NOTE ---
DATE: 12/08/2018 CHIEF COMPLAINT: Weakness, tachycardia. SUBJECTIVE: Mr. Gumzan seems to be free of symptoms this morning. He is not having any chest pain or tightness in the chest. His rhythm has normalized to sinus rhythm. Major change is his white count jumped from 13,000 on 12/06 to 45,900. He is also growing gram- negative rods in the blood and the abdominal drainage is growing Klebsiella pneumoniae, which is resistant to ampicillin and Levaquin and sensitive to cefazolin, gentamicin, tobramycin, and piperacillin and tazobactam. OBJECTIVE: The patient is really in no distress. Pulse is 72, respirations 15, temperature 97.3, blood pressure 136/83. He is awake, alert, in no distress. HEENT: Unremarkable. Chest clear to auscultation and percussion. Heart sounds regular and rhythmic, no gallop or murmur. Abdomen: He does have some abdominal distention with a drain coming out of the right side of his abdomen. Extremities showed no edema. Pulses are diminished. Neurological: Follows commands, moves all 4 extremities. IMPRESSION: 1. A patient who had paroxysmal atrial fibrillation in the midst of sepsis. 2. Gram-negative bacteremia with a biliary drain and a percutaneous drain. 3. History of hypertension. 4. Chronic kidney disease. 5. The patient has pancreatic cancer and he has a biliary stent. RECOMMENDATION: From Cardiology viewpoint, no intervention at this time. The patient has normalized to sinus rhythm. We will just standby for the time being and if you have any further assistance or concerns, do not hesitate to call me. His 12-lead EKG this morning shows sinus rhythm, rate 82 beats per minute, with a left axis deviation and anterior scar. cc: Danis Thapa MD
[2018-12-08] MEDS: MERREM 500 MG in NS 50 ML IV SCH (16:14)
--- NOTE | 2018-12-08 19:57 | ECHO REPORT ---
ORDER DATE: 12/07/2018 INDICATION: Patient with sepsis, paroxysmal atrial fibrillation. M-MODE MEASUREMENTS: Left ventricle end diastole: 4.2. Left ventricle end systole: 2.8. Posterior wall: 1.3. Interventricular septum: 1.3. The left atrium was not well identified. SUMMARY OF 2-DIMENSIONAL IMAGIN. Definity was added to this study to visualize the endocardium. 1. Left ventricular systolic function appears to be normal. The ejection fraction is estimated at 65% to 70%. There is mild to moderate concentric LVH. 3. The aortic valve is normal. Color flow mapping unremarkable. 4. The mitral valve also appears normal. Color flow mapping unremarkable. 5. There is no pericardial effusion. 6. The tricuspid valve appears to be grossly normal. 7. The right-sided chambers do not appear to be dilated. 8. The inferior vena cava is not dilated. SUMMARY: This limited echo shows: 1. Suggestion of moderate degree of concentric LVH. 2. Excellent left ventricular systolic function, ejection fraction 65% to 70%. 3. Mild degree of sclerosis of the aortic valve. There is no obvious stenosis. 4. Unremarkable mitral valve. Clinical correlation recommended. cc: MD Karen Reeves PA
[2018-12-09 05:05] LABS: BASO# 0.03 X1000 (0.0-0.2); BASO% 0.1 % (0.0-0.8); EOS# 0.01 X1000 (0.0-0.7); HEMATOCRIT 31.4 % (42.0-52.0); HEMOGLOBIN 10.2 g/dL (14.0-18.0); IMM GRAN% 2.5 % (0.0-0.5); LYMPH# 0.77 X1000 (1.2-3.4); LYMPH% 2.1 % (20.5-51.1); MCH 28.9 PG (27-31); MCHC 32.5 g/dL (33-37); MONO# 1.01 X1000 (0.11-0.59); MONO% 2.8 % (1.7-9.3); MPV 11.1 FL (7.4-10.4); NEUT# 33.86 X1000 (1.4-6.5); NEUT% 92.5 % (42.2-75.2); PLT 172 X1000 (130-400); RBC 3.53 XMIL (4.7-6.1); RDW 17.2 % (11.5-14.5); WBC 36.58 X1000 (4.8-10.8)
[2018-12-09] MEDS: DECADRON IV SCH ×2 (05:56→17:07)
[2018-12-09] MEDS: D5 NS 1,000 ML IV SCH (05:57)
[2018-12-09] MEDS: SYNTHROID PO SCH (06:00)
[2018-12-09 06:44] LABS: ALB/GLOB RATIO 0.4; ALBUMIN 1.8 g/dL (3.5-5.0); CALCIUM 7.7 mg/dL (8.8-10.2); CREATININE 2.9 mg/dL (0.7-1.2); POTASSIUM 3.9 mmol/L (3.5-5.1); TOTAL BILIRUBIN 2.62 mg/dL (0.20-1.00); TOTAL PROTEIN 5.9 g/dL (6.3-8.3)
[2018-12-09] MEDS ORDERED: D5 NS 1,000 ML IV SCH (08:22)
--- NOTE | 2018-12-09 08:48 | PROGRESS NOTE ---
DATE: 12/09/2018 SUBJECTIVE: The patient is lying comfortably in bed. He has been draining a large amount of bile secretion from the previous cholecystostomy tube wound that has been accidentally pulled out by the patient a few days ago. This has been replaced. I will ask Surgery Department to evaluate this patient to see if we can do some kind of procedure to stop this drainage. Microbiology showed positive bacteria, Klebsiella pneumonia from that bile secretion, and also a positive blood culture that showed the same bacteria. Infectious Disease Department has been notified. He is no longer on pressors. I will decrease the dose of the steroids, and I will decrease also the rate of the IV fluids from 50 to 25. Blood sugar has been better for the past 24 hours. No signs of hypoglycemia. OBJECTIVE: Vital Signs: Temperature 97.6 degrees, pulse 71, respiratory rate 17, blood pressure 102/66, oxygen saturation 93 on room air. HEENT: Head normocephalic. No trauma. PERRLA. Neck: Supple. No JVD. No masses. Central trachea. Chest: Clear to auscultation. Some crepitus at the bases. Abdomen: Soft. There is a dressing in place that looks with a large amount of green bile coming out and oozing from the previous cholecystostomy tube wound that has been pulled out accidentally by the patient. There is a new cholecystostomy tube in place that is working. Extremities: No edema, no clubbing, no cyanosis. Neurological: At this moment, this patient is alert. He is oriented x3. He has generalized weakness, but no focal deficits. LABORATORY DATA: WBC 36.5, hemoglobin 10.2, hematocrit 31.4, platelets 172,000. Sodium 141, potassium 3.9, chloride 104, bicarbonate 21, BUN 35, creatinine 2.9, glucose 143, calcium 7.7, albumin 1.8. ASSESSMENT AND PLAN: 1. Septic shock. We have a positive blood culture that showed Klebsiella pneumoniae, and also we have a positive culture from the previous cholecystostomy tube wound area that showed Klebsiella pneumonia as well. We will continue with antibiotics. White blood cell count still elevated, but trending down. I have decreased the dose of the steroids as well. Infectious Disease Department on board. 2. Severe hypoglycemia. No more episodes of hypoglycemia in the past 24 hours, but this patient has been receiving D5W, which I will decrease to 25 mL/hours. Will continue to monitor. He is no longer or pressors. 3. End-stage renal disease, on hemodialysis. Nephrology on board. 4. History of congestive heart failure. Continue with the same management. Cardiology Department following this patient. 5. Atrial fibrillation with rapid ventricular response. Rate controlled now. Continue with the same treatment. Cardiology on board. 6. Pancreatic cancer, which is quite advanced. We did an ultrasound 3 days ago, and it looks like the size of the mass is a little bit worse compared with the previous study. Will continue with the same management for now. 7. Hypertension. Actually, this patient has been having low blood pressure/borderline low. He used to be on pressors, which have been stopped. 8. Dyslipidemia. Continue with the same management. 9. Type 2 diabetes. For now, will continue with the same management. I have decreased the rate of the D5W. 10. This patient is full code. 11. Previous cholecystostomy wound drainage. It looks like bile fluid. We will consult Surgery Department to see if we need to do some kind of procedure on this patient. cc: Jesus Zepeda MD
[2018-12-09] MEDS: ASPIRIN EC PO SCH (09:07)
[2018-12-09] MEDS: ZYLOPRIM PO SCH (09:07)
[2018-12-09] MEDS: SODIUM CHLORIDE 0.9% INJ SCH ×2 (09:07→20:12)
[2018-12-09] MEDS: ICAR-C PO SCH ×2 (09:07→20:12)
[2018-12-09] MEDS: LOPRESSOR PO SCH ×2 (09:07→20:12)
[2018-12-09] MEDS: PROTONIX IV SCH ×2 (09:07→20:12)
--- NOTE | 2018-12-09 11:34 | GENERAL SURGERY CONSULTATION ---
DATE: 12/09/2018 HISTORY OF PRESENT ILLNESS: Mr. Guzman apparently has unresectable pancreatic cancer. He had obstructed duct and gallbladder and had a percutaneous cholecystostomy placed in the past. This was pulled out and he presented because of the fact that the drain was pulled out. The drain has been replaced, but in a different site, and the old site is leaking bile. SOCIAL HISTORY: He denies alcohol or drug use. ALLERGIES: No known drug allergies. MEDICATIONS: Listed. REVIEW OF SYSTEMS: As noted above. PHYSICAL EXAMINATION: Vital Signs: He is afebrile. Heart rate 63, blood pressure 115/67. Lungs: Clear. Heart: Regular rate and rhythm. Abdomen: Soft. He has a pigtail drain in the right lateral abdomen, more lateral to this is another puncture site where the bile is draining. Neurologic: He is awake and alert. DIAGNOSTICS/LABORATORIES: White count is 36,000, hemoglobin 10, hematocrit 31, bilirubin 2.6, alkaline phosphatase 209. ASSESSMENT: Leaking drain site. PLAN: The plan will be to place a bag over the drain site to collect the fluid. Since the bile apparently is infected, we do not want to stop any drainage. So I think bagging it to collect it will be the better approach rather than trying to stop the drainage. Placing a stitch in the skin will eliminate drainage, but then the infected bile will simply collect underneath the skin. cc: Corky Miller MD
[2018-12-09] MEDS: MERREM 500 MG in NS 50 ML IV SCH (17:09)
[2018-12-10] MEDS: DECADRON IV SCH (05:06)
[2018-12-10] MEDS: SYNTHROID PO SCH ×2 (05:07→06:01)
[2018-12-10 06:34] LABS: BASO# 0.02 X1000 (0.0-0.2); BASO% 0.1 % (0.0-0.8); HEMATOCRIT 33.1 % (42.0-52.0); HEMOGLOBIN 10.7 g/dL (14.0-18.0); MCH 28.8 PG (27-31); MCHC 32.3 g/dL (33-37); MPV 11.8 FL (7.4-10.4); PLT 174 X1000 (130-400); RBC 3.72 XMIL (4.7-6.1); RDW 17.2 % (11.5-14.5); WBC 33.92 X1000 (4.8-10.8)
[2018-12-10 06:48] LABS: ALB/GLOB RATIO 0.5; ALBUMIN 1.9 g/dL (3.5-5.0); CREATININE 3.6 mg/dL (0.7-1.2); MAGNESIUM 1.9 mg/dL (1.5-2.7); POTASSIUM 3.9 mmol/L (3.5-5.1); TOTAL BILIRUBIN 2.25 mg/dL (0.20-1.00); TOTAL PROTEIN 5.8 g/dL (6.3-8.3)
[2018-12-10 07:23] LABS: LYMPHS 2 % (21-51); MONO 2 % (1-9); SEGS 94 % (42-75)
[2018-12-10] MEDS ORDERED: HEPARIN IV PRN (07:58)
[2018-12-10] MEDS ORDERED: TIGHT: 0.2 ML/HR FOR DIALYSIS MISC PRN (07:58)
[2018-12-10] MEDS ORDERED: NS 2,000 ML MISC PRN (07:58)
--- NOTE | 2018-12-10 08:11 | EKG Report ---
Test Performed on : 12/08/2018 05:16:29 AM Test Reason : afib Blood Pressure : / mmHG Vent. Rate : 082 BPM Atrial Rate : 082 BPM P-R Int : 174 ms QRS Dur : 100 ms QT Int : 428 ms P-R-T Axes : -47 -52 092 degrees QTc Int : 500 ms Unusual P axis, possible ectopic atrial rhythm. Left axis deviation Inferior infarct (cited on or before 06-DEC-2018) Anterolateral infarct (cited on or before 06-DEC-2018) Prolonged QT Abnormal ECG When compared with ECG of 07-DEC-2018 14:02, Ectopic atrial rhythm. has replaced Sinus rhythm. Unconfirmed Result
[2018-12-10] MEDS: ZYLOPRIM PO SCH (08:28)
[2018-12-10] MEDS: ICAR-C PO SCH ×2 (08:28→21:04)
[2018-12-10] MEDS: SODIUM CHLORIDE 0.9% INJ SCH ×2 (08:28→21:05)
[2018-12-10] MEDS: PROTONIX IV SCH ×2 (08:28→21:05)
[2018-12-10] MEDS: LOPRESSOR PO SCH ×2 (08:28→21:04)
[2018-12-10] MEDS: ASPIRIN EC PO SCH (08:28)
--- NOTE | 2018-12-10 10:36 | GENERAL SURGERY PROGRESS NOTE ---
DATE: 12/10/2018 TIME: 10 o'clock in the morning. SUBJECTIVE: I went in to see Mr. Guzman and inspecting his right flank, his pigtail drain has been pulled out and is exteriorized. The bag covering the other hole is still present. The question now, is there any way to internally drain his biliary tract to avoid continued problems with an external drain. cc: Corky Miller MD
--- NOTE | 2018-12-10 11:18 | PROGRESS NOTE ---
DATE: 12/10/2018 SUBJECTIVE: The patient is resting comfortably in bed. No episodes of fever. No episodes of hypoglycemia for at least 72 hours. It looks like accidentally he pulled out his cholecystostomy tube again. This was recently replaced. I will ask Gastroenterology department to evaluate this patient and recommend what to do since he is draining bile through his first cholecystostomy wound. OBJECTIVE: Vital Signs: Temperature 97.5 degrees, pulse 66, respiratory rate 20, blood pressure 117/77, oxygen saturation 99 on room air. HEENT: Head normocephalic, no trauma. PERRLA. Neck: Supple. No JVD. No masses. Central trachea. Chest: Clear to auscultation. Some crepitus at the bases. Abdomen: Soft. There is a wound that is draining a green for dark fluid likely coming out from the gallbladder through the abdominal wall from previous cholecystostomy tube that has been removed accidentally by the patient a few days ago. Otherwise he is mildly to moderately distended. Positive bowel sounds. Extremities: No edema, no clubbing, no cyanosis. Neurological: At this moment, this patient is alert. He is following commands. Probably he has been confused on and off, but not at this moment. No focal deficits. LABORATORY DATA: WBC 33.9, hemoglobin 10.7, hematocrit 33.1, platelets 174,000. Sodium 140, potassium 3.9, chloride 104, bicarbonate 21, BUN 51, creatinine 3.6, glucose 119, calcium 8, albumin 1.9. ASSESSMENT AND PLAN: 1. Septic shock. He was on pressors a few days ago and also he has a positive blood culture that showed Klebsiella pneumoniae. Also, we have a positive culture from the previous cholecystostomy tube wound area that showed Klebsiella pneumoniae as well. We will continue with antibiotics per Infectious Disease department. White blood cells still elevated, but trending down. I have stopped completely the dose of the steroids for this patient. 2. Severe hypoglycemia. No more episodes of hypoglycemia for at least 72 hours. The patient was placed on D5W, but now it has been stopped. We will monitor the blood sugar. He is on steroids. 3. End-stage renal disease, on hemodialysis. Nephrology on board. 4. History of congestive heart failure. Continue with same management. Cardiology department following this patient. 5. Pancreatic cancer, which is quite advanced. We did an ultrasound 4 days ago, and it looks like the size of the mass is a little bit worse compared with previous study. I will continue with the same management for now. Palliative Care on board. 6. Atrial fibrillation with rapid ventricular response (RVR), rate controlled. Continue with the same treatment. Cardiology on board. 7. Previous cholecystostomy tube placed. That the first time was removed accidentally, and this is why the patient came to the hospital. We replaced it and we had a culture from the biliary fluid which is infected, likely the cause of the septic shock. The cholecystostomy tube was replaced, and now it looks like it has been removed again accidentally. He has been draining a good amount of green dark fluid through the skin from the previous cholecystostomy tube wound. I will ask Gastroenterology department to evaluate this patient to see if they recommend to place a new tube or just continue with this management. 8. Hypertension. We will monitor. Blood pressure medication has been stopped because of the septic shock. 9. Dyslipidemia. Continue to monitor. 10. Type 2 diabetes. For now, we will continue with the same management. I will avoid any type of diabetes medication due to his severe hypoglycemia. cc: Jesus Zepeda MD MTDD
--- NOTE | 2018-12-10 11:23 | NEPHROLOGY PROGRESS NOTE ---
DATE: 12/10/2018 SUBJECTIVE: The patient is resting in bed asleep. He awakens easily. OBJECTIVE: Vital Signs: Temperature 97.5 degrees, pulse 66, respiratory rate 20, blood pressure 117/77. Intake 755 mL, output 195 mL. General: This is an elderly gentleman resting in bed. Awake and alert, no acute distress. HEENT: Normocephalic, atraumatic. ADI. Neck: Supple. No JVD. Cardiovascular: Regular rate and rhythm. Pulmonary: Clear bilaterally. No increased work of breathing. Abdomen: Soft., Positive bowel sounds. : Not inspected. Extremities: No clubbing, cyanosis or edema. Integumentary: Skin is warm and dry. LABORATORY DATA: WBC of 33.9, hemoglobin 10.7. Sodium 140, potassium 3.9, CO2 21, creatinine 3.6. ASSESSMENT AND PLAN: 1. Acute kidney injury without no recovery, chronic kidney disease 5D. He will dialyze today on a 2 K bath/UF to his last in weight 3.5 hour treatment. 2. Cholecystostomy. Wound drainage followed by surgery with septic shock. White blood count trending down, followed by primary and Infectious Disease. 3. Pancreatic cancer. Followed by primary. 4. Electrolytes, acid-base balance, anemia. These are stable. Continue to monitor and dialyze as appropriate. Dictated by SIGIFREDO Christopher for Ubaldo Nguyen MD Face to face encounter, data reviewed, discussed with Maddy Casillas on 12/10/18. I agree with the above assessment and plan of care. cc: Ubaldo Nguyen MD [facility]
[2018-12-10] MEDS ORDERED: KEFZOL 1 GM/D5W 1 GM/50 ML IVPB IV SCH (13:30)
--- NOTE | 2018-12-10 13:51 | GASTROENTEROLOGY CONSULTATION ---
DATE: 12/10/2018 PRIMARY CARE DOCTORS: Ernesto Estrada MD REASON FOR EVALUATION: Metastatic pancreatic cancer with gastric outlet obstruction and has a cholecystostomy drain, which has been dislodged. HISTORY OF PRESENT ILLNESS: Mr. Guzman is a 73-year-old male who was admitted on 12/04/2018 for dislodged cholecystostomy drain. On admission, the patient has a known history of metastatic and locally invasive pancreatic cancer causing gastric outlet obstruction and was worked up in [facility] and had cholecystostomy drain placed on 10/01/[address] Franck Dorsey. He did well for a few months and he was admitted as the drain was accidentally pulled out at home. In the hospital on admission, he had another drain placed by Dr. Lazar on 12/04/2018, but unfortunately, yesterday the drain was accidentally pulled out. Surgery has seen the patient, but he is not a surgical candidate and currently he has a drainage bag at the right upper quadrant at the site of previous drain, which is draining bilious fluid. Gastroenterology for further management. PAST MEDICAL HISTORY: Congestive heart failure. Hypertension. Hyperlipidemia. Chronic liver disease. Gout. Arthritis. Type 2 diabetes. Endstage renal disease. Cholangitis. Pancreatic cancer. Gastric outflow obstruction. PAST SURGICAL HISTORY: Port-A-Cath placement. Cholecystostomy drain placement. Hemodialysis catheter placement. FAMILY HISTORY: Significant for coronary artery disease and hypertension. SOCIAL HISTORY: No history of tobacco or illicit drugs. ALLERGIES: No known drug allergies. MEDICATIONS IN THE HOSPITAL: 1. Allopurinol. 2. Aspirin. 3. Dextrose 50% syringe. 4. Hydrocodone/acetaminophen. 5. Iron C. 6. Synthroid. 7. Meropenem. 8. Metoprolol. 9. Metoprolol IV. 10. Tylenol. 11. Zofran. 12. Protonix. 13.
--- NOTE | 2018-12-10 14:04 | INFECTIOUS DISEASE PROGRESS NO ---
DATE: 12/10/2018 PRESENT ILLNESS: The patient has a Klebsiella bacteremia originating from a Klebsiella infected common bile duct and gallbladder due to obstruction by the patient's pancreatic tumor. MEDICATIONS: Currently, the patient is receiving a combination of vancomycin and meropenem. PHYSICAL EXAMINATION: Vital Signs: Temperature 97.6 degrees, pulse 81, respirations 20, blood pressure 120/84. General: This is a chronically ill-appearing elderly male. He is in no acute distress. Head, eyes, ears, nose, and throat: He can hear my spoken words and see near objects. He does not have any white coating on his tongue. Neck: No pain with movement. Thorax: Patient has on the right side of his chest a tunneled dialysis catheter. The site is not draining or tender. Lungs: Clear to auscultation. Cardiovascular: Heart rate is regular. Abdomen: Soft and not tender. There is a wound in the right side that is draining purulent fluid and there is an overlying ostomy bag collecting the fluid. This is the infection that is due to the obstruction of the common bile duct and gallbladder resulting in a Klebsiella abscess. Neurologic: Patient is awake. He can ambulate without difficulty. There is no tremor. Patient is alert he can move his extremities. HEIGHT/WEIGHT: The patient is 5 feet 8 inches tall, weighs 180 pounds. LABORATORY AND X-RAY: There is no new radiographic study. The CBC shows a white count down to 33,920, hemoglobin 10.7, and platelet count 174,000. Creatinine is 3.6. GFR is 20. Alkaline phosphatase is 252. Blood cultures and culture from the draining abscess in the patient's abdomen are both growing Klebsiella. ASSESSMENT AND PLAN: The patient has a Klebsiella bacteremia and draining abscess from an obstructed common bile duct and gallbladder. The bacteremia also originated from that site. I have discontinued meropenem and vancomycin and instead I have ordered Ancef to be given as a dose of 1 g IV after each dialysis starting today. My plan is to continue with his patient's newly ordered Ancef for least a 2-week period. I have ordered repeat blood cultures. COMORBIDITY: Pancreatic cancer with cholangitis and gall bladder abscess due to the tumor's blockage. cc: Jose Banuelos MD [facility]ENTERMiguel
[2018-12-10] MEDS ORDERED: LOPRESSOR IV PRN (15:15)
--- NOTE | 2018-12-10 15:48 | Diag Imaging Result Doc PS360 ---
EXAM: CT DRAIN ABDOMEN ABSCESS W/IMG 12/10/2018 HISTORY: Cholecystostomy tube placement TECHNIQUE: CT-guided placement of percutaneous cholecystostomy COMMENT: The risks and benefits of the procedure including the possibility of bleeding infection or reaction to lidocaine and inadvertent puncture of hollow viscus was discussed with the patient and he agreed to the procedure. Following sterile preparation the skin and administration 1% lidocaine to the skin and deeper soft tissues, and following unsuccessful attempts to cannulate the originally placed tract which was still evidently draining, a 8-Stateless pigtail catheter was placed by trocar technique close to the original site and secured with its pigtail, as well as suture and the adhesive device provided with the catheter. IMPRESSION: Successful placement of percutaneous cholecystostomy. Electronically signed by Desmond Lazar 12/10/2018 3:45 PM
[2018-12-10] MEDS ORDERED: KEFZOL 1 GM/D5W 1 GM/50 ML IVPB IV ONE (17:00)
[2018-12-10] MEDS ORDERED: VANCOMYCIN 1 GM/NS 1 GM/250 ML IVPB IV ONE (18:00)
[2018-12-10] MEDS: PERICOLACE PO SCH (21:04)
[2018-12-10] MEDS: NORCO-10 PO PRN (21:05)
[2018-12-11] MEDS: SYNTHROID PO SCH (06:25)
[2018-12-11 06:27] LABS: BASO# 0.01 X1000 (0.0-0.2); BASO% 0.1 % (0.0-0.8); EOS# 0.02 X1000 (0.0-0.7); EOS% 0.1 % (0.0-10.0); HEMOGLOBIN 11.6 g/dL (14.0-18.0); IMM GRAN# 0.18 X1000 (0.0-0.04); IMM GRAN% 1.1 % (0.0-0.5); LYMPH# 0.94 X1000 (1.2-3.4); LYMPH% 5.5 % (20.5-51.1); MCH 28.4 PG (27-31); MCHC 32.2 g/dL (33-37); MCV 88.2 FL (81-99); MONO# 0.59 X1000 (0.11-0.59); MONO% 3.5 % (1.7-9.3); MPV 11.8 FL (7.4-10.4); NEUT# 15.24 X1000 (1.4-6.5); NEUT% 89.7 % (42.2-75.2); PLT 165 X1000 (130-400); RBC 4.08 XMIL (4.7-6.1); RDW 16.5 % (11.5-14.5); WBC 16.98 X1000 (4.8-10.8)
[2018-12-11 06:43] LABS: ALB/GLOB RATIO 0.4; ALBUMIN 1.8 g/dL (3.5-5.0); CALCIUM 7.4 mg/dL (8.8-10.2); CREATININE 2.5 mg/dL (0.7-1.2); POTASSIUM 3.6 mmol/L (3.5-5.1); TOTAL BILIRUBIN 4.4 mg/dL (0.20-1.00); TOTAL PROTEIN 5.8 g/dL (6.3-8.3)
--- NOTE | 2018-12-11 07:26 | NEPHROLOGY PROGRESS NOTE ---
DATE: 12/11/2018 SUBJECTIVE: He states he voided x1. No nausea or vomiting. States he has been eating. He had his drain replaced on yesterday. OBJECTIVE: Vital Signs: Blood pressure 104/69, heart rate 90, respiration 18, temperature 99.1 degrees. Intake 900 mL, output 185 mL. General: No acute distress. Skin: Warm and dry. Neck: Neck veins are not distended. Heart: Regular. No gallops. Lungs: Equal, shallow. No crackles. Abdomen: Soft, nontender. Bowel sounds present. Extremities: With trace edema. No clubbing or cyanosis. IMPRESSION AND PLAN: Chronic kidney disease 5D. Acute tubular necrosis without recovery. He had his routine dialysis yesterday. Electrolytes/acid base/volume status/anemia all in target. No changes from my perspective. cc: Ubaldo Nguyen MD
[2018-12-11] MEDS: PROTONIX IV SCH ×2 (08:54→21:44)
[2018-12-11] MEDS: SODIUM CHLORIDE 0.9% INJ SCH ×2 (08:54→21:44)
[2018-12-11] MEDS: ASPIRIN EC PO SCH (08:55)
[2018-12-11] MEDS: ICAR-C PO SCH ×2 (08:55→21:48)
[2018-12-11] MEDS: LOPRESSOR PO SCH ×2 (08:55→21:43)
[2018-12-11] MEDS: ZYLOPRIM PO SCH (08:55)
--- NOTE | 2018-12-11 15:06 | PROGRESS NOTE ---
DATE: 12/11/2018 SUBJECTIVE: Mr. Shane Guzman is a 73-year-old -Congol[place] male resting comfortably, alert in bed. Denies any nausea, vomiting, diarrhea. States he is having normal bowel movements. He only has tenderness in the right abdominal area where the new cholecystostomy tube has been placed, which is draining dark green fluid. He currently has no complaints. OBJECTIVE: Vital signs: Temperature 98.8, heart rate 86, respiratory rate 20, blood pressure 123/75, O2 saturation 98% on room air. General: Mr. Shane Guzman is a 73-year-old - Cong[place] male. He is in no acute distress. He is able to answer questions appropriately. Cardiovascular: S1, S2. Regular rate and rhythm. No rubs, gallops, or murmurs. He has got 1+ to 2+ lower extremity edema, +2 dorsalis pedal pulses and radial pulses. Negative JVD or carotid bruits. Pulmonary: Clear to auscultate bilateral breath sounds. No accessory muscle use or work of breathing noted. GI: Soft, nontender, nondistended. Positive bowel sounds x4. Cholecystostomy tube dry and intact at the insertion site with green fluid through the drain and tender around the site. Extremities: Moves extremities equally. Skin: Warm, dry, intact. LABORATORY DATA: White blood cells 16,000, hemoglobin 11, hematocrit 36, platelet count 165. Sodium 140, potassium 3.6, BUN 33, creatinine 2.6, glucose was 58 most recent is 96, calcium 7.4, bilirubin is 4.40, AST 58, ALT 36, alkaline phosphatase is 423, albumin is 1.8. IMAGING: Yesterday had a CT-guided placement of percutaneous cholecystotomy tube. ASSESSMENT AND PLAN: 1. Klebsiella pneumoniae bacteremia source likely from cholecystotomy tube, common bile duct, and gallbladder, which was also positive for Klebsiella pneumoniae. He had a replacement of the cholecystotomy tube today. White blood cells dropped from 33 down to 16. He is being following by Dr. Banuelos, was recently on vancomycin and Merrem. Yesterday on the was placed on cefazolin. 2. Septic shock with leukocytosis, which is resolving. He is afebrile. White count since his cholecystostomy tube is replaced, his white count dropped from 33 to 16 and he is continued on antibiotics. 3. Persistent hypoglycemia on top of diabetes mellitus type 2 likely due to the pancreatic tumor. He was recently on D5 half saline, which was discontinued yesterday. He did have a blood glucose drop this morning but improved after food. He does have p.r.n. D50 IV pushes as needed. Will continue with blood glucose checks every 4 hours. His Decadron taper has been completed since 12/10. 4. End-stage renal disease followed by Dr. Nguyen. On the had dialysis with 1500 mL removed, on had 1000 mL removed, and yesterday the had 185 mL removed. Continues to have some pitting edema in the lower extremities. 5. Left ventricular hypertrophy with reported congestive heart failure. He had a limited echocardiogram on 12/07, which shows an ejection fraction of 65% to 70% and does not show diastolic dysfunction. It did show mild degree of AV sclerosis and moderate LVH. Followed by Cardiology. 6. Advanced pancreatic cancer resulting in gastric outlet obstruction. Palliative is following. [facility] has been consulted today. He continues to be a full code. 7. Recent atrial fibrillation with rapid ventricular response now with conversion to normal sinus rhythm. His EKG on 12/08 showed normal sinus rhythm. The bedside telemetry also shows normal sinus rhythm. Will repeat an EKG in the morning. Continue aspirin, Lopressor at 12.5 twice a day and he also has p.r.n. IV Lopressor if the heart rate gets up over 120. 8. Cholecystostomy tube due to gastric outlet obstruction with incidental removal once before admission and again after admission also with infection of Klebsiella pneumoniae. Yesterday, he was having moderate volume of dark green fluid. GI was consulted and recommended that due to the inability to perform an ERCP a few months back due to the gastric outlet obstruction there was recommendations to include cholecystostomy tube placement by Interventional Radiology or General Surgery with Dr. Miller to evaluate for possibility of choledochojejunostomy bypass, which can be performed at [facility]. So on 12/10, had a CT-guided placement of percutaneous cholecystostomy tube, which is draining dark green fluid. Site is without any signs or symptoms of infection. 9. Hypertension. Apparently was hypotensive due to septic shock and was on pressors, has since been resumed on his beta-kiki, metoprolol 12.5 mg twice a day with blood pressures running 100s-120s and heart rate in the 70s and 80s sinus rhythm. 10.Pain controlled with [place], IV Ofirmev was discontinued due to liver dysfunction. 11.Iron-deficiency anemia, chronic anemia. Continue with Icar-C. 12.Hypothyroidism. Continue Synthroid. 13.Hyperbilirubinemia. Ofirmev was discontinued. The bilirubin was 4.4, which was up from yesterday. Will also order an ammonia level for in the morning but he is alert at this time. 14.Severe protein calorie malnutrition. He is eating anywhere from 50% to 100% of his meals with a regular diet. Will order a prealbumin, as his albumin levels have been consistently less than 2 and today is 1.8. Will do a Nutritional consult. He has been having daily bowel movements as well. 15.Gastrointestinal prophylaxis. Continue with Tanya-Colace, IV Protonix 40 IV q.12 hours. 16.Deep venous thrombosis prophylaxis, sequential compression devices. Dictated by SIGIFREDO Mathews for Mohan Ferrari MD Addendum: Patient seen and examined by myself. Agree with SIGIFREDO note. It reflects my assessment and plan. Critical care time 45 minutes. cc: SIGIFREDO Mathews MD [facility]
--- NOTE | 2018-12-11 17:36 | GENERAL SURGERY PROGRESS NOTE ---
DATE: 12/11/2018 Mr. Guzman has had his drain replaced again. It seems to be functioning well. There is no significant leakage from his other puncture sites. If he continues to have trouble with displacement of his percutaneous drain then he might be considered for a laparotomy and a cholecystoenterostomy to internally drain his gallbladder. For now we will leave things as is. cc: Corky Miller MD
[2018-12-11] MEDS: PERICOLACE PO SCH (21:43)
--- NOTE | 2018-12-11 23:01 | PROVIDER PROGRESS NOTE ---
Progress Note SUBJECTIVE: No acute overnight events. No N/V/F, CP, SOB. Chronic abdominal pain controlled. OBJECTIVE Last Vital Signs Temp 98.3 F 12/11/18 19:32 Pulse 91 H 12/11/18 19:32 Resp 15 12/11/18 19:32 BP 112/81 12/11/18 19:32 Pulse Ox 99 12/11/18 19:32 Height 5 ft 8 in Weight 183 lb GEN: awake, alert, NAD HEENT: mild icterus, MMM NECK: supple CV: RR, no murmurs PULM: CTAB, no wheezing ABD: soft, ND, NT, RUQ drain with scant bilious fluid, no rebound or guarding EXT: no cce NEURO: nonfocal LABS 12/11/18 12/11/18 05:50 05:50 WBC 16.98 H Hgb 11.6 L Plt Count 165 Sodium 140 Potassium 3.6 Chloride 102 Carbon Dioxide 25 BUN 33 H Creatinine 2.5 H Glucose 58 L D Total Bilirubin 4.40 H AST 58 H ALT 36 Alkaline Phosphatase 423 H Total Protein 5.8 L Albumin 1.8 L A/P: Mr. Guzman is a 73-year-old male with metastatic pancreatic cancer who presented with cholangitis and septic shock found to have Klebsiella bacteremia in the setting of dislodged cholecystostomy s/p replacement yesterday. His leukocytosis has improved. He is on antibiotics as per ID. Surgery following, appreciate recs. Other option other than laparatory with internalization of drain is IR placement of PTC with internal and external biliary drain, which would have be done in [place]. #Sepsis: improving with abx and cholecystostomy replacement: continue abx; ID following #Klebsiella bacteremia: on abx as per ID #Metastatic pancreatic cancer: Oncology and Palliative care following #Severe protein calorie malnutrition: on regular diet; nutrition following #ESRD: HD per nephrology #Afib with RVR: rate-controlled #Abnormal LFTs: 2/2 to biliary obstruction; suspect will start downtrending: continue daily LFTs #MARJ/AOCD: on iron; no overt bleeding; PPI IV BID; can transition to PO once daily #Chronic pain: on analgesics Will follow with you
[2018-12-12 06:16] LABS: BASO# 0.02 X1000 (0.0-0.2); BASO% 0.1 % (0.0-0.8); EOS# 0.11 X1000 (0.0-0.7); EOS% 0.6 % (0.0-10.0); HEMATOCRIT 31.9 % (42.0-52.0); HEMOGLOBIN 10.5 g/dL (14.0-18.0); IMM GRAN# 0.26 X1000 (0.0-0.04); IMM GRAN% 1.4 % (0.0-0.5); LYMPH# 1.34 X1000 (1.2-3.4); LYMPH% 7.3 % (20.5-51.1); MCH 28.5 PG (27-31); MCHC 32.9 g/dL (33-37); MCV 86.7 FL (81-99); MONO# 1.29 X1000 (0.11-0.59); MONO% 7.1 % (1.7-9.3); MPV 12.1 FL (7.4-10.4); NEUT# 15.25 X1000 (1.4-6.5); NEUT% 83.5 % (42.2-75.2); PLT 153 X1000 (130-400); RBC 3.68 XMIL (4.7-6.1); RDW 16.4 % (11.5-14.5); WBC 18.27 X1000 (4.8-10.8)
[2018-12-12 06:33] LABS: ALB/GLOB RATIO 0.5; ALBUMIN 1.9 g/dL (3.5-5.0); CALCIUM 7.8 mg/dL (8.8-10.2); CREATININE 2.8 mg/dL (0.7-1.2); MAGNESIUM 1.7 mg/dL (1.5-2.7); PHOSPHORUS 4.6 mg/dL (2.7-4.5); POTASSIUM 3.7 mmol/L (3.5-5.1); TOTAL BILIRUBIN 5.35 mg/dL (0.20-1.00); TOTAL PROTEIN 5.6 g/dL (6.3-8.3)
[2018-12-12] MEDS: PRILOSEC PO SCH (06:36)
[2018-12-12] MEDS: SYNTHROID PO SCH (06:36)
[2018-12-12] MEDS ORDERED: TIGHT: 0.2 ML/HR FOR DIALYSIS MISC PRN (08:05)
[2018-12-12] MEDS ORDERED: HEPARIN IV PRN (08:05)
[2018-12-12] MEDS ORDERED: NS 2,000 ML MISC PRN (08:05)
--- NOTE | 2018-12-12 08:08 | EKG Report ---
Test Performed on : 12/12/2018 07:12:38 AM Test Reason : afib Blood Pressure : / mmHG Vent. Rate : 083 BPM Atrial Rate : 083 BPM P-R Int : 186 ms QRS Dur : 098 ms QT Int : 408 ms P-R-T Axes : -06 -53 090 degrees QTc Int : 479 ms Sinus rhythm. with occasional premature ventricular complexes. Left axis deviation Inferior infarct (cited on or before 06-DEC-2018) Anterolateral infarct (cited on or before 07-DEC-2018) Abnormal ECG When compared with ECG of 08-DEC-2018 05:16, premature ventricular complexes. are now present Unconfirmed Result
[2018-12-12] MEDS: ZYLOPRIM PO SCH (08:12)
[2018-12-12] MEDS: LOPRESSOR PO SCH ×2 (08:12→21:55)
[2018-12-12] MEDS: ICAR-C PO SCH ×2 (08:12→21:55)
[2018-12-12] MEDS: ASPIRIN EC PO SCH (08:13)
--- NOTE | 2018-12-12 09:25 | HEMO/ONC CONSULTATION ---
DATE: 12/12/2018 SUBJECTIVE: Mr. Guzman is a 73-year-old male who came to the emergency department on 12/03/2018 after having his ANKUR drain pulled out while getting in the car. At that time, patient was admitted for stent placement by Interventional Radiology. The patient, since being admitted, has had his ANKUR drain replaced. Since being admitted, he has had blood cultures that show Klebsiella pneumonia growing at the tube placement site. The patient is well known to our clinic where he has been following up for his [id number] pancreatic carcinoma. CT scan revealed large pancreatic head mass. Endoscopic ultrasound revealed invasion of the portal vein and duodenum. The patient was started on neoadjuvant Gemzar and Abraxane on 02/20/2018 and completed on 05/07/2018 and was sent to [facility] for possible resection, but it was aborted due to extensive disease found at that time in July 2018. The patient then started back on his Gemzar and Abraxane where he continued with that until he got his last dose on 10/10/2018. Since then, the patient has been admitted due to needing dialysis as well as having problems with stent placement and infections. The patient has not been on treatment recently due to renal dysfunction and needing to heal from that at that time. PAST MEDICAL HISTORY: Congestive heart failure, hypertension, hyperlipidemia, chronic liver disease, gout, arthritis, type 2 diabetes mellitus, end-stage renal disease, cholangitis, pancreatic cancer, gastric outflow obstruction. PAST SURGICAL HISTORY: Port-A-Cath placement, cholecystostomy with drain placement, hemodialysis catheter placement. FAMILY HISTORY: Significant for coronary artery disease and hypertension. SOCIAL HISTORY: Denies any tobacco, alcohol or illicit drug use. ALLERGIES: No known drug allergies. HOME MEDICATIONS: Allopurinol, aspirin, [place] 10 mg, Icar-C, Lopressor, Synthroid, Zofran, and Protonix. REVIEW OF SYSTEMS: Negative except as per HPI. PHYSICAL EXAM: Vital Signs: Temperature 98.4 degrees, heart rate 81, respiratory rate 16, blood pressure 121/78, saturating 96% on room air. General: Patient is awake, lying in bed, no acute distress noted. HEENT: Anicteric. Mucous membranes are moist. Neck: Supple. Trachea midline. No JVD. No palpable lymphadenopathy. Cardiovascular: S1, S2. Regular rate and rhythm. Chest: Bilateral breath sounds. Clear to auscultation. Abdomen: Soft, mildly tender. Percutaneous drain intact and draining well. Neurologic: Alert and oriented x3. No focal deficits noted. LABORATORY DATA: White count 18.27, hemoglobin 10.5, hematocrit of 31.9, platelet count 153,000. Potassium 3.7, BUN 48, creatinine 2.8, total bilirubin is 5.35. ASSESSMENT AND PLAN: 1. Klebsiella pneumoniae bacteremia: Continue recommendation by Infectious Disease and primary medical team. 2. Metastatic pancreatic cancer: Treatment has been on hold for quite some time now. Patient has not received treatment since September. We have been waiting on the patient to get better. The patient is very difficult to treat due to infection and renal dysfunction and on dialysis. Just continue to monitor closely. 3. End-stage renal disease: Continue recommendations per Nephrology. 4. Left ventricular hypertrophy and congestive heart failure: Continue recommendations per Cardiology. 5. Cholecystostomy tube with gastric outlet obstruction: Continue recommendations per Gastroenterology and Surgery. 6. Hypertension: Continue recommendations per primary medical team. 7. Pain management: Continue recommendations per primary medical team. 8. Deep venous thrombosis prophylaxis: Continue sequential compression devices and have patient get out of bed as much as possible. Dictated by SIGIFREDO Jo for Gamaliel Marshall MD Patient seen and examined. As above. Metastatic pancreatic cancer. During his last admission we decided that we will not plan further chemotherapy. His quality of life has been reasonable over the last 4 weeks. He continues on dialysis. Now admitted for cholecystotomy since his cholecystotomy tube came out spontaneously. He also has Klebsiella bacteremia and receiving IV antibiotics. Gamaliel Marshall M.D. cc: SIGIFREDO Jo MD [facility] SYSTEMMiguel
--- NOTE | 2018-12-12 16:17 | PROGRESS NOTE ---
DATE: 12/12/2018 SUBJECTIVE: Mr. Shane Guzman is a 73-year-old -[place] male. He is in no acute distress. He is able answer questions appropriately. He is resting comfortably in bed on his left side after just finishing hemodialysis. OBJECTIVE: Vital signs: Temperature 98.4, heart rate 81, respiratory rate 16, blood pressure 121/78, O2 saturation 96% on room air. General: Mr. Shane Guzman is a 73-year-old - [place] male. He is in no acute distress. Cardiovascular: S1, S2. Regular rate and rhythm. No rubs, gallops, or murmurs. He has got +2 lower extremity pitting edema, 2+ dorsalis pedal pulses and radial pulses. Negative for JVD and carotid bruits. Right chest dialysis catheter in place. Pulmonary: Clear to auscultate bilateral breath sounds. No accessory muscle use or work of breathing noted. GI: Soft, nondistended, nontender. Positive bowel sounds x4. Cholecystostomy tube mildly moist and intact with dark green fluid coming from around the site but only small amount and minimal drainage in the back that is also thin dark green fluid. Extremities: Moves all extremities equally. Skin: Warm, dry, intact, except for around the insertion site of the tube on the right upper abdominal sidewall. LABORATORY DATA: White blood cells 18,000, hemoglobin 10, hematocrit 31, platelet count 153. Sodium 140, potassium 3.7, BUN 48, creatinine 2.8, glucose 91, insulin level 0.7, calcium 7.8, phosphorus 4.6, magnesium 1.7, bilirubin 5.35, AST 47, ALT 28, alkaline phosphatase 372, albumin level 1.9, prealbumin is 13.8. IMAGING: He had an EKG today, that is the only thing that is new, and it shows normal sinus rhythm with occasional PVCs, rate 83, QTc 479. ASSESSMENT AND PLAN: 1. Klebsiella pneumoniae bacteremia source likely from cholecystostomy tube, common bile duct, and gallbladder, which was also positive for Klebsiella pneumoniae. Had a recent replacement of the cholecystostomy tube on 12/10. Since then, white count has gone down from 33 down to 16 and mildly elevated again at 18. He received his cefazolin, which is suppose to be given after each dialysis treatment, which was changed from vancomycin and Merrem on the to cefazolin. 2. Septic shock with leukocytosis. Sepsis has resolved. He is afebrile. Improved white blood cell count after cholecystostomy tube placement on the . 3. Persistent hypoglycemia with diabetes mellitus type 2. Currently, he is having some drops, the last time he dropped was last month but he is being able to keep it under control. We are continuing with glucose checks every 4 hours. Eventually, we can change it to pattern blood glucoses once his blood glucose levels are more stable. He had a Decadron taper that was completed on 12/10. 4. End-stage renal disease followed by Dr. Nguyen. Dialysis on the 1500 mL, on the 1000 mL, on the 185 mL, and today the 500 mL. 5. Left ventricular hypertrophy with reported congestive heart failure. Limited echocardiogram on the showed ejection fraction of 65% to 70% without diastolic dysfunction. There was mild degree of AV sclerosis and moderate LVH and is followed by Cardiology. 6. Recent atrial fibrillation with rapid ventricular response converted to normal sinus rhythm at least by the . EKG today also shows normal sinus rhythm. Continue aspirin and Lopressor at 12.5 mg p.o. twice a day and p.r.n. IV Lopressor for heart rate over 120 but this has not had to be used. 7. Hypertension. Recently was hypotensive due to septic shock, was on pressors, but has since had to be resumed on beta-kiki, metoprolol 12.5 mg p.o. twice a day. Currently, blood pressures are running a little higher than 100s-120s, now he is running about primarily in the 120s. 8. Advanced pancreatic cancer resulting in gastric outlet obstruction. Palliative is following. Rolando was also following. He continues to be a full code. 9. Cholecystostomy tube due to gastric outlet obstruction with 2 times incidental removals also with infection of Klebsiella pneumoniae, on the had it replaced for a third time and on the had a moderate amount of drainage around the insertion site but is somewhat subsided now. There is a very small amount of dark green fluid around the site and it has thin dark green fluid inside the bag, and he is also being followed by Dr. Miller for any other possible recommendations. Dr. Miller saw him and felt that if there was any trouble with the placement of the percutaneous drain again that he might be considered for a laparotomy and cholecystoenterostomy to internally drain his gallbladder but for now he wants to leave things as is. 10.Pain control is [place]. He does not use it very often. 11.Iron-deficiency anemia and chronic anemia. Continue with Icar-C. 12.Hypothyroidism. Continue Synthroid. 13.Hyperbilirubinemia. It appears that he has had this hyperbilirubinemia at least since 09/25/2018, and he has had ranges anywhere from as low as 2.25 to as high as 11.44 since then. He is more elevated now than yesterday, today he is 5.35, yesterday was 4.40. The AST is also elevated with it at 47, and alkaline phosphatase is elevated at 372. Gastroenterology is also following. Ammonia level was normal this morning at 31. There are no obvious signs of jaundiced skin or icterus in the sclera, and is due to biliary obstruction and hopefully they will start downtrending once again now that the drain is in. 14.Severe protein calorie malnutrition. He continues to eat a regular diet with 50% to 100% of his meals being consumed. He is having consistent bowel movements. The prealbumin today is 13.8. His albumin is still 1.9. There was a nutritional consult, who saw him today, and they recommended adding Nepro to supplement p.o. intake and for him to keep most of his meals over 75%. 15.Gastrointestinal prophylaxis. Continue Tanya-Colace. He has been changed from IV Protonix 40 twice a day to Prilosec 20 mg p.o. daily by GI, that was changed today starting at 0700. 16.Deep venous thrombosis prophylaxis, sequential compression devices. 17.Disposition. It appears that things are starting to stabilize out. His blood glucose levels are also starting to stabilize out. We may need to watch the liver functions a little bit longer and also make sure that infection is improving but will likely need rehab upon discharge with continue IV antibiotics after dialysis and will reevaluate once again tomorrow. Dictated by SIGIFREDO Mathews for Mohan Ferrari MD Addendum: Patient seen and examined by myself. Agree with SIGIFREDO note. It reflects my assessment and plan. cc: SIGIFREDO Mathews MD [facility]
[2018-12-12] MEDS ORDERED: KEFZOL 1 GM/D5W 1 GM/50 ML IVPB IV ONE (17:00)
--- NOTE | 2018-12-12 18:38 | NEPHROLOGY PROGRESS NOTE ---
DATE: 12/12/2018 SUBJECTIVE: Patient is sitting up in bed, eating breakfast. No complaints today. OBJECTIVE: Vital Signs: Temperature 98.4 degrees, pulse 81, respiratory rate 16, blood pressure 121/78. Intake 300 mL. Output 75 mL. General: Elderly gentleman, sitting up in bed, actually undergoing dialysis, no acute distress. HEENT: Normocephalic, atraumatic. ADI. Neck: Supple without JVD. Cardiovascular: Regular rate and rhythm without murmur or gallop. Pulmonary: Clear bilaterally. Abdomen: Soft. Positive bowel sounds. : Not inspected. Extremities: No clubbing, cyanosis, or edema. Integumentary: Skin is warm and dry. LAB DATA: WBC of 18.2, hemoglobin 10.5. Sodium 140, potassium 3.7, creatinine 2.8, albumin 1.9. ASSESSMENT AND PLAN: 1. Chronic kidney disease 5D with acute tubular necrosis and no recovery. Continue dialysis per routine. 2. Electrolytes, acid-base balance. These are acceptable. Continue to dialyze with appropriate bath. 3. Klebsiella pneumonia bacteremia. Followed by primary and Infectious Disease. 4. Pancreatic cancer. Palliative Care is the following as well as Dr. Marshall. 5. Hypertension. Continue home medications. 6. Fluid volume. He is not overloaded. Dictated by SIGIFREDO Christopher for Ubaldo Nguyen MD Face to face encounter, data reviewed, discussed with Maddy Casillas on 12/12/18. I agree with the above assessment and plan of care. cc: Ubaldo Nguyen MD [facility]
--- NOTE | 2018-12-12 18:50 | INFECTIOUS DISEASE PROGRESS NO ---
DATE: 12/12/2018 PRESENT ILLNESS: Mr. Guzman is being treated for a Klebsiella infected common bile duct and gallbladder due to pancreatic tumor obstruction, with an associated Klebsiella bacteremia. MEDICATIONS: He is receiving Kefzol 1 g IV after dialysis. PHYSICAL EXAMINATION: Vital Signs: Temperature is 98.4 degrees, pulse rate 81, respiratory rate 16, blood pressure 121/78, O2 saturation 96% on room air. General: This is an elderly, chronically ill-appearing gentleman. He is lying in the bed, currently in no acute distress. HEENT: Atraumatic, normocephalic. Oral mucous membranes are pink and moist. Conjunctivae are pale. Sclera are icteric Neck: Supple. Trachea is midline. Integumentary: There is a dialysis catheter in place to his right chest. That site is without edema, erythema, or drainage. There is also a dressing to his right flank with an accordion drain, with green fluid draining. Respiratory: Lung sounds are clear to auscultation. Cardiovascular: Heart rate and rhythm are regular. Normal sinus rhythm on the monitor. Abdomen: Soft, large, round, and tender on palpation. Bowel sounds are active. Neurologic: He is awake, alert, and appropriate. Moving around in the bed independently. LABORATORY AND X-RAY: Today his white count is 18.27, hemoglobin 10.5, platelet count 153,000. Creatinine is 2.8, GFR 27. Total bilirubin 5.35, AST 47, ALT 28, alkaline phosphatase 372. Ammonia level is 31. His abdominal drainage and his blood have both grown a Klebsiella pneumoniae. Most recently, his blood cultures have been sterile. No imaging reports today. ASSESSMENT AND PLAN: Mr. Guzman is being treated for a Klebsiella bacteremia as well as a Klebsiella that is draining from his cholecystostomy tube. The plan is for him to continue Kefzol 1 g IV after each dialysis treatment, which he will need for 2 weeks based on his sterile blood cultures. Today is day 2. These plans have been discussed with and recommended by Dr. Banuelos. COMORBIDITIES: for Mr. Guzman include metastatic pancreatic cancer, end-stage renal disease with hemodialysis, and congestive heart failure. Dictated by SIGIFREDO Mcnamara for Jose Banuelos MD This chart was documented by, SIGIFREDO Mcnamara and accurately reflects the services performed, treatment plan and medical decisions as attested by the providers signature Jose Banuelos MD. cc: Jose Banuelos MD [facility]
[2018-12-12] MEDS: PERICOLACE PO SCH (21:55)
--- NOTE | 2018-12-12 23:35 | PROVIDER PROGRESS NOTE ---
Progress Note SUBJECTIVE: No acute overnight events. No N/V/F, CP, SOB, abdominal pain OBJECTIVE: Last Vital Signs Temp 98.7 F 12/12/18 22:50 Pulse 88 12/12/18 22:50 Resp 20 12/12/18 22:50 BP 137/81 12/12/18 22:50 Pulse Ox 100 12/12/18 22:50 Height 5 ft 8 in Weight 186 lb 1 oz GEN: awake, alert, NAD HEENT: mild icterus, MMM NECK: supple CV: RR, no murmurs PULM: CTAB, no wheezing ABD: soft, ND, NT, RUQ drain with scant bilious fluid, no rebound or guarding EXT: no cce NEURO: nonfocal LABS: 12/12/18 12/12/18 05:50 05:50 WBC 18.27 H Hgb 10.5 L Plt Count 153 Sodium 140 Potassium 3.7 Chloride 102 Carbon Dioxide 24 L BUN 48 H Creatinine 2.8 H A/P: Mr. Guzman is a 73-year-old male with metastatic pancreatic cancer who presented with cholangitis and septic shock found to have Klebsiella bacteremia in the setting of dislodged cholecystostomy s/p replacement on 12/11. His leukocytosis is stable. He is on antibiotics as per ID. Surgery following, appreciate recs. #Sepsis: improving with abx and cholecystostomy replacement: continue abx; ID following #Klebsiella bacteremia: on abx as per ID #Metastatic pancreatic cancer: Oncology and Palliative care following #Severe protein calorie malnutrition: on regular diet; nutrition following #ESRD: HD per nephrology #Afib with RVR: rate-controlled #Abnormal LFTs: 2/2 to biliary obstruction; continue daily LFTs #MARJ/AOCD: on iron; cont PPI PO once daily #Chronic pain: on analgesics Will follow with you
[2018-12-13] MEDS: SYNTHROID PO SCH (06:39)
[2018-12-13] MEDS: PRILOSEC PO SCH (06:39)
[2018-12-13 06:51] LABS: BASO# 0.01 X1000 (0.0-0.2); BASO% 0.1 % (0.0-0.8); EOS# 0.14 X1000 (0.0-0.7); EOS% 1.3 % (0.0-10.0); HEMATOCRIT 33.4 % (42.0-52.0); HEMOGLOBIN 10.9 g/dL (14.0-18.0); IMM GRAN# 0.16 X1000 (0.0-0.04); IMM GRAN% 1.5 % (0.0-0.5); LYMPH# 1.21 X1000 (1.2-3.4); LYMPH% 11.5 % (20.5-51.1); MCH 28.5 PG (27-31); MCHC 32.6 g/dL (33-37); MCV 87.4 FL (81-99); MONO# 1.24 X1000 (0.11-0.59); MONO% 11.8 % (1.7-9.3); MPV 12.1 FL (7.4-10.4); NEUT# 7.72 X1000 (1.4-6.5); NEUT% 73.8 % (42.2-75.2); PLT 164 X1000 (130-400); RBC 3.82 XMIL (4.7-6.1); WBC 10.48 X1000 (4.8-10.8)
[2018-12-13 07:06] LABS: ALB/GLOB RATIO 0.5; ALBUMIN 1.9 g/dL (3.5-5.0); CALCIUM 7.5 mg/dL (8.8-10.2); CREATININE 2.2 mg/dL (0.7-1.2); MAGNESIUM 1.7 mg/dL (1.5-2.7); PHOSPHORUS 4.4 mg/dL (2.7-4.5); POTASSIUM 3.6 mmol/L (3.5-5.1); TOTAL BILIRUBIN 3.09 mg/dL (0.20-1.00); TOTAL PROTEIN 5.8 g/dL (6.3-8.3)
[2018-12-13] MEDS: ZYLOPRIM PO SCH (09:54)
[2018-12-13] MEDS: ICAR-C PO SCH ×2 (09:54→20:56)
[2018-12-13] MEDS: ASPIRIN EC PO SCH (09:54)
[2018-12-13] MEDS: LOPRESSOR PO SCH ×2 (09:54→20:56)
--- NOTE | 2018-12-13 12:25 | HEMO/ONC PROGRESS NOTE ---
DATE: 12/13/2018 SUBJECTIVE: Patient denies any complaints at this time. The patient continues to do okay. OBJECTIVE: Vital Signs: Temperature 98.4 degrees, heart rate 78, respiratory rate 16, blood pressure 121/76, saturation 100 on room air. General: Patient is awake, lying in bed, no acute distress noted. HEENT: Anicteric. Pupils PERRLA. Cardiovascular: S1, S2. Regular rate and rhythm. Chest: Bilateral breath sounds clear to auscultation. Abdomen: Soft, mildly tender. Bowel sounds present in all 4 quadrants. Percutaneous drain intact and draining wound. Neurologic: Alert and oriented x3. No focal deficits noted. LABORATORY DATA: White blood count is 10.4, hemoglobin 10.1, hematocrit 30.4, platelets are 164,000. Potassium 3.6, BUN 27, creatinine 2.2. ASSESSMENT AND PLAN: 1. Metastatic pancreatic cancer: Patient will not be receiving any further treatment at this time. 2. Klebsiella pneumoniae bacteremia. Continue antibiotics ordered by Infectious Disease and Primary Medical Team. 3. End-stage renal disease. Continue with recommendations per Nephrology. 4. Deep venous thrombosis prophylaxis. Continue sequential compression devices. Have patient get out of bed as much possible. We will sign off at this time. Dictated by SIGIFREDO Jo for Gamaliel Marshall MD cc: SIGIFREDO Jo MD [facility]
--- NOTE | 2018-12-13 13:09 | PROGRESS NOTE ---
DATE: 12/13/2018 SUBJECTIVE: He is resting in bed. He is feeling better. His cholecystostomy drain was successfully replaced. His jaundice level is improving. He has been eating better. He is moving his bowels. He denies any fevers, rigors or chills. OBJECTIVE: Vital signs: Temperature 98.4, pulse of 78, respiratory rate 16, blood pressure 121/76, saturating 100% room air. Body weight of 186 pounds. General Appearance: He is moderately nourished, lying in bed, in no acute distress. HEENT: Pale conjunctivae. Icteric sclerae. Neck: Supple. Abdomen: Protuberant. There is a cholecystostomy drain in the right upper quadrant with a surgical bandage on top. Protuberant abdomen. No guarding. Extremities: No cyanosis, clubbing, edema. Neurologic: Alert, awake, oriented to time, place, and person. LABORATORY DATA: Hemoglobin and hematocrit is 10.9 and 33.4, white count of 10.4, platelet count of 164,000. Sodium 140, potassium 3.6, chloride 103, bicarb 27, anion gap 10, BUN of 27, creatinine 2.2, glucose of 120, calcium is 7.5, phosphorus 4.4, magnesium 1.7. Total bilirubin is 3.09 which is down from yesterday at 5.3, AST 32, ALT 18, alkaline phosphatase is 335, total protein 5.8, albumin of 1.9. IMPRESSION AND PLAN: 1. Metastatic pancreatic cancer. Presented with cholangitis, septic shock and found to have Klebsiella bacteremia in the setting of dislodged cholecystostomy drain. It was replaced on 12/11/2018 by the Radiology. His bilirubin has been trending down. His liver enzymes are now normal. He is on antibiotics per the ID team. I have spoken with the nursing staff. We will put abdominal binder in place to prevent dislodgement of the tube. 2. Sepsis. Being managed by the primary care team. It is improving. 3. Metastatic pancreatic cancer. Oncology is on board. 4. Protein-calorie malnutrition. He is on regular diet. 5. End-stage renal disease on hemodialysis. Per Nephrology. 6. Atrial fibrillation with rapid ventricular response, rate controlled. 7. Anemia. He is on iron supplementation. 8. Gastrointestinal prophylaxis. PPIs. 9. Chronic pain. Being managed the primary care team. I have spoken with the patient's nurse and all questions answered. Please call us with any further questions. We will continue to follow at this time. cc: MD Yaritza Zacarias MD
--- NOTE | 2018-12-13 13:22 | PROGRESS NOTE ---
DATE: 12/13/2018 SUBJECTIVE: Mr. Shane Guzman is a 73-year-old -[place] male. He is in no acute distress. He is sitting comfortably on the side of the bed upright without difficulties currently waiting for lunch to be served and is requesting for a dressing change on his right cholecystostomy tube, so I changed his dressing and cleaned it with ChloraPrep and redressed it with 4x4s and ABD pad with silk tape. The site did still have somewhat of a foul smell to it. There seemed to be more of a serous-type fluid that was draining into the old dressing but there is no significant amount of green drainage coming around it, and there is minimal amount of green drainage inside of the drain itself. He had no complaints other than it just burned a little bit with cleaning the site. He seems to be improving quite a bit, so he was informed that physical therapy and occupational therapy will come see him today or tomorrow to try to help evaluate if he wants to try and go home with [facility] or he needs rehabilitation that help build his strength. All of the treatments are going to continue as ordered. OBJECTIVE: Vital signs: Temperature is 98.4, heart rate 74, respiratory rate 16, blood pressure 121/76, O2 saturation 100% on room air. General: Mr. Shane Guzman is a 73-year-old - [place] male. He is in no acute distress. He is able to answer questions appropriately. Cardiovascular: S1, S2. Regular rate and rhythm. No rubs, gallops, or murmurs. He has got 2+ pitting edema in the bilateral feet. He has got 2+ dorsalis pedal and radial pulses. Negative for carotid bruits or JVD at this time. Pulmonary: Clear to auscultate bilateral breath sounds. Tolerating room air at 100% saturations. GI: Soft, nontender, nondistended. Positive bowel sounds x4. Right cholecystostomy tube as mentioned under subjective. Skin: Warm, dry, intact, except some drainage around the cholecystostomy tube as noted. LABORATORY DATA: White blood cells 10,000, hemoglobin 10, hematocrit 33, platelet count 164. Sodium 140, potassium 3.6, BUN 27, creatinine is 2.2, glucose 136 and 79 this morning, calcium 7.5, bilirubin 3.09, AST 32, ALT 18, alkaline phosphatase 335, albumin is 1.9. IMAGING: None. ASSESSMENT AND PLAN: 1. Klebsiella pneumoniae bacteremia with source being from cholecystostomy tube, common bile duct, gallbladder, which also tested positive for Klebsiella pneumoniae. Recent cholecystostomy tube replaced on 12/10. White count is now down to normal at 10,000. He is afebrile. Neutrophil count down to normal. He is continuing cefazolin 1 g after dialysis treatments, which was changed from vancomycin and Merrem on the to cefazolin. 2. Septic shock with leukocytosis. This has since resolved. 3. Persistent hypoglycemia with diabetes mellitus type 2. Now, the lowest he is getting is about 79 and that is in the mornings. Will change his blood glucose level checks to before meals and at night. Currently holding all medications that can decrease the blood sugar. He did have a Decadron taper that was completed on 12/10. Continuing a regular diet. 4. End-stage renal disease followed by Dr. Nguyen. Dialysis on the 1500 mL removed, on the 1000 mL, on the 185 mL, on the 500 mL. 5. Left ventricular hypertrophy with reported congestive heart failure. Limited echocardiogram on the showed ejection fraction 65% to 70% without diastolic dysfunction, mild degree of AV sclerosis, and moderate LVH being followed by Cardiology. 6. Recent atrial fibrillation with rapid ventricular response converted to normal sinus rhythm by the . EKG yesterday showed sinus rhythm as well. Continue aspirin and Lopressor. 7. Hypertension. Was hypotensive during septic shock and was on pressors but has since been resumed on metoprolol 12.5 mg p.o. twice a day and blood pressure is remaining anywhere from 110s going up to as high as 130. 8. Advanced pancreatic cancer resulting in gastric outlet obstruction. Palliative following. Rolando is also following and he is a full code. 9. Cholecystostomy tube due to gastric outlet obstruction with 2 incidental removals, positive for Klebsiella pneumoniae, replaced on the for the third time by Interventional Radiology. There has been some drainage coming from the site, now it is more of a serous color, still has a little bit of a foul smell to it. It was cleaned with ChloraPrep and dressing redressed today. No obvious movement and the tube is secure. There is a small amount of green thin liquid inside of the drain bag. Dr. Miller is also following. 10.Pain control with [place] but not used very often. 11.Iron-deficiency anemia with chronic anemia. Continue with Icar-C. 12.Hypothyroidism. Continue Synthroid. 13.Hyperbilirubinemia. Since the beginning of this year September of 2017, it has been anywhere from as low as 2.25 to as high as 11.44. Today, we have dropped from 5.35 yesterday and today is 3.09 with normal AST and ALT. The alkaline phosphatase is still elevated at 335 but it is down by a little bit. I suspect it will continue to drop with the drainage tube in place. 14.Severe protein calorie malnutrition. His albumin continues to be 1.9. Nutrition recommended Nepro so those have been added to his meals. He states he has been drinking those as well. Prealbumin is also still a little low at 13.8 the other day, and his meal intake anywhere from 50% to 100% since the . Continuing to have daily bowel movements. 15.Gastrointestinal prophylaxis. Continue Tanya-Colace. He is on Prilosec 20 mg p.o. daily. Continue current management. Gastroenterology is following. 16.Deep venous thrombosis prophylaxis, sequential compression devices. 17.Disposition. All of his labs have stabilized out essentially and also his vital signs, his white count is back down to normal. Will consult physical therapy and occupational therapy to evaluate if he needs rehab upon discharge or if he is strong enough to be able to go home for home health, which he had apparently used [facility] prior to admission. Dictated by SIGIFREDO Mathews for Mohan Ferrari MD cc: SIGIFREDO Mathews MD
--- NOTE | 2018-12-13 19:00 | NEPHROLOGY PROGRESS NOTE ---
DATE: 12/13/2018 SUBJECTIVE: He states he has "peed a little". NO shortness of breath, nausea, or vomiting. OBJECTIVE: Vital Signs: Blood pressure 138/81, heart rate 88, respirations 20, afebrile. General: No acute distress. Skin: Warm and dry. Eyes: Conjunctivae are pink. Neck: Neck veins are not distended. Heart: Regular. No gallops. Lungs: Equal. No crackles or wheezes. Abdomen: Soft, nontender. Bowel sounds present. Extremities: Minimal edema. No clubbing or cyanosis. IMPRESSION: Chronic kidney disease 5D, presumed. His creatinine today was 2.2 following dialysis. We will observe his BUN and creatinine tomorrow prior to dialysis. Electrolytes, acid- base, and anemia are all on target. Antibiotics are dosed appropriately. No changes. cc: Ubaldo Nguyen MD
--- NOTE | 2018-12-13 19:39 | INFECTIOUS DISEASE PROGRESS NO ---
DATE: 12/13/2018 PRESENT ILLNESS: The patient has a Klebsiella bacteremia originating from a Klebsiella cholangitis and gallbladder abscess which is caused by blockage from the patient's pancreatic tumor. MEDICATIONS: This is day 3 of treatment with Kefzol being given after dialysis with day 1 being the first day that the repeat blood cultures are sterile. PHYSICAL EXAMINATION: Vital Signs: Temperature is 97.4, pulse 88, respirations 20, blood pressure 138/81. General: This is a chronically ill-appearing elderly male. He is in no acute distress. HEENT: The patient appears to have scleral icterus. There is no drainage from the nose or ears. He does not have any white patches on his tongue. Neck: No pain with movement. Lungs: Clear to auscultation. Thorax: The patient has a tunneled dialysis catheter on the right side. The site is not swollen or draining. Cardiovascular: Heart rate is regular. Abdomen: Soft and nontender. Accordion drain is in place on the right side. Neurologic: Patient is alert. He can move his extremities. There is no tremor. LAB AND X-RAY: CBC shows a white count of 10,480, hemoglobin 10.9, platelet count 164,000. Creatinine is 2.2. GFR is 36. Repeat blood cultures are sterile. ASSESSMENT AND PLAN: Patient is being treated for a Klebsiella bacteremia which arose from cholangitis and gallbladder abscess due to blockage from the patient's pancreatic tumor. I plan to treat the patient for a total of 14 days with day 1 being the first day of sterile blood cultures. This is day 3 of treatment. The patient does get his medicine after each dialysis. COMORBIDITIES: The patient has metastatic pancreatic cancer, end-stage renal disease with hemodialysis and congestive heart failure. cc: Jose Banuelos MD
[2018-12-13] MEDS: PERICOLACE PO SCH (20:56)
[2018-12-14] MEDS: SYNTHROID PO SCH ×2 (05:46→06:02)
[2018-12-14] MEDS: PRILOSEC PO SCH ×2 (05:46→06:02)
[2018-12-14 06:32] LABS: BASO# 0.03 X1000 (0.0-0.2); BASO% 0.3 % (0.0-0.8); EOS# 0.12 X1000 (0.0-0.7); EOS% 1.1 % (0.0-10.0); HEMATOCRIT 38.7 % (42.0-52.0); HEMOGLOBIN 12.7 g/dL (14.0-18.0); IMM GRAN# 0.07 X1000 (0.0-0.04); IMM GRAN% 0.6 % (0.0-0.5); LYMPH# 1.07 X1000 (1.2-3.4); LYMPH% 9.7 % (20.5-51.1); MCH 29.6 PG (27-31); MCHC 32.8 g/dL (33-37); MCV 90.2 FL (81-99); MONO% 8.1 % (1.7-9.3); MPV 11.8 FL (7.4-10.4); NEUT# 8.87 X1000 (1.4-6.5); NEUT% 80.2 % (42.2-75.2); PLT 170 X1000 (130-400); RBC 4.29 XMIL (4.7-6.1); RDW 17.7 % (11.5-14.5); WBC 11.06 X1000 (4.8-10.8)
[2018-12-14 07:10] LABS: ALB/GLOB RATIO 0.4; ALBUMIN 1.8 g/dL (3.5-5.0); CREATININE 2.6 mg/dL (0.7-1.2); MAGNESIUM 1.8 mg/dL (1.5-2.7); PHOSPHORUS 5.6 mg/dL (2.7-4.5); POTASSIUM 4.8 mmol/L (3.5-5.1); TOTAL BILIRUBIN 3.87 mg/dL (0.20-1.00); TOTAL PROTEIN 6.4 g/dL (6.3-8.3)
[2018-12-14] MEDS ORDERED: TIGHT: 0.2 ML/HR FOR DIALYSIS MISC PRN (07:30)
[2018-12-14] MEDS ORDERED: NS 2,000 ML MISC PRN (07:30)
[2018-12-14] MEDS ORDERED: HEPARIN IV PRN (07:30)
--- NOTE | 2018-12-14 12:05 | NEPHROLOGY PROGRESS NOTE ---
DATE: 12/14/2018 SUBJECTIVE: He is lying in the bed. He has not yet eaten his breakfast but he plans to. No shortness of breath, nausea or vomiting. Low urine output by his assessment. OBJECTIVE: Blood pressure is 137/81, heart rate 82, respirations 20, afebrile. Intake is 500 mL, output 200 mL. No acute distress. Skin is warm and dry. Conjunctivae are pink. Neck veins are not distended. Heart is regular. Lungs are equal. Abdomen is soft, nontender. Bowel sounds present. Extremities with no edema, clubbing or cyanosis. IMPRESSION: Chronic kidney disease stage 5D. He will have his routine hemodialysis today, 2K bath, 1 L ultrafiltration. No other changes. cc: Ubaldo Nguyen MD
[2018-12-14] MEDS: ZYLOPRIM PO SCH (12:32)
[2018-12-14] MEDS: ICAR-C PO SCH ×2 (12:32→20:03)
[2018-12-14] MEDS: LOPRESSOR PO SCH ×2 (12:32→20:03)
[2018-12-14] MEDS: ASPIRIN EC PO SCH (12:32)
--- NOTE | 2018-12-14 13:50 | PROGRESS NOTE ---
DATE: 12/14/2018 SUBJECTIVE: Patient reports feeling fine. No complaints at this time. OBJECTIVE: Vital Signs: Temperature 98.3 degrees, heart rate 82, respiratory 20, blood pressure 137/81, O2 saturation 94% on room air. General: This is a 73-year-old chronically ill-looking male lying in bed in no acute distress. HEENT: Head is normocephalic, atraumatic. Neck: No JVD noted. No carotid bruits, no lymphadenopathy. Cardiovascular: S1, S2 heard. No murmurs, gallops, or rubs noted. Respiratory: Clear bilaterally to auscultation. No work of breathing or using accessory muscles. Abdomen: Soft, nontender to palpation, nondistended. Bowel sounds present. No organomegaly. There is a right cholecystostomy tube noted on place. Extremities: No clubbing or cyanosis. Mild pitting edema 2+ in both feet. Neurological: Patient alert, oriented x3, moves 4 extremities. LABORATORY DATA: White cell count 11.06, hemoglobin 12.7, hematocrit 38.7, platelets 170,000. BMP remarkable for creatinine 2.6 and carbon dioxide 20. ASSESSMENT/PLAN: 1. Klebsiella pneumonia bacteremia with source being from cholecystostomy tube. That condition is getting much better. He is not developing any fever and he is receiving antibiotics, he is receiving actually 1 g cefazolin after dialysis treatment. Dr. Banuelos from Infectious Disease following this patient. 2. Septic shock with leukocytosis. White cell count today is almost back to normal is 11 but few days ago he had 33,000, definitely this patient is getting better, not requiring of course any vasopressors, will continue to monitor this patient closely. 3. End-stage renal disease on dialysis. Dr. Nguyen following this patient. 4. Congestive heart failure. Patient does have some mild lower extremity edema. Is important to remark that the limited echocardiogram on December 07 showed ejection fraction between 65 to 70 percent without diastolic dysfunction. At this point continue to monitor. 5. Episodes of atrial fibrillation with rapid ventricular rate. That is completely resolved. 6. Hypertension. Blood pressure is under control. Will continue with the same management. 7. Pancreatic cancer with gastric outlet obstruction. Dr. Marshall is following this patient and that is the reason why this patient get this cholecystostomy tube placed. 8. Iron deficiency anemia. Will continue with Icar-C. 9. Hypothyroidism. Will continue with home dose of Synthroid. 10. Severe protein calorie malnutrition. Patient is getting Nepro to this current treatment. 11. Physical deconditioning. I think this patient has become very weak so I think at this point that is the only thing pending on this patient. We have put a consult for physical therapy and will see they recommend for him to go to rehab facility. cc: Mohan Ferrari MD
--- NOTE | 2018-12-14 14:25 | INFECTIOUS DISEASE PROGRESS NO ---
DATE: 12/14/2018 SUBJECTIVE: The patient has a Klebsiella bacteremia originating from a Klebsiella cholangitis and gallbladder abscess which in turn is caused by blockage from the patient's pancreatic tumor. MEDICATIONS: The patient has been receiving cefazolin. This is day 4 of treatment. PHYSICAL EXAMINATION: Vital Signs: Temperature is 98.3 degrees, pulse 82, respirations 20, blood pressure 137/81. General: This is a chronically ill and jaundiced elderly male. He is in no acute distress. Head, Eyes, Ears, Nose and Throat: He has scleral icterus. He does not have any white patches on his tongue. There is no drainage from his nose or ears. Neck: No pain with movement. Lungs: Clear to auscultation. Cardiovascular: Heart rate is regular. Thorax: The patient has a right-sided tunneled dialysis catheter in the upper part of the chest. Abdomen: Soft and nontender. A drain is in place. Neurologic: Patient is awake he can move his extremities. He does not have a tremor. LAB AND X-RAY: There is no radiographic study for today. Laboratory studies [place] [address], hemoglobin 12.7, and platelet count 170,000. Creatinine is 2.6. GFR is 30. Bilirubin is 3.87, alkaline phosphatase is 425. ASSESSMENT AND PLAN: The patient as mentioned above, has a Klebsiella bacteremia and cholangitis and gallbladder abscess. The tube is in place to relieve the blockage and drain the infection. My plan is to continue cefazolin for a total of 2 weeks. COMORBIDITIES: The patient unfortunately has metastatic pancreatic cancer, end-stage renal disease with hemodialysis, and congestive heart failure. cc: Jose Banuelos MD
[2018-12-14] MEDS ORDERED: KEFZOL 1 GM/D5W 1 GM/50 ML IVPB IV ONE (18:00)
[2018-12-14] MEDS: PERICOLACE PO SCH (20:05)
--- NOTE | 2018-12-14 23:57 | PROVIDER PROGRESS NOTE ---
Progress Note SUBJECTIVE: No acute overnight events. No N/V/F. Patient denies complaints. +BM, nonbloody OBJECTIVE: Last Vital Signs Temp 98.7 F 12/14/18 23:22 Pulse 82 12/14/18 23:22 Resp 16 12/14/18 23:22 BP 116/74 12/14/18 23:22 Pulse Ox 100 12/14/18 23:22 Height 5 ft 8 in Weight 186 lb GEN: awake, alert, NAD HEENT: mild icterus, MMM NECK: supple CV: RR, no murmurs PULM: CTAB, no wheezing ABD: soft, ND, NT, RUQ drain with scant bilious fluid, no rebound or guarding EXT: no cce NEURO: nonfocal LABS: 12/14/18 12/14/18 06:15 06:15 WBC 11.06 H Hgb 12.7 L D Plt Count 170 Sodium 138 Potassium 4.8 D Chloride 101 Carbon Dioxide 20 L Anion Gap 17 BUN 35 H Creatinine 2.6 H Glucose 83 Total Bilirubin 3.87 H AST 44 H ALT 14 Alkaline Phosphatase 425 H Total Protein 6.4 Albumin 1.8 L A/P: Mr. Guzman is a 73-year-old male with metastatic pancreatic cancer who presented with cholangitis and septic shock found to have Klebsiella bacteremia in the setting of dislodged cholecystostomy s/p replacement on 12/11. His leukocytosis is stable. He is on antibiotics as per ID. Surgery following, appreciate recs. Sepsis: improving with abx and cholecystostomy replacement: continue abx; ID following #Klebsiella bacteremia: on abx as per ID #Metastatic pancreatic cancer: Palliative care following; not a candidate for further chemo per oncology #Severe protein calorie malnutrition: on regular diet; nutrition following #ESRD: HD per nephrology #Afib with RVR: rate-controlled #Abnormal LFTs: 2/2 to biliary obstruction; continue daily LFTs #MARJ/AOCD: on iron; cont PPI PO once daily #Chronic pain: on analgesics Patient is stable from GI standpoint to be discharged with abx as per ID. Will sign off. Please call with questions
[2018-12-15] MEDS: PRILOSEC PO SCH (06:25)
[2018-12-15] MEDS: SYNTHROID PO SCH (06:25)
[2018-12-15 06:39] LABS: BASO# 0.02 X1000 (0.0-0.2); BASO% 0.2 % (0.0-0.8); EOS# 0.11 X1000 (0.0-0.7); HEMATOCRIT 32.9 % (42.0-52.0); HEMOGLOBIN 10.6 g/dL (14.0-18.0); IMM GRAN# 0.05 X1000 (0.0-0.04); IMM GRAN% 0.5 % (0.0-0.5); LYMPH# 1.35 X1000 (1.2-3.4); LYMPH% 12.5 % (20.5-51.1); MCH 28.6 PG (27-31); MCHC 32.2 g/dL (33-37); MCV 88.9 FL (81-99); MONO# 1.14 X1000 (0.11-0.59); MONO% 10.5 % (1.7-9.3); MPV 11.7 FL (7.4-10.4); NEUT# 8.14 X1000 (1.4-6.5); NEUT% 75.3 % (42.2-75.2); PLT 267 X1000 (130-400); RDW 16.6 % (11.5-14.5); WBC 10.81 X1000 (4.8-10.8)
[2018-12-15 07:06] LABS: ALB/GLOB RATIO 0.5; CALCIUM 7.7 mg/dL (8.8-10.2); CREATININE 2.3 mg/dL (0.7-1.2); MAGNESIUM 1.6 mg/dL (1.5-2.7); PHOSPHORUS 4.3 mg/dL (2.7-4.5); POTASSIUM 3.4 mmol/L (3.5-5.1); TOTAL BILIRUBIN 2.95 mg/dL (0.20-1.00)
[2018-12-15] MEDS: LOPRESSOR PO SCH ×2 (11:23→21:08)
[2018-12-15] MEDS: ASPIRIN EC PO SCH (11:24)
[2018-12-15] MEDS: ZYLOPRIM PO SCH (11:24)
[2018-12-15] MEDS: ICAR-C PO SCH ×2 (11:24→21:08)
--- NOTE | 2018-12-15 12:59 | PROGRESS NOTE ---
DATE: 12/15/2018 SUBJECTIVE: The patient reports feeling fine. No complaints at this time. OBJECTIVE: Vital Signs: Temperature 97.4 degrees, heart rate 97, respiratory rate 16, blood pressure 124/81, O2 saturation 100% on room air. General: This is a 73-year-old male, chronically ill-looking, lying in bed, in no acute distress. Cardiovascular: S1, S2 heard. No murmurs, gallops, or rubs. Regular rate and rhythm. Respiratory: Clear bilaterally to auscultation. No work of breathing or using accessory muscles. Abdomen: There is a right cholecystostomy tube noted in place with greenish and somewhat malodorous drainage as well. No signs of peritoneal irritation. Bowel sounds present. No organomegaly. Extremities: No clubbing, cyanosis. Marked edema 2+ in both feet. Neurological: Patient alert and oriented x3. Moves 4 extremities. LABORATORY DATA: Reviewed. ASSESSMENT AND PLAN: 1. Klebsiella pneumoniae bacteremia, with the source being from cholecystostomy tube. Clinically, this patient is doing good with white cell count that is almost back to normal. Dr. Banuelos from Infectious Disease is following this patient. I think this patient can continue receiving antibiotics at dialysis. Currently, he is receiving cefazolin 1 g after dialysis. 2. Septic shock with leukocytosis. That condition is much better. Patient is not requiring any vasopressors and white cell count is back to normal. 3. End-stage renal disease, on dialysis. Dr. Nguyen is following this patient. 4. Congestive heart failure. The patient is not in any exacerbation. I will continue to monitor. 5. Pancreatic cancer, with gastric outlet obstruction. Dr. Marshall was following this patient. Because this patient is not a candidate for any further chemotherapy, they have signed off. 6. Iron deficiency anemia. Will continue with the Icar C. 7. Hypothyroidism. Will continue home dose of Synthroid. 8. Severe protein-calorie malnutrition. The patient is getting Nepro as current treatment. 9. Physical deconditioning. Physical Therapy working with this patient. 10. Disposition. At this point, patient is stable. He needs to continue with antibiotics for a period of time as Dr. Banuelos considers necessary. Antibiotics can be given on dialysis. I think, considering that he is not a candidate for chemotherapy, he can be sent to rehabilitation, or hospice is another option. In any case, we will continue to monitor this patient closely. cc: Mohan Ferrari MD
[2018-12-15] MEDS: PERICOLACE PO SCH (21:08)
[2018-12-16] MEDS: SYNTHROID PO SCH (06:17)
[2018-12-16] MEDS: PRILOSEC PO SCH (06:17)
[2018-12-16 06:53] LABS: BASO# 0.03 X1000 (0.0-0.2); BASO% 0.3 % (0.0-0.8); EOS# 0.12 X1000 (0.0-0.7); EOS% 1.2 % (0.0-10.0); HEMATOCRIT 31.9 % (42.0-52.0); HEMOGLOBIN 10.2 g/dL (14.0-18.0); IMM GRAN# 0.05 X1000 (0.0-0.04); IMM GRAN% 0.5 % (0.0-0.5); LYMPH# 1.33 X1000 (1.2-3.4); LYMPH% 12.8 % (20.5-51.1); MCH 28.6 PG (27-31); MCV 89.4 FL (81-99); MONO# 1.31 X1000 (0.11-0.59); MONO% 12.6 % (1.7-9.3); MPV 11.7 FL (7.4-10.4); NEUT# 7.55 X1000 (1.4-6.5); NEUT% 72.6 % (42.2-75.2); PLT 315 X1000 (130-400); RBC 3.57 XMIL (4.7-6.1); RDW 16.3 % (11.5-14.5); WBC 10.39 X1000 (4.8-10.8)
[2018-12-16 07:09] LABS: ALB/GLOB RATIO 0.5; ALBUMIN 1.9 g/dL (3.5-5.0); CALCIUM 7.6 mg/dL (8.8-10.2); CREATININE 2.7 mg/dL (0.7-1.2); MAGNESIUM 1.7 mg/dL (1.5-2.7); PHOSPHORUS 5.4 mg/dL (2.7-4.5); POTASSIUM 3.6 mmol/L (3.5-5.1); TOTAL BILIRUBIN 2.47 mg/dL (0.20-1.00); TOTAL PROTEIN 5.9 g/dL (6.3-8.3)
[2018-12-16 07:20] LABS: BANDS 2 % (0-1); LYMPHS 18 % (21-51); MONO 6 % (1-9); SEGS 72 % (42-75)
[2018-12-16] MEDS ORDERED: CALMOSEPTINE OINTMENT TOP PRN (08:28)
[2018-12-16] MEDS: ASPIRIN EC PO SCH (08:39)
[2018-12-16] MEDS: ICAR-C PO SCH ×2 (08:39→21:10)
[2018-12-16] MEDS: ZYLOPRIM PO SCH (08:39)
[2018-12-16] MEDS: LOPRESSOR PO SCH ×2 (08:40→21:11)
--- NOTE | 2018-12-16 13:07 | PROGRESS NOTE ---
DATE: 12/16/2018 SUBJECTIVE: Patient reports feeling fine. No complaints at this time. OBJECTIVE: Vital Signs: Temperature 98.0 degrees, heart rate 100, respiratory rate 22, blood pressure 136/78, O2 saturation 100% on room air. General examination: This is a chronically ill-appearing 73-year-old male, lying in bed, in no acute distress. HEENT: Head is normocephalic, atraumatic. Neck: No JVD noted. No carotid bruits. No lymphadenopathy. No thyromegaly. Cardiovascular: S1, S2 heard. No murmurs, gallops, or rubs. Regular rate and rhythm. Respiratory: Clear bilaterally to auscultation. No work of breathing or using accessory muscles. Abdomen: There is a right cholecystostomy tube noted in place with greenish malodorous drainage. No signs of peritoneal irritation. Bowel sounds present. No organomegaly. Extremities: No clubbing, cyanosis, marked edema 2+ in both lower extremities. Neurological: Patient alert, oriented x3. Moves 4 extremities. LABORATORY DATA: Reviewed. ASSESSMENT AND PLAN: 1. Klebsiella pneumoniae bacteremia with the source being from cholecystostomy tube. Clinically, the patient is not developing any fever. His white cell count is back to normal so at this point, I think Dr. Banuelos from Infectious Disease who is following this patient. I think patient will continue receiving antibiotics on dialysis. The patient currently receiving 1 g of cefazolin after dialysis. We will continue with same management. 2. Septic shock with leukocytosis. Blood pressures of course much better. Leukocytosis is almost resolved. At this point, I think this condition is resolved. 3. End-stage renal disease, on dialysis. Dr. Nguyen monitoring this patient. 4. Congestive heart failure. Patient is not in any exacerbation. We will continue to monitor. 5. Pancreatic cancer with gastric outlet obstruction. Oncology thinks that this patient is not a candidate for any for chemotherapy. 6. Iron-deficiency anemia. We will continue with Icar C. 7. Hypothyroidism. We will continue with the same doses of Synthroid. DISPOSITION: At this point, I think this patient is stable. One option for him is to go to rehabilitation, but hospice is not an option. We will check with Palliative Care tomorrow and see what they think. cc: Mohan Ferrari MD
[2018-12-16] MEDS: PERICOLACE PO SCH (21:11)
[2018-12-17] MEDS ORDERED: TIGHT: 0.2 ML/HR FOR DIALYSIS MISC PRN (06:37)
[2018-12-17] MEDS ORDERED: NS 2,000 ML MISC PRN (06:37)
[2018-12-17] MEDS ORDERED: HEPARIN IV PRN (06:37)
[2018-12-17] MEDS: PRILOSEC PO SCH (07:31)
[2018-12-17] MEDS: SYNTHROID PO SCH (07:31)
[2018-12-17] MEDS: LOPRESSOR PO SCH ×2 (09:08→22:19)
[2018-12-17] MEDS: ICAR-C PO SCH ×2 (09:09→22:19)
[2018-12-17] MEDS: ZYLOPRIM PO SCH (09:09)
[2018-12-17] MEDS: ASPIRIN EC PO SCH (09:09)
--- NOTE | 2018-12-17 12:12 | NEPHROLOGY PROGRESS NOTE ---
DATE: 12/17/2018 SUBJECTIVE: Mr. Guzman is currently resting quietly in bed. Head of the bed is elevated. He states that he is feeling well. He has been up to walk to the room this morning. OBJECTIVE: Vital Signs: Temperature 99.1 degrees, blood pressure 135/77, heart rate 94, respirations 18. He is on room air. Last recorded saturation 100%. He has had 885 in. He has had 0 recorded out. LABORATORY DATA: These have not been ordered this a.m. We will order these. The patient's last hemoglobin 10.2. The patient's previous potassium 3.6. PHYSICAL EXAMINATION: General: This is a 73-year-old male resting quietly in bed. Head of the bed is elevated. He appears chronically ill. No acute distress. Skin: Warm and dry. HEENT: Normocephalic, atraumatic. Conjunctiva is pale. He has ADI. Mucous membranes are dry. Neck: Supple. Trachea midline. Positive JVD. Cardiovascular: Regular rate and rhythm. Lungs: Diminished breath sounds. Poor inspiratory effort. He remains on room air. Abdomen: Soft, nontender. Positive bowel sounds. He has a drain to the right upper quadrant draining gold material to his drainage back. Abdomen is soft, nontender. Genitourinary: Not inspected. The patient states that he has been voiding. Extremities: Have 2+ lower extremity edema. No clubbing or cyanosis. ASSESSMENT AND PLAN: 1. Chronic kidney disease stage 5D. The patient is due for his routine dialysis treatment this a.m. There are no indications for further intervention. We will place him on a 2 K bath. He is to dialyze for 3.5 hours. We will plan 1 L of ultrafiltration. 2. Electrolytes and acid-base balance. These are acceptable. 3. Anemia. This is acceptable. 4. Biliary stent placement. This is followed by primary care and his surgeon. 5. Klebsiella bacteremia. This is followed by Dr. Jose Banuelos and primary care. I would like to thank you for allowing us to follow with this patient. Dictated by SIGIFREDO Adams for Ubaldo Nguyen MD Face to face encounter, data reviewed, discussed with Rosina Paz on 12/17/18. I agree with the above assessment and plan of care. cc: SIGIFREDO Adams MD MTDD
[2018-12-17 12:46] LABS: ALBUMIN 2.1 g/dL (3.5-5.0); CALCIUM 7.9 mg/dL (8.8-10.2); CREATININE 1.7 mg/dL (0.7-1.2); PHOSPHORUS 3.3 mg/dL (2.7-4.5); POTASSIUM 3.1 mmol/L (3.5-5.1)
--- NOTE | 2018-12-17 13:38 | INFECTIOUS DISEASE PROGRESS NO ---
DATE: 12/17/2018 PRESENT ILLNESS: The patient has a Klebsiella bacteremia originating from a cholangitis and gallbladder abscess caused by blockage of the biliary system from the patient's pancreatic tumor. MEDICATIONS: This is the 7th day of treatment with cefazolin which the patient receives after each dialysis. PHYSICAL EXAMINATION: Vital Signs: Temperature 99 degrees, pulse 102, respirations 24, blood pressure 108/65. General: This is a chronically ill and jaundiced elderly male. He is in no acute distress. Head, eyes, ears, nose, and throat: He has scleral icterus. He can hear my spoken words. He does not have any white patches on his tongue. Neck: No pain with movement. Lungs: Clear to auscultation. Cardiovascular: Heart rate is regular. Thorax: Patient has a right-sided tunneled dialysis catheter in the upper part of the chest. The site is not swollen or draining. Abdomen: Soft and nontender. A drain is in the right upper quadrant and is in the biliary system. Neurologic: The patient is awake. He can move his extremities. There is no tremor. DIAGNOSTIC STUDIES: There is no new radiographic study[place] [address], hemoglobin 10.2, and platelet count 315,000. Creatinine is 1.7, GFR is 48. ASSESSMENT AND PLAN: Patient has Klebsiella bacteremia and cholangitis and gallbladder abscess due to blockage of the biliary system by his pancreatic tumor. I plan to continue his cefazolin for a total of 2 weeks. COMORBIDITIES: 1. The patient unfortunately has metastatic pancreatic cancer. 2. He also has end-stage renal disease and is on hemodialysis. 3. Finally, he also has congestive heart failure. cc: Jose Banuelos MD
--- NOTE | 2018-12-17 14:21 | PROGRESS NOTE ---
DATE: 12/17/2018 SUBJECTIVE: Patient reports feeling fine. No complaints at this time. OBJECTIVE: Vital Signs: Temperature 99.0, heart rate 102, respiratory rate 24, blood pressure 108/85. O2 saturation 96% on room air examination. General: This is a chronically ill appearing 74 -year-old male lying in bed, in no acute distress. Cardiovascular: S1, S2 heard. No murmurs, gallops, or rubs. Regular rate and rhythm. Respiratory: Clear bilaterally to auscultation. No work of breathing or using accessory muscles. Abdomen: There is a right cholecystostomy tube noted in place with some greenish malodorous drainage. No signs of peritoneal irritation. Bowel sounds present. No organomegaly. Extremities: No clubbing, cyanosis, but there is marked edema, 2+ in both lower extremities. Neurological: Patient alert oriented x3. Moves 4 extremities. LABORATORY DATA: Reviewed. ASSESSMENT AND PLAN: 1. Klebsiella pneumoniae bacteremia with the source being from the cholecystostomy tube. Clinically this patient continues to be stable. Dr. Banuelos from Infectious Disease is following this patient and providing cefazolin 1 gram IV after dialysis. I think this patient can continue receiving this medication as an outpatient. 2. Septic shock on presentation with leukocytosis. White cell count is much better. I think this condition has resolved. 3. End-stage renal disease, on dialysis. Dr. Nguyen is monitoring this patient. 4. Congestive heart failure. Patient is not in exacerbation. We will continue to monitor this patient closely. 5. Pancreatic cancer with gastric outlet obstruction. Oncology think this patient is not a candidate for any chemotherapy so they have signed off a few days ago. 6. Iron-deficiency anemia. We will continue with Icar C. 7. Hypothyroidism. We will continue with same doses of Synthroid. DISPOSITION: This patient is stable and he needs to go to rehab facility. He is not going to receive any chemotherapy. We will see what social services aide has to say. cc: Mohan Ferrari MD
[2018-12-17] MEDS ORDERED: KEFZOL 1 GM/D5W 1 GM/50 ML IVPB IV ONE (16:00)
[2018-12-17] MEDS: PERICOLACE PO SCH (22:19)
[2018-12-18] MEDS: SYNTHROID PO SCH (06:04)
[2018-12-18] MEDS: PRILOSEC PO SCH (06:04)
[2018-12-18 07:15] LABS: ALBUMIN 1.9 g/dL (3.5-5.0); CALCIUM 8.1 mg/dL (8.8-10.2); CREATININE 2.2 mg/dL (0.7-1.2); PHOSPHORUS 4.2 mg/dL (2.7-4.5); POTASSIUM 3.4 mmol/L (3.5-5.1)
[2018-12-18 08:01] VITALS: BP 124/73
[2018-12-18] MEDS: ASPIRIN EC PO SCH (09:50)
[2018-12-18] MEDS: LOPRESSOR PO SCH (09:50)
[2018-12-18] MEDS: ZYLOPRIM PO SCH (09:50)
[2018-12-18] MEDS: ICAR-C PO SCH (09:51)
--- NOTE | 2018-12-18 11:50 | INFECTIOUS DISEASE PROGRESS NO ---
DATE: 12/18/2018 PRESENT ILLNESS: The patient has a Klebsiella bacteremia which originates from cholangitis and abscess of the gallbladder. MEDICATIONS: The patient has been receiving cefazolin now for a total of 8 days. The dose is 1 g IV after each dialysis. PHYSICAL EXAMINATION: Vital Signs: Temperature is 98.4 degrees, pulse 86, respirations 16, blood pressure is 124/73. General: This is a chronically ill-appearing and jaundiced elderly male. He is in no acute distress. Head, eyes, ears, nose, and throat: He has scleral icterus. He can hear my spoken words and see near objects. He does not have any white patches on his tongue. Lungs: Clear to auscultation. Cardiovascular: Heart rate is regular. Thorax: The patient has a right-sided tunneled dialysis catheter in place. The site is not draining, and it is not tender. Abdomen: Soft and nontender in the upper right hand part of the abdomen. The patient has a drain in place, which is in the biliary system. There is brown drainage coming from the drain. Neurologic: Patient is alert. He can move his extremities. There is no tremor. LABORATORY AND X-RAY: The only laboratory for today is a creatinine 2.2. The GFR is 36. ASSESSMENT AND PLAN: 1. I discussed the patient with Dr. Garcia. He very much would like to go home and both she and I think he can go home. I have called Dr. Nguyen to order Ancef 1 g IV after each dialysis for 1 week. The patient will be following up with his own personal physician, Ernesto Estrada MD, and with Dr. Nguyen who is his technical rep. 2. Comorbidity: Unfortunately, he has metastatic pancreatic cancer. He has end-stage renal disease and is on hemodialysis. He also has congestive heart failure. I am available to see the patient on a p.r.n. basis. cc: Jose Banuelos MD
--- NOTE | 2018-12-18 12:29 | NEPHROLOGY PROGRESS NOTE ---
DATE: 12/18/2018 DATE AND TIME SEEN: 12/18/2018 at 0710. SUBJECTIVE: Mr. Guzman is currently resting quietly in bed. Has no complaints and states that he feels that he is ready to go home. Has been up walking in his room. OBJECTIVE: VITAL SIGNS: Temperature 98.5 degrees, blood pressure 120/71, heart rate 78, respirations 18. He is on room air. Last recorded saturation 100%. He has had 100 in, he has had 1800 out per dialysis. LABORATORY DATA: Sodium 140, potassium 3.4, chloride 100, CO2 28, BUN 20, creatinine 2.2, glucose is 60, anion gap is 12, calcium 8.1, phosphorus 4.2, albumin 1.9. Previous hemoglobin 10.2. PHYSICAL EXAMINATION: General: This is a 73-year-old male resting quietly in bed. He is in no acute distress. He appears chronically ill. Skin: Warm and dry. HEENT: Normocephalic, atraumatic. Conjunctivae pale. He has ADI. Mucous membranes are dry. Neck: Supple. Trachea midline. No JVD. Cardiovascular: He is regular rate and rhythm. No murmur or gallop appreciated. Lungs: Decreased breath sounds, otherwise clear to auscultation bilateral. Equal excursion on room air. Abdomen: Soft, nontender. Positive bowel sounds. Patient has a drain to his right upper quadrant with gold material to the drainage bag. Genitourinary: Not inspected. Patient has been voiding adequate amounts documented. Extremities: Have 1 to 2+ lower extremity edema. Neurological: Alert and oriented x3. ASSESSMENT AND PLAN: 1. Chronic kidney disease stage 5D. The patient is due for his routine dialysis treatment in the a.m. 2. Electrolytes and acid-base balance. These are acceptable. 3. Anemia. This is low but stable. 4. Biliary stent placement. Followed by the primary care and the surgeon. 5. Klebsiella bacteremia. Followed by Dr. Banuelos with renal dosed antibiotics. We arranged for an additional week of OV Ancef at dialysis. I would like to thank you for allowing us to follow with this patient. Dictated by SGIIFREDO Adams for Ubaldo Nguyen MD Face to face encounter, data reviewed, discussed with Rosina Paz on 12/18/18. I agree with the above assessment and plan of care. cc: SIGIFREDO Adams MD MTDD
== END 2018-12-18 15:14 | disposition home health service (06) | DRG 919 ==
LOC: ED 16:18 → SUATTDRO 12-04 02:03 → 4N 12-04 02:03 → ICU 12-06 16:45 → 4N 12-09 11:31
PROVIDERS: ATTEND Internal Medicine
CPT/HCPCS: 49041; 49405; 49406; 71010; 71045; 76700; 80048; 80053; 80069; 82140; 82533; 82805; 82947; 82948; 83525; 83605; 83735; 84100; 84134; 84439; 84443; 84681; 85025; 85610; 85730; 87040; 87070; 87077; 87186; 93005; 93010; 93306; 93308; 94761; 97116; 97162; 97165; 97530; 99285; A9270; C1729; C8924; C9113; J0131; J0690; J1100; J1644; J2185; J2370; J3370; J7030; J7042; J7050; Q9957; S0164; XXXXX

== ENCOUNTER 2019-01-30 03:51 | Inpatient (IN) ==
[2019-01-30] MEDS ORDERED: MORPHINE IV ONE (04:23)
[2019-01-30] MEDS ORDERED: NS 500 ML IV ONE (04:23)
--- NOTE | 2019-01-30 04:41 | PROVIDER DOCUMENTATION ---
HPI-General Adult - General Chief Complaint: Generalized Pain Stated Complaint: GENERAL Time Seen by Provider: 01/30/19 04:17 Source: patient Allergies/Adverse Reactions: Patient Allergies Allergy/AdvReac Type Severity Reaction Status Date / Time No Known Allergies Allergy Verified 11/01/18 17:45 Home Medications: Home Medication List Medication Instructions Recorded Confirmed Last Taken Type Allopurinol 100 mg PO DAILY 02/06/18 01/30/19 12/03/18 History Aspirin [Adult Low Dose Aspirin EC] 81 mg PO DAILY 04/30/18 01/30/19 12/03/18 History Iron Carbonyl/Ascorbic Acid 1 each PO BID tablet 10/05/18 01/30/19 12/03/18 Rx [Icar-C] Hydrocodone/APAP 10 mg/325 mg 1 ea PO Q6H PRN #30 tab 12/18/18 01/30/19 Unknown Rx [Mcgregor-10] Levothyroxine [Synthroid] 75 microgm PO DAILY@0700 tab 12/18/18 01/30/19 Unknown Rx Omeprazole [Prilosec] 20 mg PO DAILY@0700 cap 12/18/18 01/30/19 Unknown Rx Hydroxyzine [Atarax] 25 mg PO HS PRN 01/30/19 01/30/19 Unknown History Insulin Degludec [Tresiba 40 unit SQ DAILY 01/30/19 01/30/19 Unknown History Flextouch U-200] Ondansetron HCl [Zofran] 8 mg PO Q6H PRN PRN 01/30/19 01/30/19 Unknown History - History of Present Illness -Gen Adult Nature of Presenting Problems: Pt presents with malfunctioning drain, pt had drain placed in liver approxima tely 3 months ago, stopped working today, now with pain in RUQ, sharp, no radiation, pt denies f/c, frankel, cp, sob, cough, n/v/d. Pt is lying in bed in no acute distress. Location of Pain/Injury: reports: abdomen Pain Radiation: reports: RUQ Quality of Pain: reports: sharp Severity: reports: mild Onset/Duration: reports: 24 hours ago Timing: reports: still present Context/Activities at Onset: reports: none Modifying Factors: improves with: nothing Associated Symptoms: reports: denies symptoms Similar Symptoms Previously?: No Recently seen or treated by another doctor?: No Review of Systems - Adult - REVIEW OF SYSTEMS - ADULT Constitutional: reports: no symptoms reported Eyes: reports: no symptoms reported Ears, Nose, Mouth & Throat: reports: no symptoms reported Cardiovascular: reports: no symptoms reported Respiratory: reports: no symptoms reported Gastrointestinal: reports: see HPI Genitourinary: reports: no symptoms reported Musculoskeletal: reports: no symptoms reported Integumentary: reports: no symptoms reported Neurological: reports: no symptoms reported Psychiatric: reports: no symptoms reported Endocrine: reports: no symptoms reported Hematologic/Lymphatic: reports: no symptoms reported Allergic/Immunologic: reports: no symptoms reported All Other Systems: Reviewed and Negative Past History - Adult - PAST MEDICAL HISTORY-ADULT Review of Records: reports: Old Records Reviewed, Nursing Assessment Review, Medications Reviewed, Social history reviewed & non-contributory. Major Childhood Illnesses: reports: denies history Cardiovascular: reports: CHF, HTN, hyperlipidemia Respiratory: reports: denies history Gastrointestinal: reports: liver disease Obstetrical/Gynecological: reports: denies history Genitourinary: reports: kidney disease Musculoskeletal: reports: arthritis (GOUT) Neurological: reports: denies history Psychiatric: reports: denies history Endocrine/Immune: reports: Diabetes (per patient told him he was a half/half), thyroid disorder Other Conditions: reports: denies history - PRIOR SURGERIES/PROCEDURES Surgical/Procedure History: reports: reviewed, not pertinent, orthopedic (extremity) (finger) - IMMUNIZATION STATUS Childhood Immunizations: See Nurse Assessment Flu Vaccine: See Nurse Assessment - FAMILY HISTORY Family History: reviewed, not pertinent Physical Exam-General - PHYSICAL EXAM-ADULT Initial Vital Signs Reviewed: Yes - CONSTITUTIONAL General Appearance: appears well, no apparent distress - EYES Eyes: PERRL/EOMI - HEAD, EARS, NOSE, MOUTH & THROAT HENMT: normal ENT inspection - NECK Neck: normal inspection - RESPIRATORY Respiratory: no respiratory distress, no accessory muscle use - CARDIOVASCULAR Cardiovascular: regular rate, rhythm - GASTROINTESTINAL (ABDOMEN) Abdominal Exam: non tender, soft, no organomegaly - MUSCULOSKELETAL Back Exam: normal inspection Extremity: normal range of motion - SKIN Integumentary: normal color - NEUROLOGIC Neurologic: center human resources manager II-XII nml as tested - PSYCHIATRIC Psych/Mental Status: normal mood/affect Progress - PLAN OF CARE/RESULTS Progress/Plan/Lab Results: Vital Signs - 8 hr 01/30/19 03:57 Temperature 98.3 F Pulse Rate 82 Respiratory Rate 18 Blood Pressure 63/48 O2 Sat by Pulse Oximetry 99 Orders Category Date Time Status CT ABDOMEN/PELVIS W/O CONTRAST [CT] Stat Exams 01/30/19 04:22 Ordered CBC WITH ELECTRONIC DIFF [HEME] Stat Lab 01/30/19 04:22 Uncollected COMPREHENSIVE METABOLIC PANEL [CHEM] Stat Lab 01/30/19 04:22 Uncollected LACTATE, PLASMA [CHEM] Stat Lab 01/30/19 04:23 Uncollected LIPASE [CHEM] Stat Lab 01/30/19 04:22 Uncollected TROPONIN T Stat Lab 01/30/19 04:22 Uncollected 0.9% Sodium Chloride Inj [Ns] 500 ml Med 01/30/19 04:23 Active IV 999 mls/hr Morphine Med 01/30/19 04:23 Discontinued 4 mg IV NOW ONE Result Diagrams: 01/30/19 04:40 01/30/19 06:00 - REASSESSMENT Reassessment #1 Status: improving (Assumed care from BG with disposition pending labs. Glucose noted to be low, patient diaphoretic and somnolent. Given IV D50 with resulting improvement in mental status. Discussed with with plan for admission.) Departure - Departure Date of Disposition Decision: 01/30/19 Time of Disposition Decision: 07:30 DIAGNOSIS: Dehydration, moderate Abdominal pain Qualifiers: Abdominal location: right upper quadrant Qualified Code(s): R10.11 - Right upper quadrant pain Disposition: ADMITTED INPATIENT 09 Certified Medical Emergency: Emergent Condition: Serious - Critical Care Note This patient required my direct & personal management of CC.: No Attestation - Physician/ NEDRA Attestation Patient care was provided by Advanced Practice Provider:: No The physician spent face to face time with patient:: Yes Advanced Practice Provider documentation review:: Supervising physician onsite and consulted in the evaluation and care of this patient. The physician did have a face to face encounter with the patient.
[2019-01-30 05:51] LABS: BASO# 0.02 X1000 (0.0-0.2); BASO% 0.2 % (0.0-0.8); EOS# 0.03 X1000 (0.0-0.7); EOS% 0.2 % (0.0-10.0); HEMATOCRIT 36.5 % (42.0-52.0); HEMOGLOBIN 11.7 g/dL (14.0-18.0); IMM GRAN# 0.03 X1000 (0.0-0.04); IMM GRAN% 0.2 % (0.0-0.5); LYMPH# 0.92 X1000 (1.2-3.4); LYMPH% 7.2 % (20.5-51.1); MCH 28.1 PG (27-31); MCHC 32.1 g/dL (33-37); MCV 87.7 FL (81-99); MONO# 1.12 X1000 (0.11-0.59); MONO% 8.8 % (1.7-9.3); MPV 11.3 FL (7.4-10.4); NEUT# 10.59 X1000 (1.4-6.5); NEUT% 83.4 % (42.2-75.2); PLT 365 X1000 (130-400); RBC 4.16 XMIL (4.7-6.1); RDW 15.6 % (11.5-14.5); WBC 12.71 X1000 (4.8-10.8)
[2019-01-30 07:21] LABS: ALB/GLOB RATIO 0.5; ALBUMIN 2.2 g/dL (3.5-5.0); CALCIUM 8.2 mg/dL (8.8-10.2); CREATININE 5.7 mg/dL (0.7-1.2); POTASSIUM 2.9 mmol/L (3.5-5.1); TOTAL BILIRUBIN 1.58 mg/dL (0.20-1.00); TOTAL PROTEIN 6.8 g/dL (6.3-8.3)
[2019-01-30] MEDS ORDERED: D50W SYRINGE IV ONE ×2 (07:30)
--- NOTE | 2019-01-30 07:35 | Diag Imaging Result Doc PS360 ---
EXAM: CT ABDOMEN/PELVIS W/O CONTRAST 01/30/2019 HISTORY: liver drain stopped working, now RUQ pain TECHNIQUE: This exam was performed using automated exposure control, adjustment of mA or kV according to patient size, and/or use of iterative reconstruction technique. COMMENT: Compared to the previous study of 12/10/2018, the atelectasis in the lung bases has improved. There is no longer any pleural fluid. There is continued pneumobilia. The cholecystostomy catheter which was previously present in the gallbladder has been withdrawn and the end of the catheter is in the lower portion of the right hepatic lobe. The mass in the head of the pancreas is again noted and measures 7.2 cm in transverse dimension. This has not changed significantly since the previous study at which time it measured 7.4 cm. There are multiple apparent cysts in the left kidney. There is a hyperdense cyst posteriorly in the right kidney. There is no evidence of nephrolithiasis or hydronephrosis. The tail of the pancreas appears slightly enlarged compared to the previous examination although there is no evidence of additional ductal dilatation. There is gas and stool throughout the colon. The small bowel is not distended. The adrenal glands are stable in appearance. There is diverticulosis in the sigmoid colon without evidence of diverticulitis. The regional skeleton is stable in appearance. There is no evidence of free fluid or free air. IMPRESSION: Cholecystostomy catheter withdrawn from the gallbladder. Improved bibasilar atelectasis and bilateral pleural effusions. Otherwise no significant change since 12/10/2018. Electronically signed by Desmond Lazar 01/30/2019 7:33 AM
[2019-01-30] MEDS ORDERED: NS 1,000 ML IV ONE ×2 (07:39→07:52)
[2019-01-30] MEDS ORDERED: ZOSYN 2.25 GM in NS 50 ML IV SCH (07:45)
[2019-01-30] MEDS ORDERED: NS 1,000 ML ONE (07:51)
[2019-01-30] MEDS ORDERED: VANCOMYCIN 1 GM/NS 1 GM/250 ML IVPB IV ONE (08:02)
[2019-01-30] MEDS ORDERED: TAZIDIME 2 GM in NS 100 ML IV ONE (08:02)
[2019-01-30 08:23] LABS: ALLEN TEST NO; BE -5.1 mmoll (-3.0-3.0); BLOOD TYPE ARTERIAL; HCO3-(ACT) 20.9 mmoll (20.0-26.0); O2(CT) 14.4 mL/dL (15.0-23.0); O2HB 96.3 % (95.0-99.0); PCO2(98.6) 36 mmHg (35-45); PO2(98.6) 113 mmHg (60-100); SAMPLE BLOOD; SAO2 96.3 % (95.0-100.0); THB 10.5 g/dL (11.5-17.4); pH(98.6) 7.35 (7.35-7.45)
[2019-01-30 08:26] LABS: MODALITY ROOM AIR
--- NOTE | 2019-01-30 08:43 | NEPHROLOGY CONSULTATION ---
DATE: 01/30/2019 REASON FOR ADMISSION: Malfunctioning gallbladder drain. REASON FOR CONSULTATION: End-stage renal disease with assistance with medical management. HISTORY OF PRESENT ILLNESS: Mr. Guzman is a 73-year-old male, who is known to our outpatient services for hemodialysis on Monday, Monday, Monday at the [facility]. The patient is known to have pancreatic head cancer. He has had a gallbladder drain that was inadvertently dislodged on 12/04/2018. It was placed per Dr. Lazar under fluoroscopy. He presented to [facility] with right upper quadrant pain last night. This was sharp, no radiation. He does complain of some discomfort. Denies fever or chills. No headaches, no chest pain or increased work of breathing. No cough. No nausea, vomiting, or diarrhea. Drain is intact without any anders drainage in it. PAST MEDICAL HISTORY: End-stage renal disease with hemodialysis on Monday, Monday, Monday at the [facility], hypertension, congestive heart failure, hyperlipidemia. Positive for liver disease. Positive for pancreatic head cancer, gout, arthritis, anemia of chronic disease, osteodystrophy of chronic disease, diabetes mellitus type 2, hyperparathyroidism, hypothyroidism. PAST SURGICAL HISTORY: He has a tunnel dialysis catheter to the right chest wall. Previous orthopedic surgery to his finger. Previous placement of gallbladder drain under fluoroscopy. FAMILY HISTORY: Noncontributory. SOCIAL HISTORY: He is cared for by his son. Denies any tobacco, alcohol or illicit drug use currently. ALLERGIES: Listed as no known drug allergies. HOME MEDICATIONS: Have yet to be reconciled. REVIEW OF SYSTEMS: Review of systems x10 with pertinent positives listed above in the HPI. VITAL SIGNS: His last set of vital signs: Temperature 98.3 degrees, blood pressure 63/48, heart rate 82, respirations 18. He is on room air. Last recorded saturation is 99%. He has had zero recorded in or out. LABORATORY DATA: His last set of labs are currently pending. White count 12.71, hemoglobin 11.7, hematocrit 36.5 with a platelet count of 365. PHYSICAL EXAMINATION: General: This is a 73-year-old, male resting quietly on a stretcher. He appears chronically ill, no acute distress. Skin: Warm and dry. HEENT: Normocephalic, atraumatic. Conjunctiva is pale pink, nonicteric. Mucous membranes are dry. Neck: Supple. Trachea midline. No evidence of JVD. Cardiovascular: Regular rate and rhythm. No appreciable murmur or gallop. Lungs: Clear to auscultation anterior. Equal excursion on room air. Abdomen: Slightly distended. Dressing to the right quadrant where he has his drain. Positive bowel sounds. Genitourinary: Not inspected. Minimal void with dialysis assist. Extremities: Have no edema, no clubbing or cyanosis. Neurological: He is able to move all extremities well x4. Able to assist with exam. Alert and oriented x3. ASSESSMENT AND PLAN: 1. Chronic kidney disease stage 5 D. Patient is to receive dialysis. Today we will place him on a 2 potassium bath. He is to dialyze for 3-1/2 hours. We will attempt to pull patient to his dry weight. 2. Electrolytes and acid-base balance. These remain fairly stable. 3. Labs and acidosis. These have been stable in the past. Labs are currently pending. We will place him on an appropriate potassium bath based upon his labs. 4. Anemia. This remains stable. 5. Dislodged biliary drain. Dr. Miller is to be consulted. Followed by primary care. I would like to thank you for allowing us to follow with this patient. Dictated by SIGIFREDO Adams for Ubaldo Nguyen MD cc: SIGIFREDO Adams MD [facility]
[2019-01-30] MEDS ORDERED: NEO-SYNEPHRINE 50 MG in NS 250 ML IV SCH (08:45)
--- NOTE | 2019-01-30 08:56 | Diag Imaging Result Doc PS360 ---
EXAM: CHEST-PORTABLE 01/30/2019 HISTORY: dyspnea TECHNIQUE: AP portable at 0847 COMMENT: Compared to the previous study of 12/07/2018 the opacification over the cardiac apex in the lingula and the platelike opacity in the right base which were present previously have resolved. Otherwise are has been no appreciable change. IMPRESSION: Improved atelectasis or pneumonia in the right base and lingula. Electronically signed by Desmond Lazar 01/30/2019 8:53 AM
[2019-01-30 09:12] LABS: HEMOGLOBIN A1C 3.8 % (4.8-6.0)
[2019-01-30 10:22] LABS: INR 1.31; PROTIME 17.3 Seconds (11.0-16.0)
[2019-01-30] MEDS ORDERED: TIGHT: 0.2 ML/HR FOR DIALYSIS MISC PRN (10:23)
[2019-01-30] MEDS ORDERED: HEPARIN IV PRN (10:23)
[2019-01-30] MEDS ORDERED: NS 2,000 ML MISC PRN (10:23)
--- NOTE | 2019-01-30 10:41 | HISTORY AND PHYSICAL ---
CHIEF COMPLAINT: Abdominal pain. HISTORY OF PRESENT ILLNESS: This is a 73-year-old gentleman with a history of metastatic pancreatic cancer which is inoperable, who is status post cholecystostomy catheter with multiple revisions due to the patient dislodging the catheter. He presents to the emergency room today complaining of abdominal pain, primarily right upper quadrant that he states is consistent with his drain being dislodged. CT scan of the abdomen and pelvis revealed cholecystostomy catheter withdrawn from the gallbladder. He was also found to have a glucose of 20. On arrival to the emergency room, he was given D50 as well as fed and since, blood sugars have been in the 130s to 160s. The patient is awake, alert and oriented and at the time of my examination, he is not complaining of pain. He denied any fevers or chills, any nausea, vomiting. He does have a drain noted coming from his right upper quadrant that is draining anders drainage in the bag. PAST MEDICAL HISTORY: 1. End stage renal disease 2. Metastatic pancreatic adenocarcinoma 3. Anemia of chronic disease. 4. Paroxysmal atrial fibrillation. 5. Diabetes mellitus type 2. 6. Secondary hyperparathyroidism. 7. Hypothyroidism. 8. Klebsiella bacteremia PAST SURGICAL HISTORY: 1. Tunneled dialysis catheter the right chest. 2. Previous orthopedic surgery to his finger. 3. Cholecystostomy catheter placed under fluoro. SOCIAL HISTORY: He denies any alcohol, tobacco, or illicit drug use. ALLERGIES: No known drug allergies. HOME MEDICATIONS: A list will be obtained by the nursing staff and will be verified, reviewed and restarted as appropriate. REVIEW OF SYSTEMS: Discussed with patient with pertinent positives stated in history of present illness. He denied any syncope, dizziness, chest pain, palpitations, nausea, vomiting, diarrhea, constipation, black or bloody vomitus or stools, hematuria, dysuria, frequency, urgency. PHYSICAL EXAMINATION: GENERAL: This is a 73-year-old gentleman who is sitting up in the stretcher in the emergency room in no distress. VITAL SIGNS: Blood pressure is 80/52. It is ranging from 70 to 80 systolic. Heart rates are run 90 to 102 with respirations 16. Temperature is 98.3 degrees oral with O2 saturations 98-99%. EYES: Pupils equal, round, react to light. EOMs are intact. Sclerae anicteric. HEENT: Head is normocephalic, atraumatic. Mucous membranes are dry. NECK: Supple. Trachea midline. No evidence of JVD. CARDIOVASCULAR: Regular rate and rhythm. S1, S2 appreciated. No murmur. Calves are nontender bilateral to palpation. He has no lower extremity edema. Peripheral pulses are palpable x4 extremities. PULMONARY: Breath sounds are clear with no increased work of breathing noted. Chest rises and falls symmetrically with respiration. Chest wall is nontender to palpation. GASTROINTESTINAL: Abdomen is distended, soft, nontender with bowel sounds in all 4 quadrants. He does have a right upper quadrant drain with a dressing dry and intact. GENITOURINARY: He has no CVA nor suprapubic tenderness. NEUROLOGIC: He is alert and oriented x3. SKIN: Warm and dry. LABORATORIES: WBC is 12.7 with a hemoglobin of 11.7, hematocrit 36.5 and platelets of 365,000. Sodium 139, potassium 2.9, BUN 4, creatinine 5.7. Glucose was 21. It is in the 160s at the time of my exam. Troponin is 0.135. He does have a GFR of 12. Lactate is 4.2. ABGs: PH 7.35, with pCO2 of 36, PO2 of 113, bicarb of 20.9. This is on room air. ASSESSMENT AND PLAN: 1. Right upper quadrant pain secondary to a dislodged cholecystostomy catheter from the gallbladder. This has been replaced multiple times per Radiology. We will consult Dr. Miller and a decision for replacement versus treatment will be per Dr. Miller and Radiology. 2. End stage renal disease stage 5D. The patient is to receive dialysis this morning. We have consulted Nephrology. 3. Hypoglycemia. Monitor blood glucose every 4 hours. Treat with IV D50 prn. 4. Sepsis. We will obtain blood cultures. He was given a liter of fluid by the emergency room physician. Blood pressures are in the low 80s at this time. He is awake, alert, with peripheral pulses. We will give 250 mL bolus and monitor, giving boluses in small amounts according to his condition. Antibiotics, we will give Fortaz 2 g now, vancomycin 1 g will be given in dialysis and further antibiotics will be per Dr. Nguyen. Will consult . 5. Hypothyroidism. Will restart synthroid. 6. Paroxysmal atrial fibrillation. Aware. 7. Anemia of chronic disease. Aware. 8. Metastatic pancreatic adenocarcinoma. Aware. The patient is on hospice. No further treatment planned. Further treatments pending hospital course. Dictated by SIGIFREDO Coley for Monae Garcia MD cc: SIGIFREDO Coley MD I performed a face to face encounter on the patient. I reviewed all labs and imaging on the patient. I agree with the H&P as dictated. [facility]
[2019-01-30] MEDS ORDERED: VANCOMYCIN 1 GM/NS 1 GM/250 ML IVPB IV SCH (14:45)
[2019-01-30] MEDS ORDERED: MAXIPIME 1 GM in NS 50 ML IV SCH (14:45)
--- NOTE | 2019-01-30 18:06 | INFECTIOUS DISEASE PROGRESS NO ---
DATE: 01/30/2019 CONCLUSION: The patient was admitted to the hospital with right sided abdominal pain. He also had a leukocytosis. It was found that his cholecystostomy catheter had accidentally withdrawn from his gallbladder. RECOMMENDATIONS: I have ordered for the patient to get vancomycin and cefepime, 1 g of each, after each dialysis. Prior to dialysis, he received ceftazidime and vancomycin. We will see what Dr. Miller and Radiology want to do about the drain being withdrawn. PRESENT ILLNESS: The patient has metastatic pancreatic cancer, which is inoperable. It caused a blockage of the common bile duct which necessitated placing a cholecystostomy tube, which unfortunately has been withdrawn accidentally. LAB STUDIES: CBC with a white count of 12,710, hemoglobin 11.7, and platelet count 365,000. Blood gases show a pH of 7.35, a pO2 of 113, a pCO2 of 36. Creatinine is 5.7. GFR is 12. Alkaline phosphatase is 179. CT scan showed cholecystostomy catheter was withdrawn from the gallbladder. PHYSICAL EXAMINATION: Vital Signs: Temperature is 98 degrees, pulse 85, respirations 13, blood pressure 91/46. General: This is an ill-appearing elderly male. Currently he is on hemodialysis. Head, Eyes, Ears, Nose, Throat: He can hear my spoken words and see near objects. He does not have any white patches on his tongue. Neck: No meningismus. Thorax: The patient has a right chest tunneled dialysis catheter in place. Lungs: Clear to auscultation. Cardiovascular: Regular heart rate. Abdomen: Slightly distended, but soft and not tender in the right upper quadrant. There is a drain in place, which is the one that has unfortunately been withdrawn from the gallbladder accidentally. Neurologic: The patient is awake. He can move his extremities. There is no tremor. Integument: No rash note COMORBIDITIES: Unfortunately, he has metastatic pancreatic cancer, which is inoperable. He also is a diabetic. cc: Jose Banuelos MD [facility]
[2019-01-31] MEDS: D50W SYRINGE IV PRN ×3 (02:58→15:23)
[2019-01-31] MEDS: PRILOSEC PO SCH (06:12)
[2019-01-31] MEDS: SYNTHROID PO SCH (06:12)
[2019-01-31 08:13] LABS: BASO# 0.01 X1000 (0.0-0.2); BASO% 0.1 % (0.0-0.8); EOS# 0.02 X1000 (0.0-0.7); EOS% 0.2 % (0.0-10.0); HEMATOCRIT 29.6 % (42.0-52.0); HEMOGLOBIN 9.4 g/dL (14.0-18.0); IMM GRAN# 0.02 X1000 (0.0-0.04); IMM GRAN% 0.2 % (0.0-0.5); LYMPH# 0.64 X1000 (1.2-3.4); LYMPH% 6.2 % (20.5-51.1); MCH 28.3 PG (27-31); MCHC 31.8 g/dL (33-37); MCV 89.2 FL (81-99); MONO# 0.76 X1000 (0.11-0.59); MONO% 7.4 % (1.7-9.3); MPV 11.1 FL (7.4-10.4); NEUT# 8.86 X1000 (1.4-6.5); NEUT% 85.9 % (42.2-75.2); PLT 235 X1000 (130-400); RBC 3.32 XMIL (4.7-6.1); RDW 15.5 % (11.5-14.5); WBC 10.31 X1000 (4.8-10.8)
[2019-01-31 08:38] LABS: ALB/GLOB RATIO 0.7; ALBUMIN 1.9 g/dL (3.5-5.0); ALBUMIN 2.3 g/dL (3.5-5.0); CALCIUM 7.1 mg/dL (8.8-10.2); CREATININE 3.4 mg/dL (0.7-1.2); DIRECT BILIRUBIN 1.4 mg/dL (0.00-0.20); PHOSPHORUS 4.4 mg/dL (2.7-4.5); TOTAL BILIRUBIN 1.95 mg/dL (0.20-1.00); TOTAL PROTEIN 5.4 g/dL (6.3-8.3)
[2019-01-31] MEDS: KLOR-CON PO SCH ×2 (09:02→20:42)
[2019-01-31 10:36] LABS: ANISOCYTOSIS 1+; LYMPHS 7 % (21-51); MONO 8 % (1-9); SEGS 85 % (42-75)
[2019-01-31] MEDS: NORCO-10 PO PRN (11:45)
--- NOTE | 2019-01-31 13:10 | NEPHROLOGY PROGRESS NOTE ---
DATE: 01/31/2019 DATE AND TIME SEEN: 01/31/2019 at 0710. SUBJECTIVE: Mr. Guzman is resting quietly in bed. Head of the bed is slightly elevated. He appears in no acute distress. Skin is warm and dry. He is very quiet in his speech. His had a drop in his blood sugars yesterday evening. VITAL SIGNS: Last temperature 98 degrees, pressure 99/62, heart rate 84, respirations 21. He is on room air, last recorded saturation is 100%. He has had 500 mL in with IV fluid boluses between yesterday morning and dialysis. He has had 0 recorded out. LABORATORY DATA: His sodium is 135, his potassium is 3, chloride 99, CO2 is 21, his BUN is 25, his creatinine is 3.4, glucose is 146. Patient has an anion gap of 15, his calcium is 7.1, phosphorus is 4.4, albumin is 2.3. His white count is 10.3, hemoglobin 9.4, hematocrit 29.6 with a platelet count of 235,000. PHYSICAL EXAMINATION: General: This is a 73-year-old male. He is resting quietly in bed. He is appears chronically ill, in no acute distress. Skin is warm and dry. HEENT: Normocephalic, atraumatic. Conjunctiva is pale pink. He has ADI. Mucous membranes are dry. Neck: Supple. Trachea midline. No evidence of JVD. Cardiovascular: Regular rate and rhythm. No appreciable murmur or gallop. He is sinus rhythm on the monitor. Lungs: Clear to auscultation anteriorly. Equal excursion. He is currently on room air. Abdomen: Soft, nontender. Positive bowel sounds. He has dressing over his drain to his right upper quadrant. Genitourinary: Not inspected. Minimal void with dialysis assist. Integumentary: No rashes or lesions evident. Neurological: He is alert and oriented x3. ASSESSMENT AND PLAN: 1. Chronic kidney disease stage 5D. The patient had his routine dialysis treatment yesterday. Blood pressure was low. We did give him some fluid back and will raise his dry weight by half a kg after checking to see that he had been below his dry weight at the outpatient clinic for the last 2 weeks. 2. Electrolytes and acid-base balance. These are fairly stable with replacement of potassium today and monitoring on his electrolytes for dialysis in the a.m. 3. Anemia. This is low but stable. 4. Dislodged biliary drain. This is followed by Dr. Miller and the primary care team like. I would like to thank you for allowing us to follow with this patient. Dictated by SIGIFREDO Adams for Ubaldo Nguyen MD cc: SIGIFREDO Adams MD
--- NOTE | 2019-01-31 14:35 | PROGRESS NOTE ---
DATE: 01/31/2019 SUBJECTIVE: The patient was noted to have blood sugars as low as 20 early this morning, and he received two doses of D50 this morning. He is now off the Trever-Synephrine drip. He is awake and alert. OBJECTIVE: Vital Signs: Temperature 98.6 degrees, blood pressure 93/61, heart rate 72, respirations 24, O2 saturation is 100% on room air. General: This is a chronically ill- appearing, elderly male, lying in bed in no acute distress. HEENT: Head normocephalic, atraumatic. Heart: S1, S2 normal. Regular rate and rhythm. Lungs: Clear to auscultation bilaterally. No wheezing. No rales. No rhonchi. Abdomen: Positive bowel sounds. Soft, nontender, nondistended. Extremities: No edema. No cyanosis. Neurologic: The patient is alert and oriented x4. LABORATORY DATA: White blood cell count 10, hemoglobin 9.4, hematocrit 29, platelets 235,000. Sodium 135, potassium 3, chloride 99, CO2 of 21, BUN 25, creatinine 3.4, glucose 146, calcium 7.1. AST 20, ALT 9, alkaline phosphatase 199, albumin 2.3. ASSESSMENT AND PLAN: 1. Sepsis secondary to gram negative bacteremia. The blood cultures are growing gram negative rods. Continue with antibiotic therapy as directed by Dr. Banuelos. 2. Dislodged biliary drain. The patient is scheduled to have the drain replaced tomorrow by Interventional Radiology. 3. Recurrent hypoglycemia. Will start D5NS and monitor the blood glucose q2h. 4. Pancreatic cancer. Aware. The patient is on hospice. 5. End stage renal disease. Management as per the discovery manager. 6. Hypothyroidism. Continue on Synthroid. 7. Paroxysmal atrial fibrillation. The patient is currently rate controlled. 8. Gastrointestinal prophylaxis. Continue on omeprazole. 9. Deep vein thrombosis prophylaxis. Continue with sequential compression devices. cc: Monae Garcia MD [facility]
[2019-01-31] MEDS: D5 NS 1,000 ML IV SCH (15:55)
--- NOTE | 2019-01-31 16:14 | GENERAL SURGERY CONSULTATION ---
DATE: 01/31/2019 HISTORY: Mr. Guzman is a 73-year-old, gentleman with metastatic pancreatic cancer unresectable as noted at operation by Dr. Casey at [facility]. He subsequently had a percutaneous cholecystostomy tube placed apparently ordered by Dr. Marshall. He now presents with dislodgement of the cholecystostomy tube. PAST MEDICAL HISTORY: Pertinent for end-stage renal disease. Pancreatic cancer as noted above. Anemia of chronic disease, type 2 diabetes. Hyperparathyroidism hypothyroidism. PAST SURGICAL HISTORY: Abdominal expiration, tunneled dialysis catheter. Surgery on his finger. MEDICATIONS: Listed. ALLERGIES: He has no known drug allergies. SOCIAL HISTORY: He denies alcohol or drug use. REVIEW OF SYSTEMS: Otherwise unremarkable. PHYSICAL EXAMINATION: He is afebrile. Heart rate 72, blood pressure 93/61. He really has no complaints.Lungs: Bilateral breath sounds. Heart: Regular rate and rhythm. Abdomen: Soft, nontender. He has a drain exiting for his right upper abdomen. A CT scan suggested to be dislodged. ASSESSMENT: Dislodged cholecystostomy tube. PLAN: He will need it repositioned by radiology. cc: Corky Miller MD
--- NOTE | 2019-01-31 17:46 | INFECTIOUS DISEASE PROGRESS NO ---
DATE: 01/31/2019 PRESENT ILLNESS: The patient has a gram-negative laura bacteremia. This could have originated from the common bile duct because the patient's cholecystostomy catheter has been accidentally withdrawn. Also, another possibility would be that the Gram bacteremia came from the patient's right sided-tunneled dialysis catheter on the patient's chest. MEDICATIONS: Currently, the patient is receiving vancomycin and cefepime after each dialysis. PHYSICAL EXAMINATION: Vital Signs: Temperature is 97.8, pulse 72, respirations 24, blood pressure 93/61. General: This is an ill-appearing, elderly male. He is in no acute distress. HEENT: He can hear my spoken words and see near objects. He does not have any white coating on his tongue. Neck: He does not have any pain in his neck when he moves his head. Thorax: The patient has a tunneled dialysis catheter present in the right chest. Abdomen: Soft and nontender. There is in the right upper quadrant a drain in place also. Neurologic: The patient is awake. He can move his extremities. There is no tremor. LAB AND X-RAY: Patient's CBC shows a white count of 10,310, hemoglobin 9.4, and platelet count 235,000, creatinine is 3.4. GFR is 22. Alkaline phosphatase is 199. 1 of 2 blood cultures is growing a gram-negative laura. ASSESSMENT AND PLAN: I have discontinued vancomycin but I am going to continue with cefepime pending the identification of the patient's blood culture. I am also ordering for tomorrow repeat blood cultures. COMORBIDITIES: The patient has metastatic pancreatic cancer, which is inoperable. He also is a diabetic. cc: Jose Banuelos MD
[2019-02-01] MEDS: D50W SYRINGE IV PRN ×2 (06:07→06:47)
[2019-02-01] MEDS: SYNTHROID PO SCH (06:17)
[2019-02-01] MEDS: PRILOSEC PO SCH (06:17)
[2019-02-01] MEDS: NORCO-10 PO PRN (09:09)
--- NOTE | 2019-02-01 09:15 | Diag Imaging Result Doc PS360 ---
EXAM: CT DRAIN ABDOMEN ABSCESS W/IMG 02/01/2019 HISTORY: metastatic pancreatic cancer TECHNIQUE: Percutaneous CT-guided cholecystostomy placement. COMMENT: The risks and benefits of the procedure including the possibility of bleeding, infection, reaction to lidocaine or contrast were discussed with the patient and he agreed to the procedure. Initially, after removing the previously placed catheter which had been withdrawn into the liver, copious drainage poured from the existing tract. An attempt was made to pass a guidewire through the tract without success. Subsequently, an additional 8-Kazakh cope loop catheter was placed adjacent to the original tract by trocar technique following sterile preparation of the skin and administration of 1% lidocaine to the skin and deeper soft tissues. There is good drainage from the tube and the patient experienced no immediate complications. IMPRESSION: Successful placement of percutaneous cholecystostomy tube. Electronically signed by Desmond Lazar 02/01/2019 9:12 AM
[2019-02-01] MEDS ORDERED: NS 2,000 ML MISC PRN (09:29)
[2019-02-01] MEDS ORDERED: HEPARIN IV PRN (09:29)
[2019-02-01 10:14] LABS: BASO# 0.02 X1000 (0.0-0.2); BASO% 0.3 % (0.0-0.8); EOS# 0.06 X1000 (0.0-0.7); EOS% 0.8 % (0.0-10.0); HEMATOCRIT 34.5 % (42.0-52.0); HEMOGLOBIN 11.1 g/dL (14.0-18.0); IMM GRAN# 0.02 X1000 (0.0-0.04); IMM GRAN% 0.3 % (0.0-0.5); LYMPH% 11.9 % (20.5-51.1); MCH 28.4 PG (27-31); MCHC 32.2 g/dL (33-37); MCV 88.2 FL (81-99); MONO# 0.56 X1000 (0.11-0.59); MONO% 7.4 % (1.7-9.3); MPV 10.7 FL (7.4-10.4); NEUT# 6.03 X1000 (1.4-6.5); NEUT% 79.3 % (42.2-75.2); PLT 258 X1000 (130-400); RBC 3.91 XMIL (4.7-6.1); RDW 15.8 % (11.5-14.5); WBC 7.59 X1000 (4.8-10.8)
[2019-02-01] MEDS ORDERED: KEFZOL 1 GM/D5W 1 GM/50 ML IVPB IV SCH (10:30)
[2019-02-01] MEDS: D5 NS 1,000 ML IV SCH (12:56)
[2019-02-01 12:59] LABS: ALBUMIN 2.1 g/dL (3.5-5.0); CALCIUM 7.7 mg/dL (8.8-10.2); CREATININE 4.3 mg/dL (0.7-1.2); PHOSPHORUS 4.4 mg/dL (2.7-4.5); POTASSIUM 3.8 mmol/L (3.5-5.1)
--- NOTE | 2019-02-01 14:19 | PROGRESS NOTE ---
DATE: 02/01/2019 SUBJECTIVE: The patient is awake and alert. However, he continues to have severely low blood glucose measurements. He has just returned from percutaneous cholecystostomy tube placement. He is currently eating his lunch at this time. He received 2 amps of D50 this morning. OBJECTIVE: Vital Signs: Temperature 97 degrees, blood pressure 124/77, heart rate 89, respirations 18, O2 saturation 100% on room air. General: This is a cachectic male, lying in bed in no acute distress. Head: Normocephalic, atraumatic. Heart: S1, S2 normal. Regular rate and rhythm. Lungs: Clear to auscultation bilaterally. No wheezing. No rales. No rhonchi. Abdomen: Positive bowel sounds. Soft. There is a drain present in the right upper quadrant. Neurologic: The patient is alert and oriented x3. LABORATORY DATA: White blood cell count 7.5, hemoglobin 11, hematocrit 34, platelets 258,000. Glucose 109. ASSESSMENT AND PLAN: 1. Recurrent hypoglycemia. The patient's insulin level is low. We will also check a C-peptide, GH, and insulin-like growth factor level. This may represent non islet cell tumor hypoglycemia which is often seen in metastatic adenocarcinoma. We will continue on D50 and glucagon prn. Will encourage the patient to eat more and add Nephro meal supplements. 2. Sepsis secondary to Klebsiella pneumoniae. The patient has been switched over to cefazolin today. Management as per Dr. Banuelos. 3. Bacteremia secondary to Klebsiella pneumoniae. Continue on antibiotic therapy. 4. Status post percutaneous cholecystostomy tube placement. Stable. 5. End stage renal disease. The patient is scheduled to undergo dialysis today. 6. Hypothyroidism. Continue on Synthroid. 7. Paroxysmal atrial fibrillation. The patient is currently rate controlled. 8. Gastroesophageal reflux disease. Continue on Prilosec. 9. Metastatic pancreatic adenocarcinoma. Aware. 10. Deep vein thrombosis prophylaxis. Will start the patient on heparin. 11. Disposition. We will transfer the patient to CICU and will consult Physical Therapy. cc: Monae Garcia MD [facility]
[2019-02-01] MEDS ORDERED: GLUCAGON IV PRN (14:31)
--- NOTE | 2019-02-01 16:18 | INFECTIOUS DISEASE PROGRESS NO ---
DATE: 02/01/2019 HISTORY OF PRESENT ILLNESS: The patient has a Klebsiella bacteremia. Most likely this originated from the patient's common bile duct because his cholecystostomy catheter was accidentally withdrawn. The patient does have a right-sided tunneled dialysis catheter in place, but I still favor that the infection originated from the common bile duct rather than the dialysis catheter. MEDICATIONS: The patient is receiving cefepime after each dialysis. PHYSICAL EXAMINATION: Vital Signs: Temperature is 97.1 degrees, pulse 86, respirations 21, blood pressure 97/68. General: This is an ill-appearing elderly male. He is in no acute distress. Head/eyes/ears/nose/throat: He can hear my spoken words and see near objects. He does not have any white patches on his tongue. Neck: No meningismus. Lungs: Clear to auscultation. Cardiovascular: Heart rate is regular. Thorax: The patient has a tunneled dialysis catheter on the right side of the chest. There is no swelling or tenderness at the site. Abdomen: Soft and nontender. Also, in the right upper quadrant, there is the drain that was re-put into the common bile duct. The drain site has a dressing around it. Neurologic: The patient is alert. He can move his extremities. There is no tremor. LAB AND X-RAY: The the blood culture grew Klebsiella. There is no new lab for today. There is also no new radiographic study for today either. The patient did have today a percutaneous CT- guided cholecystostomy placement. ASSESSMENT AND PLAN: The patient has a Klebsiella bacteremia. As mentioned above, I think this originated from the common bile duct and not the patient's dialysis catheter. There is no in no new lab. I have requested that the patient have blood drawn for repeat blood cultures hopefully to see that the Klebsiella has been cleared from the bloodstream. COMORBIDITIES: The patient has metastatic pancreatic cancer, which is inoperable. The patient also is a diabetic. cc: Jose Banuelos MD
[2019-02-01] MEDS ORDERED: KEFZOL 1 GM/D5W 1 GM/50 ML IVPB IV ONE (17:00)
--- NOTE | 2019-02-01 19:39 | GENERAL SURGERY PROGRESS NOTE ---
DATE: 02/01/2019 Mr. Guzman is doing generally well. He had his drain replaced by radiology. I talked with Mr. Guzman about consideration of internal drainage, which would be a cholecystoenterostomy and possibly allow him to get away from the external drains. He is for it. We will see how he does over the weekend and then decide about possible operative intervention next week. I will discuss this with the covering physician for the weekend. cc: Corky Miller MD
[2019-02-01] MEDS: SANTYL OINT TOP SCH (20:58)
--- NOTE | 2019-02-01 21:15 | NEPHROLOGY PROGRESS NOTE ---
DATE: 02/01/2019 SUBJECTIVE: The patient is sitting up in bed, eating lunch. OBJECTIVE: Vital signs: Temperature 97.1 degrees, pulse 87, respiratory rate 15, blood pressure 104/58. Intake 1.5 L. Output 50 mL. General: This is an elderly gentleman sitting up in bed, awake and alert, in no acute distress. HEENT: Normocephalic, atraumatic. Oral mucosa moist. Neck is supple, without JVD. Cardiovascular: Regular rate and rhythm without murmur. Pulmonary: Clear bilaterally. Equal excursion. Abdomen is soft, with positive bowel sounds. not inspected. Extremities: No clubbing, cyanosis or edema. Integumentary: Skin is warm and dry. He has a dressing over the drain, right upper quadrant. LABORATORY DATA: WBC is 7.5, hemoglobin 11.1. Sodium 138, potassium 3.8, CO2 is 23, creatinine 7.3. His glucose has ranged from 42 up to 213 over the last 6 hours. ASSESSMENT AND PLAN: 1. Chronic kidney disease 5D. Plan to dialyze him today per routine. Doubt we will be able to remove any fluid. 2. Electrolytes, acid-base balance. These are acceptable. 3. Dislodged biliary drain, followed by Surgery. 4. Hypoglycemic episodes. I discussed with the nurse and Dr. Garcia we would be acceptable if the patient received a peripherally inserted central catheter line in an effort to obtain intravenous access. If that was unsuccessful he may need a tunneled dialysis catheter, and in no other options we could use the venous port of the tunneled dialysis catheter, although if he were having episodes of hypoglycemia he would not be able to receive medication during dialysis; therefore, a different line is preferred. Dictated by SIGIFREDO Christopher for Ubaldo Nguyen MD cc: Ubaldo Nguyen MD
[2019-02-02] MEDS: PRILOSEC PO SCH ×2 (05:44→06:00)
[2019-02-02] MEDS: SYNTHROID PO SCH ×2 (05:45→06:00)
[2019-02-02 05:56] LABS: BASO# 0.02 X1000 (0.0-0.2); BASO% 0.3 % (0.0-0.8); EOS# 0.05 X1000 (0.0-0.7); EOS% 0.7 % (0.0-10.0); HEMATOCRIT 32.8 % (42.0-52.0); HEMOGLOBIN 10.4 g/dL (14.0-18.0); LYMPH# 1.26 X1000 (1.2-3.4); LYMPH% 16.4 % (20.5-51.1); MCHC 31.7 g/dL (33-37); MCV 88.2 FL (81-99); MONO# 0.69 X1000 (0.11-0.59); MPV 10.6 FL (7.4-10.4); NEUT# 5.64 X1000 (1.4-6.5); NEUT% 73.6 % (42.2-75.2); PLT 244 X1000 (130-400); RBC 3.72 XMIL (4.7-6.1); RDW 16.1 % (11.5-14.5); WBC 7.66 X1000 (4.8-10.8)
[2019-02-02 06:30] LABS: ALBUMIN 1.9 g/dL (3.5-5.0); CALCIUM 7.7 mg/dL (8.8-10.2); CREATININE 3.4 mg/dL (0.7-1.2); LYMPHS 18 % (21-51); MONO 8 % (1-9); PHOSPHORUS 3.1 mg/dL (2.7-4.5); POTASSIUM 3.5 mmol/L (3.5-5.1); SEGS 74 % (42-75)
[2019-02-02] MEDS: NORCO-10 PO PRN (09:24)
[2019-02-02] MEDS: SANTYL OINT TOP SCH (09:25)
[2019-02-02] MEDS: HEPARIN SUBQ SCH (21:44)
[2019-02-03] MEDS: D50W SYRINGE IV PRN ×3 (03:47→15:18)
[2019-02-03 05:31] LABS: BASO# 0.03 X1000 (0.0-0.2); BASO% 0.4 % (0.0-0.8); EOS# 0.05 X1000 (0.0-0.7); EOS% 0.7 % (0.0-10.0); HEMATOCRIT 36.4 % (42.0-52.0); HEMOGLOBIN 11.4 g/dL (14.0-18.0); LYMPH# 1.25 X1000 (1.2-3.4); LYMPH% 16.8 % (20.5-51.1); MCH 27.8 PG (27-31); MCHC 31.3 g/dL (33-37); MCV 88.8 FL (81-99); MONO# 0.68 X1000 (0.11-0.59); MONO% 9.2 % (1.7-9.3); MPV 10.6 FL (7.4-10.4); NEUT# 5.41 X1000 (1.4-6.5); NEUT% 72.9 % (42.2-75.2); PLT 262 X1000 (130-400); RDW 16.4 % (11.5-14.5); WBC 7.42 X1000 (4.8-10.8)
[2019-02-03] MEDS: SYNTHROID PO SCH ×2 (05:53→06:39)
[2019-02-03] MEDS: PRILOSEC PO SCH ×2 (05:53→06:39)
[2019-02-03] MEDS: NORCO-10 PO PRN (05:56)
--- NOTE | 2019-02-03 05:56 | GENERAL SURGERY PROGRESS NOTE ---
DATE: 02/02/2019 SUBJECTIVE: Doing okay. Drain is bilious. OBJECTIVE: No fevers. Low-grade tachycardia. Blood pressure systolic has been in the 90s. Generally he is alert. Abdomen is soft. His cholecystostomy tube has bile in it. LABORATORY DATA: White count is normal. Creatinine is 3.4. ASSESSMENT AND PLAN: This is a 73-year-old gentleman with metastatic carcinoma. He has had chronic cholecystitis requiring cholecystostomy tube placements. Dr. Miller plans possible enteric drainage of this next week. Otherwise, we will continue current medical management. cc: Melisa Willingham MD
[2019-02-03 06:02] LABS: ALBUMIN 1.9 g/dL (3.5-5.0); CALCIUM 8.3 mg/dL (8.8-10.2); CREATININE 4.5 mg/dL (0.7-1.2); PHOSPHORUS 4.4 mg/dL (2.7-4.5); POTASSIUM 4.1 mmol/L (3.5-5.1)
[2019-02-03] MEDS ORDERED: ZOFRAN IV PRN (06:20)
[2019-02-03] MEDS: HEPARIN SUBQ SCH ×2 (08:21→21:11)
[2019-02-03] MEDS: SANTYL OINT TOP SCH (08:21)
--- NOTE | 2019-02-03 08:37 | PROGRESS NOTE ---
DATE: 02/02/2019 SUBJECTIVE: The patient is resting comfortably in bed. He did not require any D50 overnight or in the morning. He is eating well. OBJECTIVE: Vital Signs: Temperature 96.9 degrees, blood pressure 95/52, heart rate 94, respirations 16, O2 saturation 98% on room air. General: This is a chronically ill-appearing, elderly male, lying in bed in no acute distress. Heart: S1, S2 normal. Regular rate and rhythm. Lungs: Clear to auscultation bilaterally. No wheezing. No rales. No rhonchi. Abdomen: There is a cholecystostomy tube in place with green drainage in the bag. Soft, nontender, nondistended. Extremities: No edema, no cyanosis, no calf tenderness. Neurologic: The patient is alert and oriented x4. LABORATORY DATA: White blood cell count 7.6, hemoglobin 10, hematocrit 32, platelets 244,000. Sodium 140, potassium 3.5, chloride 104, CO2 of 24, BUN 19, creatinine 3.4, glucose 78. TSH 27, free T4 of 0.8. ASSESSMENT AND PLAN: 1. Sepsis secondary to Klebsiella pneumonia. Resolved. 2. Bacteremia secondary to Klebsiella pneumonia. Continue with antibiotic treatment. 3. Status post percutaneous cholecystostomy tube placement. Stable. The patient will be undergoing internalization of the tube this week by the general surgeon. 4. End stage renal disease. Management as per the public finance specialist. 5. Hypoglycemia. Improved. The patient has been encouraged to eat as much as possible and to drink his meal supplements. Will also order a bedtime snack for the patient. 6. Hypothyroidism. Will increase the Synthroid dosage to 88 mcg daily. 7. Paroxysmal atrial fibrillation. The patient is currently rate controlled. 8. Metastatic pancreatic adenocarcinoma. Aware. 9. Gastroesophageal reflux disease. Continue on Prilosec. 10. Deep vein thrombosis prophylaxis. Continue on heparin. 11. Disposition. Continue with physical therapy. cc: Monae Garcia MD MTDD
--- NOTE | 2019-02-03 13:35 | Diag Imaging Result Doc PS360 ---
EXAM: CHEST-PORTABLE 02/03/2019 HISTORY: dyspnea TECHNIQUE: AP upright portable at 1300 COMMENT: The lungs are not quite as well-expanded as on 01/30/2019. There is some questionable opacity in the medial left base which was not present previously. The left ventricle appears to be enlarged. There is a double-lumen catheter in the right internal jugular with its tip in the right atrium. IMPRESSION: Minimal atelectasis or pneumonia left lower lobe. Electronically signed by Desmond Lazar 02/03/2019 1:32 PM
--- NOTE | 2019-02-03 14:09 | INFECTIOUS DISEASE PROGRESS NO ---
DATE: 02/03/2019 PRESENT ILLNESS: The patient has a Klebsiella bacteremia which most likely originated from the patient's common bile duct which happened when the cholecystostomy catheter was accidentally withdrawn. MEDICATIONS: The patient is on Ancef 1 g IV after each dialysis. PHYSICAL EXAMINATION: Vital Signs: Temperature is 98.1, pulse 114, respirations 15, blood pressure 96/63. Generally: This is a somewhat ill-appearing elderly male. He is in no acute distress, however. Head/eyes/ears/nose/throat: He can hear my spoken words and see near objects. He does not have any white coating on his tongue. Neck: There is no pain when he moves his neck. Lungs: Clear to auscultation. Cardiovascular: Heart rate is regular. Thorax: The patient has a tunneled dialysis catheter present on the right side. The site is not erythematous or swollen. Abdomen: Soft and not tender. There is a cholecystostomy tube that has been replaced in the bile duct. Neurologic: The patient is awake. He can ambulate. There is no tremor. His sensation is intact to touch. LABORATORY AND X-RAY: Repeat blood cultures are sterile. CBC shows a white blood cell count of 7420, hemoglobin 11.4, and platelet count 262,000. Creatinine is 4.5, GFR 16. Repeat blood cultures are sterile. ASSESSMENT AND PLAN: The patient has a Klebsiella bacteremia. The patient is getting Ancef 1 g IV after each dialysis. I plan on continuing Ancef after each dialysis. I am continuing the cefepime. Last week, a cholecystostomy tube was replaced in the common bile duct and this week Dr. Miller is planning on doing a cholecystoenterostomy. COMORBIDITIES: The patient has metastatic pancreatic cancer, which is inoperable. The patient also has diabetes mellitus. cc: Jose Banuelos MD
--- NOTE | 2019-02-03 15:07 | PROGRESS NOTE ---
DATE: 02/03/2019 SUBJECTIVE: The patient is awake and alert this morning. His blood sugar dropped to 34 around 2 a.m. this morning, and he received D50 as a result. The patient has no other complaints at this time. OBJECTIVE: Vital Signs: Temperature 98.1 degrees, blood pressure 105/78, heart rate 105, respirations 16, O2 saturation is 100% on room air. General: This is a chronically ill- appearing, elderly male lying in bed in no acute distress. Heart: S1, S2 normal. Tachycardic. Lungs: Equal air entry bilaterally. No crackles. No rales. Abdomen: Positive bowel sounds. Soft. There is a cholecystostomy drain in place with yellow drainage in the bag. Extremities: No edema, no cyanosis, no calf tenderness. Neurologic: The patient is alert and oriented x4. LABORATORY DATA: White blood cell count 7.4, hemoglobin 11, hematocrit 36, platelets 262,000. Sodium 139, potassium 4.1, chloride 101, CO2 of 22, BUN 29, creatinine 4.5, glucose 104, calcium 8.3, albumin 1.9. ASSESSMENT AND PLAN: 1. Recurrent hypoglycemia. 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 The serologies are still pending. The patient has been encouraged to eat as much as possible, and will also order that the patient have a snack before bedtime to avoid low glucose early in the morning. 2. Bacteremia secondary to Klebsiella pneumoniae. Continue with antibiotic therapy after each dialysis session. 3. Status post percutaneous cholecystostomy tube placement. Stable. General Surgery is planning on converting this to an internal drainage. 4. End-stage renal disease. Management as per the whiskey proof reader. 5. Hypothyroidism. Continue on Synthroid. 6. Paroxysmal atrial fibrillation, stable. 7. Metastatic pancreatic adenocarcinoma. Aware. 8. Deep vein thrombosis prophylaxis. Continue on heparin. 9. Disposition. Continue with physical therapy. cc: Monae Garcia MD
[2019-02-03] MEDS ORDERED: DECADRON IV ONE (15:50)
[2019-02-03] MEDS: PREDNISONE PO SCH (21:11)
[2019-02-04] MEDS: SYNTHROID PO SCH ×2 (05:57→06:09)
[2019-02-04] MEDS: PRILOSEC PO SCH ×2 (05:57→06:09)
[2019-02-04 06:02] LABS: ALBUMIN 2.2 g/dL (3.5-5.0); CALCIUM 8.1 mg/dL (8.8-10.2); PHOSPHORUS 5.2 mg/dL (2.7-4.5); POTASSIUM 4.3 mmol/L (3.5-5.1)
[2019-02-04 06:07] LABS: CREATININE 5.4 mg/dL (0.7-1.2)
[2019-02-04] MEDS ORDERED: NS 2,000 ML MISC PRN (06:27)
[2019-02-04] MEDS ORDERED: TIGHT: 0.2 ML/HR FOR DIALYSIS MISC PRN (06:27)
[2019-02-04] MEDS ORDERED: HEPARIN IV PRN (06:27)
[2019-02-04 06:52] LABS: HEMATOCRIT 35.1 % (42.0-52.0); HEMOGLOBIN 11.4 g/dL (14.0-18.0); MCH 28.4 PG (27-31); MCHC 32.5 g/dL (33-37); MCV 87.3 FL (81-99); MPV 10.9 FL (7.4-10.4); RBC 4.02 XMIL (4.7-6.1); RDW 16.2 % (11.5-14.5); WBC 8.1 X1000 (4.8-10.8)
[2019-02-04] MEDS: HEPARIN SUBQ SCH (08:55)
[2019-02-04] MEDS: PREDNISONE PO SCH ×2 (08:55→20:34)
[2019-02-04] MEDS: SANTYL OINT TOP SCH (08:55)
--- NOTE | 2019-02-04 10:26 | INFECTIOUS DISEASE PROGRESS NO ---
DATE: 02/04/2019 HISTORY OF PRESENT ILLNESS: The patient has a Klebsiella bacteremia which most likely originated from the patient's common bile duct when the cholecystostomy catheter was accidentally withdrawn. The patient also may have a minimal left lower lobe pneumonia versus atelectasis. MEDICATIONS: This is day 3 of Ancef with day 1 being the first day that the patient's repeat blood cultures are sterile. PHYSICAL EXAMINATION: Vital Signs: Temperature is 98.1 degrees, pulse 118, respirations 17, blood pressure 93/66. General: This is an ill-appearing elderly male. He is in no acute distress. Head/eyes/ears/nose/throat: He can hear my spoken words and see near objects. He does not have any white patches on his tongue. Neck: He does not have any pain when he moves his neck. Lungs: Clear to auscultation. Cardiovascular: Heart rate is regular. Thorax: The patient has a tunneled dialysis catheter present on the right side. The site is not erythematous or tender. Abdomen: Soft and nontender. In the right upper quadrant, there is a cholecystostomy tube in place that replaced the one that was accidentally removed. Neurologic: The patient is awake. He can move his extremities. There is no tremor. LABS AND X-RAY: Chest x-ray shows a minimal left lower lobe pneumonia versus atelectasis. There is no CBC for today. The creatinine is 5.4. The GFR is 13. Repeat blood cultures were done 3 days ago, therefore this is day 3 of treatment with Ancef. ASSESSMENT AND PLAN: The patient has a Klebsiella bacteremia. There may be a pneumonia as well. My plan is to treat the patient with Ancef 1 g after each dialysis for a total of 14 days. The patient has already had 3 days, so he will need 11 more days of treatment. COMORBIDITIES: Metastatic pancreatic cancer, which is inoperable, and diabetes mellitus. cc: Jose Banuelos MD
--- NOTE | 2019-02-04 14:57 | PROGRESS NOTE ---
DATE: 02/04/2019 SUBJECTIVE: The patient is sitting at the edge of the bed eating breakfast. He has no complaints at this time. He did not have any hypoglycemic episodes overnight. OBJECTIVE: Vital Signs: Temperature 98.2 degrees, blood pressure 105/62, heart rate 102, respirations 16, O2 saturation is 98% on room air. General: This is a chronically ill-appearing, elderly male sitting at the edge of the bed, in no acute distress. Head: Normocephalic, atraumatic. Heart: S1, S2 normal. Tachycardic. Lungs: Equal air entry bilaterally. No wheezing. No rales. Abdomen: Positive bowel sounds. There is a cholecystostomy drain in the right quadrant. Extremities: No edema. No cyanosis. No calf tenderness. Neurologic: The patient is alert and oriented x4. LABS: White blood cell count 8.1, hemoglobin 11, hematocrit 37, platelets 263,000. Sodium 137, potassium 4.3, chloride 100, CO2 20, BUN 42, creatinine 5.4, glucose 100, phosphorus 5.2, calcium 8.1, albumin 2.2. ASSESSMENT AND PLAN: 1. Bacteremia secondary to Klebsiella pneumonia. Continue with antibiotic therapy after each dialysis session as directed by Dr. Banuelos. 2. Status post percutaneous cholecystostomy tube placement. Stable. Further management as per the general surgeon. 3. Hypoglycemia. Stable. We will continue to monitor the blood glucose closely. The serologies are currently pending. 4. End stage renal disease. The patient is due for dialysis today. 5. Hypothyroidism. Continue on Synthroid. 6. Paroxysmal atrial fibrillation. Aware. 7. Metastatic pancreatic adenocarcinoma. Aware. 8. Deep vein thrombosis prophylaxis. Continue on heparin. 9. Severe protein calorie malnutrition. Continue on meal supplementation. 10. Disposition. Continue with physical therapy. cc: Monae Garcia MD [facility]
--- NOTE | 2019-02-04 16:50 | NEPHROLOGY PROGRESS NOTE ---
DATE: 02/04/2019 SUBJECTIVE: He is on dialysis currently. Denies pain, nausea, shortness of breath. OBJECTIVE: Vital Signs: Blood pressure 105/62, heart rate 102, respirations 16, afebrile. General: No acute distress. Skin: Warm and dry. Neck: Neck veins are not appreciated. Heart: Regular. No gallops. Lungs: Equal. No crackles. Abdomen: Soft, mildly tender in the right upper quadrant. Bowel sounds are diminished. Extremities: 1+ edema. No clubbing or cyanosis. IMPRESSION: Chronic kidney disease 5D. Acute tubular necrosis without recovery. Continue his routine dialysis today, 2 K bath, 3 L ultrafiltration as blood pressure allows. cc: Ubaldo Nguyen MD
[2019-02-04] MEDS ORDERED: KEFZOL 1 GM/D5W 1 GM/50 ML IVPB IV ONE (17:00)
[2019-02-05 05:23] LABS: HEMATOCRIT 34.1 % (42.0-52.0); HEMOGLOBIN 10.8 g/dL (14.0-18.0); MCH 28.3 PG (27-31); MCHC 31.7 g/dL (33-37); MCV 89.3 FL (81-99); MPV 10.4 FL (7.4-10.4); RBC 3.82 XMIL (4.7-6.1); RDW 16.4 % (11.5-14.5); WBC 6.01 X1000 (4.8-10.8)
[2019-02-05] MEDS: PRILOSEC PO SCH ×2 (05:30→06:04)
[2019-02-05] MEDS: SYNTHROID PO SCH ×2 (05:30→06:04)
[2019-02-05 05:39] LABS: ALBUMIN 2.1 g/dL (3.5-5.0); CALCIUM 7.6 mg/dL (8.8-10.2); CREATININE 3.7 mg/dL (0.7-1.2); PHOSPHORUS 4.7 mg/dL (2.7-4.5); POTASSIUM 3.9 mmol/L (3.5-5.1)
--- NOTE | 2019-02-05 07:55 | EKG Report ---
Test Performed on : 02/05/2019 07:35:27 AM Test Reason : CP Blood Pressure : / mmHG Vent. Rate : 111 BPM Atrial Rate : 111 BPM P-R Int : 160 ms QRS Dur : 084 ms QT Int : 378 ms P-R-T Axes : -19 -54 100 degrees QTc Int : 514 ms Sinus tachycardia. with premature atrial complexes. with aberrant conduction. Left anterior fascicular block Cannot rule out Inferior infarct (cited on or before 06-DEC-2018) Possible Anterior infarct (cited on or before 07-DEC-2018) Abnormal ECG When compared with ECG of 12-DEC-2018 07:12, premature ventricular complexes. are no longer present aberrant conduction. is now present Questionable change in initial forces of Lateral leads Confirmed by Al ENGLAND, Irvin Phillips ([id number]) on 02/05/2019 9:19:46 AM
[2019-02-05] MEDS: PREDNISONE PO SCH ×2 (08:18→21:51)
[2019-02-05] MEDS: SANTYL OINT TOP SCH (08:18)
[2019-02-05] MEDS ORDERED: FENTANYL ONE (10:53)
[2019-02-05] MEDS ORDERED: DIPRIVAN 1% ONE (10:53)
[2019-02-05] MEDS ORDERED: XYLOCAINE-MPF 2% ONE (10:54)
[2019-02-05] MEDS ORDERED: SODIUM CHLORIDE 0.9% 10 ML ONE (10:55)
[2019-02-05] MEDS ORDERED: NORCURON ONE (10:55)
[2019-02-05] MEDS ORDERED: KEFZOL 1 GM/D5W 1 GM/50 ML IVPB ONE (11:03)
[2019-02-05] MEDS ORDERED: NEO-SYNEPHRINE ONE (11:28)
[2019-02-05] MEDS ORDERED: BRIDION ONE (11:55)
[2019-02-05] MEDS ORDERED: SENSORCAINE-MPF 0.5%/EPI 1:200,000 ONE (11:58)
--- NOTE | 2019-02-05 12:35 | INFECTIOUS DISEASE PROGRESS NO ---
DATE: 02/05/2019 SUBJECTIVE: The patient is being treated for Klebsiella bacteremia with Ancef 1 g IV after each dialysis. The patient has had 4 days of treatment with Ancef with day #1 being the first day that the patient's repeat blood cultures were sterile. The patient will need 10 more days of Ancef 1 g IV after each dialysis, which can be arranged by calling Dr. Nguyen and he will order the Ancef after dialysis. I am signing off the patient's case. I will be able to see him on a p.r.n. basis. cc: Jose Banuelos MD
[2019-02-05] MEDS: D50W SYRINGE IV PRN ×2 (13:17→13:58)
[2019-02-05] MEDS ORDERED: MORPHINE IV PRN (13:28)
--- NOTE | 2019-02-05 14:07 | NEPHROLOGY PROGRESS NOTE ---
DATE: 02/05/2019 SUBJECTIVE: He is ambulatory this morning. Denies pain, shortness of breath, nausea, vomiting. OBJECTIVE: Vital Signs: Blood pressure 98/73, heart rate 101, respirations 18, afebrile. General: No acute distress. Skin: Warm and dry. HEENT: Conjunctivae are pink. Neck: Neck veins are not visible. Heart: Regular. Lungs: Equal. Abdomen: Soft, minimally tender. Extremities: No edema, clubbing, or cyanosis. IMPRESSION: Chronic kidney disease 5D. He is well dialyzed today. Euvolemic on exam. Next treatment tomorrow. Electrolytes, acid-base, anemia all in target. cc: Ubaldo Nguyen MD
--- NOTE | 2019-02-05 15:08 | OPERATIVE NOTE ---
PROCEDURE DATE: 02/05/2019 NAME OF PROCEDURE: Cholecystojejunostomy. SURGEON: Corky Miller MD ORDNANCE HANDLER: Sridhar Milan RN PREOPERATIVE DIAGNOSIS: Unresectable cancer of the pancreas. POSTOPERATIVE DIAGNOSIS: Unresectable cancer of the pancreas. INDICATIONS: This 73-year-old with a percutaneous cholecystostomy that repeatedly gets displaced. He now is undergoing this procedure for internal drainage in order to be able to remove the percutaneous drain. DESCRIPTION OF PROCEDURE: Satisfactory general anesthesia achieved, the abdomen was prepped and draped in a sterile fashion. We made a subcostal incision near the old scar. We carried our incision through the subcutaneous tissue, through the fascia, and into the abdominal cavity laterally. We opened the abdominal cavity, extended the skin incision. There were adhesions that we took down sharply with the scissors until we could dissect down to the fundus of the gallbladder. We exposed the fundus of the gallbladder, adequately. Then laterally, there was noted to be a loop of bowel. I am not certain along the course of the small bowel where this loop was, but it did not matter as I felt that we could sew the bowel to the gallbladder fundus without difficulty. So, we laid the loop of small bowel up next to the fundus, we then placed 3-0 silks in our posterior row just tying simple stitches. After the posterior row was secured, we then opened the small bowel for about a cm and a half and we then opened the gallbladder for a cm and a half. We aspirated the bile out of the gallbladder. We then finished the circumferential single- layer anastomosis using interrupted 3-0 silks. After tying all those, we felt that the anastomosis was adequate. I did decide to place a Alton drain within the wound. So, we brought it out laterally and placed it right behind the cholecystojejunostomy. We secured the drain at the skin level with a 3-0 silk. We then injected along the course of the wound with 0.5 Marcaine. We then closed the posterior rectus sheath with a running 0 Prolene and the anterior rectus sheath in the muscle was closed with a running 0 PDS, 3-0 Polysorb was placed in the subcutaneous tissue and the skin was closed with hansel. A sterile dressing was applied. He tolerated it well, was sent to the recovery room in satisfactory condition. cc: Corky Miller MD
[2019-02-05] MEDS: NORCO-10 PO PRN (18:41)
--- NOTE | 2019-02-05 20:18 | PROGRESS NOTE ---
DATE: 02/05/2019 SUBJECTIVE: Patient resting comfortably in bed. OBJECTIVE: Vital signs: Temperature 97.6 degrees, pulse 94, respirations 18, blood pressure 99/60, oxygen saturation 94%. HEENT: Atraumatic, normocephalic. Cardiovascular: S1, S2. Respiratory system: Has evidence of good air entry bilaterally. Abdomen: Tender in the epigastric area. No masses felt. Extremities: Has 1+ edema in the lower extremities. Central nervous system: No obvious focal deficit noted. LABORATORY DATA: WBCs 6.01, hematocrit 34.1, with a platelet count of 224,000. Sodium is 139, potassium 3.9, chloride is 99, bicarb 23, BUN is 25, creatinine is 3.7. ASSESSMENT AND PLAN: 1. Bacteremia secondary to Klebsiella pneumonia. Antibiotic management per Infectious Disease. 2. Status post percutaneous cholecystostomy tube placement, status post cholecystojejunostomy. The patient had a PC cholecystostomy which repeatedly got displaced, and had a cholecystojejunostomy done for internal drainage in order to remove the percutaneous drain. The patient is being followed up by the surgical team. 3. End-stage renal disease. Continue hemodialysis as recommended by Nephrology. 4. Hypothyroidism. Continue Synthroid. 5. Paroxysmal atrial fibrillation. Heart rate controlled. 6. Metastatic pancreatic cancer. 7. Deep vein thrombosis prophylaxis. Heparin. 8. Severe protein-calorie malnutrition. Continue nutritional supplements. 9. Disposition: Timing depends on the patient's clinical response to treatment and also when all consultants are in agreement. cc: Smith Bah MD MTDD
--- NOTE | 2019-02-05 21:54 | GENERAL SURGERY PROGRESS NOTE ---
DATE: 02/05/2019 TIME: 5:30 p.m. SUBJECTIVE: Mr Guzman is awake and alert. Responding appropriately. OBJECTIVE: There is no bile seen in his Alton drain. His bandage is dry. PLAN: We will leave his percutaneous drain for a day or so and then remove it before his discharge. cc: Corky Miller MD
[2019-02-06] MEDS: D50W SYRINGE IV PRN ×2 (02:13→16:31)
[2019-02-06] MEDS: PRILOSEC PO SCH ×2 (05:26→06:34)
[2019-02-06] MEDS: SYNTHROID PO SCH ×2 (05:26→06:34)
[2019-02-06] MEDS ORDERED: TIGHT: 0.2 ML/HR FOR DIALYSIS MISC PRN (06:11)
[2019-02-06] MEDS ORDERED: NS 2,000 ML MISC PRN (06:11)
[2019-02-06] MEDS ORDERED: HEPARIN IV PRN (06:11)
[2019-02-06] MEDS: PREDNISONE PO SCH ×3 (07:49→21:31)
[2019-02-06] MEDS: SANTYL OINT TOP SCH ×2 (07:49→09:47)
[2019-02-06] MEDS: HEPARIN SUBQ SCH ×2 (09:50→21:31)
--- NOTE | 2019-02-06 11:51 | NEPHROLOGY PROGRESS NOTE ---
DATE: 02/06/2019 SUBJECTIVE: He had surgery yesterday with Dr. Miller. He does have some mild postsurgical pain, but has not required any analgesics this morning. OBJECTIVE: Vital Signs: Blood pressure 108/73, heart rate 94, respirations 12, afebrile. Generally: No acute distress. Skin: Warm and dry. Conjunctivae are pink. Neck: Neck veins are not distended. Heart: Regular with no gallops. Lungs: Equal. No crackles. Abdomen: Soft, minimally tender. Bowel sounds present. Extremities: 1+ edema. No clubbing or cyanosis. IMPRESSION: 1. Chronic kidney disease 5D. He will be having his routine hemodialysis today. 2. Potassium bath 2 to 3 L ultrafiltration based on his blood pressure. Administer albumin if needed during his treatment. No other changes. cc: Ubaldo Nguyen MD
[2019-02-06] MEDS: NORCO-10 PO PRN (14:03)
--- NOTE | 2019-02-06 14:52 | PROGRESS NOTE ---
DATE: 02/06/2019 SUBJECTIVE: The patient is resting in bed. OBJECTIVE: Vital Signs: Temperature 97.5 degrees, pulse 94, respirations 20, blood pressure is 108/73, and oxygen saturation is 99%. HEENT: Atraumatic and normocephalic. Cardiovascular System: S1, S2. Respiratory System: Has evidence of good air entry bilaterally. Abdomen: Soft, nontender. No masses felt. Extremities: No evidence of edema. Central Nervous System: No evidence of focal deficits noted. Labs: Blood glucose 88. ASSESSMENT AND PLAN: 1. Bacteremia secondary to Klebsiella pneumonia. Continue antibiotics as recommended by infectious disease. 2. Status post percutaneous cholecystostomy tube placement, status post cholecystojejunostomy. Surgery team is following. 3. End-stage renal disease. Continue hemodialysis as recommended by nephrology. 4. Hypothyroidism. Continue Synthroid. 5. Paroxysmal atrial fibrillation. Heart rate is controlled. 6. Metastatic pancreatic cancer. Aware. 7. Deep vein thrombosis prophylaxis. Heparin. 8. Severe protein-calorie malnutrition. Continue nutritional supplements. 9. Advanced directives. The patient is Do Not Resuscitate. 10. Disposition. The timing of discharge depends on the patient's clinical response to treatment as well as when all consultants are in agreement. cc: Smith Bah MD
[2019-02-06] MEDS ORDERED: KEFZOL 1 GM/D5W 1 GM/50 ML IVPB IV ONE (17:00)
--- NOTE | 2019-02-06 22:28 | GENERAL SURGERY PROGRESS NOTE ---
DATE: 02/06/2019 SUBJECTIVE: Mr Guzman is doing generally well. He denies any nausea. He is having some right upper quadrant pain postop. PLAN: The plan will be to start him on clear liquids tonight. The output in his radiologic placed drain is decreased. There is no evidence of bile in his Alton drain. So, we will start giving him some p.o. intake and then take out the radiologic drain probably tomorrow in preparation for his discharge, hopefully, by Monday or Monday. cc: Corky Miller MD
[2019-02-07] MEDS: SYNTHROID PO SCH ×2 (05:30→06:04)
[2019-02-07] MEDS: PRILOSEC PO SCH ×2 (05:30→06:04)
[2019-02-07] MEDS: SANTYL OINT TOP SCH (08:30)
[2019-02-07] MEDS: HEPARIN SUBQ SCH ×2 (08:31→21:33)
[2019-02-07] MEDS: PREDNISONE PO SCH ×2 (08:31→21:33)
[2019-02-07] MEDS: NORCO-10 PO PRN (08:38)
--- NOTE | 2019-02-07 09:50 | NEPHROLOGY PROGRESS NOTE ---
DATE: 02/07/2019 SUBJECTIVE: The patient underwent dialysis yesterday. No issues. OBJECTIVE: Vital Signs: Temperature 97.5 degrees, pulse 97, respiratory rate 20, blood pressure 104/76. Intake 50 mL; output 1.8 L. General exam: Elderly gentleman resting in bed. He does not appear in any distress. HEENT: Normocephalic, atraumatic. Conjunctivae pale. Oral mucosa moist. Neck: Supple. No JVD. Cardiovascular: Regular rate and rhythm. No murmur or gallop. Pulmonary: Clear bilaterally. Abdomen: Soft with positive bowel sounds. : Not inspected. Minimal void. Hemodialysis assist. Extremities: No edema. Integumentary: Skin is warm and dry. LAB DATA: Pending. ASSESSMENT AND PLAN: 1. Chronic kidney disease 5 D. He dialyzes on Monday, Monday, Monday. His next dialysis treatment will be tomorrow. 2. Bacteremia secondary to Klebsiella pneumonia. He is on appropriately dosed antibiotics. 3. Status post cholecystojejunostomy. Cholecystostomy tube placement followed by surgery. 4. Metastatic pancreatic cancer followed by Primary. 5. Disposition: Surgery hopes to have him out by the weekend. We will continue with his routine dialysis as an inpatient until he can continue outpatient treatments. Dictated by SIGIFREDO Christopher for Ubaldo Nguyen MD Face to face encounter, data reviewed, discussed with Maddy Casillas on 02/07/19. I agree with the above assessment and plan of care. cc: Ubaldo Nguyen MD [facility]
--- NOTE | 2019-02-07 18:35 | PROGRESS NOTE ---
DATE: 02/07/2019 SUBJECTIVE: The patient is awake, not in any obvious distress. OBJECTIVE: Vital Signs: Temperature 98 degrees, pulse 94, respiratory 16, blood pressure is 98/54, oxygen saturation is 100%. HEENT: Atraumatic, normocephalic. Cardiovascular: S1, S2. Respiratory: Has evidence of good entry bilaterally. Abdomen: Soft, nontender. He as a drain in the right upper quadrant region. No masses felt. Extremities: He has 1+ edema in the lower extremities. Central nervous system: No obvious focal deficits noted. LABORATORIES: Blood sugar is 185. ASSESSMENT AND PLAN: 1. Bacteremia secondary to Klebsiella pneumoniae. Continue antibiotics as recommended by Infectious Disease. 2. Status post percutaneous cholecystostomy as well as cholecystojejunostomy. The patient is being followed by the surgical team. 3. End-stage renal disease. Hemodialysis as recommended by Nephrology. 4. Hypothyroidism. Continue levothyroxine. 5. Paroxysmal atrial fibrillation. Heart rate is controlled. 6. Metastatic pancreatic cancer. Aware. 7. Deep vein thrombosis prophylaxis. Heparin. 8. Severe protein-calorie malnutrition. Continue nutritional supplements. 9. Advanced directive: The patient is a DO NOT RESUSCITATE. 10. Disposition: The patient can be discharged home once cleared by the surgical team. cc: Smith Bah MD
--- NOTE | 2019-02-07 19:21 | GENERAL SURGERY PROGRESS NOTE ---
DATE: 02/07/2019 SUBJECTIVE: Mr. Guzman is afebrile, heart rate 94, blood pressure 98/54. The biliary drain has decreased every day down to 25 mL. He has put out on only serous fluid from his Alton drain, which is only 10 mL. PLAN: The plan will be to advance him to full liquids. We will take out his biliary drain. Hopefully will get his Alton drain out tomorrow as we advance his diet, and hopefully we can get him home this weekend. cc: Corky Miller MD
[2019-02-08] MEDS: NORCO-10 PO PRN ×2 (02:09→20:43)
[2019-02-08 05:42] LABS: BASO# 0.01 X1000 (0.0-0.2); BASO% 0.2 % (0.0-0.8); HEMATOCRIT 34.2 % (42.0-52.0); HEMOGLOBIN 11.1 g/dL (14.0-18.0); IMM GRAN# 0.02 X1000 (0.0-0.04); IMM GRAN% 0.3 % (0.0-0.5); LYMPH# 0.69 X1000 (1.2-3.4); MCH 28.4 PG (27-31); MCHC 32.5 g/dL (33-37); MCV 87.5 FL (81-99); MONO# 0.43 X1000 (0.11-0.59); MONO% 7.5 % (1.7-9.3); MPV 10.9 FL (7.4-10.4); NEUT# 4.61 X1000 (1.4-6.5); PLT 197 X1000 (130-400); RBC 3.91 XMIL (4.7-6.1); RDW 15.9 % (11.5-14.5); WBC 5.76 X1000 (4.8-10.8)
[2019-02-08] MEDS: PRILOSEC PO SCH (06:11)
[2019-02-08] MEDS: SYNTHROID PO SCH (06:12)
[2019-02-08] MEDS ORDERED: NS 2,000 ML MISC PRN (06:13)
[2019-02-08] MEDS ORDERED: TIGHT: 0.2 ML/HR FOR DIALYSIS MISC PRN (06:13)
[2019-02-08] MEDS ORDERED: HEPARIN IV PRN (06:13)
[2019-02-08 06:24] LABS: AGAP 16; ALB/GLOB RATIO 0.5; ALKALINE PHOSPHATASE 245 U/L (32-122); BUN 31 mg/dL (8-22); CALCIUM 7.7 mg/dL (8.8-10.2); CHLORIDE 97 mmol/L (98-107); COSMO 282; CREATININE 4.4 mg/dL (0.7-1.2); ESTIMATED GFR 16; GLUCOSE 120 mg/dL (70-104); GOT 12 U/L (10-34); POTASSIUM 3.7 mmol/L (3.5-5.1); SODIUM 137 mmol/L (136-145); TCO2 24 mmol/L (25-35); TOTAL BILIRUBIN 1.37 mg/dL (0.20-1.00)
[2019-02-08 06:25] LABS: GPT < 5 U/L (10-44)
[2019-02-08] MEDS: SANTYL OINT TOP SCH (08:52)
[2019-02-08] MEDS: HEPARIN SUBQ SCH ×2 (08:52→20:44)
--- NOTE | 2019-02-08 11:59 | PROGRESS NOTE ---
DATE: 02/08/2019 SUBJECTIVE: Patient is resting comfortably in bed. Not in any obvious distress. OBJECTIVE: Vital signs: Temperature 97.6 degrees, pulse 93, respirations 20, blood pressure 130/89 and oxygen saturation is 100%. HEENT: Atraumatic, normocephalic. Cardiovascular: S1, S2. Respiratory: There is evidence of good air entry bilaterally. Abdomen: Soft, nontender. No masses felt. Extremities: There is 1+ edema in the lower extremities. Central nervous system: No obvious focal deficit noted. LABORATORY: WBCs 5.76, hematocrit 34.2, with a platelet count of 197,000. Sodium is 137, potassium 3.7, chloride 97, chloride 95, bicarb is 24, BUN is 21, and creatinine is 4.4. ASSESSMENT AND PLAN: 1. Bacteremia secondary to Klebsiella pneumonia. Continue antibiotics as recommended by Infectious Disease. 2. Status post percutaneous cholecystostomy as well as cholecystojejunostomy. The patient is being followed by the surgical team. 3. End-stage renal disease. Hemodialysis as recommended by Nephrology. 4. Hypothyroidism. Continue levothyroxine. 5. Paroxysmal atrial fibrillation. Heart rate is controlled. 6. Metastatic pancreatic cancer. Aware. 7. Deep vein thrombosis prophylaxis. Heparin. 8. Severe protein calorie malnutrition. Nutritional supplements. 9. Advanced directives. Patient is DNR. 10. Disposition: Patient can be discharged home once cleared by the surgical team. cc: Smith Bah MD MTDD
[2019-02-08] MEDS: PREDNISONE PO SCH ×2 (14:35→20:44)
--- NOTE | 2019-02-08 15:12 | GENERAL SURGERY PROGRESS NOTE ---
DATE: 02/08/2019 SUBJECTIVE: He is now 3 days after his cholecystojejunostomy. His percutaneous drain was removed yesterday. There has been no evidence of biliary drainage from that hole. The Alton drain still has no bile in it. He is tolerating p.o. intake. PLAN: The plan will be to remove his Al[place] drain later today. He should be able to go home from the surgical perspective tomorrow morning, the twenty-fifth. He should return to see me in the office in a week for staple removal. cc: Corky Miller MD
--- NOTE | 2019-02-08 16:23 | NEPHROLOGY PROGRESS NOTE ---
DATE: 02/08/2019 SUBJECTIVE: Patient is sitting up in bed. No issues. OBJECTIVE: Vital Signs: Temperature 97.6 degrees, pulse 93, respiratory rate 20, blood pressure 110/74. Intake not measured. Output 650 mL. HEENT: Normocephalic atraumatic. Oral mucosa moist. Neck: Supple. No JVD. Cardiovascular: Regular. Pulmonary: Clear. Abdomen: Soft positive bowel sounds. ANKUR drain noted right lower quadrant. : Minimal void, hemodialysis. Extremities: No clubbing, cyanosis, edema. Integumentary: Skin warm and dry. LAB DATA: WBC of 5.7, hemoglobin 11.1 sodium 137, potassium 3.7 CO2 24, creatinine 4.4. ASSESSMENT AND PLAN: 1. Chronic kidney disease 5 D. Today is his routine dialysis day. He will dialyze on a 3 K bath/UF to dry weight 4 hour treatment. 2. Bacteremia Klebsiella, no change antibiotics. 3. Status post cholecystectomy, jejunostomy. Followed by surgery. 4. Metastatic pancreatic cancer followed by primary. DISPOSITION: Dialyze today. If he remains in the hospital on Monday we will dialyze then. Dictated by SIGIFREDO Christopher for Ubaldo Nguyen MD Face to face encounter, data reviewed, discussed with Maddy Casillas on 02/08/19. I agree with the above assessment and plan of care. cc: Ubaldo Nguyen MD [facility]
[2019-02-08] MEDS ORDERED: KEFZOL 1 GM/D5W 1 GM/50 ML IVPB IV ONE (17:00)
[2019-02-09] MEDS: PRILOSEC PO SCH (06:10)
[2019-02-09] MEDS: SYNTHROID PO SCH (06:10)
[2019-02-09] MEDS: PREDNISONE PO SCH (08:35)
[2019-02-09] MEDS: SANTYL OINT TOP SCH (08:35)
[2019-02-09] MEDS: HEPARIN SUBQ SCH (08:35)
[2019-02-09 15:20] VITALS: BP 118/77
--- NOTE | 2019-02-09 19:35 | PROGRESS NOTE ---
DATE: 02/09/2019 INTERVAL HISTORY: No acute events. His intra-abdominal drain has not been removed yet. SUBJECTIVE: He is denying new complaints. Denies chest pain, shortness of breath. We discussed about antibiotic plans. I answered all of his questions. PHYSICAL EXAMINATION: Vital signs: Temperature 98.2 degrees, pulse 83, respiratory rate 15, blood pressure 110/65, saturating 100% room air. General: Does not appear in any acute distress. HEENT: Oral cavity is moist. Lungs: Air entry bilaterally equal. No wheeze, rhonchi, or crackles. Cardiovascular: S1, S2 normal. No murmur, rub, or gallop. Abdomen: Soft. He has a right-sided upper quadrant drain which is hooked up with a vacuum balloon. Abdomen otherwise is nontender. Extremities: Mild lower extremity edema. LABORATORIES: No CBC or BMP today. ASSESSMENT AND PLAN: 1. Klebsiella pneumoniae bacteremia, likely from hepatobiliary source secondary to intra- gallbladder drain manipulation. Continue intravenous cefazolin, and the plan is to discharge him on about 4 doses of Levaquin every 48 hours. I have sent over his prescription to his pharmacy. 2. History of unresectable pancreatic cancer, status post percutaneous cholecystotomy drain in the past with multiple dislodgement. He underwent cholecystojejunostomy during this hospital admission. He still does have an intra-abdominal drain, and I am awaiting surgery team to remove that. I think that is pending, and the plan is to discharge him home and outpatient surgery followup for hansel removal a week later. 3. Chronic kidney disease stage 5. He is on hemodialysis Monday, Monday, Monday. Nephrology on board. Continue levothyroxine for hypothyroidism, heparin for deep venous thrombosis prophylaxis, Tad for chronic pain, and omeprazole for chronic gastroesophageal reflux disease. 4. Hypoglycemia. Now it has resolved. I will change his home degludec to only 10 units at the time of discharge. He is advised to take frequent small meals. DISPOSITION: I am awaiting further surgery recommendation about drain removal. Based on that, I will discharge him home today. Plan of care discussed with him. All of his questions have been answered. cc: Jacob Lovell MD
--- NOTE | 2019-02-10 04:36 | GENERAL SURGERY PROGRESS NOTE ---
DATE: 02/09/2019 SUBJECTIVE: The patient is doing well. No abdominal pain, nausea, vomiting, fever, chills, or other systemic complaints. OBJECTIVE: Vital signs: He is afebrile. Vital signs are stable. General: He is awake, alert, and oriented x4. No acute distress. Gastrointestinal: Soft, nontender, nondistended. Incision is healing well. His ANKUR drain is nonbilious. ASSESSMENT AND PLAN: A 73-year-old male status post cholecystojejunostomy. He is making good progress. We will discharge him home today. I will remove the ANKUR drain prior to discharge. cc: Last Spence MD
--- NOTE | 2019-02-10 12:24 | DISCHARGE SUMMARY ---
ADMISSION DATE: 01/30/2019 DISCHARGE DATE: 02/09/2019 DISCHARGE DISPOSITION: Home. DISCHARGE CONDITION: The patient is hemodynamically stable. Denies any nausea/vomiting or abdominal pain. I have been informed that his right upper quadrant drain has just been removed by surgical team. It was, however, present at the time of my evaluation in the earlier part of the day. DISCHARGE DIAGNOSES: 1. Klebsiella pneumoniae bacteremia, likely from hepatobiliary source because of presence of cholecystotomy external drain. 2. End-stage renal disease, on hemodialysis. 3. Paroxysmal atrial fibrillation. 4. Severe protein-energy malnutrition. OTHER DIAGNOSES: 1. Chronic gout. 2. Chronic anemia. 3. Chronic gastroesophageal reflux disease. 4. Hypothyroidism. 5. Insulin-dependent diabetes mellitus with hypoglycemia at the time of presentation. DISCHARGE MEDICATIONS: Aspirin 81 mg daily, allopurinol 100 mg daily, hydroxyzine 25 mg at nighttime as needed for itching, Zofran 8 mg q.6 h. p.r.n. for nausea/vomiting, iron carbonyl/ascorbic acid 1 tablet b.i.d., levofloxacin 500 mg every 48 hours (4 tablets have been prescribed), Dayhoit 10 mg 1 tablet every 6 hours as needed for pain (#20 tablets have been prescribed by surgical team), omeprazole 20 mg daily, levothyroxine 75 mcg daily, insulin degludec 10 units subcutaneously daily (his dose has been decreased from 40 units because of hypoglycemia on presentation). CONSULTATIONS DURING HOSPITALIZATION: 1. General Surgery Dr. Miller and Dr. Spence. 2. Nephrology Dr. Nguyen. 3. Infectious Disease, Dr. Banuelos. PROCEDURES DURING HOSPITAL ADMISSION: The patient underwent cholecystojejunostomy on 01/30/2019. VITALS AT THE TIME OF DISCHARGE: Temperature 98.1 degrees, pulse 84, respiratory rate 14, blood pressure 114/81, saturating 100% room air. PHYSICAL EXAMINATION: General: Does not appear in any acute distress. Oral cavity is moist. Air entry bilaterally equal with no wheeze, rhonchi, or crackles. S1, S2 normal. No murmur, rub, gallop. Abdomen is soft, nontender. He did have right upper quadrant balloon drain at the time of earlier part of my examination; however, I have been informed that surgical team has removed it and surgical team had placed discharge order. SIGNIFICANT LABORATORY DATA DURING HOSPITAL ADMISSION: He did not have leukocytosis. His WBC was 5.7; however, it was 12,000 at the time of presentation. Hemoglobin 11.1, platelet 197,000. He did have elevated BUN and creatinine in the setting of his end-stage renal disease. Blood glucose at the time of presentation was 21; at the time of discharge, it was 119. SIGNIFICANT MICROBIOLOGY DURING HOSPITAL ADMISSION: Two of the blood cultures on January 30 had a Klebsiella pneumonia. Repeat blood culture on February 01 did not have any growth. SIGNIFICANT IMAGING DURING HOSPITAL ADMISSION: Abdomen and pelvis CT had detected cholecystotomy catheter withdrawn from the gallbladder. Improved bibasilar atelectasis and effusion. Abscess drained on 02/01/2019. He also on underwent successful placement of percutaneous cholecystostomy tube. HOSPITAL COURSE SUMMARY: Mr. Guzman is a 73-year-old man with past medical history of unresectable pancreatic cancer and chronic kidney disease, stage 5, on Monday, Monday, Monday hemodialysis, who came in with chief complaints of right upper quadrant abdominal pain and feeling dizzy. In the emergency room, he was found to have hypoglycemia. He was given D50 syringes and was admitted for further management. CT scan of the abdomen and pelvis had suggested dislodgement off his external gallbladder drain which was placed before because of gallbladder drainage as he had unresectable pancreatic cancer which was hampering gallbladder drainage. The drain was displaced, and he underwent repositioning and replacement with a new drain by CT-guided radiology procedure. He also had associated Klebsiella pneumoniae bacteremia for which he was receiving IV antibiotics. Considering that he has had multiple dislodgement of the drain, eventually, it was decided to take him for operating procedure so he underwent cholecystojejunostomy where his gallbladder was connected with the jejunum. Postoperatively, he did have 2 drains to allow proper healing of the wound. At the time of discharge, the first drain was removed around 02/07/2019, and the 2nd drain was removed around 02/09/2019. The patient had tolerated the procedure well. He at the time of discharge did not have any external drains, and his gallbladder was draining inside his jejunum. He was advised to follow up with surgeon doctor for staple removal. At the time of discharge, levofloxacin prescription was provided for his Klebsiella pneumoniae bacteremia. Plan of care was discussed with the patient, and all of his questions were satisfactorily answered at the time of discharge. COORDINATION TIME: More than 30 minutes spent in discharging this patient thank you. cc: Jacob Lovell MD
== END 2019-02-09 16:20 | disposition hospice, home (50) | DRG 907 ==
LOC: ED 03:51 → SUATTDRO 08:56 → EDIPHOLD 08:56 → ICU 23:19 → 3S 02-01 20:24
PROVIDERS: ATTEND Internal Medicine
CPT/HCPCS: 49041; 49405; 49406; 71010; 71045; 74176; 80053; 80069; 80076; 82533; 82805; 82948; 83003; 83036; 83525; 83605; 83690; 84206; 84305; 84439; 84443; 84484; 84681; 85025; 85027; 85610; 87040; 87077; 87186; 93005; 93010; 96361; 96365; 96366; 96367; 96368; 96375; 97162; 97530; 99285; A9270; J0690; J0713; J1644; J2270; J2370; J2543; J3010; J7030; J7040; J7042; J7050; J7506; J7512; Q9967; XXXXX

== ENCOUNTER 2019-02-19 10:28 | Inpatient (IN) ==
[~2019-02-19 10:28] MED LIST: CALCIUM CHLORIDE SYRINGE ONE; EPINEPHRINE SYRINGE ONE; SODIUM BICARBONATE 8.4% ONE
[2019-02-19] MEDS ORDERED: AMIDATE ONE (10:44)
[2019-02-19] MEDS ORDERED: QUELICIN ONE (10:45)
[2019-02-19] MEDS ORDERED: VERSED ONE (10:45)
[2019-02-19] MEDS ORDERED: NORCURON ONE (10:45)
[2019-02-19] MEDS ORDERED: NS 1,000 ML ONE ×2 (10:48→11:50)
[2019-02-19] MEDS ORDERED: D50W SYRINGE IV ONE ×3 (11:00→18:35)
--- NOTE | 2019-02-19 11:16 | Diag Imaging Result Doc PS360 ---
CHEST-1 VIEW - 02/19/2019 INDICATION: SOB COMPARISON: None FINDINGS: There is an endotracheal tube in good position at about T4. The nasogastric tube deviates from the midline into the left lung base. This may well be in the airway. There is a right-sided dialysis catheter in good position with the catheter tip in the right atria. There are surgical incision skin clips over the right upper quadrant. IMPRESSION: Probably misplaced nasogastric tube in the airway in the left lower lobe. This report was discussed with RT Mandy on 02/19/2019 at 11:10 AM and was readback. Electronically signed by Conrado Sullivan 02/19/2019 11:14 AM
--- NOTE | 2019-02-19 11:26 | EKG Report ---
Test Performed on : 02/19/2019 10:56:36 AM Test Reason : SOB Blood Pressure : / mmHG Vent. Rate : 110 BPM Atrial Rate : 110 BPM P-R Int : 178 ms QRS Dur : 092 ms QT Int : 328 ms P-R-T Axes : 006 -47 131 degrees QTc Int : 443 ms Sinus tachycardia. with occasional premature ventricular complexes. Left anterior fascicular block Cannot rule out Inferior infarct (masked by fascicular block?) , age undetermined ST & T wave abnormality, consider lateral ischemia Abnormal ECG No previous ECGs available Unconfirmed Result
[2019-02-19 11:40] LABS: BASO# 0.01 X1000 (0.0-0.2); BASO% 0.2 % (0.0-0.8); HEMATOCRIT 36.2 % (42.0-52.0); HEMOGLOBIN 11.7 g/dL (14.0-18.0); IMM GRAN# 0.03 X1000 (0.0-0.04); IMM GRAN% 0.5 % (0.0-0.5); LYMPH# 0.62 X1000 (1.2-3.4); LYMPH% 9.5 % (20.5-51.1); MCH 28.7 PG (27-31); MCHC 32.3 g/dL (33-37); MCV 88.9 FL (81-99); MONO# 0.36 X1000 (0.11-0.59); MONO% 5.5 % (1.7-9.3); NEUT# 5.53 X1000 (1.4-6.5); NEUT% 84.3 % (42.2-75.2); PLT 217 X1000 (130-400); RBC 4.07 XMIL (4.7-6.1); RDW 15.9 % (11.5-14.5); WBC 6.55 X1000 (4.8-10.8)
[2019-02-19 11:44] LABS: INR 1.47; PROTIME 18.9 Seconds (11.0-16.0)
[2019-02-19] MEDS: KETAMINE IV ONE ×2 (11:44→12:00)
[2019-02-19 11:45] LABS: PTT 35.8 Seconds (22.3-41.8)
[2019-02-19 11:57] LABS: D-DIMER 8.86 ug/mLFEU (0.0-0.52)
[2019-02-19] MEDS ORDERED: KETAMINE 500 MG in NS 500 ML IV SCH (12:00)
[2019-02-19 12:15] LABS: ALB/GLOB RATIO 0.8; ALBUMIN 2.3 g/dL (3.5-5.0); CREATININE 4.4 mg/dL (0.7-1.2); POTASSIUM 2.9 mmol/L (3.5-5.1); TOTAL BILIRUBIN 1.05 mg/dL (0.20-1.00); TOTAL PROTEIN 5.3 g/dL (6.3-8.3)
[2019-02-19 12:30] LABS: URINE SOURCE CATH
[2019-02-19 12:43] LABS: BILIRUBIN URINE SMALL (NEGATIVE); BLOOD URINE LARGE (NEGATIVE); CLARITY SLIGHTLY CLOUDY (CLEAR); COLOR YELLOW; GLUCOSE URINE NEGATIVE (NEGATIVE); KETONE URINE TRACE mg/dL (NEGATIVE); LEUKOCYTES URINE TRACE (NEGATIVE); NITRITE URINE POSITIVE (NEGATIVE); PROTEIN URINE 100 mg/dL (NEGATIVE); SP GRAVITY URINE >= 1.030; URINE BACTERIA 1+ /HFP; URINE EPITHELIAL CELLS <10 /HPF (<10); URINE RBC TNTC /HPF (<10); UROBILINOGEN URINE 0.2 EU/dL (0.2-1.0)
[2019-02-19 13:16] LABS: ALLEN TEST NO; BE 5.8 mmoll (-3.0-3.0); BLOOD TYPE ARTERIAL; HCO3-(ACT) 29.4 mmoll (20.0-26.0); METHB 0.3 % (0.0-1.5); O2HB 96.2 % (95.0-99.0); PCO2(98.6) 31 mmHg (35-45); PO2(98.6) 383 mmHg (60-100); SAMPLE BLOOD; SAO2 96.6 % (95.0-100.0); SRATE 15 BPM; THB 11.8 g/dL (11.5-17.4); TVOL 500 mL
[2019-02-19 13:18] LABS: MODALITY VENTILATOR; pH(98.6) 7.56 (7.35-7.45)
[2019-02-19] MEDS ORDERED: D5 1/2 NS 1,000 ML IV ONE (13:26)
--- NOTE | 2019-02-19 15:09 | Diag Imaging Result Doc PS360 ---
CT HEAD W/O CONTRAST - 02/19/2019 INDICATION: AMS COMPARISON: None FINDINGS: There is a nasogastric tube. There is a faint area of encephalomalacia at the inferior left cerebellar hemisphere. There is moderately advanced periventricular white matter chronic microvascular disease in the cerebrum. No intracranial mass or hemorrhage. The sinuses are clear. IMPRESSION: No hemorrhage. Age-indeterminate ischemic changes of the brain, including the cerebrum and left cerebellar hemisphere. This exam was performed using automated exposure control, adjustment of mA or kV according to patient size, and/or use of iterative reconstruction technique Electronically signed by Conrado Sullivan 02/19/2019 3:07 PM
[2019-02-19] MEDS ORDERED: LOVENOX 1 MG/KG SUBQ ONE (15:21)
--- NOTE | 2019-02-19 15:22 | Diag Imaging Result Doc PS360 ---
CT ANGIOGRM PULMONARY ARTERIES - 02/19/2019 INDICATION: SOB , ELEVATED DDIMER TECHNIQUE: Axial CT images were obtained after administering intravenous contrast. Coronal MIP images were generated. COMPARISON: None FINDINGS: There is an endotracheal tube and nasogastric tube in good position. There is a right-sided dialysis catheter with the tip in the upper right atrium. There are pulmonary emboli in the right upper and middle lobe pulmonary arteries. There are also pulmonary emboli in the right lower lobe pulmonary arteries. There is some dependent atelectasis bilaterally. There are probably trace pleural effusions. There is cardiomegaly. No significant infiltrates. There is some ascites in the upper abdomen. The gallbladder is not well-defined. IMPRESSION: 1. Pulmonary emboli in right lobar pulmonary arteries. 2. Cardiomegaly. 3. Ascites in the upper abdomen. Gallbladder is not well-defined. Recommend CT scanning the abdomen and pelvis. 4. This report was discussed with Dr. Henry on 02/19/2019 at 3:15 PM and was readback. This exam was performed using automated exposure control, adjustment of mA or kV according to patient size, and/or use of iterative reconstruction technique Electronically signed by Conrado Sullivan 02/19/2019 3:19 PM
[2019-02-19] MEDS ORDERED: KETAMINE ONE (15:32)
[2019-02-19] MEDS ORDERED: KETAMINE IV ONE (15:44)
--- NOTE | 2019-02-19 15:55 | PROVIDER DOCUMENTATION ---
This chart was entered by Francisca Platt Scribe, acting as scribe for Stephan Henry MD. HPI-Neurological Disorder - General Stated Complaint: UNRESPONSIVE Time Seen by Provider: 02/19/19 10:44 Source: patient Allergies/Adverse Reactions: Patient Allergies Allergy/AdvReac Type Severity Reaction Status Date / Time No Allergy Information Allergy Verified 02/19/19 15:42 Available Home Medications: Home Medication List Medication Instructions Recorded Confirmed Last Taken Type Allopurinol 100 mg PO DAILY 02/06/18 01/30/19 12/03/18 History Aspirin [Adult Low Dose Aspirin EC] 81 mg PO DAILY 04/30/18 01/30/19 12/03/18 History Iron Carbonyl/Ascorbic Acid 1 each PO BID tablet 10/05/18 01/30/19 12/03/18 Rx [Icar-C] Hydrocodone/APAP 10 mg/325 mg 1 ea PO Q6H PRN #30 tab 12/18/18 01/30/19 Unknown Rx [[place]-10] Levothyroxine [Synthroid] 75 microgm PO DAILY@0700 tab 12/18/18 01/30/19 Unknown Rx Omeprazole [Prilosec] 20 mg PO DAILY@0700 cap 12/18/18 01/30/19 Unknown Rx Hydroxyzine [Atarax] 25 mg PO HS PRN 01/30/19 01/30/19 Unknown History Ondansetron HCl [Zofran] 8 mg PO Q6H PRN PRN 01/30/19 01/30/19 Unknown History Hydrocodone/APAP 10 mg/325 mg 1 ea PO Q6H PRN #20 tab 02/09/19 Unknown Rx [[place]-10] Insulin Degludec [Tresiba 10 unit SQ DAILY #0 02/09/19 01/30/19 Unknown Rx Flextouch U-200] Levofloxacin [Levaquin] 500 mg PO Q48H #4 tab 02/09/19 Unknown Rx - History of Present Illness-Neuro Nature of Presenting Problem: Patient is a 73 year old male who presents to the ED via EMS after being found unresponsive by family. EMS states patient's FSBS read as "low" so they gave patient 1 amp of D50 and blood sugar improved to 136. 1035 - patient arrived in ED. 1040 - patient received 20 mg of Etomidate and 100 mg of Succ. 1041 - intubation placed. 1045 - rhythm change to asystole. no pulse present. CPR started. 1047 - epi, calcium, and bicarb given. 1048 - rhythm check. pulse present. heart rate is 164. 1053 - rhythm change to v tach. no pulse present. CPR started. 1054 - rhythm check. pulse present. Severity: reports: severe Onset/Duration: reports: unsure Timing: reports: still present Context: reports: found unresponsive by family Character of Altered Mental Status: reports: unresponsive Similar Symptoms Previously?: No Recently seen or treated by another doctor?: Yes Review of Systems - Adult - REVIEW OF SYSTEMS - ADULT ROS:: unobtainable per condition Constitutional: reports: no symptoms reported Eyes: reports: no symptoms reported Ears, Nose, Mouth & Throat: reports: no symptoms reported Cardiovascular: reports: no symptoms reported Respiratory: reports: no symptoms reported Gastrointestinal: reports: no symptoms reported Genitourinary: reports: no symptoms reported Musculoskeletal: reports: no symptoms reported Integumentary: reports: no symptoms reported Neurological: reports: no symptoms reported Psychiatric: reports: no symptoms reported Endocrine: reports: no symptoms reported Hematologic/Lymphatic: reports: no symptoms reported Allergic/Immunologic: reports: no symptoms reported All Other Systems: Reviewed and Negative Past History - Adult - PAST MEDICAL HISTORY-ADULT Review of Records: reports: Old Records Reviewed Major Childhood Illnesses: reports: denies history Cardiovascular: reports: denies history Respiratory: reports: denies history Gastrointestinal: reports: denies history Obstetrical/Gynecological: reports: denies history Genitourinary: reports: denies history Musculoskeletal: reports: denies history Neurological: reports: denies history Endocrine/Immune: reports: denies history Other Conditions: reports: denies history - IMMUNIZATION STATUS Childhood Immunizations: See Nurse Assessment Flu Vaccine: See Nurse Assessment - FAMILY HISTORY Family History: reviewed, not pertinent Physical Exam- Neurological - Physical Exam-Neuro Initial Vital Signs Reviewed: Yes General Appearance: other (unresponsive). negative: alert, combative HENMT: normocephalic/atraumatic, other (dentures present and removed by RN). negative: angioedema Head Injury: no evidence of injury. negative: contusions, ecchymosis, lacerations Respiratory: lungs clear, normal breath sounds, other (coarse breath sounds bilaterally). negative: crackles, rhonchi Cardiovascular: normal peripheral pulses, tachycardia. negative: systolic murmur Abdominal Exam: soft, other (well healing surgical scar to RUQ with hansel present). negative: hernia, mass Extremity: normal inspection, other (IO IV present to left lower leg). negative: deformity, erythema service captain Exam: other (unable to assess per patient's condition) Coordination/Gait: other (unable to assess per patient's condition) Motor/Sensory: other (unable to assess per patient's condition) Neurologic: other (unable to assess per patient's condition) Integumentary: normal color, normal turgor. negative: cyanosis, ecchymosis, erythema, rash Psych/Mental Status: other (unresponsive). negative: anxious, paranoid Progress - PLAN OF CARE/RESULTS Progress/Plan/Lab Results: Vital Signs - 8 hr 02/19/19 11:00 02/19/19 12:15 02/19/19 12:16 Temperature Pulse Rate 99 H Blood Pressure 102/72 O2 Sat by Pulse Oximetry 100 100 100 02/19/19 12:18 02/19/19 12:20 02/19/19 12:30 Temperature 97.3 F L Pulse Rate 95 H 96 H Blood Pressure O2 Sat by Pulse Oximetry 98 97 02/19/19 12:31 02/19/19 12:40 02/19/19 12:46 Temperature Pulse Rate 96 H 90 99 H Blood Pressure 119/81 121/88 O2 Sat by Pulse Oximetry 97 02/19/19 12:50 02/19/19 13:00 02/19/19 13:01 Temperature Pulse Rate 97 H 97 H 100 H Blood Pressure 123/83 O2 Sat by Pulse Oximetry 02/19/19 13:10 02/19/19 14:30 02/19/19 14:50 Temperature Pulse Rate 110 H Blood Pressure O2 Sat by Pulse Oximetry 100 100 Laboratory Results - last 24 hr 02/19/19 02/19/19 02/19/19 10:39 10:50 10:59 WBC RBC Hgb Hct MCV MCH MCHC RDW Std Deviation Plt Count MPV Immature Gran % (Auto) Neut % (Auto) Lymph % (Auto) [place] % (Auto) Eos % (Auto) Baso % (Auto) Immature Gran # (Auto) Neut # (Auto) Lymph # (Auto) [place] # (Auto) Eos # (Auto) Baso # (Auto) PT INR PTT (Actin FS) D-Dimer, Quantitative Specimen Type ARTERIAL Sample Site R BRACHIAL pH 7.56 H* pCO2 31 L pO2 383 H HCO3 29.4 H Base Excess 5.8 H Oxyhemoglobin 96.2 ABG O2 Sat (Calculated) 17.0 ABG O2 Saturation 96.6 ABG Carboxyhemoglobin 0.00 L ABG Methemoglobin 0.3 Mauricio Test NO A-a O2 Difference 291.0 Total Hemoglobin 11.8 Lactate 2.60 H Blood Gas Modality VENTILATOR Vent Mode A/C Spontaneous Rate 15 FiO2 % 100.0 Tidal Volume 500 PEEP 5.0 Sodium Potassium Chloride Carbon Dioxide Anion Gap BUN Creatinine Estimated GFR/1.73 m2 BUN/Creatinine Ratio Glucose POC Glucose 128 H Calculated Osmolality Calcium Total Bilirubin AST ALT Alkaline Phosphatase Creatine Kinase Troponin T Ouj-W-Yyblcquylel Pept Total Protein Albumin Globulin Albumin/Globulin Ratio Plasma Lactate Urine Source CATH Urine Color YELLOW Urine Clarity SLIGHTLY CLOUDY A Urine pH 5.0 Ur Specific [place] >= 1.030 Urine Protein 100 A Urine Ketones TRACE A Urine Blood LARGE A Urine Nitrite POSITIVE A Urine Bilirubin SMALL A Urine Urobilinogen 0.2 Urine Microscopic RBC TNTC A Urine WBC TRACE A Urine Microscopic WBC 10-20 A Ur Epithelial Cells <10 Urine Bacteria 1+ Urine Glucose NEGATIVE 02/19/19 02/19/19 02/19/19 11:10 11:10 11:10 WBC 6.55 RBC 4.07 L Hgb 11.7 L Hct 36.2 L MCV 88.9 MCH 28.7 MCHC 32.3 L RDW Std Deviation 15.9 H Plt Count 217 MPV 10.0 Immature Gran % (Auto) 0.5 Neut % (Auto) 84.3 H Lymph % (Auto) 9.5 L [place] % (Auto) 5.5 Eos % (Auto) 0.0 Baso % (Auto) 0.2 Immature Gran # (Auto) 0.03 Neut # (Auto) 5.53 Lymph # (Auto) 0.62 L [place] # (Auto) 0.36 Eos # (Auto) 0.00 Baso # (Auto) 0.01 PT 18.9 H INR 1.47 PTT (Actin FS) 35.8 D-Dimer, Quantitative 8.86 H Specimen Type Sample Site pH pCO2 pO2 HCO3 Base Excess Oxyhemoglobin ABG O2 Sat (Calculated) ABG O2 Saturation ABG Carboxyhemoglobin ABG Methemoglobin Mauricio Test A-a O2 Difference Total Hemoglobin Lactate Blood Gas Modality Vent Mode Spontaneous Rate FiO2 % Tidal Volume PEEP Sodium 146 H Potassium 2.9 L Chloride 107 Carbon Dioxide 24 L Anion Gap 15 BUN 21 Creatinine 4.4 H Estimated GFR/1.73 m2 12 BUN/Creatinine Ratio 5 Glucose 67 L POC Glucose Calculated Osmolality 292 Calcium 9.0 Total Bilirubin 1.05 H AST 18 ALT 5 L Alkaline Phosphatase 148 H Creatine Kinase 34 Troponin T Qie-P-Frjctezxzii Pept Total Protein 5.3 L Albumin 2.3 L Globulin 3.0 Albumin/Globulin Ratio 0.8 Plasma Lactate Urine Source Urine Color Urine Clarity Urine pH Ur Specific [place] Urine Protein Urine Ketones Urine Blood Urine Nitrite Urine Bilirubin Urine Urobilinogen Urine Microscopic RBC Urine WBC Urine Microscopic WBC Ur Epithelial Cells Urine Bacteria Urine Glucose 02/19/19 02/19/19 02/19/19 11:10 11:10 11:10 WBC RBC Hgb Hct MCV MCH MCHC RDW Std Deviation Plt Count MPV Immature Gran % (Auto) Neut % (Auto) Lymph % (Auto) [place] % (Auto) Eos % (Auto) Baso % (Auto) Immature Gran # (Auto) Neut # (Auto) Lymph # (Auto) [place] # (Auto) Eos # (Auto) Baso # (Auto) PT INR PTT (Actin FS) D-Dimer, Quantitative Specimen Type Sample Site pH pCO2 pO2 HCO3 Base Excess Oxyhemoglobin ABG O2 Sat (Calculated) ABG O2 Saturation ABG Carboxyhemoglobin ABG Methemoglobin Mauricio Test A-a O2 Difference Total Hemoglobin Lactate Blood Gas Modality Vent Mode Spontaneous Rate FiO2 % Tidal Volume PEEP Sodium Potassium Chloride Carbon Dioxide Anion Gap BUN Creatinine Estimated GFR/1.73 m2 BUN/Creatinine Ratio Glucose POC Glucose Calculated Osmolality Calcium Total Bilirubin AST ALT Alkaline Phosphatase Creatine Kinase Troponin T 0.060 Rkn-B-Vvujffinfmm Pept 99514 H Total Protein Albumin Globulin Albumin/Globulin Ratio Plasma Lactate 3.4 H Urine Source Urine Color Urine Clarity Urine pH Ur Specific [place] Urine Protein Urine Ketones Urine Blood Urine Nitrite Urine Bilirubin Urine Urobilinogen Urine Microscopic RBC Urine WBC Urine Microscopic WBC Ur Epithelial Cells Urine Bacteria Urine Glucose 02/19/19 02/19/19 13:22 15:43 WBC RBC Hgb Hct MCV MCH MCHC RDW Std Deviation Plt Count MPV Immature Gran % (Auto) Neut % (Auto) Lymph % (Auto) [place] % (Auto) Eos % (Auto) Baso % (Auto) Immature Gran # (Auto) Neut # (Auto) Lymph # (Auto) [place] # (Auto) Eos # (Auto) Baso # (Auto) PT INR PTT (Actin FS) D-Dimer, Quantitative Specimen Type Sample Site pH pCO2 pO2 HCO3 Base Excess Oxyhemoglobin ABG O2 Sat (Calculated) ABG O2 Saturation ABG Carboxyhemoglobin ABG Methemoglobin Mauricio Test A-a O2 Difference Total Hemoglobin Lactate Blood Gas Modality Vent Mode Spontaneous Rate FiO2 % Tidal Volume PEEP Sodium Potassium Chloride Carbon Dioxide Anion Gap BUN Creatinine Estimated GFR/1.73 m2 BUN/Creatinine Ratio Glucose POC Glucose 20 L D 50 L D Calculated Osmolality Calcium Total Bilirubin AST ALT Alkaline Phosphatase Creatine Kinase Troponin T Mua-S-Vrdxvxdbcfi Pept Total Protein Albumin Globulin Albumin/Globulin Ratio Plasma Lactate Urine Source Urine Color Urine Clarity Urine pH Ur Specific [place] Urine Protein Urine Ketones Urine Blood Urine Nitrite Urine Bilirubin Urine Urobilinogen Urine Microscopic RBC Urine WBC Urine Microscopic WBC Ur Epithelial Cells Urine Bacteria Urine Glucose Orders Category Date Time Status Cardiac Monitoring DIRECTED Care 02/19/19 10:52 Active Oxygen Therapy- ED Nursing DIRECTED Care 02/19/19 10:52 Active Saline Loc NOW Care 02/19/19 10:52 Active CHEST-1 VIEW [RAD] Stat Exams 02/19/19 10:[address] HEAD W/O CONTRAST [CT] Stat Exams 02/19/19 12:22 Completed CTA [CT ANGIOGRM PULMONARY ARTERIES] [CT] Stat Exams 02/19/19 12:07 Completed ABG [RESP] Routine Lab 02/19/19 10:50 Completed BLOOD CULTURE [BLDCUL] Stat Lab 02/19/19 11:46 Results CBC WITH ELECTRONIC DIFF [HEME] Stat Lab 02/19/19 11:10 Completed CK PROFILE [SP CHEM] Stat Lab 02/19/19 11:10 Completed COMPREHENSIVE METABOLIC PANEL [CHEM] Stat Lab 02/19/19 11:10 Completed D-DIMER [COAG] Stat Lab 02/19/19 11:10 Completed LACTATE, PLASMA [CHEM] Stat Lab 02/19/19 11:10 Completed PRO B-NATRIURETIC PEPTIDE Stat Lab 02/19/19 11:10 Completed PROTIME WITH INR [COAG] Stat Lab 02/19/19 11:10 Completed PTT [COAG] Stat Lab 02/19/19 11:10 Completed TROPONIN T Stat Lab 02/19/19 11:10 Completed URINE CULTURE [RM] Routine Lab 02/19/19 12:46 Received 0.9% Sodium Chloride Inj [Ns] 1,000 ml Med 02/19/19 10:48 Discontinued .ROUTE As directed 0.9% Sodium Chloride Inj [Ns] 1,000 ml Med 02/19/19 11:50 Discontinued .ROUTE As directed 0.9% Sodium Chloride Inj [Ns] 500 ml Med 02/19/19 12:00 Active Ketamine 500 mg IV As Directed mls/hr Dextrose 5%-0.45% NaCl Inj [D5 1/2 Ns] 1,000 ml Med 02/19/19 13:26 Active IV 100 mls/hr Dextrose 50% Syringe [D50w Syringe] Med 02/19/19 11:00 Discontinued 50 ml IV NOW ONE Dextrose 50% Syringe [D50w Syringe] Med 02/19/19 13:26 Discontinued 50 ml IV NOW ONE Enoxaparin 1 mg/kg [Lovenox 1 mg/kg] Med 02/19/19 15:21 Discontinued 1 each SUBQ NOW ONE Etomidate [Amidate] Med 02/19/19 10:44 Discontinued 40 mg .ROUTE .STK-MED ONE Ketamine Med 02/19/19 11:17 Discontinued 100 mg IV NOW ONE Ketamine Med 02/19/19 15:44 Discontinued 50 mg IV NOW ONE Ketamine Med 02/19/19 15:32 Discontinued 500 mg .ROUTE .STK-MED ONE Midazolam [Versed] Med 02/19/19 10:45 Discontinued 5 mg .ROUTE .STK-MED ONE Succinylcholine [Quelicin] Med 02/19/19 10:45 Discontinued 200 mg .ROUTE .STK-MED ONE Vecuronium [Norcuron] Med 02/19/19 10:45 Discontinued 10 mg .ROUTE .STK-MED ONE CP/SOB/Palp >45 yrs of Age Stat Oth 02/19/19 10:52 Ordered Ventilator Order Timed Oth 02/19/19 09:50 Active EKG [EKG] Stat Ther 02/19/19 10:44 Draft 1225 - Patient's family arrived in ED. Dr. Henry consulted with family about patient's current condition. Result Diagrams: 02/19/19 11:10 02/19/19 11:10 - EKG 1 Time of EKG reading by physician:: 10:56 EKG Read and Signed by:: Stephan Henry EKG Interpretation (*Must complete 3 of following elements*): Abnormal (ST & T wave abnormality, consider lateral ischemia; cannot rule out inferior infarct (masked by fascicular block?), age undetermined) Rate: 110 Rhythm: sinus tachycardia with occasional premature ventricular complexes [place]: normal OR Interval: normal Comments: left anterior fascicular block; - XRAY 1 XRAY Study: Chest Impression: See EMR Report ( CHEST-1 VIEW - 02/19/2019 INDICATION: SOB COMPARISON: None FINDINGS: There is an endotracheal tube in good position at about T4. The nasogastric tube deviates from the midline into the left lung base. This may well be in the airway. There is a right-sided dialysis catheter in good position with the catheter tip in the right atria. There are surgical incision skin clips over the right upper quadrant. IMPRESSION: Probably misplaced nasogastric tube in the airway in the left lower lobe. This report was discussed with RT Mandy on 02/19/2019 at 11:10 AM and was readback. Electronically signed by Conrado Sullivan 02/19/2019 11:14 AM 02/19/19 1114 Interpreting Physician: Conrado Sullivan MD Dictated Date/Time: 02/19/19 1112 cc: Stephan Henry MD;) - CT/MRI 1 CT Study: Head Impression: See EMR Report ( CT HEAD W/O CONTRAST - 02/19/2019 INDICATION: AMS COMPARISON: None FINDINGS: There is a nasogastric tube. There is a faint area of encephalomalacia at the inferior left cerebellar hemisphere. There is moderately advanced periventricular white matter chronic microvascular disease in the cerebrum. No intracranial mass or hemorrhage. The sinuses are clear. IMPRESSION: No hemorrhage. Age-indeterminate ischemic changes of the brain, including the cerebrum and left cerebellar hemisphere. This exam was performed using automated exposure control, adjustment of mA or kV according to patient size, and/or use of iterative reconstruction technique Electronically signed by Conrado Sullivan 02/19/2019 3:07 PM 02/19/19 1507 Interpreting Physician: Conrado Sullivan MD Dictated Date/Time: 02/19/19 1504 cc: Stephan Henry MD; Martin Olmedo MD) - CONSULTS/PCP/HOSPITALIST Notification #1 *Consult/PCP/Hospitalist*: Dr. Sullivan Time Discussed: 15:21 Reason/Comments: Dr. Henry consulted with Dr. Sullivan about patient's pulmonary scan Consult Disposition: other (Dr. Sullivan states patient's scan shows multiple PE's.) Procedures - INTUBATION Time of Intubation: 10:41 Intubation Method: orotracheal Equipment: ETT Tube Size (cm): 7.5 Pretreated with 100% Oxygen?: Yes Breath Sounds after Intubation: equal ETT Primary Tube Confirmation: Capnometry CO2 Change, Direct Visualization, Chest Rise and Fall, Tube placement verified on XRAY Intubation Complications: no complications Vent Settings: See Respiratory Therapy Notes Departure - Departure Date of Disposition Decision: 02/19/19 Time of Disposition Decision: 15:39 DIAGNOSIS: Hypoglycemia, Altered mental status, Respiratory failure, Pulmonary embolism Disposition: ADMITTED INPATIENT 09 Certified Medical Emergency: Emergent Condition: Critical Referrals and Follow-Ups: Martin Olmedo MD [Primary Care Provider] - - Critical Care Note This patient required my direct & personal management of CC.: Yes Total Time (mins): 63 Critical Care Statement: This patient required my direct personal management to treat or rule out processes, the absence of which, could potentiallly result in sudden, clinically significant life or limb threatening deterioration. Attestation - Physician/ NEDRA Attestation The physician spent face to face time with patient:: Yes Advanced Practice Provider documentation review:: Supervising physician onsite and consulted in the evaluation and care of this patient. The physician did have a face to face encounter with the patient. This chart was documented by the indicated scribe, (Francisca Platt Scribe) and accurately reflects the services I performed and decisions made by me, Stephan Hnery MD, as attested by the provider's signature.
[2019-02-19] MEDS ORDERED: LOVENOX SUBQ ONE (16:15)
[2019-02-19] MEDS ORDERED: DIPRIVAN 1% 1,000 MG/100 ML BOTTLE IV SCH (18:32)
[2019-02-19] MEDS ORDERED: ZOFRAN IV PRN (18:32)
[2019-02-19] MEDS ORDERED: DUONEB (A & A) INH PRN (18:32)
[2019-02-19] MEDS: DUONEB (A & A) INH SCH (19:33)
[2019-02-19] MEDS ORDERED: LOVENOX SUBQ SCH (20:00)
[2019-02-19 20:10] LABS: ALLEN TEST YES; BE -4.7 mmoll (-3.0-3.0); BLOOD TYPE ARTERIAL; HCO3-(ACT) 21.3 mmoll (20.0-26.0); METHB 0.1 % (0.0-1.5); O2(CT) 15.2 mL/dL (15.0-23.0); O2HB 96.5 % (95.0-99.0); PCO2(98.6) 26 mmHg (35-45); PO2(98.6) 223 mmHg (60-100); SAMPLE BLOOD; SAO2 96.6 % (95.0-100.0); SRATE 12 BPM; THB 10.8 g/dL (11.5-17.4); TVOL 500 mL; pH(98.6) 7.45 (7.35-7.45)
[2019-02-19 20:11] LABS: MODALITY VENTILATOR
[2019-02-19] MEDS ORDERED: MORPHINE IV PRN (20:33)
[2019-02-19] MEDS ORDERED: LEVAQUIN 250 MG/D5W 250 MG/50 ML IVPB IV SCH (20:45)
[2019-02-19] MEDS: ATIVAN IV PRN ×2 (20:45→22:37)
[2019-02-19] MEDS ORDERED: VANCOMYCIN IV PER PHARMACY MISC SCH (20:45)
[2019-02-19] MEDS ORDERED: PROTONIX IV SCH (20:45)
[2019-02-19] MEDS ORDERED: SODIUM CHLORIDE 0.9% INJ SCH (20:45)
[2019-02-19] MEDS: D10W 1,000 ML IV SCH (21:00)
--- NOTE | 2019-02-19 21:37 | HISTORY AND PHYSICAL ---
CHIEF COMPLAINT: Altered mental status. HISTORY OF PRESENT ILLNESS: Mr. Shane Guzman is a 73-year-old male who has a history of multiple medical conditions, including end-stage renal disease, hypothyroidism, paroxysmal atrial fibrillation, metastatic pancreatic cancer, recent history of Klebsiella pneumoniae bacteremia. Patient was found unresponsive at home and was brought to the hospital via EMS. EMS services had indicated the patient's blood sugar has been low, and he did receive 1 ampule of D50 with blood sugar improving to 136. When patient arrived in the ER, he was intubated, and soon after that he went asystolic. ACLS protocol was initiated. Pulse was regained. Reading during the ACLS Code were asystole as well as ventricular tachycardia. Patient had a head CT done with no acute findings. CTA of the chest showed evidence of pulmonary emboli in the right lower pulmonary arteries, and patient was started on anticoagulation. Initial troponin was unremarkable. Potassium level was found to be 2.9. His UA showed a picture of urinary tract infection. Patient will be admitted to the Critical Care Unit for further treatment. PAST MEDICAL HISTORY: 1. End-stage renal disease. 2. Metastatic pancreatic cancer. 3. Anemia of chronic disease. 4. Paroxysmal atrial fibrillation. 5. Type 2 diabetes mellitus. 6. Secondary hyperparathyroidism. 7. Hypothyroidism. 8. History of Klebsiella bacteremia. PAST SURGICAL HISTORY: 1. Tunneled dialysis catheter in the right chest. 2. Previous orthopedic surgery to his finger. 3. Cholecystostomy catheter placed under fluoroscopy. 4. History of cholecystojejunostomy. SOCIAL HISTORY: No history of alcohol, tobacco use, or drug use. ALLERGIES: No known drug allergies. HOME MEDICATIONS: Include the followin. Allopurinol 100 mg p.o. daily. 2. Aspirin 81 mg p.o. daily. 3. Icar C 1 p.o. twice a day. 4. [place] 10/325 one p.o. every 6 hours p.r.n. 5. Levothyroxine 75 mcg p.o. daily. 6. Omeprazole 20 mg p.o. daily. 7. Zofran 8 mg p.o. q.6 hours p.r.n. 8. Tresiba 10 units subcutaneous daily. 9. Levofloxacin 500 mg p.o. every 48 hours. REVIEW OF SYSTEMS: Could not be obtained from the patient. PHYSICAL EXAMINATION: VITAL SIGNS: Temperature 97.2 degrees, pulse 112, respiratory rate 30, blood pressure is 131/93, oxygen saturation 100%. HEENT: Atraumatic, normocephalic. Pupils equal, nonreactive to light. Anicteric. Currently has an ET tube in place. NECK: No lymphadenopathy or thyromegaly. CARDIOVASCULAR: S1, S2. RESPIRATORY: Has evidence of good air entry bilaterally. ABDOMEN: Soft, nontender. No masses felt. EXTREMITIES: No evidence of edema. CENTRAL NERVOUS SYSTEM: The patient is unresponsive. No obvious focal deficits noted. LABORATORY DATA: WBC 6.55, hematocrit is 36.2, with a platelet count of 217,000. INR is 0.47. ABGs: 7.56/31/383./96.6%. Chemistry: Sodium is 146, potassium 2.9, chloride is 107, bicarb 24, BUN is 21, creatinine is 4.4. ProBNP is 15,649. Urinalysis is slightly cloudy with large amount of blood, positive nitrites, numerous RBCs, 10 to 20 WBCs per high-power field. Head CT unremarkable for any acute lesions. CT of the chest showed pulmonary emboli in the right lower pulmonary arteries. There is evidence also of cardiomegaly. ASSESSMENT AND PLAN: A 73-year-old male who was found unresponsive, noted to be hypoglycemic. Did receive D50. Patient developed cardiac arrest in the emergency room. Advanced Cardiac Life Support was initiated. Readings during the cardiopulmonary resuscitation were asystole as well as ventricular tachycardia. CTA of the chest positive for pulmonary embolus. ASSESSMENT: 1. Acute respiratory failure. 2. Encephalopathy. 3. Status post cardiac arrest. 4. Septic shock. 5. Pulmonary embolus. 6. End-stage renal disease. 7. Hypoglycemia. 8. Hypothyroidism. 9. Paroxysmal atrial fibrillation. 10. Anemia of chronic disease. 11. Metastatic pancreatic cancer. PLAN: 1. Ventilator support. 2. Pulmonary consult. 3. Cautious use of intravenous fluids in light of renal failure. 4. Obtain blood as well as urine cultures. 5. Maintain patient on broad-spectrum antibiotics. 6. Consult Nephrology in light of end-stage renal disease. 7. Dextrose infusion. Follow up on blood sugar levels. 8. Deep venous thrombosis prophylaxis. 9. Gastrointestinal prophylaxis. cc: MD ZOHAIB Aguirre
--- NOTE | 2019-02-19 21:55 | HISTORY AND PHYSICAL ---
ADDENDUM: Regarding his advance directive,patient has a DNR order. Apparently this was not available at presentation. when he presented to the ER, he was intubated, and the family member who was present in the ER wants everything to be done. We will keep the patient intubated at this time until we get further clarification regarding his DNR status , if it is confirmed patient is really a DNR his wishes will have to be honored. cc: Smith Bah MD [facility]
[2019-02-19] MEDS: POTASSIUM CHLORIDE 20 MEQ/SWI 20 MEQ/100 ML IVPB IV SCH (22:30)
[2019-02-19] MEDS: ZOSYN 2.25 GM in NS 50 ML IV SCH (22:36)
[2019-02-19] MEDS: PEPCID IV SCH (22:37)
[2019-02-19] MEDS ORDERED: VANCOMYCIN 1 GM/NS 1 GM/250 ML IVPB IV ONE (23:00)
[2019-02-20] MEDS ORDERED: VANCOMYCIN 600 MG in NS 250 ML IV ONE ×2
[2019-02-20] MEDS: DUONEB (A & A) INH SCH ×7 (00:45→23:12)
[2019-02-20] MEDS: POTASSIUM CHLORIDE 20 MEQ/SWI 20 MEQ/100 ML IVPB IV SCH (00:58)
[2019-02-20 02:48] LABS: URINE SOURCE CATH
[2019-02-20] MEDS: LEVOPHED 8 MG in D5 1/2 NS 250 ML IV SCH ×2 (03:00→18:34)
[2019-02-20 03:04] LABS: BILIRUBIN URINE NEGATIVE (NEGATIVE); BLOOD URINE LARGE (NEGATIVE); COLOR BROWN; GLUCOSE URINE TRACE mg/dL (NEGATIVE); KETONE URINE TRACE mg/dL (NEGATIVE); LEUKOCYTES URINE SMALL (NEGATIVE); NITRITE URINE NEGATIVE (NEGATIVE); PH URINE 5.5; PROTEIN URINE 100 mg/dL (NEGATIVE); SP GRAVITY URINE 1.029; TURBIDITY URINE TURBID (CLEAR); UR EPITHELIAL CELLS <10 /HPF (<10); URINE BACTERIA NEGATIVE /HPF; URINE RBC TNTC /HPF (<10); URINE WBC <10 /HPF (<10); UROBILINOGEN URINE NORMAL (NORMAL)
[2019-02-20 03:22] LABS: URINE CASTS NONE SEEN; URINE CRYSTALS NONE SEEN; URINE SMALL ROUND CELLS NONE SEEN; URINE YEAST NONE SEEN
[2019-02-20] MEDS: ZOSYN 2.25 GM in NS 50 ML IV SCH ×3 (04:55→20:54)
[2019-02-20] MEDS: D10W 1,000 ML IV SCH ×2 (06:01→14:49)
[2019-02-20 07:09] LABS: ALB/GLOB RATIO 0.6; ALBUMIN 2.4 g/dL (3.5-5.0); CALCIUM 7.7 mg/dL (8.8-10.2); CREATININE 4.3 mg/dL (0.7-1.2); MAGNESIUM 1.6 mg/dL (1.5-2.7); POTASSIUM 3.2 mmol/L (3.5-5.1); TOTAL BILIRUBIN 1.12 mg/dL (0.20-1.00); TOTAL PROTEIN 6.6 g/dL (6.3-8.3)
[2019-02-20 07:16] LABS: BASO# 0.01 X1000 (0.0-0.2); BASO% 0.1 % (0.0-0.8); EOS# 0.01 X1000 (0.0-0.7); EOS% 0.1 % (0.0-10.0); HEMOGLOBIN 13.9 g/dL (14.0-18.0); IMM GRAN# 0.02 X1000 (0.0-0.04); IMM GRAN% 0.2 % (0.0-0.5); LYMPH# 0.64 X1000 (1.2-3.4); LYMPH% 6.8 % (20.5-51.1); MCH 28.7 PG (27-31); MCHC 32.3 g/dL (33-37); MCV 88.7 FL (81-99); MONO# 0.55 X1000 (0.11-0.59); MONO% 5.9 % (1.7-9.3); MPV 10.6 FL (7.4-10.4); NEUT# 8.15 X1000 (1.4-6.5); NEUT% 86.9 % (42.2-75.2); PLT 231 X1000 (130-400); RBC 4.85 XMIL (4.7-6.1); RDW 16.3 % (11.5-14.5); WBC 9.38 X1000 (4.8-10.8)
--- NOTE | 2019-02-20 07:51 | EKG Report ---
Test Performed on : 02/20/2019 06:52:08 AM Test Reason : chest pain Blood Pressure : / mmHG Vent. Rate : 099 BPM Atrial Rate : 099 BPM P-R Int : 170 ms QRS Dur : 076 ms QT Int : 410 ms P-R-T Axes : 068 -60 034 degrees QTc Int : 526 ms Sinus rhythm. with occasional premature ventricular complexes. Left axis deviation Inferior infarct (cited on or before 06-DEC-2018) Abnormal ECG When compared with ECG of 05-FEB-2019 07:35, premature ventricular complexes. are now present aberrant conduction. is no longer present Borderline criteria for Anterior infarct are no longer present ST now depressed in Inferior leads Confirmed by Andrews [place], Mauricio Salazar ([id number]) on 02/20/2019 9:44:44 AM
--- NOTE | 2019-02-20 08:06 | Diag Imaging Result Doc PS360 ---
EXAM: CHEST-PORTABLE 02/20/2019 HISTORY: fu TECHNIQUE: AP portable at 0529 COMMENT: There is an endotracheal tube with its tip slightly below the thoracic inlet and an NG tube with its tip in the stomach. There is a double-lumen right internal jugular central venous catheter with its tip in the right atrium. There is a platelike opacity in the right lower lung field presumably due to atelectasis. Otherwise are has been no significant change since 02/03/2019. IMPRESSION: Minimal subsegmental atelectasis right middle lobe. Electronically signed by Desmond Lazar 02/20/2019 8:04 AM
[2019-02-20] MEDS: SODIUM CHLORIDE 0.9% INJ SCH (08:52)
[2019-02-20] MEDS: PEPCID IV SCH ×2 (08:52→20:54)
[2019-02-20 09:03] LABS: ALLEN TEST NO; BE -5.8 mmoll (-3.0-3.0); BLOOD TYPE ARTERIAL; HCO3-(ACT) 20.4 mmoll (20.0-26.0); METHB 0.1 % (0.0-1.5); O2(CT) 18.4 mL/dL (15.0-23.0); O2HB 96.7 % (95.0-99.0); PCO2(98.6) 32 mmHg (35-45); PO2(98.6) 505 mmHg (60-100); SAMPLE BLOOD; SAO2 96.8 % (95.0-100.0); SRATE 12 BPM; THB 12.5 g/dL (11.5-17.4); TVOL 500 mL; pH(98.6) 7.37 (7.35-7.45)
[2019-02-20 09:05] LABS: MODALITY VENTILATOR
--- NOTE | 2019-02-20 12:40 | PROGRESS NOTE ---
DATE: 02/20/2019 SUBJECTIVE: The patient is currently intubated. OBJECTIVE: Vital signs: Temperature 98.4 degrees, pulse 100, respiratory rate 14, blood pressure 103/80, oxygen saturation is 93%. HEENT: Atraumatic, normocephalic. Eyes anicteric. Pupils are reactive to light. Cardiovascular: S1, S2. Respiratory: Has evidence of good entry bilaterally. Abdomen: Soft, nontender. No masses felt. Extremities: No evidence of significant edema. Central nervous system: No obvious focal deficit noted. LABORATORY DATA: WBC 9.38, hematocrit is 43, platelet count of 231,000. Sodium 141, potassium 3.2, chloride is 103, bicarb is 22, BUN is 22, creatinine is 4.3. ASSESSMENT: 1. Acute respiratory failure. 2. Encephalopathy. 3. Status post cardiac arrest. 4. Septic shock. 5. Pulmonary embolus. 6. End-stage renal disease. 7. Hypothyroidism. 8. Paroxysmal atrial fibrillation. 10. Metastatic pancreatic cancer. PLAN: Continue ventilator support. Maintain patient on intravenous fluids. Follow up on culture report. Continue broad-spectrum antibiotics. Maintain patient on DVT as well as GI prophylaxis. Case was discussed with the patient's brother regarding the fact that this patient is a known case of DNR. He is okay with honoring the patient's wishes and we will plan for extubation tomorrow. cc: Smith Bah MD MTDD
--- NOTE | 2019-02-20 13:40 | CONSULTATION ---
DATE OF CONSULTATION: 02/20/2019 REQUESTING PROVIDER: SIGIFREDO aHtch. REASON FOR CONSULTATION: Unresponsive, intubated. HISTORY OF PRESENT ILLNESS: This is a 73-year-old male with a medical history of end-stage renal disease, metastatic pancreatic carcinoma, anemia, atrial fibrillation, diabetes mellitus type 2, hypertension, hyperlipidemia, secondary hyperparathyroidism, hypothyroidism, gout, gastroesophageal reflux disease, and congestive heart failure. He presented to the ER via EMS days yesterday morning after being found unresponsive by family. Upon arrival to the ER, he was intubated. Soon after intubation, he developed a cardiac arrest and was coded twice for 4 minutes and 2 minutes each. He received one ampule epinephrine, 1 ampule calcium chloride and 1 ampule bicarb during the first code. Head CT was negative for acute changes. CT PA showed pulmonary emboli in the right lobar pulmonary arteries, cardiomegaly and upper abdominal ascites. He also developed shock. He was put on Levophed drip last night 8 p.m. which currently is running at 11 mL per hour. He is on mechanical ventilator with spontaneous rate 12, FiO2 of 100%, tidal volume 500, PEEP 12. His oxygen saturation stays at low 90s. The patient's girlfriend is at the bedside, but she apparently knows little about patient's health condition. All other information is obtained from the E-chart. PAST MEDICAL HISTORY: 1. End-stage renal disease, on hemodialysis. 2. 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 Marshall. 3. Anemia of chronic disease. 4. Paroxysmal atrial fibrillation. 5. Diabetes mellitus type 2, insulin dependent. 6. Hypertension. 7. Hyperlipidemia. 8. Secondary hyperparathyroidism. 9. Hypothyroidism. 10. Gout. 11. History of Klebsiella bacteremia. 12. Severe protein energy malnutrition. 13. Gastroesophageal reflux disease. 14. Congestive heart failure, diastolic ejection fraction on 11/05/2018, 50 to 60 percent. PAST SURGICAL HISTORY: 1. Right internal jugular vein tunneled hemodialysis catheter placement on 10/30/2018. 2. Previous orthopedic surgery to his finger. 3. Percutaneous cholecystostomy with drain placement multiple times. SOCIAL HISTORY: The patient has no history of alcohol, tobacco, or illicit drug use. FAMILY HISTORY: Positive for coronary artery disease and hypertension. ALLERGIES: No known drug allergies. REVIEW OF SYSTEMS: Unable to be obtained. PHYSICAL EXAMINATION: Vital Signs: Temperature 98.4, blood pressure 130/102, pulse 104, respiratory rate 15, oxygen saturation 90% on AC mechanical ventilator with spontaneous rate 12, FiO2 100%, tidal volume 508, and PEEP of 12. General: Chronically ill- appearing, lying in bed with no acute distress noted. Patient's girlfriend is at the bedside. ET tube is in place. Urinary bag at the bedside with scant dark urine inside. There are hansel on the right couple abdominal quadrant, the surgical site is dry and clean. No drainage noted. HEENT: Atraumatic. Trachea midline. ET tube in place. Mucosa pink, is slightly dry. Respiratory: Unlabored. Clear to auscultation bilaterally. Cardiovascular: Sinus tachycardia with regular rate and rhythm. No murmur noted. Gastrointestinal: Bowel sounds present in all 4 quadrants. Soft, nondistended. Extremities: No pedal edema. No cyanosis. No clubbing. Dorsalis pedis 2+ bilaterally. Neurologic: Unresponsive to verbal stimuli. Movement with painful stimuli. LABORATORY DATA: White blood cell 9.38, hemoglobin 13.8, hematocrit 43.0, platelet 231,000. Sodium 141, potassium 3.2, chloride 103, carbon dioxide 22, BUN 22, creatinine 4.3, glucose 95. Troponin 0.383. ABG, pH 7.37, pCO2 of 32, PO2 of 505, HC03 of 20.4, base excess -5.8, oxyhemoglobin 96.7, and lactate 2.60. IMAGING DATA: Chest x-ray showed minimal subsegmental atelectasis, right middle lobe. ASSESSMENT: This is a 73-year-old male with multiple medical history including end-stage renal disease, metastatic pancreatic carcinoma, anemia, atrial fibrillation, diabetes mellitus type 2, hypertension, hyperlipidemia, secondary hyperparathyroidism, hypothyroidism, gout, gastroesophageal reflux disease, and congestive heart failure. He has been admitted to the ICU with cardiac arrest, encephalopathy, septic shock, and pulmonary emboli. 1. Acute respiratory failure, currently intubated. 2. Encephalopathy. 3. Septic shock. 4. Pulmonary emboli in the right lower pulmonary arteries. 5. Status post cardiac arrest. 6. Urinary tract infection. 7. Hypoglycemia with insulin-dependent diabetes mellitus type 2 diabetes. PLAN: 1. Continue AC mechanical ventilator. 2. Continue pressor, antibiotics and bronchodilators. 3. Follow up with ABG, CBC, BMP, CK, troponin, urine culture, sputum culture and blood culture. 4. The patient is DNR 1. 5. Continue GI and DVT prophylaxis. 6. Further recommendations pending hospital course. Thank you for the courtesy of this consult. Dictated by SIGIFREDO Gerebr for Madison Olivares MD cc: SIGIFREDO Gerber MD [facility]
[2019-02-20] MEDS ORDERED: LOVENOX SUBQ SCH (17:00)
[2019-02-20] MEDS: ATIVAN IV PRN (17:28)
[2019-02-21] MEDS: D10W 1,000 ML IV SCH ×2 (01:58→11:06)
[2019-02-21] MEDS: ATIVAN IV PRN ×2 (01:58→15:03)
[2019-02-21] MEDS: DUONEB (A & A) INH SCH ×3 (03:10→11:29)
[2019-02-21] MEDS: ZOSYN 2.25 GM in NS 50 ML IV SCH ×2 (03:34→11:06)
[2019-02-21 04:27] LABS: ALLEN TEST YES; BE -8.8 mmoll (-3.0-3.0); BLOOD TYPE ARTERIAL; HCO3-(ACT) 18.1 mmoll (20.0-26.0); O2(CT) 13.4 mL/dL (15.0-23.0); PCO2(98.6) 33 mmHg (35-45); PO2(98.6) 280 mmHg (60-100); SAMPLE BLOOD; SAO2 99.6 % (95.0-100.0); SRATE 12 BPM; THB 9.2 g/dL (11.5-17.4); TVOL 500 mL; pH(98.6) 7.31 (7.35-7.45)
[2019-02-21 04:28] LABS: MODALITY VENTILATOR
[2019-02-21 06:37] LABS: BASO# 0.01 X1000 (0.0-0.2); BASO% 0.1 % (0.0-0.8); EOS# 0.05 X1000 (0.0-0.7); EOS% 0.6 % (0.0-10.0); HEMOGLOBIN 10.7 g/dL (14.0-18.0); LYMPH# 0.78 X1000 (1.2-3.4); LYMPH% 8.9 % (20.5-51.1); MCH 28.4 PG (27-31); MCHC 32.4 g/dL (33-37); MCV 87.5 FL (81-99); MONO% 6.8 % (1.7-9.3); MPV 11.1 FL (7.4-10.4); NEUT# 7.37 X1000 (1.4-6.5); NEUT% 83.6 % (42.2-75.2); PLT 118 X1000 (130-400); RBC 3.77 XMIL (4.7-6.1); RDW 15.4 % (11.5-14.5); WBC 8.81 X1000 (4.8-10.8)
--- NOTE | 2019-02-21 07:12 | Diag Imaging Result Doc PS360 ---
EXAM: CHEST-1 VIEW 02/21/2019 HISTORY: SOB TECHNIQUE: AP portable at 0513 COMMENT: There is an NG tube passing below the diaphragm. There is an endotracheal tube at the thoracic inlet. There is a double-lumen internal jugular catheter on the right with its tip in the right atrium. There is atelectasis versus fibrosis in the right base which has not changed since 02/20/2019. Overall the appearance the chest has not changed significantly. IMPRESSION: Stable chest. Electronically signed by Desmond Lazar 02/21/2019 7:09 AM
[2019-02-21 07:13] LABS: CREATININE 4.5 mg/dL (0.7-1.2); POTASSIUM 2.9 mmol/L (3.5-5.1)
[2019-02-21 07:39] LABS: CALCIUM 6.8 mg/dL (8.8-10.2)
[2019-02-21] MEDS: PEPCID IV SCH (09:24)
[2019-02-21] MEDS: SODIUM CHLORIDE 0.9% INJ SCH (09:24)
[2019-02-21] MEDS: MORPHINE IV PRN ×2 (13:43→16:12)
--- NOTE | 2019-02-21 17:11 | PROGRESS NOTE ---
DATE: 02/21/2019 SUBJECTIVE: The patient is currently intubated. Has a brother present in the room. OBJECTIVE: Vital signs: Temperature 98.1 degrees, pulse 115, respiratory rate 16, blood pressure is 86/63, oxygen saturation 100%. HEENT: Atraumatic, normocephalic. Cardiovascular System: S1, S2. Respiratory system has evidence of good air entry bilaterally. Central nervous system: The patient is not responsive. He is currently intubated. LABORATORY DATA: WBC is 8.81, hematocrit is 33, with a platelet count of 118,000. Sodium 131, potassium 2.9, chloride 102, bicarbonate 16, BUN is 25, creatinine is 4.5. ASSESSMENT: 1. Acute respiratory failure. 2. Encephalopathy. 3. Status post cardiac arrest. 4. Septic shock. 5. Pulmonary embolus. 6. End-stage renal disease. 7. Hypothyroidism. 8. Paroxysmal atrial fibrillation. 9. Metastatic pancreatic cancer. PLAN: Proceed with extubating patient, per prior wishes of the patient and now family. Initiate comfort care measures. Transfer the patient to medical floor. cc: Smith Bah MD [facility]
[2019-02-22 05:10] VITALS: BP 73/51
--- NOTE | 2019-02-23 03:56 | DISCHARGE SUMMARY ---
ADMISSION DATE: 02/19/2019 DISCHARGE DATE: 02/22/2019 PRINCIPAL DISCHARGE DIAGNOSIS: Acute respiratory failure. SECONDARY DIAGNOSES: 1. Encephalopathy. 2. History of cardiac arrest. 3. Septic shock. 4. Pneumonia secondary to Klebsiella pneumonia. 5. Pulmonary embolism. 6. End-stage renal disease. 7. Hypoglycemia. 8. Hypothyroidism. 9. Paroxysmal atrial fibrillation. 10. Anemia of chronic disease. 11. Metastatic pancreatic cancer. CONSULTATIONS DONE DURING HOSPITAL STAY: Dr. Madison Olivares. PROCEDURES DONE DURING HOSPITAL STAY: Head CT 02/19/2019. HOSPITAL COURSE: Mr. Guzman is a 73-year-old male with a history of multiple medical conditions, including end-stage renal disease, hypothyroidism, paroxysmal atrial fibrillation with metastatic pancreatic cancer, recent history of Klebsiella pneumonia bacteremia. The patient was found unresponsive at home, was brought into the hospital by EMS. EMS services indicated that patient's blood sugar was low and he did receive 1 amp of D50, and blood sugar did improve to 136. When he arrived to the ER, he was intubated and soon after intubation he went asystolic. ACLS protocol was initiated. Pulse was regained. Readings during the ACLS code were asystole as well as ventricular tachycardia. The patient had a CTA of the head done, which was unremarkable. CTA of the chest was positive for PE. The patient was started on anticoagulation. His initial troponin was unremarkable. Potassium level was 2.9. The patient was admitted to the critical care unit. Of note, prior to admission patient had a prior DNR. The issue was discussed with the patient's brother, who was the only family around, and the patient's brother was okay with having patient extubated. Prior to extubation, patient was maintained on ventilator support and also broad- spectrum antibiotics for infection. His sputum culture did come back positive for Klebsiella pneumonia. The patient was extubated on 02/21/2019, and this was done based on his prior wishes as well as the wishes of the patient's family. He was placed on comfort care measures only. The patient on 02/22/2019. cc: Smith Bah MD MTDD
[2019-02-24] MEDS ORDERED: VANCOMYCIN 1,250 MG in NS 250 ML IV SCH (23:00)
== END 2019-02-22 04:54 | disposition expired | DRG 871 ==
LOC: EDBD → ED 10:28 → MERGE 10:28 → ICU 18:21
PROVIDERS: ATTEND Internal Medicine
CPT/HCPCS: 51702; 70450; 71010; 71045; 71275; 80048; 80053; 81001; 82550; 82805; 82948; 83605; 83735; 83880; 84484; 85025; 85379; 85610; 85730; 87040; 87070; 87077; 87088; 87186; 87205; 89220; 92950; 93005; 93010; 94003; 94640; 96365; 96366; 96368; 96372; 96375; 96376; 99285; 99291; A9270; J0171; J0330; J1650; J1956; J2060; J2250; J2270; J2543; J3370; J3480; J7030; J7040; J7050; Q9967; S0028; XXXXX